=== PATIENT | male | born 1945 | race Caucasian/White ===

== ENCOUNTER 2025-02-09 06:50 | Emergency (ER) | payer MEDICARE, OTHER, SELFPAY ==
[2025-02-09 06:51] VITALS: BP 158/79; PULSE 69; RESP 25; TEMP 36.9; O2SAT 100; BMI 32.3
--- NOTE | 2025-02-09 07:06 | ED.VIS.CHEST ---
HPI History of Present Illness Chief Complaint: Chest Pain Informant: patient Onset/Context/Timing Onset: Today Activity at onset: sudden and sleep Timing: Continuous Quality: Positive for Sharp Location: Left Chest Worsened By: Nothing Relieved By: Nothing Associated Symptoms: Negative for Nausea, Vomiting, Diaphoresis, Dyspnea, Cough, Fever, Lightheadedness, Acid Reflux or Palpitations Narrative Narrative: Patient presents with chest pain that began this morning. Patient states he woke up and noticed pain in the left side of his chest. Patient describes it as sharp. Patient states it is constant. Patient states nothing makes it better and nothing makes it worse. Patient denies any radiation of the pain. Patient states he took an antiacid which did not help. Patient denies any nausea or vomiting. Patient denies any shortness of breath or cough. Patient denies any palpitations. CVD Risk Factors: Negative for Hypertension, Diabetes, Hypercholesterolemia, Family History 1' </=55 or Smoking PE Risk Factors: Positive for Prior DVT or PE; Negative for Recent Travel/Surgery, Recent Immobilization or Cancer PFSH PFS Home Medications ?Medication ?Instructions ?Recorded ?Last Taken ?Type calcium carbonate (Antacid Ultra 800 mg PO Q4H PRN dyspepsia 02/09/25 02/09/25 History Strength) fluticasone propionate 50 1 spray intranasal DAILY 02/09/25 02/08/25 History mcg/actuation nasal spray,suspension losartan 25 mg tablet 25 mg PO DAILY 02/09/25 02/08/25 History simvastatin 20 mg tablet 20 mg PO QHS 02/09/25 02/08/25 History warfarin 5 mg tablet 5 mg PO DAILY 02/09/25 02/08/25 History Allergy/AdvReac Type Severity Reaction Status Date / Time Sulfa (Sulfonamide Allergy Severe Anaphylaxis Verified 02/09/25 06:51 Antibiotics) Family History no significant family his Surgical History (Updated 02/09/25 @ 07:[address] Patricio Gutierrez DO) History of facial surgery Social History Smoking Status: Never smoker ROS ROS ED Constitutional Constitutional ED: Denies chills or fever(s) Eyes Eyes: Denies blurry vision or change in vision ENT ENT ED: Denies rhinorrhea or sore throat Cardiovascular Cardiovascular: Reports as per HPI and chest pain; Denies palpitations Respiratory/Chest Respiratory/Chest: Denies cough or dyspnea Gastrointestinal Gastrointestinal: Denies nausea or vomiting Genitourinary Genitourinary ED: Denies dysuria or hematuria Musculoskeletal Musculoskeletal: Denies back pain or neck pain Integumentary Denies abscess or rash Neurologic Neurologic: Denies headache(s) or weakness Allergic/Immunologic Allergic/Immunologic ED: Denies mouth swelling or urticaria EXAM Physical Exam Const Vital Signs: 02/09/25 06:51 02/09/25 06:51 02/09/25 07:19 Temperature 98.5 F Temperature Source Oral Pulse Rate 69 Respiratory Rate 25 H Respiratory Effort Normal Non-Labored Blood Pressure 158/79 H Blood Pressure Mean 105 Pulse Ox 100 Oxygen Delivery Method Room Air Room Air 02/09/25 07:44 02/09/25 07:51 02/09/25 09:00 Temperature Temperature Source Pulse Rate 68 58 L 61 Respiratory Rate 21 H 17 Respiratory Effort Blood Pressure 152/82 H 129/75 H 128/70 H Blood Pressure Mean 93 89 Pulse Ox 98 98 Oxygen Delivery Method Room Air Positive well nourished and well developed General Appearance ED: well developed and NAD HEENT Reports moist mucous membranes Neck supple and no JVD Chest Wall palpation of chest normal Resp normal respiratory effort and clear to auscultation bilaterally Cardio regular rate and regular rhythm GI soft to palpation, non-tender and non-distended Extremity normal to inspection General Extremety ED: Negative for edema or tenderness General Extremity: Negative for edema Neuro oriented x3, CN's II-XII intact bilaterally and no sensory deficits noted Sensorium / Orientation: awake and alert Motor Exam: strength 5/5 throughout Psych mental status grossly normal Heart Score History: Slightly/Non-Suspicious ECG: Normal Age: >/= 65 years Risk Factors: 1 or 2 Risk Factors Troponin: </= Normal Limit Score: 3 MDM MDM MDM Narrative Medical decision making narrative: Differential diagnosis includes cardiac dysrhythmia, cardiac ischemia, pneumonia, bronchitis, gastroesophageal reflux disease, pulmonary embolism, coagulopathy, and anxiety. EKG will be obtained to assess for cardiac dysrhythmia and cardiac ischemia. Chest x-ray will be obtained to assess for pneumonia or bronchitis. CBC will be obtained to assess for leukocytosis and anemia. Basic metabolic profile will be obtained to assess for electrolyte abnormality and renal function. High-sensitivity troponin will be obtained to assess for cardiac ischemia. 2-hour repeat high-sensitivity troponin will be obtained to assess for ongoing cardiac ischemia. D-dimer will be obtained to assess for pulmonary embolism. PT with INR and PTT will be obtained to assess for coagulopathy. History & Record Review Additional record(s) reviewed:: No prior records Lab Data Attestation: I reviewed the patient's lab results. Lab results narrative: CBC was reviewed and was within normal limits. Basic metabolic profile was reviewed and was within normal limits. Initial high-sensitivity troponin was reviewed and was normal at 10. D-dimer was reviewed and was normal at 0.27. 2-hour repeat high-sensitivity troponin was reviewed and was normal at 9. Labs: Laboratory Results - last 24 hr 02/09/25 02/09/25 07:06 09:19 WBC 6.7 RBC 4.49 L Hgb 14.3 Hct 43.5 MCV 96.9 H MCH 31.8 MCHC 32.9 RDW Std Deviation 47.2 H RDW Coeff of Srinivas 13.2 Plt Count 168 MPV 9.5 Immature Gran % (Auto) 0.300 Neut % (Auto) 68.1 Lymph % (Auto) 19.9 [place] % (Auto) 8.4 Eos % (Auto) 2.7 Baso % (Auto) 0.6 Absolute Neuts (auto) 4.6 Absolute Lymphs (auto) 1.33 Nucleated RBC % 0 D-Dimer Quant (PE/DVT) 0.27 Sodium 142 Potassium 4.7 Chloride 109 H Carbon Dioxide 24.2 Anion Gap 9 BUN 18 Creatinine 0.98 Estim Creat Clear Calc 73.38 Est GFR (MDRD) Non-Af 80 BUN/Creatinine Ratio 18.7 Glucose 98 Calcium 8.7 Troponin T High Sens 10 Troponin T Hi Sens 2 Hr 9 Radiography Chest X-Ray - ED: 1 View, Read by ED Physician, Read by Radiologist and No Acute Disease Diagnostic Testing: Clinical Impression(s) from Imaging Studies Chest X-Ray 02/09/25 07:25 IMPRESSION: Mild bilateral basilar atelectatic pulmonary changes. Reading Location: [place] [id number] Portable 1 view chest x-ray was obtained. On my independent interpretation, lung pizano showed mild bibasilar atelectasis. There is cardiomegaly. Bony thorax is normal. There is no acute process noted. Radiologist also interpreted the x-ray and agrees. EKG Initial EKG: Attestation: I personally reviewed and interpreted this EKG as follows: Interpretation: Sinus Rhythm (64) and No Acute Injury Pattern Comments: EKG was obtained. On my independent interpretation, it showed a normal sinus rhythm with occasional PACs and fusion beats with a rate of 64. [place] interval, QRS interval, and QTc intervals were all normal. [place] was normal. There are no acute ST or T wave changes. Prior EKG tracings: not available for review Prior: No Prior Treatment and Re-Evaluation :: Patient was given aspirin and sublingual nitroglycerin. Patient was feeling better on reevaluation. Patient was advised of this findings. Patient has a HEART score of 3. Patient was advised that this is low risk for acute cardiac event. Patient was instructed to follow-up with his primary care physician in 5 to 7 days. Patient was advised he may need outpatient stress testing if there are any further concerns. Patient and spouse understood and were agreeable with this plan. All questions were answered. Discharge Plan Triage Chief Complaint: Chest Pain ED Provider: Patricio Gutierrez Dx/Rx/DC Orders Clinical Impression: Chest pain, Elevated blood pressure reading Instructions: ED Chest Pain, Uncertain Cause Prescriptions: No Action simvastatin 20 mg tablet 20 mg PO QHS warfarin 5 mg tablet 5 mg PO DAILY losartan 25 mg tablet 25 mg PO DAILY fluticasone propionate 50 mcg/actuation spray,suspension 1 spray INTRANASAL DAILY calcium carbonate [Antacid Ultra Strength] 400 mg calcium (1,000 mg) tablet,chewable 800 mg PO Q4H PRN (Reason: dyspepsia) Primary Care Provider: Benny Gregory MD Referrals: Benny Gregory MD [Other] - 5-7 Days Print Language: Maltese Disposition Disposition: Home, Self Care
--- NOTE | 2025-02-09 07:19 | EKG12_ITS ---
Test Reason : Blood Pressure : */* mmHG Vent. Rate : 64 BPM Atrial Rate : 64 BPM P-R Int : 196 ms QRS Dur : 72 ms QT Int : 378 ms P-R-T Axes : 35 23 52 degrees QTcB Int : 389 ms Sinus rhythm with sinus arrhythmia with Fusion complexes Otherwise normal ECG Confirmed by Benny Wallace ([id number]), subeditor NANCY CHENG ([id number]) on 02/14/2025 11:30:35 AM Referred By: SHERRILL Confirmed By: Benny Wallace
--- NOTE | 2025-02-09 07:25 | RAD_ITS ---
PROCEDURE: CHEST 1 VIEW (PORTABLE) 02/09/2025 REASON FOR EXAM: CHEST PAIN TECHNIQUE: Frontal view of the chest. COMPARISON: None. FINDINGS: Mild bilateral basilar atelectatic pulmonary changes. There is no demonstrated pleural abnormality. Enlarged cardiac silhouette. Normal mediastinum and jaime. Normal visualized pulmonary arteries. Atheromatous plaques of the visualized aortic arch and descending thoracic aorta. Diffuse spondylosis of the visualized thoracic spine. Normal visualized ribs, clavicles. Degenerative joint disease. There is no demonstrated abnormality of the visualized soft tissue structures of the upper abdomen. RAD/Chest 1 View (Portable) IMPRESSION: Mild bilateral basilar atelectatic pulmonary changes. [facility]
[2025-02-09 07:30] LABS: Absolute Lymphocyte Count 1.33 X10^3/uL (0.83-4.51); Absolute Neutrophil Count 4.6 X10^3/uL (2.0-7.7); Basophil# 0.04 X10^3/uL; Basophil% 0.6 % (0-1); Eosinophil# 0.18 X10^3/uL; Eosinophils% 2.7 % (0-5); Hematocrit 43.5 % (40-54); Hemoglobin 14.3 g/dL (13.0-16.5); Lymphocyte # 1.33 X10^3/ul (0.83-4.51); Lymphocyte % 19.9 % (19-41); Mean Corp Hgb Conc 32.9 g/dL (32-36); Mean Corpuscular Hgb 31.8 pg (27.0-32.0); Mean Corpuscular Volume 96.9 fL (80-94); Mean Platelet Vol. 9.5 fl (6.2-12.0); Monocyte# 0.56 X10^3/uL; Monocyte% 8.4 % (0-10); NRBC Flagged by Analyzer 0 % (0-5); Neutrophil # 4.56 X10^3/uL (2.7-7.7); Neutrophil % 68.1 % (47-70); Platelet Count 168 K/mm3 (150-450); RBC Distribution Width CV 13.2 % (11.6-14.6); RBC Distribution Width SD 47.2 fl (35.1-43.9); Red Blood Count 4.49 M/mm3 (4.6-6.2); White Blood Count 6.7 K/mm3 (4.4-11.0)
[2025-02-09] MEDS: Aspirin 81 MG TAB.CHEW 324 MG PO (07:42)
[2025-02-09 07:44] VITALS: BP 152/82; PULSE 68
[2025-02-09] MEDS: Nitroglycerin SL (ED/IMG/CATH) 0.4 MG TABLET SL (07:44)
[2025-02-09 07:51] VITALS: BP 129/75; PULSE 58; RESP 21; O2SAT 98
[2025-02-09 07:55] LABS: Troponin T High Sensitivity 10 ng/L (<=22)
[2025-02-09 07:58] LABS: Anion Gap 9 (5-15); BUN 18 mg/dL (4-19); BUN/Creat Ratio 18.7 RATIO (10-20); Calcium,Total 8.7 mg/dL (7.6-11.0); Carbon Dioxide 24.2 mmol/L (21.0-32.0); Chloride 109 mmol/L (98-108); Creatinine, Serum 0.98 mg/dL (0.70-1.20); EST Glomerular Filtration Rate 80 (>60); Estimated Creatinine Clearance 73.38 ml/min (50-250); Glucose 98 mg/dL (70-99); Potassium 4.7 mmol/L (3.3-5.1); Sodium Level 142 mmol/L (133-145)
[2025-02-09 08:19] LABS: D-Dimer Quantitative (DVT/PE) 0.27 FEU/ug/m (0.27-0.49)
[2025-02-09 09:00] VITALS: BP 128/70; PULSE 61; RESP 17; O2SAT 98
[2025-02-09 09:51] LABS: Troponin T High Sens 2 HR 9 ng/L (<=22)
[2025-02-09 10:00] VITALS: BP 131/70; PULSE 67; RESP 19; O2SAT 99
[2025-02-09 10:13] VITALS: BP 131/70; PULSE 67; RESP 19; TEMP 36.6; O2SAT 99
== END 2025-02-09 10:16 | disposition home or self-care (01) ==
PROVIDERS: Emergency Provider Emergency Medicine; Visit Provider Emergency Medicine
DX: R07.9 Chest pain, unspecified (principal); R03.0 Elevated blood-pressure reading, without diagnosis of hypertension; Z79.899 Other long term (current) drug therapy; Z79.01 Long term (current) use of anticoagulants
CPT/HCPCS: 71045; 80048; 84484; 85025; 85379; 93005; 99283; A4216

== ENCOUNTER 2025-08-05 10:27 | Emergency (ER) | payer MEDICARE, OTHER, SELFPAY ==
[2025-08-05 10:28] VITALS: BP 151/81; PULSE 72; RESP 16; TEMP 36.2; O2SAT 100; BMI 30.7
--- NOTE | 2025-08-05 11:07 | CT_ITS ---
PROCEDURE: BRAIN/HEAD WITHOUT CONTRAST 08/05/2025 REASON FOR EXAM: FALL, HIT HEAD ON WARFARIN TECHNIQUE: Procedure Code: CTBR Modality: CT Procedure: BRAIN/HEAD WITHOUT CONTRAST Coronal and Sagittal reconstruction series were provided. One or more dose reduction techniques were used (e.g., Automated exposure control, adjustment of the mA and/or kV according to patient size, use of iterative reconstruction technique. RADIATION DOSE SUMMARY: CTDlvol: 22.24 mGy DLP: 1365.2 mGycm COMPARISON: None. FINDINGS: Brain: No acute territorial infarction. No acute intracranial hemorrhage. No mass-effect or midline shift. Diffuse white matter hypodensities which are nonspecific but likely due to chronic small-vessel ischemia. Parenchymal volume loss consistent with brain atrophy. No ventriculomegaly. The orbits are unremarkable. The craniocervical junction is unremarkable. CSF Spaces: Advanced generalized cerebral atrophy Sinuses/Mastoids: Clear Bones: No acute bony abnormalities. CT/Brain/Head without Contrast IMPRESSION: No acute intracranial abnormalities. Reading Location: [facility]
--- NOTE | 2025-08-05 11:07 | CT_ITS ---
PROCEDURE: SPINE CERVICAL WITHOUT CONTRAS 08/05/2025 REASON FOR EXAM: FALL, HIT HEAD TECHNIQUE: Procedure Code: CTS Modality: CT Procedure: SPINE CERVICAL WITHOUT CONTRAS Coronal and Sagittal reconstruction series were provided. One or more dose reduction techniques were used (e.g., Automated exposure control, adjustment of the mA and/or kV according to patient size, use of iterative reconstruction technique. RADIATION DOSE SUMMARY: CTDlvol: 22.24 mGy DLP: 1365. mGycm COMPARISON: None. FINDINGS: Alignment: Normal alignment. Vertebrae: No acute bony abnormalities. Soft Tissues: No soft tissue abnormalities. Disc levels: Multilevel degenerate changes predominantly at C2-C3 where there is facet joint arthropathy with severe bilateral foramina stenosis. No canal stenosis. CT/Spine Cervical without Contras IMPRESSION: No acute injury to the cervical spine. Reading Location: [facility]
--- NOTE | 2025-08-05 11:09 | ED.VIS.FALL ---
HPI HPI - Fall History of Present Illness Chief Complaint: Fall Narrative Narrative: Patient is a 80-year-old male presenting to the emergency room after a fall at home. Patient has a past medical history of hypertension, hyperlipidemia and DVT. Patient is on warfarin. He states he was walking on the treadmill when it sped up he was not able to keep up causing him to fall forward hitting his face, left knee and bilateral hands. He denies any loss of consciousness. States afterwards when he was trying to get his cuts cleaned up he developed some lightheadedness but has no lightheadedness or dizziness now. He states he is ambulated afterwards. Last tetanus vaccine was within the past 5 years he states. He denies any chest pain, shortness of breath or abdominal pain. [facility] Medical History Hyperlipemia HTN (hypertension) Abdominal hematoma H/O deep venous thrombosis Home Medications ?Medication ?Instructions ?Recorded ?Last Taken ?Type calcium carbonate (Antacid Ultra 800 mg PO Q4H PRN dyspepsia 02/09/25 02/09/25 History Strength) fluticasone propionate 50 1 spray intranasal DAILY 02/09/25 02/08/25 History mcg/actuation nasal spray,suspension losartan 25 mg tablet 25 mg PO DAILY 02/09/25 02/08/25 History simvastatin 20 mg tablet 20 mg PO QHS 02/09/25 02/08/25 History warfarin 5 mg tablet 5 mg PO DAILY 02/09/25 02/08/25 History Allergy/AdvReac Type Severity Reaction Status Date / Time Sulfa (Sulfonamide Allergy Severe Anaphylaxis Verified 08/05/25 10:30 Antibiotics) Surgical History History of facial surgery Social History housing: house Smoking Status: Never smoker ROS ROS ED ROS Narrative see HPI EXAM Physical Exam Narrative Exam Narrative: Vital signs: Reviewed General: Alert and orientedx3. No acute distress. Well appearing, nontoxic. HEENT: Scalp is normocephalic and atraumatic. No cephalhematoma, lacerations or abrasions to the scalp. There is a small superficial abrasion to the right sided bridge of the nose with no active bleeding. No tenderness to palpation of the nasal bridge or midface. Sinuses nontender, pupils equal round and reactive. 2 mm. Extraocular movements intact. Nares are patent. No septal hematoma. Oropharynx and throat exams normal. No oropharyngeal trauma. Neck: Supple without lymphadenopathy nontender. No midline cervical spinal tenderness to palpation. No step-offs or deformities. Cardiovascular: Regular rate and rhythm, no murmurs. No rubs or gallops. Normal S1 and S2 Respiratory: Clear to auscultation bilaterally. No wheezes, rales, rhonchi Chest: Chest wall is atraumatic and nontender to palpation. There is no crepitus, erythema or ecchymosis. Abdominal: Soft and nontender. Normal bowel sounds. No guarding or rebound. Nonsurgical abdomen Back: No midline thoracic or lumbar spinal tenderness to palpation. No step-offs or deformities. Extremities: There are 2 superficial abrasions to the left anterior knee. There is no tenderness to palpation of the knee outside of the abrasions. Hips are stable and nontender to palpation. Otherwise bilateral lower extremities are atraumatic and nontender to palpation with normal active range of motion. There is a large superficial abrasion to the ulnar portion of the volar left palm. There is also a superficial avulsion injury to the ulnar portion of the distal fifth left finger. There is some mild swelling and point tenderness to the right 5th metacarpal. Otherwise bilateral upper extremities are atraumatic and nontender to palpation with normal active range of motion normal ROM. Normal sensation. Radial pulses intact bilaterally. Skin: No rash or redness. Neurological: Cranial nerves II through XII are grossly intact. Normal strength and sensation. Normal cerebellar function The rest of the physical exam is unremarkable Const Vital Signs: 08/05/25 10:28 08/05/25 10:39 08/05/25 12:27 Temperature 97.2 F L 98 F Temperature Source Oral Pulse Rate 72 63 Respiratory Rate 16 18 Respiratory Effort Normal Non-Labored Respiratory Depth Normal Respiratory Pattern Normal Blood Pressure 151/81 H 143/74 H Blood Pressure Mean 104 97 Pulse Ox 100 97 Oxygen Delivery Method Room Air Room Air MDM MDM MDM Narrative Medical decision making narrative: Patient is a 80-year-old male presenting to the emergency department after a fall. Patient was seen and examined. Vitals are stable. Patient resting in bed comfortably no acute distress. Patient had a mechanical fall and given his age and the fact that he is on warfarin will obtain CT the brain and cervical spine. There is small abrasion to the nasal bridge but no tenderness I do not think he has a nasal fracture and I explained that does not gear changer if he does and patient and significant other are agreeable with the plan. X-rays of bilateral hands and left knee will be obtained. Wounds will be copiously irrigated and dressed appropriately. The skin avulsion on the left pinky finger was dermabonded given continued active oozing. There is no lacerations that require suture repair. Patient had no chest wall pain or hip pain and I do not think he needs x-ray imaging of the either. He was able to ambulate into the ED without difficulty, making hip fractures less likely. Xrays reviewed by myself and show no evidence of fracture or dislocation. CT brain reviewed by myself, no acute intracranial abnormality noted. Radiology read with negative CT brain and cervical spine. Radiology read with x-rays being negative. Patient was updated on the negative imaging. Educated on wound care for home. Recommended repeat xrays in 1 week with PCP if continued pain. Patient discharged from the Emergency Department. I do not feel that the patient's evaluation reveals any acute reason for admission at this time. I instructed them to either follow-up with their primary care physician or promptly return to the Emergency Department for reevaluation should symptoms worsen or new symptoms develop. I explained what symptoms would indicate the need to return to the emergency department. Shared decision making was used. The patient voiced understanding of the treatment plan and is agreeable with it. Clinical impression Mechanical fall Abrasion of skin Left knee contusion Bilateral hand contusions History & Record Review Discussion w/independent historian: Patient and Significant other Radiography X-Ray: Read by ED Physician and No Fracture Diagnostic Testing: Clinical Impression(s) from Imaging Studies Brain CT 08/05/25 11:07 IMPRESSION: No acute intracranial abnormalities. Reading Location: [facility] Cervical Spine CT 08/05/25 11:07 IMPRESSION: No acute injury to the cervical spine. Reading Location: [facility] Hand X-Ray 08/05/25 11:25 IMPRESSION: Degenerative changes of bilateral hands and wrists without acute fracture or subluxation. Reading Location: [id number] Hand X-Ray 08/05/25 11:25 IMPRESSION: Degenerative changes of bilateral hands and wrists without acute fracture or subluxation. 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 Small left knee effusion. Reading Location: [id number] Discharge Plan Triage Chief Complaint: Fall ED Provider: Caroline Mcdermott Dx/Rx/DC Orders Clinical Impression: Fall, Abrasion of skin, Contusion of knee, Contusion of hand Instructions: ED Abrasion, ED Hand Contusion, ED Fall Prevention, ED RICE Prescriptions: No Action simvastatin 20 mg tablet 20 mg PO QHS warfarin 5 mg tablet 5 mg PO DAILY losartan 25 mg tablet 25 mg PO DAILY fluticasone propionate 50 mcg/actuation spray,suspension 1 spray INTRANASAL DAILY calcium carbonate [Antacid Ultra Strength] 400 mg calcium (1,000 mg) tablet,chewable 800 mg PO Q4H PRN (Reason: dyspepsia) Primary Care Provider: Benny Gregory MD Referrals: Benny Gregory MD [Other] - As soon as possible Activity Restrictions/Additional Instructions: Your evaluation in the Emergency Department did not reveal any acute reason for admission. However, I want to emphasize that you may be early in the course of a disease process or illness even if it is not present. For this reason you should follow-up within 24 hours for reevaluation with either your primary care physician or if necessary back here in the Emergency Department. You should return to the Emergency Department immediately if your symptoms worsen or new symptoms develop. Print Language: Belizean Disposition Disposition: Home, Self Care Discharge Date/Time: 08/05/25 12:34
--- NOTE | 2025-08-05 11:25 | RAD_ITS ---
PROCEDURE: HAND MIN 3 VIEWS 08/05/2025 REASON FOR EXAM: PAIN, FALL; FALL, PAIN TECHNIQUE: Procedure Code: [facility] Modality: DX Procedure: HAND MIN 3 VIEWS Laterality: Bilateral COMPARISON: None. FINDINGS: Radiographs of bilateral hands acquired a separate examination submitted for concurrent review demonstrate bilateral triscaphe degenerative changes without acute fracture or subluxation. Degenerative changes of the distal 2nd through 5th interphalangeal joints with areas of subchondral cysts and marginal osteophytes. Joint spaces are otherwise preserved. The soft tissues are unremarkable. RAD/Hand Min 3 Views IMPRESSION: Degenerative changes of bilateral hands and wrists without acute fracture or bernstein bluxation. Reading Location: [facility]
--- NOTE | 2025-08-05 11:25 | RAD_ITS ---
PROCEDURE: HAND MIN 3 VIEWS 08/05/2025 REASON FOR EXAM: PAIN, FALL; FALL, PAIN TECHNIQUE: Procedure Code: [facility] Modality: DX Procedure: HAND MIN 3 VIEWS Laterality: Bilateral COMPARISON: None. FINDINGS: Radiographs of bilateral hands acquired a separate examination submitted for concurrent review demonstrate bilateral triscaphe degenerative changes without acute fracture or subluxation. Degenerative changes of the distal 2nd through 5th interphalangeal joints with areas of subchondral cysts and marginal osteophytes. Joint spaces are otherwise preserved. The soft tissues are unremarkable. RAD/Hand Min 3 Views IMPRESSION: Degenerative changes of bilateral hands and wrists without acute fracture or bernstein bluxation. Reading Location: [facility]
--- NOTE | 2025-08-05 11:25 | RAD_ITS ---
PROCEDURE: KNEE 1 OR 2 VIEWS 08/05/2025 REASON FOR EXAM: PAIN, FALL TECHNIQUE: Procedure Code: RADK Modality: DX Procedure: KNEE 1 OR 2 VIEWS Laterality: Left COMPARISON: None. FINDINGS: None weightbearing radiographs of the left knee demonstrate marginal patellar, femoral, and tibial osteophytes without acute fracture or subluxation. Large superior patellar enthesophyte. Small knee effusion. The soft tissues otherwise unremarkable. 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 Small left knee effusion. Reading Location: [id number]
--- NOTE | 2025-08-05 11:45 | CM.ED ---
Social Work Date of referral: 08/05/25 Reason for referral: No Advanced Care Directives (ACD's) on file. Referred by: Social Work Identification Patient provided consent to social work visit. Patient's also in the room. Overhead Cleaner requested a copy of ACD's which patient stated he would bring in. Patient stated he and his just moved from [place] and will have to look for the folder. Overhead Cleaner educated patient that if he's not able to locate them that he can call and make an appointment with [facility] which patient verbalized he understood and denied any other questions/concerns. Alina Herr, OPTICAL INSTRUMENTS SUPERVISOR, CLINICAL SUPPORT TECH
--- OUTSIDE RECORDS SUMMARY | 2025-08-05 11:45 | XMS RPT_ITS | CCD ---
Author Organization [facility] Care Team Providers Care Associate Director Of Sales Name Role Phone Russ Rosen Unavailable Unavailable Rish, Nacho Unavailable Unavailable Rish, Nacho Unavailable Unavailable Rish, Nacho Unavailable Unavailable Rish, Nacho Unavailable Unavailable Rish, Nacho Unavailable Unavailable [facility] Unavailab le Unavailable Rish, Russ Mike Unavailable Unavailable [facility] [place] [facility] Unavailab le Unavailable Rish, Russ Unavailable Unavailable Rish, Russ Kenney Unavailable Unavailable Rish, Russ Mike Unavailable Unavailable [facility], [place] [facility] Unavailab le Unavailable Rish Russ THORNTON Unavailable Unavailable Rish, Russ Mike Unavailable Unavailable Rish, Nacho Unavailable Unavailable Unavailable Rissixto, Russ Unavailable Dontae Benitez Unavailable Zi Winston Unavailable Bri, Dr. Russ Kenney Primary Care Unavail sonido Winston, Dr. Zi Kelsey Attending Unavailnina Winston, Dr. Zi Kelsey Referring Unavailabl e Bri, Dr. Russ Kenney Primary Care Unavail able Victoria, Dr. Zi Kelsey Attending Unavailnina Winston, Dr. Zi Kelsey Referring Unavailabl e Bri, Dr. Russ Kenney Primary Care Unavail able Victoria, Dr. Zi Kelsey Referring Unavailnina Winston, Dr. Zi Kelsey Attending Unavailnina Winston, Dr. Zi Kelsey Attending Unavailabl e Bri, Dr. Russ Kenney Primary Care Unavail able Victoria, Dr. Zi Kelsey Referring Unavailnina Winston, Dr. Zi Kelsey Attending Unavailnina Rosen, Dr. Russ Kenney Primary Care Unavail able Victoria, Dr. Zi Kelsey Referring Unavailnina Winston, Dr. Zi Kelsey Attending Unavailabl e Bri, Dr. Russ Kenney Primary Care Unavail able Victoria, Dr. Zi Kelsey Referring Unavailabl e Winston, Dr. Zi Kelsey Attending Unavailabl e Rish, Dr. Russ Kenney [facility] Unavail able Victoria, Dr. Zi Kelsey Referring Unavailabl e Rish, Dr. Russ Kenney [facility] Unavail able Victoria, Dr. Zi Kelsey Attending Unavailabl e Winston, Dr. Zi Kelsey Referring Unavailabl e Rish, Dr. Russ Kenney [facility] Unavail able Victoria, Dr. Zi Kelsey Attending Unavailabl e [place], Dr. Zi Kelsey Referring Unavailabl e Winston, Dr. Zi Kelsey Referring Unavailabl e Rish, Dr. uRss Kenney [facility] Unavail able Victoria, Dr. Zi Kelsey Attending Unavailabl e Rish, Dr. Russ Kenney [facility] Unavail able Victoria, Dr. Zi Kelsey Attending Unavailabl e Winston, Dr. Zi Kelsey Referring Unavailabl e Aleja, Dr. Madeline Zhu Attending Unavailable Rish, Dr. Russ Kenney [facility] Unavail able Winston, Dr. Zi Kelsey Attending Unavailabl e Rish, Dr. Russ Kenney [facility] Unavail able Victoria, Dr. Zi Kelsey Referring Unavailabl e Winston, Dr. Zi Kelsey Attending Unavailabl e Rish, Dr. Russ Kenney [facility] Unavail able Victoria, Dr. Zi Kelsey Referring Unavailabl e Winston, Dr. Zi Kelsey Attending Unavailabl e Rish, Dr. Russ Kenney [facility] Unavail able Victoria, Dr. Zi Kelsey Referring Unavailabl e Rish, Dr. Russ Kenney [facility] Unavail able Victoria, Dr. Zi Kelsey Attending Unavailabl e Winston, Dr. Zi Kelsey Referring Unavailabl e Rish, Dr. Russ Kenney [facility] Unavail able Victoria, Dr. Zi Kelsey Attending Unavailabl e Winston, Dr. Zi Kelsey Referring Unavailabl e Rish, Dr. Russ Kenney [facility] Unavail able Victoria, Dr. Zi Kelsey Attending Unavailabl e Winston, Dr. Zi Kelsey Referring Unavailabl e Rish, Dr. Russ Kenney [facility] Unavail able Victoria, Dr. Zi Kelsey Attending Unavailabl e Winston, Dr. Zi Kelsey Referring Unavailabl e KingLashawn Admitting Unavailable KingLashawn Attending Unavailable Rish, Dr. Russ Kenney [facility] Unavail able Rish, Dr. Russ Kenney Attending Unavail able Rish, Dr. Russ Kenney Referring Unavail able Rish, Dr. Russ Kenney [facility] Unavail able Rish, Dr. Russ Kenney Primary Care Unavail able Victoria, Dr. Zi Kelsey Referring Unavailabl e Winston, Dr. Zi Kelsey Attending Unavailabl e Winston, Dr. Zi Kelsey Attending Unavailabl e Rish, Dr. Russ Kenney Primary Care Unavail able Victoria, Dr. Zi Kelsey Referring Unavailabl e Rish, Dr. Russ Kenney [facility] Unavail able Victoria, Dr. Zi Kelsey Attending Unavailabl e Winston, Dr. Zi Kelsey Referring Unavailabl e Rish, Dr. Russ Kenney Primary Care Unavail able Victoria, Dr. Zi Kelsey Attending Unavailabl e Winston, Dr. Zi Kelsey Referring Unavailabl e Winston, Dr. Zi Kelsey Attending Unavailabl e Rish, Dr. Russ Kenney [facility] Unavail able Victoria, Dr. Zi Kelsey Referring Unavailabl e Rish, Dr. Russ Kenney [facility] Unavail able Victoria, Dr. Zi Kelsey Attending Unavailabl e Winston, Dr. Zi Kelsey Referring Unavailabl e Rish, Dr. Russ Kenney [facility] Unavail able Victoria, Dr. Zi Kelsey Attending Unavailabl e Winston, Dr. Zi Kelsey Referring Unavailabl e Rish, Dr. Russ Kenney [facility] Unavail able Victoria, Dr. Zi Kelsey Attending Unavailabl e Winston, Dr. Zi Kelsey Referring Unavailabl e Rish Russ THORNTON Primary Care Provider Russ Rosen MD Unavailable CASEY SHAH Attending Unavailable NUPUR COLLIER Referring Unavailable RUSS ROSEN Primary Care Unavailable RUSS ROSEN Primary Care Unavailable Russ Rosen MD Primary Care Provider [phone] Russ Rosen MD Unavailable GIANNA MCDOWELL Attending Unavailable Dr. Patricio Gutierrez DO Emergency Provider [phone] Russ Rosen MD Primary Care Provider [phone] MEGHAN BROWN Primary Care Unavailable Patricio Gutierrez Attending Unavailable RUSS ROSEN Attending Unavailable RUSS ROSEN Primary Care Unavailable EDDY QUINTANILLA Attending RUSS Gr Referring Unavailable RUSS ROSEN Primary Care Unavailable RUSS ROSEN Attending Unavailable RSUS ROSEN Primary Care Unavailable RUSS ROSEN Referring Unavailable RUSS ROSEN Attending Unavailable RUSS ROSEN Primary Care Unavailable KING, LASHAWN M Referring Unavailable RISH, NACHO Primary Care Unavailable RISH, NACHO Primary Care Unavailable KING, LASHAWN M Referring Unavailable RISH, NACHO Primary Care Unavailable KING, LASHAWN M Referring Unavailable RISH, NACHO Primary Care Unavailable KING, LASHAWN M Referring Unavailable RISH, NACHO Primary Care Unavailable KING, LASHAWN M Referring Unavailable RISH, NACHO Primary Care Unavailable KING, LASHAWN M Referring Unavailable RISH, NACHO Primary Care Unavailable KING, LASHAWN M Referring Unavailable RISH, NACHO Primary Care Unavailable KING, LASHAWN M Referring Unavailable RISH, NACHO Primary Care Unavailable KING, LASHAWN M Referring Unavailable RISH, NACHO Primary Care Unavailable RISH, NACHO Primary Care Unavailable RISH, NACHO Primary Care Unavailable KING, LASHAWN M Attending Unavailable KING, LASHAWN M Referring Unavailable RISH, NACHO Primary Care Unavailable KING, LASHAWN M Referring Unavailable RISH, NACHO Primary Care Unavailable KING, LASHAWN M Referring Unavailable RISH, NACHO Primary Care Unavailable KING, LASHAWN M Referring Unavailable RISH, NACHO Primary Care Unavailable KING, LASHAWN M Referring Unavailable RISH, NACHO Primary Care Unavailable KING, LASHAWN M Referring Unavailable RISH, NACHO Primary Care Unavailable RISH, NACHO Referring Unavailable RISH, NACHO Primary Care Unavailable KING, LASHAWN M Referring Unavailable RISH, NACHO Primary Care Unavailable KING, LASHAWN M Referring Unavailable RISH, NACHO Primary Care Unavailable KING, LASHAWN M Referring Unavailable RISH, NACHO Primary Care Unavailable RISH, NACHO Referring Unavailable RISH, NACHO Primary Care Unavailable KING, LASHAWN M Referring Unavailable RISH, NACHO Primary Care Unavailable KING, LASHAWN M Referring Unavailable RISH, NACHO Primary Care Unavailable MARK LUGO Referring Unavailable RISH, NACHO Primary Care Unavailable Allergies Allergy Classification Reported Allergen(s) Allergy Type Date of Onset Reaction(s) Facility Sulfonamides (antibiotic) (14 sources) Sulfonamides (Antibiotic); Translations: [sulfa] Drug Allergy Anaphylaxis [facility] Agu[facility] Work Phone: (20 sources) Sulfonamides (Antibiotic); Translations: [sulfa] Allergy to drug (finding) Anticoagulation Monitoring Service[facility] Jeff Work Phone: (15 sources) Sulfamethoxazol e; Translations: [SULFAMETHOXAZO LE] Drug Allergy 09-29-19 23 Unknown, Anaphylaxis [facility] Work Phone: (15 sources) Sulfonamides (Antibiotic); Translations: [SULFA (SULFONAMIDE ANTIBIOTICS)] Drug Allergy 12-11-19 Anaphylaxis [facility] (1 source) Sulfonamides (Antibiotic) Allergy to substance 02-10-20 Anaphylaxis [facility] (1 source) Sulfonamides (Antibiotic) Drug allergy (disorder) 02-10-20 [facility] Repository Medications Current Medications Medication Drug Class(es) Dates Sig (Normalized) Sig (Original) aspirin 81 mg oral tablet (1 source) Platelet Aggregation Inhibitor, Nonsteroidal Anti-inflammatory Drug take 1 tablet by mouth once daily aspirin 81 mg oral tablet ; 1 tab(s) orally once a day Quantity: 0 Refills: 0 Ordered: 22-Sep-2018 Minnie Holly Status: Discontinued Generic Substitution Allowed calcium carbonate 1000 mg chewable tablet (1 source) Start: 02-09-2025 take 1 tablet by mouth every four hours as needed Calcium Carbonate (Antacid Ultra Strength) 400 mg calcium (1,000 mg) tablet,chewable Active 800 mg PO Q4H as needed for dyspepsia February 09, 2025 12:00am calcium chloride 0.0014 meq/ml / potassium chloride 0.004 meq/ml / sodium chloride 0.103 meq/ml / sodium lactate 0.028 meq/ml injectable solution (2 sources) Start: 04-13-2024 take 20 mL intravenously every hour 20 mL/hr, intravenous, Continuous, Starting on Thu04/13/24 at 0830, Preprocedure CBC x1 (1 source) Start: 10-02-2018 CBC x1 ; please direct results to Dr. Rosen Quantity: 1 Refills: 0 Ordered: 02-Oct-2018 Fritz Valdez Start: 02-Oct-2018 Status: Discontinued Generic Substitution Allowed diphenhydrAMINE hydrochloride 50 mg oral capsule (1 source) Histamine-1 Receptor Antagonist Start: 04-08-2016 take 1 capsule by mouth three times daily Benadryl 50 mg oral capsule ; 1 cap(s) orally 3 times a day Quantity: 9 Refills: 0 Ordered: 08-Apr-2016 Vito Robles Start: 08-Apr-2016 Status: Other Generic Substitution Allowed Comments: May cause drowsiness. Alcohol may intensify this effect. Use care when operating dangerous machinery.Obtain medical advice before taking any non-prescription drugs as some may affect the action of this medication. Comment on above: May cause drowsiness . Alcohol may intensify this effect. Use care when operating dangerous machinery.Obtain medical advice before taking any non-prescription drugs as some may affect the action of this medication. 1 ml enoxaparin sodium 100 mg/ml prefilled syringe (5 sources) Low Molecular Weight Heparin Start: 04-01-2024 End: 05-06-2024 inject 1 mL by subcutaneous injection once daily enoxaparin (Lovenox) 100 mg/mL syringe Indications: Venous thrombosis Inject 1 mL (100 mg) under the skin once daily. For bridging warfarin prior to colonoscopy. 10 each 04/01/2024 05/06/2024 Discontinued (Therapy completed) Start: 10-21-2023 End: 11-05-2023 inject 1 mL by subcutaneous injection once daily enoxaparin (Lovenox) 100 mg/mL syringe Indications: Anticoagulant long-term use Inject 1 mL (100 mg) under the skin once daily. 10 each 1 10/21/2023 11/05/2023 Discontinued (Therapy completed) Start: 10-19-2018 End: 12-17-2018 Lovenox 100 mg/mL injectable solution ; 90 milligram(s) injectable every 12 hours Quantity: 60 Refills: 1 Ordered: 19-Oct-2018 Zi Winston Start: 19-Oct-2018 End: 17-Dec-2018 Status: Other Generic Substitution Allowed fluticasone propionate 0.05 mg/actuat metered dose nasal spray (6 sources) Corticosteroid Start: 04-27-2025 take 2 spray(s) nasal route once daily fluticasone (Flonase) 50 mcg/actuation nasal spray Indications: Chronic nasal congestion Administer 2 sprays into each nostril once daily. Shake gently. Before first use, prime pump. After use, clean tip and replace cap. 48 g 04/27/2025 Active Start: 11-08-2024 Fluticasone Pr opionate 50 mcg/actuation spray,suspension Active 1 NMA INTRANASAL DAILY February 09, 2025 12:00am folic acid 1 mg oral tablet (1 source) Start: 11-17-2024 End: 01-16-2025 take 1 tablet by mouth once daily folic acid (Folvite) 1 mg tablet Indications: Anticoagulant long-term use , History of recurrent deep vein thrombosis (DVT) Take 1 tablet (1 mg) by mouth once daily. 30 tablet 1 11/17/2024 01/16/2025 Active losartan potassium 25 mg oral tablet (8 sources) Angiotensin 2 Receptor Cece Start: 05-06-2024 End: 11-08-2024 take 1 tablet by mouth once daily losartan (Cozaar) 25 mg tablet Indications: Primary hypertension Take 1 tablet (25 mg) by mouth once daily. 90 tablet 1 11/08/2024 Active Multivitamin preparation (1 source) take 1 capsule by mouth once daily Multiple Vitamins oral capsule ; 1 cap(s) orally once a day Quantity: 0 Refills: 0 Ordered: 22-Sep-2018 Minnie Holly Status: Other Generic Substitution Allowed nitroglycerin 0.4 mg sublingual tablet (20 sources) Nitrate Vasodilator Start: 04-07-2022 nitroglycerin (Nitrostat) 0.[address] under the tongue. 0 04/07/2022 Active polyethylene glycol 3350 04941 mg powder for oral solution (2 sources) Osmotic Laxative Start: 10-07-2018 polyethylene glycol 3350 oral powder for reconstitution ; 17 gram(s) orally once a day, As needed, Constipation Quantity: 170 Refills: 0 Ordered: 07-Oct-2018 Nupur Barber Start: 07-Oct-2018 Status: Other Generic Substitution Allowed rivaroxaban 20 mg oral tablet (1 source) Factor Xa Inhibitor take 1 tablet by mouth once daily in the evening Xarelto 20 mg oral tablet ; 1 tab(s) orally once a day (in the evening) Quantity: 0 Refills: 0 Ordered: 22-Sep-2018 Minnie Holly Status: Discontinued Generic Substitution Allowed sildenafil 100 mg oral tablet (20 sources) Phosphodiesterase 5 Inhibitor End: 11-08-2024 sildenafil (Viagra) 100 mg tablet Take by mouth if needed. 11/08/2024 Discontinued (Therapy completed) Viagra 100 MG Or al Tablet Quantity: 0 Refills: 0 Ordered: 15-Feb-2021 DO Active Viagra 100 MG Or al Tablet Quantity: 0 Refills: 0 Ordered: 23-Jun-2019 DO Active simvastatin 20 mg oral tablet (20 sources) HMG-CoA Reductase Inhibitor Start: 04-07-2025 simvastatin (Zocor) 20 mg tablet Indications: Hyperlipidemia, unspecified hyperlipidemia type TAKE 1 TABLET DAILY 90 tablet 1 04/07/2025 Active Start: 10-10-2024 take 1 tablet by ivan th at bedtime Simvastatin 20 mg tablet Active 20 mg PO AT BEDTIME February 09, 2025 12:00am Start: 10-15-2023 simvastatin (Z ocor) 20 mg tablet Indications: Hyperlipidemia, unspecified hyperlipidemia type TAKE 1 TABLET DAILY 90 tablet 3 10/15/2023 Active Start: 12-09-2018 take 1 tablet by ivan th once daily simvastatin (Zocor) 20 mg tablet Indications: Hyperlipidemia, unspecified hyperlipidemia type Take 1 tablet (20 mg) by mouth once daily. 90 tablet 1 12/10/2022 Active traMADol hydrochloride 50 mg oral tablet (2 sources) Opioid Agonist Start: 10-07-2018 take 1 tablet by mouth every six hours as needed traMADol 50 mg oral tablet ; 1 tab(s) orally every 6 hours, As needed, Pain - Mod (4-6) Quantity: 30 Refills: 0 Ordered: 07-Oct-2018 Nupur Barber Start: 07-Oct-2018 Status: Other Generic Substitution Allowed Start: 10-02-2018 End: 10-04-2018 take 1 tablet by mouth every six hours traMADol 50 mg oral tablet ; 1 tab(s) orally every 6 hours x 3 days Quantity: 9 Refills: 0 Ordered: 02-Oct-2018 Fritz Valdez Start: 02-Oct-2018 End: 04-Oct-2018 Status: Discontinued Generic Substitution Allowed Comments: Caution federal law prohibits the transfer of this drug to any person other than the person for whom it was prescribed.May cause drowsiness. Alcohol may intensify this effect. Use care when operating dangerous machinery.Obtain medical advice before taking any non-prescription drugs as some may affect the action of this medication. Comment on above: Caution federal law prohibits the transfer of this drug to any person other than the person for whom it was prescribed.May cause drowsiness. Alcohol may intensify this effect. Use care when operating dangerous machinery.Obtain medical advice before taking any non-prescription drugs as some may affect the action of this medication. warfarin sodium 5 mg oral tablet (20 sources) Vitamin K Antagonist Start: 4 End: 6 take 1 tablet by mouth once daily in the evening warfarin (Coumadin) 5 mg tablet Indications: History of recurrent deep vein thrombosis (DVT) Take 1 tablet (5 mg) by mouth once daily in the evening. 90 tablet 3 11/17/2024 11/12/2025 Active Start: 12-09-2018 Warfarin Sodiu m 5 MG Oral Tablet TAKE DIRECTED. Quantity: 30 Refills: 0 Ordered: 26-Feb-2022 Russ Rosen MD Start : 09-Dec-2018 Active Start: 12-09-2018 Warfarin Sodiu m 5 MG Oral Tablet Quantity: 0 Refills: 0 Ordered: 09-Dec-2018 DO Start : 09-Dec-2018 Active Start: 11-23-2018 End: 12-22-2018 take 1 tablet by mouth once daily Coumadin 7.5 mg oral tablet ; 1 tab(s) orally once a day Quantity: 30 Refills: 0 Ordered: 23-Nov-2018 Zi Winston Start: 23-Nov-2018 End: 22-Dec-2018 Status: Completed Generic Substitution Allowed Start: 09-23-2018 take 1 tablet by ivan th once daily warfarin (Coumadin) 5 mg tablet Take 1 tablet (5 mg) by mouth once daily. 0 12/09/2018 Active Comment on above: Do not take this huma g if you are .It is very important that you take or use this exactly as directed. Do not skip doses or discontinue unless directed by your doctor.Obtain medical advice before taking any non-prescription drugs as some may affect the action of this medication. Completed/Discontinued Medications Medication Drug Class(es) Dates Sig (Normalized) Sig (Original) docusate sodium 100 mg oral capsule (1 source) Start: 10-07-2018 End: 11-05-2018 take 1 capsule by mouth twice daily docusate sodium 100 mg oral capsule ; 1 cap(s) orally 2 times a day Quantity: 60 Refills: 0 Ordered: 07-Oct-2018 Nupur Barber Start: 07-Oct-2018 End: 05-Nov-2018 Status: Other Generic Substitution Allowed doxycycline monohydrate 100 mg oral tablet (1 source) Tetracycline-class Drug Start: 04-08-2016 End: 04-15-2016 take 1 tablet by mouth twice daily doxycycline monohydrate 100 mg oral tablet ; 1 tab(s) orally 2 times a day Quantity: 14 Refills: 0 Ordered: 08-Apr-2016 TravisDomingoVito Start: 08-Apr-2016 End: 15-Apr-2016 Status: Other Generic Substitution Allowed Comments: Avoid prolonged or excessive exposure to direct and/or artificial sunlight while taking this medication.Do not take this drug if you are .Finish all this medication unless otherwise directed by prescriber.Medicati on should be taken with plenty of water. Comment on above: Avoid prolonged or e xcessive exposure to direct and/or artificial sunlight while taking this medication.Do not take this drug if you are .Finish all this medication unless otherwise directed by prescriber.Medication should be taken with plenty of water. hydrocortisone 25 mg/ml topical cream (1 source) Corticosteroid Start: 02-15-2020 Hydrocortisone 2.5 % External Cream APPLY SPARINGLY TO AFFECTED AREA(S) TWICE DAILY Quantity: 1 Refills: 0 Russ Rosen MD Start : 15-Feb-2020 Active 30 GM Tube loratadine 10 mg oral capsule (1 source) Start: 05-08-2017 End: 05-16-2017 take 1 capsule by mouth once daily loratadine 10 mg oral capsule ; 1 orally once a day Quantity: 8 Refills: 0 Ordered: 08-May-2017 Luther Walker Start: 08-May-2017 End: 16-May-2017 Status: Other Generic Substitution Allowed Comments: Obtain medical advice before taking any non-prescription drugs as some may affect the action of this medication. Comment on above: Obtain medical advic e before taking any non-prescription drugs as some may affect the action of this medication. Meperidine (2 sources) Opioid Agonist Start: 04-13-2024 End: 04-13-2024 intravenous, As needed, Starting on Thu04/13/24 at 0838, Intraprocedure 5 ml midazolam 1 mg/ml injection (2 sources) Benzodiazepine Start: 04-13-2024 End: 04-13-2024 intravenous, As needed, Starting on Thu04/13/24 at 0838, Intraprocedure abuse-deterrent 12 hr oxyCODONE hydrochloride 10 mg extended release oral tablet (1 source) Opioid Agonist Start: 10-07-2018 End: 10-09-2018 take 1 tablet by mouth every twelve hours oxyCODONE 10 mg oral tablet, extended release ; 1 tab(s) orally every 12 hours Quantity: 6 Refills: 0 Ordered: 07-Oct-2018 Nupur Barber Start: 07-Oct-2018 End: 09-Oct-2018 Status: Other Generic Substitution Allowed pantoprazole 20 mg delayed release oral tablet (12 sources) Proton Pump Inhibitor Start: 04-07-2022 take 1 tablet by mouth once daily Protonix 20 MG Oral Tablet Delayed Release TAKE 1 TABLET DAILY. Quantity: 0 Refills: 0 Ordered: 07-Apr-2022 DO Start : 07-Apr-2022 Active predniSONE 20 mg oral tablet (1 source) Start: 04-08-2016 End: 04-11-2016 take 1 tablet by mouth twice daily at mealtime predniSONE 20 mg oral tablet ; 1 tab(s) orally 2 times a day Quantity: 6 Refills: 0 Ordered: 08-Apr-2016 Vito Robles Start: 08-Apr-2016 End: 11-Apr-2016 Status: Other Generic Substitution Allowed Comments: It is very important that you take or use this exactly as directed. Do not skip doses or discontinue unless directed by your doctor.Obtain medical advice before taking any non-prescription drugs as some may affect the action of this medication.Take with food or milk. Comment on above: It is very important that you take or use this exactly as directed. Do not skip doses or discontinue unless directed by your doctor.Obtain medical advice before taking any non-prescription drugs as some may affect the action of this medication.Take with food or milk. Problems Active Problems Problem Classification Problem Date Documented Da te Episodic/Chronic Cataract (11 sources) Senile cataract; Translations: [Unspecified age-related cataract] Onset: 04-30-2023 11-05-2023 Chronic Disorders of lipid metabolism (20 sources) Hyperlipidemia; Translations: [Other and unspecified hyperlipidemia] Onset: 10-06-2022 10-06-2022 Chronic Diverticulosis and diverticulitis (20 sources) Diverticulitis; Translations: [Diverticulitis of colon (without mention of hemorrhage)] Onset: 10-06-2022 10-06-2022 Chronic Essential hypertension (12 sources) Essential hypertension; Translations: [Essential (primary) hypertension] Onset: 05-06-2024 05-06-2024 Chronic Immunizations and screening for infectious disease (20 sources) Patient encounter status; Translations: [Other specified vaccination] Onset: 05-16-2025 02-22-2024 Episodic Open wounds of head; neck; and trunk (20 sources) Laceration of skin; Translations: [Open wound(s) (multiple) of unspecified site(s), without mention of complication] Episodic Other and unspecified benign neoplasm (2 sources) Benign neoplasm of colon, unspecified; Translations: [Benign neoplasm of colon, unspecified] Onset: 04-13-2024 Episodic Other circulatory disease (1 source) Elevated blood pressure; Translations: [Elevated blood-pressure reading, without diagnosis of hypertension] 02-09-2025 Episodic Other ear and sense organ disorders (2 sources) Bilateral hearing loss; Translations: [Unspecified hearing loss, bilateral] 05-25-2025 Chronic Other ear and sense organ disorders (2 sources) Unspecified hearing loss, bilateral; Translations: [Unspecified hearing loss, bilateral] Onset: 05-25-2025 Chronic Other eye disorders (11 sources) Posterior vitreous detachment of left eye; Translations: [Vitreous degeneration, left eye] Onset: 04-30-2023 11-05-2023 Chronic Other hematologic conditions (1 source) 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; Translations: [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] Onset: 10-16-2022 Chronic Other male genital disorders (20 sources) Male erectile dysfunction, unspecified; Translations: [Erectile dysfunction] Onset: 10-06-2022 10-06-2022 Chronic Other nutritional; endocrine; and metabolic disorders (20 sources) Hypocalcemia; Translations: [Hypocalcemia] Onset: 10-06-2022 10-06-2022 Chronic Other upper respiratory disease (4 sources) Deviated nasal septum; Translations: [Deviated nasal septum] Onset: 05-16-2025 05-16-2025 Episodic Other upper respiratory disease (2 sources) Nasal congestion; Translations: [Nasal congestion] Onset: 11-08-2024 Episodic Other upper respiratory disease (2 sources) Deviated nasal septum; Translations: [Deviated nasal septum] Onset: 05-16-2025 Episodic Unclassified (1 source) Unknown / UNK(Unknown) Onset: 12-30-2017 Unclassified (11 sources) Patient encounter status; Translations: [Encounter for immunization] 02-22-2025 Unclassified (2 sources) FALL - RT ARM/HAND/KNEE AND HEAD INJURY 02-06-2021 Comment on above: FALL - RT ARM/HAND/K NEE AND HEAD INJURY Unclassified (1 source) OFFICE VISIT 06-15-2020 Comment on above: OFFICE VISIT Unclassified (1 source) CC [employer] 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 02-05-2021 Comment on above: CC [employer] TEAM MEMBER Unclassified (1 source) MEDICARE WELLNESS PX 08-07-2020 Comment on above: MEDICARE WELLNESS PX Past or Other Problems Problem Classification Problem Date Documented Da te Episodic/Chronic Blindness and vision defects (11 sources) Hypermetropia; 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, unspecified eye] Onset: 04-30-2023 11-05-2023 Episodic Fracture of upper limb (20 sources) Fracture of phalanx of finger; Translations: [Closed fracture of phalanx or phalanges of hand, unspecified] Onset: 10-06-2022 Resolved: 12-10-2022 12-10-2022 Episodic Hemorrhoids (20 sources) Anal skin tag; Translations: [Residual hemorrhoidal skin tags] Onset: 10-06-2022 Resolved: 12-10-2022 12-10-2022 Episodic Nonspecific chest pain (20 sources) Chest pain at rest; Translations: [Chest pain, unspecified] Onset: 10-06-2022 Resolved: 12-10-2022 12-10-2022 Episodic Other aftercare (3 sources) half sole fitter (current) use of anticoagulants; Translations: [half sole fitter (current) use of anticoagulants] Onset: 10-16-2022 Episodic Other aftercare (15 sources) Long-term current use of anticoagulant; Translations: [Long-term (current) use of anticoagulants] Onset: 12-10-2022 12-10-2022 Episodic Other and unspecified benign neoplasm (20 sources) Dermatofibroma; Translations: [Benign neoplasm of skin, site unspecified] Onset: 10-06-2022 10-06-2022 Episodic Other and unspecified benign neoplasm (2 sources) Tubular adenoma of colon; Translations: [Benign neoplasm of colon, unspecified] 04-13-2024 Episodic Other connective tissue disease (20 sources) Muscle weakness; Translations: [Muscle weakness (generalized)] Onset: 10-06-2022 Resolved: 12-10-2022 12-10-2022 Episodic Other connective tissue disease (20 sources) Pain in finger; Translations: [Pain in limb] Onset: 10-06-2022 Resolved: 12-10-2022 12-10-2022 Episodic Other connective tissue disease (1 source) Nontraumatic hematoma of soft tissue; Translations: [Nontraumatic hematoma of soft tissue] Onset: 10-16-2022 Episodic Other connective tissue disease (12 sources) Pain in left lower limb; Translations: [Pain in left leg] Onset: 11-05-2023 Resolved: 11-05-2023 07-02-2023 Episodic Other connective tissue disease (2 sources) Pain in left leg; Translations: [Pain in left leg] Onset: 07-02-2023 Episodic Other ear and sense organ disorders (20 sources) Impacted cerumen; Translations: [Impacted cerumen] Onset: 11-05-2023 Resolved: 11-05-2023 11-05-2023 Episodic Other ear and sense organ disorders (12 sources) Impacted cerumen of bilateral ears; Translations: [Impacted cerumen, bilateral] Onset: 10-06-2022 Resolved: 11-05-2023 10-06-2022 Episodic Other eye disorders (11 sources) Meibomian gland dysfunction of bilateral eyes; Translations: [Meibomian gland dysfunction of right eye, unspecified eyelid] Onset: 04-30-2023 11-05-2023 Episodic Other injuries and conditions due to external causes (20 sources) Injury of nose; Translations: [Injury of face and neck] Onset: 10-06-2022 Resolved: 12-10-2022 12-10-2022 Episodic Other screening for suspected conditions (not mental disorders or infectious disease) (4 sources) Encounter for screening for malignant neoplasm of prostate; Translations: [Encounter for screening for malignant neoplasm of prostate] Onset: 08-02-2024 Episodic Other skin disorders (20 sources) Senile lentigo; Translations: [Other dyschromia] Onset: 10-06-2022 10-06-2022 Episodic Other skin disorders (20 sources) Actinic keratosis; Translations: [Actinic keratosis] Onset: 10-06-2022 10-06-2022 Episodic Other skin disorders (20 sources) Milia; Translations: [Sebaceous cyst] Onset: 10-06-2022 10-06-2022 Episodic Other upper respiratory disease (8 sources) Nasal congestion; Translations: [Nasal congestion] Onset: 11-08-2024 11-08-2024 Episodic Phlebitis; thrombophlebitis and thromboembolism (20 sources) Deep venous thrombosis; Translations: [Personal history of other venous thrombosis and embolism] Onset: 10-06-2022 12-10-2022 Episodic Comment on above: Patient on lifelong Coumadin for recurrent DVT. 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 Winston.; Skull and face fractures (20 sources) Fractured nasal bones; Translations: [Closed fracture of nasal bones] Onset: 10-06-2022 Resolved: 12-10-2022 12-10-2022 Episodic Sprains and strains (20 sources) Strain of muscle and/or tendon of thigh; Translations: [Low back strain] Onset: 10-06-2022 Resolved: 12-10-2022 12-10-2022 Episodic Superficial injury; contusion (20 sources) Contusion of abdominal wall, initial encounter; Translations: [Hematoma of rectus sheath] Onset: 10-06-2022 Resolved: 12-10-2022 12-10-2022 Episodic Unclassified (1 source) E78.5 N52.9 I82.409 Z13.9 Z00.00 Onset: 12-30-2017 Unclassified (12 sources) Onset: 02-19-2023 Resolved: 05-16-2025 02-19-2023 NEGATED: Highlighted row has not occurred!Residual codes; unclassified (20 sources) Disease Episodic Results Test Name Value Interpretation Reference Range Facility 12 Lead EKGon 02-09-2025 12 Lead EKG [facility] Cardiovascular Services [address] [place] [address] 12 Lead EKG 02/09/25 0711 MR#: [id number] Acct: [id number] Name: JENNIFER JAMES Rep #: [id number] : 1945 79 From: Russ Wallace MD Attending Dr: Status: DEP ER Ordering Dr: Patricio Gutierrez DO Date: 02/09/25 Location: ED Sex: M C Admitted: Test Reason : Blood Pressure : */* mmHG Vent. Rate : 64 BPM Atrial Rate : 64 BPM P-R Int : 196 ms QRS Dur : 72 ms QT Int : 378 ms P-R-T Axes : 35 23 52 degrees QTcB Int : 389 ms Sinus rhythm with sinus arrhythmia with Fusion complexes Otherwise normal ECG Confirmed by Russ Wallace ([id number]), copy editor NANCY CHENG ([id number]) on 02/14/2025 11:30:35 AM Referred By: SHERRILL Confirmed By: Russ Wallace 02/14/25 1130 Date Russ Wallace MD CC: Dr. Patricio Gutierrez DO; Russ Rosen MD Signed Normal [facility] Absolute lymphocyte countOrd ered By: Patricio Gutierrez on 02-09-2025 Lymphocytes Auto (Unsp spec) [#/Vol] 1.33 10*3/uL 0.83-4.51 [facility] Absolute neutrophil countOrd ered By: Patricio Gutierrez on 02-09-2025 Neutrophils (Bld) [#/Vol] 4.6 10*3/uL 2.0-7.7 [facility] Anion gap in Serum or Plasma Ordered By: Patricio Gutierrez on 02-09-2025 Anion gap [Moles/Vol] 9 mmol/L 5-15 [facility] Automated lymphocyte count a s percentage of total leukocytesOrdered By: Patricio Gutierrez on 02-09-2025 Lymphocytes/100 WBC Auto (Unsp spec) 19.9 % [facility] BUN/creatinine ratioOrdered By: Patricio Gutierrez on 02-09-2025 Urea nitrogen/Creatinine [Mass ratio] 18.7 mg/mg 06-12 [facility] Basic Metabolic Profile (BMP )on 02-09-2025 BUN/CRE 18.7 RATIO Normal 06-12 [facility] Comment on above: Performed By: #### L 500.2500, L501.4021, L100.0100 #### [facility] Laboratory [address] [place], [address] Calcium [Mass/Vol] 8.7 mg/dL Normal 7.6-11.0 [facility] Comment on above: Performed By: #### L 500.2500, L501.4021, L100.0100 #### [facility] [address] [place], [address] Chloride [Moles/Vol] 109 mmol/L High 98-108 [facility] Comment on above: Performed By: #### L 500.2500, L501.4021, L100.0100 #### [facility] [address] [place], [address] CO2 [Moles/Vol] 24.2 mmol/L Normal 21.0-32.0 [facility] Comment on above: Performed By: #### L 500.2500, L501.4021, L100.0100 #### [facility] [address] [place], [address] Creatinine [Mass/Vol] 0.98 mg/dL Normal 0.70-1.20 [facility] Comment on above: Performed By: #### L 500.2500, L501.4021, L100.0100 #### [facility] [address] [place], [address] ECRCL 73.38 ml/min Normal 50-250 [facility] Comment on above: Performed By: #### L 500.2500, L501.4021, L100.0100 #### [facility] [address] [place], [address] GAP 9 Normal 5-15 [facility] Comment on above: Performed By: #### L 500.2500, L501.4021, L100.0100 #### [facility] [address] [place], [address] GFR/1.73 sq M.predicted among non-blacks MDRD (S/P/Bld) [Vol rate/Area] 80 mL/min/{1.73_m2} Normal >60 [facility] Comment on above: Result Comment: mL/m in/1.73m2 CKD-EPI Creatinine Equation (2020) Performed By: #### L 500.2500, L501.4021, L100.0100 #### [facility] [address] [place], [address] Glucose [Mass/Vol] 98 mg/dL Normal 70-99 [facility] Comment on above: Performed By: #### L 500.2500, L501.4021, L100.0100 #### [facility] [address] [place], [address] Potassium [Moles/Vol] 4.7 mmol/L Normal 3.3-5.1 [facility] Comment on above: Result Comment: Hemo lysis present, Results??could be affected. ?? Performed By: #### L 500.2500, L501.4021, L100.0100 #### [facility] [address] [place], [address] Sodium [Moles/Vol] 142 mmol/L Normal 133-145 [facility] Comment on above: Performed By: #### L 500.2500, L501.4021, L100.0100 #### [facility] [address] [place], [address] Urea nitrogen [Mass/Vol] 18 mg/dL Normal 4-19 [facility] Comment on above: Performed By: #### L 500.2500, L501.4021, L100.0100 #### [facility] [address] [place], [address] Basophil percentageOrdered B y: Patricio Gutierrez on 02-09-2025 Basophils/100 WBC (Bld) 0.6 % 0-1 [facility] CBC W/Diff, Automatedon 01-22 Absolute Lymph 1.33 X10 3/uL Normal 0.83-4.51 [facility] Comment on above: Performed By: #### L 500.2500, L501.4021, L100.0100 #### [facility] [address] [place], [address] Absolute Neut 4.6 X10 3/uL Normal 2.0-7.7 [facility] Comment on above: Performed By: #### L 500.2500, L501.4021, L100.0100 #### [facility] [address] [place], [address] Basophils/100 WBC (Bld) 0.6 % Normal 0-1 [facility] Comment on above: Performed By: #### L 500.2500, L501.4021, L100.0100 #### [facility] [address] [place], [address] Eosinophils/100 WBC (Bld) 2.7 % Normal 0-5 [facility] Comment on above: Performed By: #### L 500.2500, L501.4021, L100.0100 #### [facility] [address] [place], [address] Erythrocyte distribution width (RBC) [Ratio] 13.2 % Normal 11.6-14.6 [facility] Comment on above: Performed By: #### L 500.2500, L501.4021, L100.0100 #### [facility] [address] [place], [address] Hematocrit (Bld) [Volume fraction] 43.5 % Normal 40-54 [facility] Comment on above: Performed By: #### L 500.2500, L501.4021, L100.0100 #### [facility] [address] [place], [address] Hemoglobin (Bld) [Mass/Vol] 14.3 g/dL Normal 13.0-16.5 [facility] Comment on above: Performed By: #### L 500.2500, L501.4021, L100.0100 #### [facility] [address] [place], [address] IG% 0.300 Normal 0.0-0.9 [facility] Comment on above: Result Comment: IG% - Immature Granulocytes (promyelocytes, myelocytes and metamyelocytes) > 1% indicates that a LEFT SHIFT is Present. Performed By: #### L 500.2500, L501.4021, L100.0100 #### [facility] [address] [place], [address] Lymphocytes/100 WBC (Bld) 19.9 % Normal 19-41 [facility] Comment on above: Performed By: #### L 500.2500, L501.4021, L100.0100 #### [facility] [address] [place], [address] MCH (RBC) [Entitic mass] 31.8 pg Normal 27.0-32.0 [facility] Comment on above: Performed By: #### L 500.2500, L501.4021, L100.0100 #### [facility] [address] [place], [address] MCHC (RBC) [Mass/Vol] 32.9 g/dL Normal 32-36 [facility] Comment on above: Performed By: #### L 500.2500, L501.4021, L100.0100 #### [facility] [address] [place], [address] MCV (RBC) [Entitic vol] 96.9 fL High 80-94 [facility] Comment on above: Performed By: #### L 500.2500, L501.4021, L100.0100 #### [facility] [address] [place], [address] Monocytes/100 WBC (Bld) 8.4 % Normal 0-10 [facility] Comment on above: Performed By: #### L 500.2500, L501.4021, L100.0100 #### [facility] [address] [place], [address] Neutrophils/100 WBC (Bld) 68.1 % Normal 47-70 [facility] Comment on above: Performed By: #### L 500.2500, L501.4021, L100.0100 #### [facility] [address] [place], [address] Nucleated RBC (Bld) [#/Vol] 0 10*3/uL Normal 0-5 [facility] Comment on above: Performed By: #### L 500.2500, L501.4021, L100.0100 #### [facility] [address] [place], [address] Platelet mean volume (Bld) [Entitic vol] 9.5 fL Normal 6.2-12.0 [facility] Comment on above: Performed By: #### L 500.2500, L501.4021, L100.0100 #### [facility] [address] [place], [address] Platelets (Bld) [#/Vol] 168 10*3/uL Normal 150-450 [facility] Comment on above: Performed By: #### L 500.2500, L501.4021, L100.0100 #### [facility] [address] [place], [address] RBC (Bld) [#/Vol] 4.49 10*6/uL Low 4.6-6.[address] [facility] Comment on above: Performed By: #### L 500.2500, L501.4021, L100.0100 #### [facility] [address] [place], [address] RDW SD 47.2 fl High 35.1-43.9 [facility] Comment on above: Performed By: #### L 500.2500, L501.4021, L100.0100 #### [facility] [address] [place], [address] WBC (Bld) [#/Vol] 6.7 10*3/uL Normal 4.4-11.0 [facility] Comment on above: Performed By: #### L 500.2500, L501.4021, L100.0100 #### [facility] [address] [place], [address] Carbon dioxide, total [Moles /volume] in Central venous bloodOrdered By: Patricio Gutierrez on 02-09-2025 CO2 [Moles/Vol] 24.2 mmol/L 21.0-32.0 [facility] Chest 1 View (Portable)on Chest 1 View (Portable) [facility] Imaging Services [address] [place] [address] Chest 1 View (Portable) MR#: [id number] Acct: [id number] Name: JENNIFER JAMES Rep #: [id number] : 1945 79 From: Ruthie covarrubias MD PCP: Status: REG ER Study: Chest 1 View (Portable) Date of Exam: 02/09/25 Exam# [id number] Ordering Dr: Patricio Gutierrez DO PROCEDURE: CHEST 1 VIEW (PORTABLE) 02/09/2025 REASON FOR EXAM: CHEST PAIN TECHNIQUE: Frontal view of the chest. COMPARISON: None. FINDINGS: Mild bilateral basilar atelectatic pulmonary changes. There is no demonstrated pleural abnormality. Enlarged cardiac silhouette. Normal mediastinum and jaime. Normal visualized pulmonary arteries. Atheromatous plaques of the visualized aortic arch and descending thoracic aorta. Diffuse spondylosis of the visualized thoracic spine. Normal visualized ribs, clavicles. Degenerative joint disease. There is no demonstrated abnormality of the visualized soft tissue structures of the upper abdomen. RAD/Chest 1 View (Portable) IMPRESSION: Mild bilateral basilar atelectatic pulmonary changes. Reading Location: [place] [address] CC: Dr. Patricio Gutierrez DO Leaf Binner: Signed Normal [facility] Chloride assayOrdered By: Dudley Gutierrez on 02-09-2025 Chloride [Moles/Vol] 109 mmol/L High 98-108 [facility] D-Dimer Quantitative (DVT/PE )on 02-09-2025 D-DIMER QUANT 0.27 FEU/ug/m Normal 0.27-0.49 [facility] Comment on above: Result Comment: NORM AL D-Dimer level (<0.50) indicates no DVT or PE. Performed By: #### L 300.8000 #### [facility] Laboratory [address] [facility], [address] Emergency Department Summary on 02-09-2025 Emergency Department Summary [facility] Medical Records Department [address] [place] [address] Emergency Department Summary 02/09/25 MR#: [id number] Acct: [id number] Name: JENNIFER JAMES Rep #: [id number] : 1945 79 From: Patricio Gutierrez DO PCP: Russ Rosen MD Status:DEP ER Location: ED HPI History of Present Illness Chief Complaint: Chest Pain Informant: patient Onset/Context/Timing Onset: Today Activity at onset: sudden and sleep Timing: Continuous Quality: Positive for Sharp Location: Left Chest Worsened By: Nothing Relieved By: Nothing Associated Symptoms: Negative for Nausea, Vomiting, Diaphoresis, Dyspnea, Cough, Fever, Lightheadedness, Acid Reflux or Palpitations Narrative Narrative: Patient presents with chest pain that began this morning. Patient states he woke up and noticed pain in the left side of his chest. Patient describes it as sharp. Patient states it is constant. Patient states nothing makes it better and nothing makes it worse. Patient denies any radiation of the pain. Patient states he took an antiacid which did not help. Patient denies any nausea or vomiting. Patient denies any shortness of breath or cough. Patient denies any palpitations. CVD Risk Factors: Negative for Hypertension, Diabetes, Hypercholesterolemia, Family History 1' or Smoking PE Risk Factors: Positive for Prior DVT or PE; Negative for Recent Travel/Surgery, Recent Immobilization or Cancer PFSH PFS Home Medications ???Medication ???Instructions ???Recorded ???Last Taken ???Type calcium carbonate (Antacid Ultra 800 mg PO Q4H PRN dyspepsia 02/09/25 History Strength) fluticasone propionate 50 1 spray intranasal DAILY 02/09/25 02/08/25 History mcg/actuation nasal spray,suspension losartan 25 mg tablet 25 mg PO DAILY 02/09/25 02/08/25 H istory simvastatin 20 mg tablet 20 mg PO QHS 02/09/25 02/08/25 His tory warfarin 5 mg tablet 5 mg PO DAILY 02/09/25 02/08/25 Hi story Allergy/AdvReac Type Severity Reaction Status Date / Time Sulfa (Sulfonamide Allergy Severe Anaphylaxis Verified 02/09/25 06:51 Antibiotics) Family History no significant family his Surgical History (Updated 02/09/25 @ 07:[address] Patricio Gutierrez DO) History of facial surgery Social History Smoking Status: Never smoker ROS ROS ED Constitutional Constitutional ED: Denies chills or fever(s) Eyes Eyes: Denies blurry vision or change in vision ENT ENT ED: Denies rhinorrhea or sore throat Cardiovascular Cardiovascular: Reports as per HPI and chest pain; Denies palpitations Respiratory/Chest Respiratory/Chest: Denies cough or dyspnea Gastrointestinal Gastrointestinal: Denies nausea or vomiting Genitourinary Genitourinary ED: Denies dysuria or hematuria Musculoskeletal Musculoskeletal: Denies back pain or neck pain Integumentary Denies abscess or rash Neurologic Neurologic: Denies headache(s) or weakness Allergic/Immunologic Allergic/Immunologic ED: Denies mouth swelling or urticaria EXAM Physical Exam Const Vital Signs: 02/09/25 06:51 02/09/25 06:51 02/09/25 07:19 Temperature 98.5 F Temperature Source Oral Pulse Rate 69 Respiratory Rate 25 H Respiratory Effort Normal Non-Labored Blood Pressure 158/79 H Blood Pressure Mean 105 Pulse Ox 100 Oxygen Delivery Method Room Air Room Air 02/09/25 07:44 02/09/25 07:51 02/09/25 09:00 Temperature Temperature Source Pulse Rate 68 58 L 61 Respiratory Rate 21 H 17 Respiratory Effort Blood Pressure 152/82 H 129/75 H 128/70 H Blood Pressure Mean 93 89 Pulse Ox 98 98 Oxygen Delivery Method Room Air Positive well nourished and well developed General Appearance ED: well developed and NAD HEENT Reports moist mucous membranes Neck supple and no JVD Chest Wall palpation of chest normal Resp normal respiratory effort and clear to auscultation bilaterally Cardio regular rate and regular rhythm GI soft to palpation, non-tender and non-distended Extremity normal to inspection General Extremety ED: Negative for edema or tenderness General Extremity: Negative for edema Neuro oriented x3, CN's II-XII intact bilaterally and no sensory deficits noted Sensorium / Orientation: awake and alert Motor Exam: strength 5/5 throughout Psych mental status grossly normal Heart Score History: Slightly/Non-Suspicious ECG: Normal Age: >/= 65 years Risk Factors: 1 or 2 Risk Factors Troponin: Score: 3 MDM MDM MDM Narrative Medical decision making narrative: Differential diagnosis includes cardiac dysrhythmia, cardiac ischemia, pneumonia, bronchitis, gastroesophageal reflux disease, pulmonary embolism, coagulopathy, and anxiety. EKG will be (more content not included)... Normal [facility] Eosinophil percentageOrdered By: Patricio Gutierrez on 02-09-2025 Eosinophils/100 WBC (Bld) 2.7 % 0-5 [facility] Erythrocyte distribution wid th ratioOrdered By: Patricio Gutierrez on 02-09-2025 Erythrocyte distribution width (RBC) [Ratio] 13.2 % 11.6-14.6 [facility] Erythrocyte distribution wid th standard deviationOrdered By: Patricio Gutierrez on 02-09-2025 Erythrocyte distribution width (RBC) [Ratio] 47.2 fl High 35.1-43.9 [facility] Glomerular filtration rate ( GFR) estimation/1.73 sq m using serum, plasma, or whole bOrdered By: Patricio Gutierrez on 02-09-2025 GFR/1.73 sq M.predicted among non-blacks MDRD (S/P/Bld) [Vol rate/Area] 80 mL/min/{1.73_m2} >60 [facility] Comment on above: mL/min/1.73m2 CKD-EP I Creatinine Equation (2020) Hematocrit Auto (Bld) [Volum e fraction]Ordered By: Patricio Gutierrez on 02-09-2025 Hematocrit (Bld) [Volume fraction] 43.5 % 40-54 [facility] Hemoglobin measurementOrdere d By: Patricio Gutierrez on 02-09-2025 Hemoglobin (Bld) [Mass/Vol] 14.3 g/dL 13.0-16.5 [facility] Immature granulocytes/100 WB C Auto (Bld)Ordered By: Patricio Gutierrez on 02-09-2025 Immature granulocytes/100 WBC (Bld) 0.300 % 0.0-0.9 [facility] Comment on above: IG% - Immature Granu locytes (promyelocytes, myelocytes and metamyelocytes) > 1% indicates that a LEFT SHIFT is Present. L499.0042on 02-09-2025 Trop T High Sen 9 ng/L Normal <=22 [facility] Comment on above: Performed By: #### L 499.0042 #### [facility] Laboratory [address] [place], [address] L499.0043on 02-09-2025 Trop T High Sen Normal <=22 [facility] Comment on above: Result Comment: Canc elled via OM: Order cancelled - Patient discharged Performed By: #### L 499.0043 #### [facility] [address] [place], [address] L501.4021on 02-09-2025 Trop T High Sen 10 ng/L Normal <=22 [facility] Comment on above: Performed By: #### L 500.2500, L501.4021, L100.0100 #### [facility] [address] [place], [address] MCV (mean corpuscular volume ) determinationOrdered By: Patricio Gutierrez on 02-09-2025 MCV (RBC) [Entitic vol] 96.9 fL High 80-94 [facility] Mean corpuscular hemoglobin (MCH) determinationOrdered By: Patricio Gutierrez on 02-09-2025 MCH (RBC) [Entitic mass] 31.8 pg 27.0-32.0 [facility] Mean corpuscular hemoglobin concentration (MCHC) determinationOrdered By: Patricio Gutierrez on 02-09-2025 MCHC (RBC) [Mass/Vol] 32.9 g/dL 32-36 [facility] Mean platelet volume determi nationOrdered By: Patricio Gutierrez on 02-09-2025 Platelet mean volume (Bld) [Entitic vol] 9.5 fL 6.2-12.0 [facility] Monocyte percentageOrdered B y: Patricio Gutierrez on 02-09-2025 Monocytes/100 WBC (Bld) 8.4 % 0-10 [facility] Neutrophil percentageOrdered By: Patricio Gutierrez on 02-09-2025 Neutrophils/100 WBC (Bld) 68.1 % 47-70 [facility] Nucleated red blood cell per centageOrdered By: Patricio Gutierrez on 02-09-2025 Nucleated RBC/100 WBC (Bld) [Ratio] 0 % 0-5 [facility] Platelet countOrdered By: Dudley Gutierrez on 02-09-2025 Platelets (Bld) [#/Vol] 168 10*3/uL 150-450 [facility] Potassium measurement (mass/ volume)Ordered By: Patricio Gutierrez on 02-09-2025 Potassium (Unsp spec) [Mass/Vol] 4.7 mmol/L 3.3-5.1 [facility] Comment on above: Hemolysis present, R esults could be affected. RBC Auto (Bld) [#/Vol]Ordere d By: Patricio Gutierrez on 02-09-2025 RBC (Bld) [#/Vol] 4.49 10*6/uL Low 4.6-6.[address] [facility] Serum creatinine measurement (mass/volume)Ordered By: Patricio Gutierrez on 02-09-2025 Creatinine [Mass/Vol] 0.98 mg/dL 0.70-1.20 [facility] Serum glucose measurement (m ass/volume)Ordered By: Patricio Gutierrez on 02-09-2025 Glucose [Mass/Vol] 98 mg/dL 70-99 [facility] Serum or plasma calcium joão urement (mass/volume)Ordered By: Patricio Gutierrez on 02-09-2025 Calcium [Mass/Vol] 8.7 mg/dL 7.6-11.0 [facility] Serum or plasma urea nitroge n measurement (mass/volume)Ordered By: Patricio Gutierrez on 02-09-2025 Urea nitrogen [Mass/Vol] 18 mg/dL 4-19 [facility] Sodium levelOrdered By: Patricio Gutierrez on 02-09-2025 Sodium [Moles/Vol] 142 mmol/L 133-145 [facility] Troponin T.cardiac [Mass/vol ume] in Serum or Plasma by High sensitivity methodOrdered By: Patricio Gutierrez on 02-09-2025 Troponin T.cardiac High sensitivity method [Mass/Vol] 9 ng/L <22 [facility] Troponin T.cardiac High sensitivity method [Mass/Vol] 10 ng/L <22 [facility] White blood cell (WBC) count Ordered By: Patricio Gutierrez on 02-09-2025 WBC (Bld) [#/Vol] 6.7 10*3/uL 4.4-11.0 [facility] CBC W Auto Differential pane l (Bld)on 11-16-2024 Basophils (Bld) [#/Vol] 0.05 x10*3/uL Normal 0.00-0.10 [facility] Comment on above: Performed By: #### 5 7021-8 #### RUBEN Wilkerson ([id number]) [facility] ([facility]) [id number] [place] [address] 05050 Basophils/100 WBC (Bld) 0.8 % Normal 0.0-2.0 [facility] Comment on above: Performed By: #### 5 7021-8 #### RUBEN Wilkerson ([id number]) [facility] ([facility]) [address] [place] [address] 42181 Eosinophils (Bld) [#/Vol] 0.15 x10*3/uL Normal 0.00-0.40 [facility] Comment on above: Performed By: #### 5 7021-8 #### RUBEN Wilkerson ([id number]) [facility] ([facility]) [address] [place] [address] 96219 Eosinophils/100 WBC (Bld) 2.3 % Normal 0.0-6.0 [facility] Comment on above: Performed By: #### 5 7021-8 #### RUBEN Wilkerson ([id number]) [facility] ([facility]) [address] [place] [address] 92763 Erythrocyte distribution width (RBC) [Ratio] 13.2 % Normal 11.5-14.5 [facility] Comment on above: Performed By: #### 5 7021-8 #### RUBEN Wilkerson ([id number]) [facility] ([facility]) [address] [place] [address] 34290 Hematocrit (Bld) [Volume fraction] 47.1 % Normal 41.0-52.0 [facility] Comment on above: Performed By: #### 5 7021-8 #### RUBEN Wilkerson ([id number]) [facility] ([facility]) [address] [place] [address] 33240 Hemoglobin (Bld) [Mass/Vol] 14.8 g/dL Normal 13.5-17.5 [facility] Comment on above: Performed By: #### 5 7021-8 #### RUBEN Wilkerson ([id number]) [facility] ([facility]) [address] [place] [address] 97488 Immature granulocytes (Bld) [#/Vol] 0.03 x10*3/uL Normal 0.00-0.50 [facility] Comment on above: Performed By: #### 5 7021-8 #### RUBEN Wilkerson ([id number]) [facility] ([facility]) [address] [place] [address] 99081 Immature granulocytes/100 WBC (Bld) 0.5 % Normal 0.0-0.9 [facility] Comment on above: Result Comment: Ayesha ture Granulocyte Count (IG) includes promyelocytes, myelocytes and metamyelocytes but does not include bands. Percent differential counts (%) should be interpreted in the context of the absolute cell counts (cells/UL). Performed By: #### 5 7021-8 #### RUBEN Wilkerson ([id number]) [facility] ([facility]) [address] [place] [address] Lymphocytes (Bld) [#/Vol] 1.67 x10*3/uL Normal 0.80-3.00 [facility] Comment on above: Performed By: #### 5 7021-8 #### RUBEN Wilkerson ([id number]) [facility] ([facility]) [address] [place] [address] 12754 Lymphocytes/100 WBC (Bld) 25.3 % Normal 13.0-44.0 [facility] Comment on above: Performed By: #### 5 7021-8 #### RUBEN Wilkerson ([id number]) [facility] ([facility]) [address] [place] [address] 81056 MCH (RBC) [Entitic mass] 31.6 pg Normal 26.0-34.0 [facility] Comment on above: Performed By: #### 5 7021-8 #### RUBEN Wilkerson ([id number]) [facility] ([facility]) [address] [place] [address] 23007 MCHC (RBC) [Mass/Vol] 31.4 g/dL Low 32.0-36.0 [facility] Comment on above: Performed By: #### 5 7021-8 #### RUBEN Wilkerson ([id number]) [facility] ([facility]) [address] [place] [address] 65471 MCV (RBC) [Entitic vol] 100 fL Normal 80-100 [facility] Comment on above: Performed By: #### 5 7021-8 #### RUBEN Wilkerson ([id number]) [facility] ([facility]) [address] [place] [address] 87565 Monocytes (Bld) [#/Vol] 0.61 x10*3/uL Normal 0.05-0.80 [facility] Comment on above: Performed By: #### 5 7021-8 #### RUBEN Wilkerson ([id number]) [facility] ([facility]) [address] [place] [address] 23475 Monocytes/100 WBC (Bld) 9.2 % Normal 2.0-10.0 [facility] Comment on above: Performed By: #### 5 7021-8 #### RUBEN Wilkerson ([id number]) [facility] ([facility]) [address] [place] [address] 44116 Neutrophils (Bld) [#/Vol] 4.09 x10*3/uL Normal 1.60-5.50 [facility] Comment on above: Result Comment: Perc ent differential counts (%) should be interpreted in the context of the absolute cell counts (cells/uL). Performed By: #### 5 7021-8 #### RUBEN Wilkerson ([id number]) [facility] ([facility]) [address] [place] [address] 57326 Neutrophils/100 WBC (Bld) 61.9 % Normal 40.0-80.0 [facility] Comment on above: Performed By: #### 5 7021-8 #### RUBEN Wilkerson ([id number]) [facility] ([facility]) [address] [place] [address] 30203 Nucleated RBC/100 WBC (Bld) [Ratio] 0.0 /100 WBCs Normal 0.0-0.0 [facility] Comment on above: Performed By: #### 5 7021-8 #### RUBEN Wilkerson ([id number]) [facility] ([facility]) [address] [place] [address] 31964 Platelets (Bld) [#/Vol] 281 x10*3/uL Normal 150-450 [facility] Comment on above: Performed By: #### 5 7021-8 #### RUBEN Wilkerson ([id number]) [facility] ([facility]) [address] [place] [address] 56376 RBC (Bld) [#/Vol] 4.69 x10*6/uL Normal 4.50-5.90 [facility] Comment on above: Performed By: #### 5 7021-8 #### RUBEN Wilkerson ([id number]) [facility] ([facility]) [address] [place] [address] 69602 WBC (Bld) [#/Vol] 6.6 x10*3/uL Normal 4.4-11.3 [facility] Comment on above: Performed By: #### 5 7021-8 #### RUBEN Wilkerson ([id number]) [facility] ([facility]) [address] [place], [place] [phone] Coagulation tissue factor in ducedon 11-16-2024 PT Coag (PPP) [Time] 35.2 s High 9.8-12.4 [facility] Comment on above: Performed By: #### 5 902-2 #### RUBEN Wilkerson ([id number]) [facility] ([facility]) [address] [place], [place] [id number] Cobalaminson 11-16-2024 Cobalamin (Vitamin B12) [Mass/Vol] 222 pg/mL Normal 211-911 [facility] Comment on above: Performed By: #### 2 132-9 #### RUBEN Wilkerson ([id number]) [facility] ([facility]) [address] [place] [address] 03729 Comprehensive metabolic 2000 panelon 11-16-2024 Albumin BCP dye [Mass/Vol] 3.9 g/dL Normal 3.4-5.0 [facility] Comment on above: Performed By: #### 2 4323-8 #### RUBEN Wilkerson ([id number]) [facility] ([facility]) [address] [place] [address] 74252 ALP [Catalytic activity/Vol] 61 U/L Normal 33-136 [facility] Comment on above: Performed By: #### 2 4323-8 #### RUBEN Wilkerson ([id number]) [facility] ([facility]) [address] [place] [address] 36934 ALT With P-5'-P [Catalytic activity/Vol] 17 U/L Normal 10-52 [facility] Comment on above: Result Comment: Maria Luisa ents treated with Sulfasalazine may generate falsely decreased results for ALT. Performed By: #### 2 4323-8 #### RUBEN Wilkerson ([id number]) [facility] ([facility]) [address] [place] [address] Anion gap [Moles/Vol] 12 mmol/L Normal 10-20 [facility] Comment on above: Performed By: #### 2 4323-8 #### RUBEN Wilkersno ([id number]) [facility] ([facility]) [address] [place] [address] AST With P-5'-P [Catalytic activity/Vol] 14 U/L Normal 9-39 [facility] Comment on above: Performed By: #### 2 4323-8 #### RUBEN Wilkerson ([id number]) [facility] ([facility]) [address] [place] [address] 91436 Bilirubin [Mass/Vol] 0.5 mg/dL Normal 0.0-1.2 [facility] Comment on above: Performed By: #### 2 4323-8 #### RUBEN Wilkerson ([id number]) [facility] ([facility]) [address] [place] [address] 28101 Calcium [Mass/Vol] 9.1 mg/dL Normal 8.6-10.6 [facility] Comment on above: Performed By: #### 2 4323-8 #### RUBEN Wilkerson ([id number]) [facility] ([facility]) [address] [place] [address] 69972 Chloride [Moles/Vol] 106 mmol/L Normal 98-107 [facility] Comment on above: Performed By: #### 2 4323-8 #### RUBEN Wilkerson ([id number]) [facility] ([facility]) [address] [place] [address] 17355 CO2 [Moles/Vol] 28 mmol/L Normal 21-32 [facility] Comment on above: Performed By: #### 2 4323-8 #### RUBEN Wilkerson ([id number]) [facility] ([facility]) [address] [place] [address] 36815 Creatinine [Mass/Vol] 1.02 mg/dL Normal 0.50-1.30 [facility] Comment on above: Performed By: #### 2 4323-8 #### RUBEN Wilkerson ([id number]) [facility] ([facility]) [address] [place] [address] 15093 Glomerular filtration rate/1.73 sq M.predicted 76 mL/min/1.73m*2 Normal >60 [facility] Comment on above: Result Comment: Calc ulations of estimated GFR are performed using the 2020 CKD-EPI Study Refit equation without the race variable for the IDMS-Traceable creatinine methods. https://jasn.asnjournals.org/content//ASN.705338 1693 Performed By: #### 2 4323-8 #### RUBEN Wilkerson ([id number]) [facility] ([facility]) [address] [place] [address] 55490 Glucose [Mass/Vol] 85 mg/dL Normal 74-99 [facility] Comment on above: Performed By: #### 2 4323-8 #### RUBEN Wilkerson ([id number]) [facility] ([facility]) [address] [place] [address] 43042 Potassium [Moles/Vol] 5.0 mmol/L Normal 3.5-5.3 [facility] Comment on above: Performed By: #### 2 4323-8 #### RUBEN Wilkerson ([id number]) [facility] ([facility]) [address] [place] [address] 62190 Protein [Mass/Vol] 6.7 g/dL Normal 6.4-8.2 [facility] Comment on above: Performed By: #### 2 4323-8 #### RUBEN CRAWLEY L ([id number]) [facility] ([facility]) [address] [place] [address] 20210 Sodium [Moles/Vol] 141 mmol/L Normal 136-145 [facility] Comment on above: Performed By: #### 2 4323-8 #### RUBEN Wilkerson ([id number]) [facility] ([facility]) [address] [place] [address] Urea nitrogen [Mass/Vol] 18 mg/dL Normal 6-23 [facility] Comment on above: Performed By: #### 2 4323-8 #### RUBEN Wilkerson ([id number]) [facility] ([facility]) [address] [place] [address] 85543 Ferritinon 11-16-2024 Ferritin [Mass/Vol] 322 ng/mL High 20-300 [facility] Comment on above: Performed By: #### 2 276-4 #### RUBEN Wilkerson ([id number]) [facility] ([facility]) [address] [place] [address] 75707 Folateon 11-16-2024 Folate [Mass/Vol] 7.9 ng/mL Normal >5.[address] [facility] Comment on above: Order Comment: Low < 3.4 Borderline 3.4-5.0 Normal >5.0 Patients receiving more than 5 mg/day of biotin may have interference in test results. A sample should be taken no sooner than eight hours after previous dose. Contact the testing laboratory for additional information. Performed By: #### 2 284-8 #### RUBEN Wilkerson ([id number]) [facility] ([facility]) [address] [place] [address] 59990 PT Coag (PPP) [Time]on 11-16 INR Coag (PPP) [Relative time] 3.2 High 0.9-1.1 [facility] Comment on above: Performed By: #### 5 902-2 #### RUBEN Wilkerson ([id number]) [facility] ([facility]) [address] [place] [address] 33348 CBC panel Auto (Bld)on 08-02 Erythrocyte distribution width (RBC) [Ratio] 13.1 % Normal 11.5-14.5 [facility] Comment on above: Performed By: #### 5 8410-2 #### RUBEN Wilkerson ([id number]) [facility] ([facility]) [address] [place] [address] Hematocrit (Bld) [Volume fraction] 48.7 % Normal 41.0-52.0 [facility] Comment on above: Performed By: #### 5 8410-2 #### RUBEN Wilkerson ([id number]) [facility] ([facility]) [address] [place] [address] 10688 Hemoglobin (Bld) [Mass/Vol] 16.0 g/dL Normal 13.5-17.5 [facility] Comment on above: Performed By: #### 5 8410-2 #### RUBEN Wilkerson ([id number]) [facility] ([facility]) [address] [place] [address] 72832 MCH (RBC) [Entitic mass] 31.7 pg Normal 26.0-34.0 [facility] Comment on above: Performed By: #### 5 8410-2 #### RUBEN Wilkerson ([id number]) [facility] ([facility]) [address] [place] [address] 09368 MCHC (RBC) [Mass/Vol] 32.9 g/dL Normal 32.0-36.0 [facility] Comment on above: Performed By: #### 5 8410-2 #### RUBEN Wilkerson ([id number]) [facility] ([facility]) [address] [place] [address] 36415 MCV (RBC) [Entitic vol] 97 fL Normal 80-100 [facility] Comment on above: Performed By: #### 5 8410-2 #### RUBEN Wilkerson ([id number]) [facility] ([facility]) [address] [place] [address] 75485 Nucleated RBC/100 WBC (Bld) [Ratio] 0.0 /100 WBCs Normal 0.0-0.0 [facility] Comment on above: Performed By: #### 5 8410-2 #### RUBEN Wilkerson ([id number]) [facility] ([facility]) [address] [place] [address] 79992 Platelets (Bld) [#/Vol] 201 x10*3/uL Normal 150-450 [facility] Comment on above: Performed By: #### 5 8410-2 #### RUBEN Wilkerson ([id number]) [facility] ([facility]) [address] [place] [address] 88477 RBC (Bld) [#/Vol] 5.04 x10*6/uL Normal 4.50-5.90 [facility] Comment on above: Performed By: #### 5 8410-2 #### RUBEN Wilkerson ([id number]) [facility] ([facility]) [address] [place] [address] 07212 WBC (Bld) [#/Vol] 6.4 x10*3/uL Normal 4.4-11.3 [facility] Comment on above: Performed By: #### 5 8410-2 #### RUBEN Wilkerson ([id number]) [facility] ([facility]) [address] [place] [address] 43566 Comprehensive metabolic 2000 panelon 08-02-2024 Albumin BCP dye [Mass/Vol] 4.1 g/dL Normal 3.4-5.0 [facility] Comment on above: Performed By: #### 2 4323-8 #### RUBEN Wilkerson ([id number]) [facility] ([facility]) [address] [place] [address] 49099 ALP [Catalytic activity/Vol] 57 U/L Normal 33-136 [facility] Comment on above: Performed By: #### 2 4323-8 #### RUBEN Wilkerson ([id number]) [facility] ([facility]) [address] [place] [address] ALT With P-5'-P [Catalytic activity/Vol] 20 U/L Normal 10-52 [facility] Comment on above: Result Comment: Maria Luisa ents treated with Sulfasalazine may generate falsely decreased results for ALT. Performed By: #### 2 4323-8 #### RUBEN Wilkerson ([id number]) [facility] ([facility]) [address] [place] [address] Anion gap [Moles/Vol] 12 mmol/L Normal 10-20 [facility] Comment on above: Performed By: #### 2 4323-8 #### RUBEN Wilkerson ([id number]) [facility] ([facility]) [address] [place] [address] 28701 AST With P-5'-P [Catalytic activity/Vol] 17 U/L Normal 9-39 [facility] Comment on above: Performed By: #### 2 4323-8 #### RUBEN Wilkerson ([id number]) [facility] ([facility]) [address] [place] [address] 20468 Bilirubin [Mass/Vol] 0.7 mg/dL Normal 0.0-1.2 [facility] Comment on above: Performed By: #### 2 4323-8 #### RUBEN Wilkerson ([id number]) [facility] ([facility]) [address] [place] [address] 75756 Calcium [Mass/Vol] 9.0 mg/dL Normal 8.6-10.6 [facility] Comment on above: Performed By: #### 2 4323-8 #### RUBEN Wilkerson ([id number]) [facility] ([facility]) [address] [place] [address] 49817 Chloride [Moles/Vol] 107 mmol/L Normal 98-107 [facility] Comment on above: Performed By: #### 2 4323-8 #### RUBEN Wilkerson ([id number]) [facility] ([facility]) [address] [place] [address] 78348 CO2 [Moles/Vol] 28 mmol/L Normal 21-32 [facility] Comment on above: Performed By: #### 2 4323-8 #### RUBEN Wilkerson ([id number]) [facility] ([facility]) [address] [place] [address] 71934 Creatinine [Mass/Vol] 1.15 mg/dL Normal 0.50-1.30 [facility] Comment on above: Performed By: #### 2 4323-8 #### RUBEN Wilkerson ([id number]) [facility] ([facility]) [address] [place] [address] 74574 Glomerular filtration rate/1.73 sq M.predicted 66 mL/min/1.73m*2 Normal >60 [facility] Comment on above: Result Comment: Calc ulations of estimated GFR are performed using the 2020 CKD-EPI Study Refit equation without the race variable for the IDMS-Traceable creatinine methods. https://jasn.asnjournals.org/content/early//ASN.886341 9936 Performed By: #### 2 4323-8 #### RUBEN Wilkerson ([id number]) [facility] ([facility]) [address] [place] [address] 57114 Glucose [Mass/Vol] 99 mg/dL Normal 74-99 [facility] Comment on above: Performed By: #### 2 4323-8 #### RUBEN CRAWLEY L ([id number]) [facility] ([facility]) [address] [place] [address]36 Potassium [Moles/Vol] 4.5 mmol/L Normal 3.5-5.3 [facility] Comment on above: Performed By: #### 2 4323-8 #### RUBEN CRAWLEY L ([id number]) [facility] ([facility]) [address] [place] [address] 29588 Protein [Mass/Vol] 6.7 g/dL Normal 6.4-8.2 [facility] Comment on above: Performed By: #### 2 4323-8 #### RUBEN CRAWLEY L ([id number]) [facility] ([facility]) [address] [place] [address] 78900 Sodium [Moles/Vol] 142 mmol/L Normal 136-145 [facility] Comment on above: Performed By: #### 2 4323-8 #### RUBEN CRAWLEY L ([id number]) [facility] ([facility]) [address] [place] [address] 01624 Urea nitrogen [Mass/Vol] 13 mg/dL Normal 6-23 [facility] Comment on above: Performed By: #### 2 4323-8 #### RUBEN Wilkerson ([id number]) [facility] ([facility]) [address] [place] [address] 71291 Lipid 1996 panelon 4 Cholesterol [Mass/Vol] 163 mg/dL Normal 0-199 [facility] Comment on above: Result Comment: Age Desirable Borderline High High 0-19 Y 0 - 169 170 - 199 >/= 200 20-24 Y 0 - 189 190 - 224 >/= 225 >24 Y 0 - 199 200 - 239 >/= 240 All ranges are based on fasting samples. Specific therapeutic targets will vary based on patient-specific cardiac risk. Pediatric guidelines reference:Pediatrics 2011, 128(S5).Adult guidelines reference: NCEP ATPIII Guidelines,SUSANA 2001, 258:2486-97 Venipuncture immediately after or during the administration of Metamizole may lead to falsely low results. Testing should be performed immediately prior to Metamizole dosing. Performed By: #### 2 4331-1 #### RUBEN Wilkerson ([id number]) [facility] ([facility]) [address] [place] [address] Cholesterol in HDL [Mass/Vol] 44.6 mg/dL Normal [facility] Comment on above: Result Comment: Age Very Low Low Normal High 0-19 Y < 35 < 40 40-45 ---- 20-24 Y ---- < 40 >45 ---- >24 Y ---- < 40 40-60 >60 Performed By: #### 2 4331-1 #### RUBEN Wilkerson ([id number]) [facility] ([facility]) [address] [place] [address] Cholesterol in LDL [Mass/Vol] 102 mg/dL High <=99 [facility] Comment on above: Result Comment: Near Borderline AGE Desirable Optimal High High Very High 0-19 Y 0 - 109 --- 110-129 >/= 130 ---- 20-24 Y 0 - 119 --- 120-159 >/= 160 ---- >24 Y 0 - 99 100-129 130-159 160-189 >/=190 Performed By: #### 2 4331-1 #### RUBEN Wilkerson ([id number]) [facility] ([facility]) [address] [place] [address] Cholesterol in VLDL [Mass/Vol] 17 mg/dL Normal 0-40 [facility] Comment on above: Performed By: #### 2 4331-1 #### RUBEN Wilkerson ([id number]) [facility] ([facility]) [address] [place] [address] CHOLESTEROL/HDL RATIO 3.7 Normal [facility] Comment on above: Result Comment: Ref Values Desirable < 3.4 High Risk > 5.0 Performed By: #### 2 4331-1 #### RUBEN Wilkerson ([id number]) [facility] ([facility]) [address] [place] [address] NON HDL CHOLESTEROL 118 mg/dL Normal 0-149 [facility] Comment on above: Result Comment: Age Desirable Borderline High High Very High 0-19 Y 0 - 119 120 - 144 >/= 145 >/= 160 20-24 Y 0 - 149 150 - 189 >/= 190 ---- >24 Y 30 mg/dL above LDL Cholesterol goal Performed By: #### 2 4331-1 #### RUBEN Wilkerson ([id number]) [facility] ([facility]) [address] [place] [address] Triglyceride [Mass/Vol] 83 mg/dL Normal 0-149 [facility] Comment on above: Result Comment: Age Desirable Borderline High Very High SEX:B mg/dL mg/dL mg/dL mg/dL <=14D 86-277 ---- ---- ---- 15D-365D 55-277 ---- ---- ---- 1Y-9Y 0-74 75-99 >=100 ---- 10Y-19Y 0-89 90-129 >=130 ---- 20Y-24Y 0-114 115-149 >=150 ---- >= 25Y 0-149 150-199 200-499 >=500 Venipuncture immediately after or during the administration of Metamizole may lead to falsely low results. Testing should be performed immediately prior to Metamizole dosing. Performed By: #### 2 4331-1 #### RUBEN Wilkerson ([id number]) [facility] ([facility]) [address] [place], [place] [id number] Prostate specific Agon 08-02 Prostate specific Ag [Mass/Vol] 0.59 ng/mL Normal <=4.00 [facility] Comment on above: Order Comment: The F DA requires that the method used for PSA assay be reported to the physician. Values obtained with different assay methods must not be used interchangeably. This test was performed at [facility] using Siemens Kuldat PSA method, which is a sandwich immunoassay using chemiluminescence for quantitation. The assay is approved for measurement of prostate-specific antigen (PSA) in serum and may be used in conjunction with a digital rectal examination in men 50 years and older as an aid in the detection of prostate cancer. 5 Alpha-reductase inhibitors (e.g., Proscar, Finasteride, Avodart, Dutasteride, and Cordelia) for the treatment of BPH have been shown to lower PSA levels by an average of 50% after 6 months of treatment. Performed By: #### 2 857-1 #### RUBEN Wilkerson ([id number]) [facility] ([facility]) [address] [place], [place] [id number] COLONOSCOPYon 04-13-2024 Colonoscopy Table formatting fro m the original result was not included. Impression Two polyps measuring from 3 mm up to 10 mm in the cecum and ascending colon; performed cold snare removal Diverticulosis in the sigmoid colon Hemorrhoids Normal. Findings Two sessile polyps measuring from 3 mm up to 10 mm in the cecum and ascending colon; performed cold snare with complete removal and retrieved specimen Multiple medium and large diverticula in the sigmoid colon Internal hemorrhoids observed during retroflexion The examination was otherwise normal Recommendation Follow up with PCP Repeat colonoscopy in 3 years, due: 04/13/2027 Personal history of colon polyps Resume Coumadin tonight and bridge with Lovenox until therapeutic Use two day prep for next procedure Indication Tubular adenoma of colon Staff Staff Role Casey Shah MD Proceduralist Medications lactated Ringer's infusion Not documented* *Total volume has not been documented. View each administration to see the amount administered. meperidine PF (Demerol) injection 50 mg midazolam (Versed) injection 2 mg (Totals for administrations occurring from 08 to 0904 on 04/13/24) Preprocedure A history and physical has been performed, and patient medication allergies have been reviewed. The patient's tolerance of previous anesthesia has been reviewed. The risks and benefits of the procedure and the sedation options and risks were discussed with the patient. All questions were answered and informed consent obtained. Details of the Procedure The patient underwent moderate sedation, which was administered by the procedural nurse. The patient's blood pressure, ECG, ETCO2, heart rate, level of consciousness, oxygen and respirations were monitored throughout the procedure. A digital rectal exam was performed. The scope was introduced through the anus and advanced to the terminal ileum. The quality of bowel preparation was evaluated using the [place] Bowel Preparation Scale with scores of: right colon = 3, transverse colon = 3, left colon = 2. The total BBPS score was 8. Bowel prep was adequate. The patient experienced no blood loss. The procedure was not difficult. The patient tolerated the procedure well. There were no apparent adverse events. Events Procedure Events Event Event Time ENDO SCOPE IN TIME 04/13/2024 8:42 AM ENDO CECUM REACHED 04/13/2024 8:50 AM ENDO SCOPE OUT TIME 04/13/2024 9:03 AM Specimens ID Type Source Tests Collected by Time 1 : Cold Snare x2 Tissue COLON -CECUM POLYP SURGICAL PATHOLOGY EXAM Bandar Moscoso RN 04/13/2024 0852 Procedure Location [address] [id number] Referring Provider Nupur Collier, SPORTS COMMENTATOR-SENIOR CHEMICAL ENGINEER Procedure Provider Casey Shah MD [facility] Colonoscopy studyon 04-13-20 24 Table formatting fro m the original result was not included. Impression Two polyps measuring from 3 mm up to 10 mm in the cecum and ascending colon; performed cold snare removal Diverticulosis in the sigmoid colon Hemorrhoids Normal. Findings Two sessile polyps measuring from 3 mm up to 10 mm in the cecum and ascending colon; performed cold snare with complete removal and retrieved specimen Multiple medium and large diverticula in the sigmoid colon Internal hemorrhoids observed during retroflexion The examination was otherwise normal Recommendation Follow up with PCP Repeat colonoscopy in 3 years, due: 04/13/2027 Personal history of colon polyps Resume Coumadin tonight and bridge with Lovenox until therapeutic Use two day prep for next procedure Indication Tubular adenoma of colon Staff Staff Role Casey Shah MD Proceduralist Medications lactated Ringer's infusion Not documented* *Total volume has not been documented. View each administration to see the amount administered. meperidine PF (Demerol) injection 50 mg midazolam (Versed) injection 2 mg (Totals for administrations occurring from 0826 to 0904 on 04/13/24) Preprocedure A history and physical has been performed, and patient medication allergies have been reviewed. The patient's tolerance of previous anesthesia has been reviewed. The risks and benefits of the procedure and the sedation options and risks were discussed with the patient. All questions were answered and informed consent obtained. Details of the Procedure The patient underwent moderate sedation, which was administered by the procedural nurse. The patient's blood pressure, ECG, ETCO2, heart rate, level of consciousness, oxygen and respirations were monitored throughout the procedure. A digital rectal exam was performed. The scope was introduced through the anus and advanced to the terminal ileum. The quality of bowel preparation was evaluated using the [place] Bowel Preparation Scale with scores of: right colon = 3, transverse colon = 3, left colon = 2. The total BBPS score was 8. Bowel prep was adequate. The patient experienced no blood loss. The procedure was not difficult. The patient tolerated the procedure well. There were no apparent adverse events. Events Procedure Events Event Event Time ENDO SCOPE IN TIME 04/13/2024 8:42 AM ENDO CECUM REACHED 04/13/2024 8:50 AM ENDO SCOPE OUT TIME 04/13/2024 9:03 AM Specimens ID Type Source Tests Collected by Time 1 : Cold Snare x2 Tissue COLON -CECUM POLYP SURGICAL PATHOLOGY EXAM Bandar Moscoso RN 04/13/2024 0852 Procedure Location [address] [id number] Referring Provider Nupur Collier, SPORTS COMMENTATOR-SENIOR CHEMICAL ENGINEER Procedure Provider Casey Shah MD [facility] Work Phone: [facility] Work Phone: Radiology Study observation (narrative) [facility] Work Phone: Lower extremity venous duple x lefton 07-02-2023 1. Minimal chronic thrombus within the mid femoral and popliteal veins. Signed by: Bandar Rogers 07/02/2023 10:25 AM Dictation workstation: [id number] MMODAL Interpreted By: Bandar Rogers, STUDY: [facility] US LOWER EXTREMITY VENOUS DUPLEX LEFT; 07/02/2023 9:56 am ACCESSION NUMBER(S): [id number] ORDERING CLINICIAN: BHUMIKA ORO TECHNIQUE: Static grayscale, color Doppler, and spectral Doppler sonographic images of the bilateral lower extremities were obtained for duplex evaluation. FINDINGS: LEFT LOWER EXTREMITY: Nonocclusive chronic appearing thrombus seen within the mid femoral vein and popliteal vein. All other vessels patent. MMODAL Bandar Rogers MD - 07/02/2023 Interpreted By: Bandar Rogers, STUDY: [facility] US LOWER EXTREMITY VENOUS DUPLEX LEFT; 07/02/2023 9:56 am ACCESSION NUMBER(S): [id number] ORDERING CLINICIAN: BHUMIKA ORO TECHNIQUE: Static grayscale, color Doppler, and spectral Doppler sonographic images of the bilateral lower extremities were obtained for duplex evaluation. FINDINGS: LEFT LOWER EXTREMITY: Nonocclusive chronic appearing thrombus seen within the mid femoral vein and popliteal vein. All other vessels patent. IMPRESSION: 1. Minimal chronic thrombus within the mid femoral and popliteal veins. Signed by: Bandar Rogers 07/02/2023 10:25 AM Dictation workstation: [id number] [facility] Work Phone: Radiology Study observation (narrative) [facility] Work Phone: Lower extremity venous duple x leftOrdered By: Bandar Rogers on 07-02-2023 [facility] Work Phone: PT and aPTT panel Coag (PPP) on 07-02-2023 aPTT Coag (PPP) [Time] 39 s High [facility] INR Coag (PPP) [Relative time] 2.6 {INR} High 0.9 - 1.1 [facility] Interpretation and review of laboratory results Abnormal [facility] PT Coag (PPP) [Time] 29.8 s High [facility] The APTT is no longe r used for monitoring Unfractionated Heparin Therapy. For monitoring Heparin Therapy, use the Heparin Assay. [facility] aPTT Coag (PPP) [Time] 39 s High 27-38 [facility] Comment on above: Order Comment: The A PTT is no longer used for monitoring Unfractionated Heparin Therapy. For monitoring Heparin Therapy, use the Heparin Assay. Performed By: #### 3 4529-8 #### OSMANY FOWLER ([id number]) [facility] ([facility]) [address] [place] [address] INR Coag (PPP) [Relative time] 2.6 High 0.9-1.1 [facility] Comment on above: Order Comment: The A PTT is no longer used for monitoring Unfractionated Heparin Therapy. For monitoring Heparin Therapy, use the Heparin Assay. Performed By: #### 3 4529-8 #### OSMANY FOWLER ([id number]) [facility] ([facility]) [address] [place] [address] PT Coag (PPP) [Time] 29.8 s High 9.8-12.8 [facility] Comment on above: Order Comment: The A PTT is no longer used for monitoring Unfractionated Heparin Therapy. For monitoring Heparin Therapy, use the Heparin Assay. Performed By: #### 3 4529-8 #### OSMANY FOWLER ([id number]) [facility] ([facility]) [address] [place] [address] [facility] US LOWER EXTREMITY VENO US DUPLEX LEFTon 07-02-2023 [facility] US LOWER EXTREMITY VENOUS DUPLEX LEFT Interpreted By: Bandar Rogers, STUDY: [facility] US LOWER EXTREMITY VENOUS DUPLEX LEFT; 07/02/2023 9:56 am ACCESSION NUMBER(S): [id number] ORDERING CLINICIAN: BHUMIKA ORO TECHNIQUE: Static grayscale, color Doppler, and spectral Doppler sonographic images of the bilateral lower extremities were obtained for duplex evaluation. FINDINGS: LEFT LOWER EXTREMITY: Nonocclusive chronic appearing thrombus seen within the mid femoral vein and popliteal vein. All other vessels patent. IMPRESSION: 1. Minimal chronic thrombus within the mid femoral and popliteal veins. Signed by: Bandar Rogers 07/02/2023 10:25 AM Dictation workstation: [id number] [facility] Today's INRon 05-19-2023 Today's INR 2-3 Anticoagulati on [facility] Work Phone: Today's INR [facility] Anticoagulati on [facility] Work Phone: Anticoagulation Monitoring S erviceon 05-05-2023 Anticoagulation Monitoring Service Today's INR [id number] IO INR2.9 Target INR range2-3 SourceAMS History of Present Illness Patient identification verified with 2 patient identifiers. Anticoagulation Monitoring Service: [facility]. Enrollment/Re-enrollmen t date: April 21, 2024. The patient is being seen as a follow-up for anticoagulation monitoring. Target INR 2-3. Monitoring practitioner PAT MALIK CNP. INR monitoring is per [facility] protocol. LASHAWN MALIK CNP FAX NUMBER IS [phone]. The patient is on anticoagulation due to deep vein thrombosis. The patient is currently taking warfarin Tablet strength and color: 5 mg([place]) Interval History: Patient was last seen: April 28, 2023. Previous INR was 2.2. dose maintained. Incoming total weekly dose 35 mg. Today[facility] Clinic INR: [facility] INR 2.9. Since last visit, the patient reports no bleeding. The patient did not experience clinically relevant bleeding. The patient did not experience other minor bleeding. Since last visit, the patient has not experienced a thrombotic event. The patient reports no change in medication. He reports no change in alcohol consumption. He reports no change in Vitamin K consumption. The patient has taken Warfarin as directed. Management: The patient's INR is within target range. Will maintain dose. Next follow up appointment in 2 week(s). Outgoing total weekly dose 35 mg. Patient instructed to call in interim with questions, concerns and changes. Patient educated on dietary consistency in vitamin k consumption. Discussion/Summary You are currently taking Warfarin. Your tablet strength and color: 5 mg([place]) Next Appointment: May 19, 2023. Time: 7: 15 am. Location: [facility], , option 1. Your INR today is within range . You will continue to take your dose as instructed above. Visit information Please call in interim with questions, concerns and changes. Do tell your provider when you get sick, hurt, or get a cut that will not stop bleeding. If you have any bleeding, trauma, falls and/or other medical concerns, call your doctor or seek medical attention right away. Results/Data Coumadin Printed in Appendix #1 below. *Diagnosis/Problems 1. 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) Signatures Electronically signed by : Fara Ramey R.N.; May 05 2023 7:13AM EST (Author) Appendix #1 Coumadin Patient: JENNIFER JAMES; : 1945; [id number] 07:[id number] 08:[id number] 07:[id number] 07:[id number] 07:00AM IO PT/INR PT + INR, Plasma PT/INR (POC) Recorded INR Coagulation Screen Current Dose New Dose Recheck in Patient Notified Comments IO [id number] PT, INR Target INR [id number] Normal [employer] Today's INRon 05-05-2023 Today's INR 2-3 Anticoagulati on [facility] Work Phone: Today's INR AMS Anticoagulati on [facility] Work Phone: Anticoagulation Monitoring S erviceon 04-28-2023 Anticoagulation Monitoring Service Today's INR [id number] IO INR2.2 Target INR range2-3 SourceAMS History of Present Illness Patient identification verified with 2 patient identifiers. Anticoagulation Monitoring Service: [facility]. Enrollment/Re-enrollmen t date: April 21, 2024. The patient is being seen as a follow-up for anticoagulation monitoring. Target INR 2-3. Monitoring practitioner PAT MALIK CNP. INR monitoring is per [facility] protocol. LASHAWN MALIK CNP FAX NUMBER IS [phone]. The patient is on anticoagulation due to deep vein thrombosis. The patient is currently taking warfarin Tablet strength and color: 5 mg([place]) Interval History: Patient was last seen: April 21, 2023. Previous INR was 3.7. Incoming total weekly dose 35 mg. Today's Clinic INR: [facility] INR 2.2. Since last visit, the patient reports no bleeding. The patient did not experience clinically relevant bleeding. The patient did not experience other minor bleeding. Since last visit, the patient has not experienced a thrombotic event. The patient reports no change in medication. He reports no change in alcohol consumption. He reports no change in Vitamin K consumption. The patient has taken Warfarin as directed. Management: The patient's INR is within target range. Will maintain dose. Next follow up appointment in 1 week(s). Outgoing total weekly dose 35 mg. Patient instructed to call in interim with questions, concerns and changes. Patient educated on dietary consistency in vitamin k consumption. Discussion/Summary You are currently taking Warfarin. Your tablet strength and color: 5 mg([place]) Next Appointment: May 05, 2023. Time: 7: 00 am. Location: [facility], , option 1. Your INR today is within range . You will continue to take your dose as instructed above. Visit information Please call in interim with questions, concerns and changes. Do tell your provider when you get sick, hurt, or get a cut that will not stop bleeding. If you have any bleeding, trauma, falls and/or other medical concerns, call your doctor or seek medical attention right away. Results/Data Coumadin Printed in Appendix #1 below. *Diagnosis/Problems 1. 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) Signatures Electronically signed by : Toshia Ordoñez R.N.; Apr 28 2023 8:02AM EST (Author) Appendix #1 Coumadin Patient: JENNIFER JAMES; : 1945; [id number] [id number] 07:[id number] 07:[id number] 07:[id number] 07:15AM IO PT/INR PT + INR, Plasma PT/INR (POC) Recorded INR Coagulation Screen Current Dose New Dose Recheck in Patient Notified Comments IO INR2.23.73.42.81.7 PT, INR Target INR [id number] Normal [employer] Today's INRon 04-28-2023 Today's INR 2-3 Anticoagulati on [facility] Work Phone: Today's INR AMS Anticoagulati on [facility] Work Phone: Anticoagulation Monitoring S erviceon 04-21-2023 Anticoagulation Monitoring Service Today's INR [id number] IO INR3.7 Target INR range2-3 Source[facility] History of Present Illness Patient identification verified with 2 patient identifiers. Anticoagulation Monitoring Service: [facility]. Enrollment/Re-enrollmen t date: February 25, 2023. Re-enrollment fax was sent to PAT MALIK CNP at FAX NUMBER [phone] ON 04/21. The patient is being seen as a follow-up for anticoagulation monitoring. Target INR 2-3. Monitoring practitioner PAT MALIK CNP. INR monitoring is per [facility] protocol. LSAHAWN MALIK CNP FAX NUMBER IS [phone]. The patient is on anticoagulation due to deep vein thrombosis. The patient is currently taking warfarin Tablet strength and color: 5 mg([place]) Interval History: Patient was last seen: April 14, 2023. Previous INR was 3.4. Incoming total weekly dose 37.5 mg. Today's Clinic INR: [facility] INR 3.7. Since last visit, the patient reports no bleeding. The patient did not experience clinically relevant bleeding. The patient did not experience other minor bleeding. Since last visit, the patient has not experienced a thrombotic event. The patient reports no change in medication. He reports no change in alcohol consumption. He reports no change in Vitamin K consumption. The patient has taken Warfarin as directed. There is no identifiable cause for out of range INR. Management: The patient's INR is supratherapeutic. Hold 1 dose. 04/21. Will decrease dose per protocol by approximately 10%. Next follow up appointment in 1 week(s). Outgoing total weekly dose 35 mg. Patient instructed to call in interim with questions, concerns and changes. Patient educated on dietary consistency in vitamin k consumption. Discussion/Summary You are currently taking Warfarin. Your tablet strength and color: 5 mg([place]) Next Appointment: Friday, April 28, 2023. Time: 7: 45 am. Location: [facility], , option 1. Your INR today is higher than your target range, you may be at risk for bleeding. Please hold Coumadin/Warfarin dose(s) for 1 day(s). Change your dosing as instructed above. Visit information Please call in interim with questions, concerns and changes. Do tell your provider when you get sick, hurt, or get a cut that will not stop bleeding. If you have any bleeding, trauma, falls and/or other medical concerns, call your doctor or seek medical attention right away. Results/Data Coumadin Printed in Appendix #1 below. Signatures Electronically signed by : Nicole Guerrero R.N.; Apr 21 2023 9:42AM EST (Author) Appendix #1 Coumadin Patient: JENNIFER JAMES; : 1945; [id number] 07:[id number] 07:[id number] 07:[id number] 07:[id number] 07:01AM IO PT/INR PT + INR, Plasma PT/INR (POC) Recorded INR Coagulation Screen Current Dose New Dose Recheck in Patient Notified Comments IO INR3.73.42.81.71.6 PT, INR Target INR -62-99-32-32-3 Normal Touchworks Today's INRon 04-21-2023 Today's INR 2-3 Anticoagulati on Monitoring [facility] Work Phone: Today's INR AMS Anticoagulati on Monitoring [facility] Work Phone: Anticoagulation Monitoring S erviceon 04-14-2023 Anticoagulation Monitoring Service Today's INR [id number] IO INR3.4 Target INR range2-3 SourceAMS History of Present Illness Patient identification verified with 2 patient identifiers. Anticoagulation Monitoring Service: [facility]. Enrollment/Re-enrollmen t date: February 25, 2023. Re-enrollment fax was sent to PAT MALIK CNP 02/17/23, 03/24/23,04/14/23 The patient is being seen as a follow-up for anticoagulation monitoring. Target INR 2-3. Monitoring practitioner PAT MALIK CNP. INR monitoring is per [facility] protocol. The patient is on anticoagulation due to deep vein thrombosis. The patient is currently taking warfarin Tablet strength and color: 5 mg([place]) Interval History: Patient was last seen: April 07, 2023. Previous INR was 2.8. Incoming total weekly dose 40 mg. Today's Clinic INR: AMS INR 3.4. Since last visit, the patient reports no bleeding. The patient did not experience clinically relevant bleeding. The patient did not experience other minor bleeding. Since last visit, the patient has not experienced a thrombotic event. The patient reports no change in medication. He reports no change in alcohol consumption. He reports no change in Vitamin K consumption. The patient has taken Warfarin as directed. Management: The patient's INR is within target range. Will decrease dose per protocol by approximately Next follow up appointment in 1 week(s). Outgoing total weekly dose 37.5 mg. Patient instructed to call in interim with questions, concerns and changes. Patient educated on dietary consistency in vitamin k consumption. Discussion/Summary You are currently taking Warfarin. Your tablet strength and color: 5 mg([place]) Next Appointment: Friday, April 21, 2023. Time: 7: 30 am. Location: [facility], , option 1. Your INR today is higher than your target range, you may be at risk for bleeding. Change your dosing as instructed above. Visit information Please call in interim with questions, concerns and changes. Do tell your provider when you get sick, hurt, or get a cut that will not stop bleeding. If you have any bleeding, trauma, falls and/or other medical concerns, call your doctor or seek medical attention right away. Results/Data Coumadin Printed in Appendix #1 below. *Diagnosis/Problems 1. 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) Signatures Electronically signed by : Cindy Martin R.N.; Apr 14 2023 7:20AM EST (Author) Appendix #1 Coumadin Patient: JENNIFER JAMES; : 1945; [id number] 07:[id number] 07:[id number] 07:[id number] 07:[id number] 07:04AM IO PT/INR PT + INR, Plasma PT/INR (POC) Recorded INR Coagulation Screen Current Dose New Dose Recheck in Patient Notified Comments IO INR3.42.81.71.62.2 PT, INR Target INR [id number] Normal Touchworks Today's INRon 04-14-2023 Today's INR 2-3 Anticoagulati on Monitoring [facility] Work Phone: Today's INR AMS Anticoagulati on Monitoring [facility] Work Phone: Anticoagulation Monitoring S erviceon 04-07-2023 Anticoagulation Monitoring Service Today's INR [id number] IO INR2.8 Target INR range2-3 SourceAMS History of Present Illness Patient identification verified with 2 patient identifiers. Anticoagulation Monitoring Service: [facility]. Enrollment/Re-enrollmen t date: February 25, 2023. Re-enrollment fax was sent to PAT MALIK CNP 02/17/23, 03/24/23 The patient is being seen as a follow-up for anticoagulation monitoring. Target INR 2-3. Monitoring practitioner PAT MALIK CNP. INR monitoring is per [facility] protocol. The patient is on anticoagulation due to deep vein thrombosis. The patient is currently taking warfarin Tablet strength and color: 5 mg([place]) Interval History: Patient was last seen: March 24, 2023. Previous INR was 1.7. Incoming total weekly dose 40 mg. Today's Clinic INR: A[facility] INR 2.8. Since last visit, the patient reports no bleeding. The patient did not experience clinically relevant bleeding. The patient did not experience other minor bleeding. Since last visit, the patient has not experienced a thrombotic event. The patient reports no change in medication. He reports no change in alcohol consumption. He reports no change in Vitamin K consumption. The patient has taken Warfarin as directed. Management: The patient's INR is within target range. Will maintain dose. Next follow up appointment in 1 week(s). Outgoing total weekly dose 40 mg. Patient instructed to call in interim with questions, concerns and changes. Patient educated on dietary consistency in vitamin k consumption. Discussion/Summary You are currently taking Warfarin. Your tablet strength and color: 5 mg([place]) Next Appointment: April 14, 2023. Time: 7: 15 am. Location: [facility], , option 1. Your INR today is within range . You will continue to take your dose as instructed above. Visit information Please call in interim with questions, concerns and changes. Do tell your provider when you get sick, hurt, or get a cut that will not stop bleeding. If you have any bleeding, trauma, falls and/or other medical concerns, call your doctor or seek medical attention right away. Results/Data Coumadin Printed in Appendix #1 below. *Diagnosis/Problems 1. 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) Signatures Electronically signed by : Toshia Ordoñez R.N.; Apr 07 2023 7:03AM EST (Author) Appendix #1 Coumadin Patient: JENNIFER JAMES; : 1945; [id number] 07:[id number] 07:[id number] 07:[id number] 07:[id number] 07:02AM IO PT/INR PT + INR, Plasma PT/INR (POC) Recorded INR Coagulation Screen Current Dose New Dose Recheck in Patient Notified Comments IO INR2.81.71.62.22.2 PT, INR Target INR [id number] Normal Touchworks Today's INRon 04-07-2023 Today's INR 2-3 Anticoagulati on Monitoring [facility] Work Phone: Today's INR AMS Anticoagulati on Monitoring [facility] Work Phone: Anticoagulation Monitoring S erviceon 03-24-2023 Anticoagulation Monitoring Service Today's INR [id number] IO INR1.7 Target INR range2-3 SourceAMS History of Present Illness Patient identification verified with 2 patient identifiers. Anticoagulation Monitoring Service: [facility]. Enrollment/Re-enrollmen t date: February 25, 2023. Re-enrollment fax was sent to PAT MALIK CNP 02/17/23, 03/24/23 The patient is being seen as a follow-up for anticoagulation monitoring. Target INR 2-3. Monitoring practitioner PAT MALIK CNP. INR monitoring is per [facility] protocol. The patient is on anticoagulation due to deep vein thrombosis. The patient is currently taking warfarin Tablet strength and color: 5 mg([place]) Interval History: Patient was last seen: March 17, 2023. Previous INR was 1.6. DOSE INCREASED. Incoming total weekly dose 37.5 mg. Today's Clinic INR: [facility] INR 1.7. Since last visit, the patient reports no bleeding. The patient did not experience clinically relevant bleeding. The patient did not experience other minor bleeding. Since last visit, the patient has not experienced a thrombotic event. The patient reports no change in medication. He reports no change in alcohol consumption. He reports no change in Vitamin K consumption. The patient has taken Warfarin as directed. There is no identifiable cause for out of range INR. Management: The patient's INR is subtherapeutic. Will increase dose per protocol by approximately The patient is not currently being bridged. Next follow up appointment in 2 week(s). PT WILL BE OUT OF TOWN ON VACATION NEXT WEEK. Outgoing total weekly dose 40 mg. Patient instructed to call in interim with questions, concerns and changes. Patient educated on dietary consistency in vitamin k consumption. Discussion/Summary You are currently taking Warfarin. Your tablet strength and color: 5 mg([place]) Next Appointment: April 07, 2023. Time: 7: 00 am. Location: [facility], , option 1. Your INR today is lower than your target range, you may be at risk for forming blood clots. Change your dosing as instructed above. Visit information Please call in interim with questions, concerns and changes. Do tell your provider when you get sick, hurt, or get a cut that will not stop bleeding. If you have any bleeding, trauma, falls and/or other medical concerns, call your doctor or seek medical attention right away. Results/Data Coumadin Printed in Appendix #1 below. *Diagnosis/Problems 1. 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) Signatures Electronically signed by : Alisha Friend R.N.; Mar 24 2023 7:20AM EST (Author) Appendix #1 Coumadin Patient: JENNIFER JAMES; : 1945; [id number] [id number] 07:[id number] 07:[id number] 07:[id number] 07:[id number] 12:22PM IO PT/INR PT + INR, Plasma PT/INR (POC) Recorded INR Coagulation Screen Current Dose New Dose Recheck in Patient Notified Comments IO INR1.71.62.22.22.7 PT, INR1.8 Target INR [id number] Normal Touchworks Today's INRon 03-24-2023 Today's INR 2-3 Anticoagulati on Monitoring [facility] Work Phone: Today's INR AMS Anticoagulati on Monitoring [facility] Work Phone: Anticoagulation Monitoring S erviceon 03-17-2023 Anticoagulation Monitoring Service Today's INR [id number] IO INR1.6 Target INR range2-3 SourceAMS History of Present Illness Patient identification verified with 2 patient identifiers. Anticoagulation Monitoring Service: [facility]. Enrollment/Re-enrollmen t date: February 25, 2023. Re-enrollment fax was sent to 02/17/23 to Pat Malik The patient is being seen as a follow-up for anticoagulation monitoring. Target INR 2-3. Monitoring practitioner PAT MALIK CNP. INR monitoring is per [facility] protocol. The patient is on anticoagulation due to deep vein thrombosis. The patient is currently taking warfarin Tablet strength and color: 5 mg([place]) Interval History: Patient was last seen: February 17, 2023. Previous INR was 2.2. Incoming total weekly dose 35 mg. Today's Clinic INR: AMS INR 1.6. Since last visit, the patient reports no bleeding. The patient did not experience clinically relevant bleeding. The patient did not experience other minor bleeding. Since last visit, the patient has not experienced a thrombotic event. The patient reports no change in medication. DENIES. He reports no change in alcohol consumption. He reports no change in Vitamin K consumption. The patient did not take Warfarin as directed. PT MISSED HIS DOSE 4 DAYS AGO, BUT TOOK IT THE FOLLOWING MORNING ALONG WITH THE REGULAR SCHEDULED DOSE THAT EVENING. Management: The patient's INR is subtherapeutic. Will increase dose per protocol by approximately Next follow up appointment in 1 week(s). Outgoing total weekly dose 37.5 mg. Patient instructed to call in interim with questions, concerns and changes. Patient educated on interactions between medications and warfarin. Patient educated on dietary consistency in vitamin k consumption. Patient educated on affects of alcohol consumption while taking warfarin. Patient educated on signs of bleeding/clotting. Patient educated on compliance with dosing, follow up appointments, and prescribed plan of care. Discussion/Summary You are currently taking Warfarin. Your tablet strength and color: 5 mg([place]) Next Appointment: March 24, 2023. Time: 7: 15 am. Location: [facility], , option 1. Your INR today is lower than your target range, you may be at risk for forming blood clots. Change your dosing as instructed above. Visit information Please call in interim with questions, concerns and changes. Do tell your provider when you get sick, hurt, or get a cut that will not stop bleeding. Taking a new medication may change your INR. Please inform your provider of any medication changes. Your INR may change because of how much Vitamin K you eat. Your INR may change because of how much alcohol you drink. It is important to check your INR on a regular basis and keep your appointments. Knowing your INR number is the only way of knowing if you're taking the amount of warfarin that is correct for you. If you have any bleeding, trauma, falls and/or other medical concerns, call your doctor or seek medical attention right away. Results/Data Coumadin Printed in Appendix #1 below. *Diagnosis/Problems 1. 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) Signatures Electronically signed by : Toshia Ordoñez R.N.; Mar 17 2023 7:05AM EST (Author) Appendix #1 Coumadin Patient: JENNIFER JAMES; : 1945; [id number] 07:[id number] 07:[id number] 07:[id number] 07:[id number] 07:[id number] 12:22PM IO PT/INR PT + INR, Plasma PT/INR (POC) Recorded INR Coagulation Screen Current Dose New Dose Recheck in Patient Notified Comments IO INR1.62.22.22.72.3 PT, INR1.8 Target INR [id number] Normal Touchworks Today's INRon 03-17-2023 Today's INR 2-3 Anticoagulati on Monitoring [facility] Work Phone: Today's INR AMS Anticoagulati on Monitoring [facility] Work Phone: Anticoagulation Monitoring S erviceon 02-17-2023 Anticoagulation Monitoring Service Today's INR [id number] IO INR2.2 Target INR range2-3 SourceAMS History of Present Illness Patient identification verified with 2 patient identifiers. Anticoagulation Monitoring Service: [facility]. Enrollment/Re-enrollmen t date: February 25, 2023. Re-enrollment fax was sent to 02/17/23 to Pat Malik The patient is being seen as a follow-up for anticoagulation monitoring. Target INR 2-3. Monitoring practitioner PAT MALIK CNP. INR monitoring is per [facility] protocol. The patient is on anticoagulation due to deep vein thrombosis. The patient is currently taking warfarin Tablet strength and color: 5 mg([place]) Interval History: Patient was last seen: January 21, 2024. Previous INR was 2.2. Incoming total weekly dose 35 mg. Today's Clinic INR: AMS INR 2.2. Since last visit, the patient reports no bleeding. The patient did not experience clinically relevant bleeding. The patient did not experience other minor bleeding. Since last visit, the patient has not experienced a thrombotic event. The patient reports no change in medication. He reports no change in alcohol consumption. He reports no change in Vitamin K consumption. The patient has taken Warfarin as directed. Management: The patient's INR is within target range. Will maintain dose. Next follow up appointment in 4 week(s). Outgoing total weekly dose 35 mg. Patient instructed to call in interim with questions, concerns and changes. Patient educated on interactions between medications and warfarin. Patient educated on dietary consistency in vitamin k consumption. Patient educated on affects of alcohol consumption while taking warfarin. Patient educated on signs of bleeding/clotting. Patient educated on compliance with dosing, follow up appointments, and prescribed plan of care. Discussion/Summary You are currently taking Warfarin. Your tablet strength and color: 5 mg([place]) Next Appointment: Friday, March 17, 2023. Time: 7: 00 am. Location: [facility], , option 1. Your INR today is within range . You will continue to take your dose as instructed above. Visit information Please call in interim with questions, concerns and changes. Do tell your provider when you get sick, hurt, or get a cut that will not stop bleeding. Taking a new medication may change your INR. Please inform your provider of any medication changes. Your INR may change because of how much Vitamin K you eat. Your INR may change because of how much alcohol you drink. It is important to check your INR on a regular basis and keep your appointments. Knowing your INR number is the only way of knowing if you're taking the amount of warfarin that is correct for you. If you have any bleeding, trauma, falls and/or other medical concerns, call your doctor or seek medical attention right away. Results/Data Coumadin Printed in Appendix #1 below. *Diagnosis/Problems 1. 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) Signatures Electronically signed by : Stevan Roldan R.N.; Feb 17 2023 7:11AM EST (Author) Appendix #1 Coumadin Patient: JENNIFER JAMES; : 1945; [id number] [id number] 07:[id number] 07:[id number] 07:[id number] 07:02AM IO PT/INR PT + INR, Plasma PT/INR (POC) Recorded INR Coagulation Screen Current Dose New Dose Recheck in Patient Notified Comments IO INR2.22.22.72.32.4 PT, INR Target INR -61-94-32-32-3 Normal Touchworks Today's INRon 02-17-2023 Today's INR 2-3 Anticoagulati on Monitoring Service[facility] Work Phone: Today's INR AMS Anticoagulati on Monitoring [facility] Work Phone: Anticoagulation Monitoring S eron 01-20-2023 Anticoagulation Monitoring Service Today's INR [id number] IO INR2.2 Target INR range2-3 SourceAMS History of Present Illness Patient identification verified with 2 patient identifiers. Anticoagulation Monitoring Service: [facility]. Enrollment/Re-enrollmen t date: February 25, 2023. The patient is being seen as a follow-up for anticoagulation monitoring. Target INR 2-3. Monitoring practitioner PAT MALIK CNP. INR monitoring is per [facility] protocol. The patient is on anticoagulation due to deep vein thrombosis. The patient is currently taking warfarin Tablet strength and color: 5 mg([place]) Interval History: Patient was last seen: December 16, 2022. Previous INR was 2.7. Incoming total weekly dose 35 mg. Today's Clinic INR: AMS INR 2.2. Since last visit, the patient reports no bleeding. The patient did not experience clinically relevant bleeding. The patient did not experience other minor bleeding. Since last visit, the patient has not experienced a thrombotic event. The patient reports no change in medication. He reports no change in alcohol consumption. He reports no change in Vitamin K consumption. The patient has taken Warfarin as directed. Management: The patient's INR is within target range. Will maintain dose. Next follow up appointment in 4 week(s). PT WILL BE RVING TO [place] AND CANNOT RTC UNTIL END OF DECEMBER. Outgoing total weekly dose 35 mg. Patient instructed to call in interim with questions, concerns and changes. Patient educated on dietary consistency in vitamin k consumption. Patient educated on compliance with dosing, follow up appointments, and prescribed plan of care. Discussion/Summary You are currently taking Warfarin. Your tablet strength and color: 5 mg([place]) Next Appointment: Friday, February 17, 2023. Time: 7: 00 am. Location: [facility], , option 1. Your INR today is within range . You will continue to take your dose as instructed above. Visit information Please call in interim with questions, concerns and changes. Do tell your provider when you get sick, hurt, or get a cut that will not stop bleeding. If you have any bleeding, trauma, falls and/or other medical concerns, call your doctor or seek medical attention right away. Results/Data Coumadin Printed in Appendix #1 below. *Diagnosis/Problems 1. 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) Signatures Electronically signed by : Nicole Gonzalez R.N.; Jan 20 2023 7:04AM EST (Author) Appendix #1 Coumadin Patient: JENNIFER JAMES; : 1945; [id number] 07:[id number] 07:[id number] 07:[id number] 07:[id number] 12:22PM IO PT/INR PT + INR, Plasma PT/INR (POC) Recorded INR Coagulation Screen Current Dose New Dose Recheck in Patient Notified Comments IO INR2.22.72.32.4 PT, INR1.8 Target INR -68-55-32-3 Normal [facility] Today's INRon 01-20-2023 Today's INR 2-3 Anticoagulati on Monitoring [facility] Work Phone: Today's INR AMS Anticoagulati on Monitoring [facility] Work Phone: Anticoagulation Monitoring S erviceon 12-16-2022 Anticoagulation Monitoring Service Today's INR [id number] IO INR2.7 Target INR range2-3 SourceAMS History of Present Illness Patient identification verified with 2 patient identifiers. Anticoagulation Monitoring Service: [facility]. Enrollment/Re-enrollmen t date: February 25, 2023. The patient is being seen as a follow-up for anticoagulation monitoring. Target INR 2-3. Monitoring practitioner PAT MALIK CNP. INR monitoring is per [facility] protocol. The patient is on anticoagulation due to deep vein thrombosis. The patient is currently taking warfarin Tablet strength and color: 5 mg([place]) Interval History: Patient was last seen: November 18, 2022. Previous INR was 2.3. Incoming total weekly dose 35 mg. Today's Clinic INR: AMS INR 2.7. Since last visit, the patient reports no bleeding. The patient did not experience clinically relevant bleeding. The patient did not experience other minor bleeding. Since last visit, the patient has not experienced a thrombotic event. The patient reports no change in medication. He reports no change in alcohol consumption. He reports no change in Vitamin K consumption. The patient has taken Warfarin as directed. Management: The patient's INR is within target range. Will maintain dose. Next follow up appointment in 4 week(s). PT WILL BE RVING TO [place] AND CANNOT RTC UNTIL END OF DECEMBER. Outgoing total weekly dose 35 mg. Patient instructed to call in interim with questions, concerns and changes. Patient educated on dietary consistency in vitamin k consumption. Patient educated on compliance with dosing, follow up appointments, and prescribed plan of care. Discussion/Summary You are currently taking Warfarin. Your tablet strength and color: 5 mg([place]) Next Appointment: January 20, 2023. Time: 7: 00 am. Location: [facility], , option 1. Your INR today is within range . You will continue to take your dose as instructed above. Visit information Please call in interim with questions, concerns and changes. Do tell your provider when you get sick, hurt, or get a cut that will not stop bleeding. If you have any bleeding, trauma, falls and/or other medical concerns, call your doctor or seek medical attention right away. Results/Data Coumadin Printed in Appendix #1 below. *Diagnosis/Problems 1. 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) Signatures Electronically signed by : Toshia Ordoñez R.N.; Dec 16 2022 7:06AM EST (Author) Appendix #1 Coumadin Patient: JENNIFER JAMES; : 1945; [id number] 07:[id number] 07:[id number] 07:[id number] 12:[id number] 07:05AM IO PT/INR PT + INR, Plasma PT/INR (POC) Recorded INR Coagulation Screen Current Dose New Dose Recheck in Patient Notified Comments IO INR2.72.32.42.1 PT, INR1.8 Target INR fuple8-20-40-32-3 Normal Touchworks Today's INRon 12-16-2022 Today's INR 2-3 Anticoagulati on Monitoring Service[facility] Minoff Work Phone: Today's INR AMS Anticoagulati on Monitoring [facility] Minoff Work Phone: [facility] Surgical Pathology Depar tmenton 12-12-2022 [facility] Surgical Pathology Department Name JENNIFER JAMES Pathologist: TRAE ASTUDILLO DMD. Date of Procedure: 12/12/2022 Date Received: 12/12/2022 Date Reported 12/19/2022 Submitting Physician: MADELINE MERCHANT DDS Location: [facility] Other External # FINAL DIAGNOSIS LOOSE UNATTACHED MUCOSA, BUCCAL TO #28, EXCISIONAL BIOPSY: -- SALIVARY DUCT CYST WITH NECROINFLAMMATORY DEBRIS. at Electronically Signed Out By TRAE ASTUDILLO DMD./AMT By the signature on this report, the individual or group listed as making the Final Interpretation/Diagnosi s certifies that they have reviewed this case. Diagnostic interpretation performed at [address] [place] [address] Clinical History: Excision buccal to #28 in loose unattached mucosa. Clinical/Radiographic findings and history: Mobile, yellowish-hue, hard nodule that can be seen through loose tissue unattached mucosa. Clinical diagnosis/impression: lympho-epithelial cyst, minor salivary stone Specimens Submitted As: A: BUCCAL TO #28 IN LOOSE UNATTACHED MUCOSA Gross Description: Received in formalin, labeled with the patient's name and hospital number, is a portion of mucosal covered soft tissue measuring 0.6 x 0.4 x 0.3 cm. The resection margin is inked. The specimen is bisected and entirely submitted in one cassette. RCC rcc/12/15/2022 [facility] Department of Pathology [address] [place] [address] Normal [facility] Comment on above: Performed By: #### U HCS #### [facility] Surgical Pathology Department [address] [place] [address] Anticoagulation Monitoring S erviceon 11-18-2022 Anticoagulation Monitoring Service Today's INR 18Nov2022 IO INR2.3 Target INR range2-3 SourceAMS History of Present Illness Patient identification verified with 2 patient identifiers. Anticoagulation Monitoring Service: [facility]. Enrollment/Re-enrollmen t date: February 25, 2023. The patient is being seen as a follow-up for anticoagulation monitoring. Target INR 2-3. Monitoring practitioner PAT MALIK CNP. INR monitoring is per [facility]MS protocol. The patient is on anticoagulation due to deep vein thrombosis. The patient is currently taking warfarin Tablet strength and color: 5 mg([place]) Interval History: Patient was last seen: October 21, 2022. Previous INR was 2.4. Incoming total weekly dose 35 mg. Today's Clinic INR: [facility] INR 2.3. Since last visit, the patient reports no bleeding. The patient did not experience clinically relevant bleeding. The patient did not experience other minor bleeding. Since last visit, the patient has not experienced a thrombotic event. The patient reports no change in medication. He reports no change in alcohol consumption. He reports no change in Vitamin K consumption. The patient has taken Warfarin as directed. Management: The patient's INR is within target range. Will maintain dose. The patient is not currently being bridged. Next follow up appointment in 4 week(s). Outgoing total weekly dose 35 mg. Patient instructed to call in interim with questions, concerns and changes. Patient educated on dietary consistency in vitamin k consumption. Patient educated on compliance with dosing, follow up appointments, and prescribed plan of care. Discussion/Summary You are currently taking Warfarin. Your tablet strength and color: 5 mg([place]) Next Appointment: December 16, 2022. Time: 7: 00 am. Location: [facility], , option 1. Your INR today is within range . You will continue to take your dose as instructed above. Visit information Please call in interim with questions, concerns and changes. Do tell your provider when you get sick, hurt, or get a cut that will not stop bleeding. If you have any bleeding, trauma, falls and/or other medical concerns, call your doctor or seek medical attention right away. Results/Data Coumadin Printed in Appendix #1 below. *Diagnosis/Problems 1. 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) Signatures Electronically signed by : Rut Garner R.N.; Nov 18 2022 7:04AM EST (Author) Appendix #1 Coumadin Patient: JENNIFER JAMES; : 1945; [id number] 07:[id number] 07:[id number] 12:[id number] 07:[id number] 07:25AM IO PT/INR PT + INR, Plasma PT/INR (POC) Recorded INR Coagulation Screen Current Dose New Dose Recheck in Patient Notified Comments IO INR2.32.42.12 PT, INR1.8 Target INR -57-96-32-3 Normal Touchworks Today's INRon 11-18-2022 Today's INR 2-3 [facility] Work Phone: Today's INR AMS [facility] Work Phone: Anticoagulation Monitoring S erviceon 10-21-2022 Anticoagulation Monitoring Service Today's INR [id number] IO INR2.4 Target INR range2-3 SourceAMS History of Present Illness Patient identification verified with 2 patient identifiers. Anticoagulation Monitoring Service: [facility]. Enrollment/Re-enrollmen t date: February 25, 2023. The patient is being seen as a follow-up for anticoagulation monitoring. Target INR 2-3. Monitoring practitioner PAT MALIK CNP. INR monitoring is per [facility] protocol. The patient is on anticoagulation due to deep vein thrombosis. The patient is currently taking warfarin Tablet strength and color: 5 mg([place]) Interval History: Patient was last seen: September 23, 2022. Previous INR was 2.1. Incoming total weekly dose 35 mg. Today's Clinic INR: [facility] INR 2.4. Since last visit, the patient reports no bleeding. The patient did not experience clinically relevant bleeding. The patient did not experience other minor bleeding. Since last visit, the patient has not experienced a thrombotic event. The patient reports no change in medication. He reports no change in alcohol consumption. He reports no change in Vitamin K consumption. The patient has taken Warfarin as directed. Management: The patient's INR is within target range. Will maintain dose. Next follow up appointment in 4 week(s). Outgoing total weekly dose 35 mg. Patient instructed to call in interim with questions, concerns and changes. Patient educated on dietary consistency in vitamin k consumption. Patient educated on compliance with dosing, follow up appointments, and prescribed plan of care. Discussion/Summary You are currently taking Warfarin. Your tablet strength and color: 5 mg([place]) Next Appointment: Friday, November 18, 2022. Time: 7: 00 am. Location: [facility], , option 1. Your INR today is within range . You will continue to take your dose as instructed above. Visit information Please call in interim with questions, concerns and changes. Do tell your provider when you get sick, hurt, or get a cut that will not stop bleeding. If you have any bleeding, trauma, falls and/or other medical concerns, call your doctor or seek medical attention right away. Results/Data Coumadin Printed in Appendix #1 below. *Diagnosis/Problems 1. 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) Signatures Electronically signed by : Nicole Gonzalez R.N.; Oct 21 2022 7:07AM EST (Author) Appendix #1 Coumadin Patient: JENNIFER JAMES; : 1945; [id number] [id number] 12:[id number] 07:[id number] 07:[id number] 07:06AM IO PT/INR PT + INR, Plasma PT/INR (POC) Recorded INR Coagulation Screen Current Dose New Dose Recheck in Patient Notified Comments IO INR2.42.123.3 PT, INR1.8 Target INR mpgeg8-06-22-32-3 Normal Touchworks Today's INRon 10-21-2022 Today's INR 2-3 Anticoagulati on [facility] Work Phone: Today's INR AMS Anticoagulati on [facility] Minoff Work Phone: COMPREHENSIVE PANELon 2022 Albumin [Mass/Vol] 4.3 g/dL Normal 3.4 - 5.0 [facility] Comment on above: Performed By: #### C MP #### [facility] [address] [place] [address] ALP [Catalytic activity/Vol] 48 U/L Normal 33 - 136 [facility] Comment on above: Performed By: #### C MP #### [facility] [address] [place] [address] ALT [Catalytic activity/Vol] 16 U/L Normal 10 - 52 [facility] Comment on above: Result Comment: Maria Luisa ents treated with Sulfasalazine may generate falsely decreased results for ALT. Performed By: #### C MP #### [facility] [address] [place] [address] Anion gap [Moles/Vol] 12 mmol/L Normal 10 - 20 [facility] Comment on above: Performed By: #### C MP #### [facility] [address] [place] [address] AST [Catalytic activity/Vol] 17 U/L Normal 9 - 39 [facility] Comment on above: Performed By: #### C MP #### [facility] [address] [place] [address] Bilirubin [Mass/Vol] 0.5 mg/dL Normal 0.0 - 1.2 [facility] Comment on above: Performed By: #### C MP #### [facility] [address] [place] [address] Calcium [Mass/Vol] 9.6 mg/dL Normal 8.6 - 10.6 [facility] Comment on above: Performed By: #### C MP #### [facility] [address] [place] [address] Chloride [Moles/Vol] 107 mmol/L Normal 98 - 107 [facility] Comment on above: Performed By: #### C MP #### [facility] [address] [place] [address] Creatinine [Mass/Vol] 1.01 mg/dL Normal 0.50 - 1.30 [facility] Comment on above: Performed By: #### C MP #### [facility] [address] [place] [address] GFR/1.73 sq M.predicted among non-blacks MDRD (S/P/Bld) [Vol rate/Area] 77 mL/min/{1.73_m2} Normal >90 [facility] Comment on above: Result Comment: CALC ULATIONS OF ESTIMATED GFR ARE PERFORMED USING THE 2020 CKD-EPI STUDY REFIT EQUATION WITHOUT THE RACE VARIABLE FOR THE IDMS-TRACEABLE CREATININE METHODS. https://jasn.asnjournals.org/content/early//ASN.456343 9666 Performed By: #### C MP #### [facility] [address] [place] [address] Glucose [Mass/Vol] 88 mg/dL Normal 74 - 99 [facility] Comment on above: Performed By: #### C MP #### [facility] [address] [place] [address] HCO3 (Bld) [Moles/Vol] 28 mmol/L Normal 21 - 32 [facility] Comment on above: Performed By: #### C MP #### [facility] [address] [place] [address] Potassium [Moles/Vol] 5.0 mmol/L Normal 3.5 - 5.3 [facility] Comment on above: Performed By: #### C MP #### [place] [address] [place] [address] Protein [Mass/Vol] 7.0 g/dL Normal 6.4 - 8.2 [facility] Comment on above: Performed By: #### C MP #### [facility] [address] [place] [address] Sodium [Moles/Vol] 142 mmol/L Normal 136 - 145 [facility] Comment on above: Performed By: #### C MP #### [facility] [address] [place] [address] Urea nitrogen [Mass/Vol] 18 mg/dL Normal 6 - 23 [facility] Comment on above: Performed By: #### C MP #### [facility] [address] [place] [address] CBC AND DIFFERENTIALon 10-16 % AUTOMATED IMMATURE GRAN 0.2 % Normal 0.0 - 0.9 [facility] Comment on above: Result Comment: Ayesha ture Granulocyte Count (IG) includes promyelocytes, myelocytes and metamyelocytes but does not include bands. Percent differential counts (%) should be interpreted in the context of the absolute cell counts (cells/L). Performed By: #### C BCDF #### [facility] [address] [address] Basophils (Bld) [#/Vol] 0.03 10*3/uL Normal 0.00 - 0.10 [facility] Comment on above: Performed By: #### C BCDF #### [facility] [address] [address] Basophils/100 WBC (Bld) 0.6 % Normal 0.0 - 2.0 [facility] Comment on above: Performed By: #### C BCDF #### [facility] [address] [address] Eosinophils (Bld) [#/Vol] 0.18 10*3/uL Normal 0.00 - 0.40 [facility] Comment on above: Performed By: #### C BCDF #### [place] [address] [address] Eosinophils/100 WBC (Bld) 3.4 % Normal 0.0 - 6.0 [facility] Comment on above: Performed By: #### C BCDF #### [facility] [address] [address] Erythrocyte distribution width (RBC) [Ratio] 12.6 % Normal 11.5 - 14.5 [facility] Comment on above: Performed By: #### C BCDF #### [facility] [address] [address] Hematocrit (Bld) [Volume fraction] 49.8 % Normal 41.0 - 52.0 [facility] Comment on above: Performed By: #### C BCDF #### [facility] [address] [address] Hemoglobin (Bld) [Mass/Vol] 16.2 g/dL Normal 13.5 - 17.5 [facility] Comment on above: Performed By: #### C BCDF #### [facility] [address] [address] Lymphocytes (Bld) [#/Vol] 1.48 10*3/uL Normal 0.80 - 3.00 [facility] Comment on above: Performed By: #### C BCDF #### [place] [address] [address] Lymphocytes/100 WBC (Bld) 27.8 % Normal 13.0 - 44.0 [facility] Comment on above: Performed By: #### C BCDF #### [place] [address] [address] MCHC (RBC) [Mass/Vol] 32.5 g/dL Normal 32.0 - 36.0 [facility] Comment on above: Performed By: #### C BCDF #### [place] [address] [address] MCV (RBC) [Entitic vol] 98 fL Normal 80 - 100 [facility] Comment on above: Performed By: #### C BCDF #### [place] [address] [address] Monocytes (Bld) [#/Vol] 0.51 10*3/uL Normal 0.05 - 0.80 [facility] Comment on above: Performed By: #### C BCDF #### [place] [address] [address] Monocytes/100 WBC (Bld) 9.6 % Normal 2.0 - 10.0 [facility] Comment on above: Performed By: #### C BCDF #### [place] [address] [address] Neutrophils (Bld) [#/Vol] 3.12 10*3/uL Normal 1.60 - 5.50 [facility] Comment on above: Result Comment: Perc ent differential counts (%) should be interpreted in the context of the absolute cell counts (cells/L). Performed By: #### C BCDF #### [place] [place] [address] [address] Neutrophils/100 WBC (Bld) 58.4 % Normal 40.0 - 80.0 [facility] Comment on above: Performed By: #### C BCDF #### [facility] [place] [address] [facility] [address] [place] [address] Platelets (Bld) [#/Vol] 162 10*3/uL Normal 150 - 450 [facility] Comment on above: Performed By: #### C BCDF #### [place] [address] [address] RBC 5.06 x10E12/L Normal 4.50 - 5.90 [facility] Comment on above: Performed By: #### C BCDF #### [place] [place] [address] [address] WBC (Bld) [#/Vol] 5.3 10*3/uL Normal 4.4 - 11.3 [facility] Comment on above: Performed By: #### C BCDF #### [place] [place] [address] [address] Clinic Note - Heme Onc-Benig n Heme Follow-upon 10-16-2022 Clinic Note - Heme Onc-Benign Heme Follow-up Patient Visit Information: Visit Type: Benign Heme Follow-up History of Present Illness: ID Statement: JENNIFER JAMES is a 77 year old Male Chief Complaint: I feel fine Interval History: Yearly Follow up visit for patient on lifelong anticoagulation. Patient previously seen by Zi Winston DO Patient seen 09/23/18 for history of unprovoked, proximal LLE DVT 12/2008 with negative hypercoag. panel, 01/2012 off Coumadin clotted again in 2019 while on Xarelto with 100% compliance per patient. Lovenox was initiated along with Coumadin load. Patient readmitted for atraumatic right rectus sheath hematoma with significant pain. 10/06/18- IVC filter placed and anticoagulation was held. Pain improved and hemorrhage resolve. Patient is doing well back on Coumadin with no bleeding or bruising. He is managed by the coumadin clinic and is compliant with his dosing. PMHx and PSHx unchanged. IVC filter was removed and patient doing well. No new medications or issues since his last visit with Dr Winston 1 year ago. Review of Systems: System ReviewAll Systems: Negative Allergies and Intolerances: Allergies: sulfa drugs: Drug Category, Anaphylaxis, Active Outpatient Medication Profile: * Patient Currently Takes Medications as of 16-Oct-2022 12:30 documented in Structured Notes warfarin 5 mg oral tablet: Last Dose Taken: , 1 tab(s) orally once a day , Start Date: 08-Jul-2022 pantoprazole 20 mg oral delayed release tablet: Last Dose Taken: , 1 tab(s) orally once a day , Start Date: 05-Apr-2022 nitroglycerin 0.4 mg sublingual tablet: Last Dose Taken: , 1 tab(s) sublingual every 5 minutes, As needed, Angina, Start Date: 05-Apr-2022 simvastatin 20 mg oral tablet: Last Dose Taken: , 1 tab(s) orally once a day (at bedtime) Medical History: Hematoma of rectus sheath: ICD-10: S30.1XXA, Status: Active Nontraumatic hematoma: ICD-10: M79.81, Status: Active Nontraumatic hematoma: ICD-10: M79.81, Status: Active Hyperlipidemia: ICD-10: E78.5, Status: Active DVT (deep venous thrombosis): ICD-10: I82.409, Status: Active Family History: No Family History items are recorded in the problem list. Social History: Social Substance History: Smoking Statusnever smoker Vitals and Measurements: Vitals: Temp: 35.8 HR: 57 RR: 18 BP: 140/76 SPO2%: 100 Measurements: HT(cm): 177.8 WT(kg): 93.6 BSA: 2.15 BMI: 29.6 Physical Exam: Constitutional: Well developed, awake/alert/oriented x3, no distress, alert and cooperative Eyes: PERRL, EOMI, clear sclera ENMT: mucous membranes moist, no apparent injury, no lesions seen Head/Neck: Neck supple, no apparent injury, thyroid without mass or tenderness, No JVD, trachea midline, no bruits Respiratory/Thorax: Patent airways, CTAB, normal breath sounds with good chest expansion, thorax symmetric Cardiovascular: Regular, rate and rhythm, no murmurs, 2+ equal pulses of the extremities, normal S 1and S 2 Gastrointestinal: Nondistended, soft, non-tender, no rebound tenderness or guarding, no masses palpable, no organomegaly, +BS, no bruits Musculoskeletal: ROM intact, no joint swelling, normal strength Extremities: normal extremities, no cyanosis edema, contusions or wounds, no clubbing Neurological: alert and oriented x3, intact senses, motor, response and reflexes, normal strength Psychological: Appropriate mood and behavior Skin: Warm and dry, no lesions, no rashes Lab Results: Results CBC date/time WBC HGB HCT PLT Neut 16-Oct-2022 12:22 5.3 16.2 49.8 162 3.12 13-May-2022 10:20 4.7 14.9 47.7 173 N/A 05-Apr-2022 08:54 7.2 14.7 44.2 175 N/A BMP date/time NA K CL CO2 BUN CREAT 13-May-2022 10:20 142 5.2 107 N/A 16 0.98 22-Apr-2022 07:17 143 4.3 109(H) N/A 19 1.02 05-Apr-2022 08:54 140 4.6 109(H) N/A 15 0.85 I have reviewed these laboratory results: Complete Blood Count + Differential 16-Oct-2022 12:22:00 ResultValue White Blood Cell Count 5.3 Red Blood Cell Count 5.06 HGB 16.2 HCT 49.8 MCV 98 MCHC 32.5 PLT 162 RDW-CV 12.6 Neutrophil % 58.4 Immature Granulocytes % 0.2 Lymphocyte % 27.8 Monocyte % 9.6 Eosinophil % 3.4 Basophil % 0.6 Neutrophil Count 3.12 Lymphocyte Count 1.48 Monocyte Count 0.51 Eosinophil Count 0.18 Basophil Count 0.03 PT + INR, Plasma 16-Oct-2022 12:22:00 ResultValue Prothrombin Time, Plasma 20.5 H International Normalized Ratio, Plasma 1.8 H Assessment and Plan: Assessment and Plan: Assessment: Recurrent, unprovoked, proximal DVT's LLE with negative hypercoag. panel placed on Lovenox while loading Coumadin. Readmit for atraumatic right rectus sheath hematoma s/p IVC filter placement and anticoagulation held. Patient improved and Lovenox resumed without gross hemorrhage appreciated. 06/15/2020- patient asymptomatic on Coumadin. No new issues. Since he clotted on Xarelto, we recommend lifelong anticoagulation with coumadi (more content not included)... Normal [facility] Clinic Note - Intakeon 10-16 Clinic Note - Intake Patient Visit Information: Visit TypeFollow Up Visit Patient StatesPt here for Follow-up visit Source of Informationpatient Admission Information: Admission Since Last VisitNo Vital Signs: Temp (degrees C)35.8 degrees C Temperatureskin Heart Rate (beats/min)57 beats per minute Respiration (breaths/min)18 breath per minute BP Systolic (mm Hg)140 mmHg BP Diastolic (mm Hg)76 mmHg BP Mean (mm Hg)97 mmHg Height in cm177.8 centimeter(s) Height Methodstated Heightstanding Weight in kg93.6 kilogram(s) Weightstanding BMI (kg/m2)29.6 kg/M2 BSA (m2)2.15 M2 SpO2 (%)100 % SpO2 Patient Onroom air Pain Screening: Patient States Painno (0) Pain Scale UsedNumeric (0-10) Allergies: sulfa drugs: Drug Category, Anaphylaxis, Active Outpatient Medication Profile: * Patient Currently Takes Medications as of 16-Oct-2022 12:30 documented in Structured Notes warfarin 5 mg oral tablet: Last Dose Taken: , 1 tab(s) orally once a day , Start Date: 08-Jul-2022 pantoprazole 20 mg oral delayed release tablet: Last Dose Taken: , 1 tab(s) orally once a day , Start Date: 05-Apr-2022 nitroglycerin 0.4 mg sublingual tablet: Last Dose Taken: , 1 tab(s) sublingual every 5 minutes, As needed, Angina, Start Date: 05-Apr-2022 simvastatin 20 mg oral tablet: Last Dose Taken: , 1 tab(s) orally once a day (at bedtime) Notification: NotificationsAll annual screens currently due. Travel History: COVID-19 Screening Completedno exposure or symptoms Travel or ExposureNO travel to International locations in the past 30 days Falls: Have you fallen in the last 6 monthsno Do you have a fear of fallingno Do you feel you need assistanceno Is the patient using an assistive deviceno Not a falls riskimplement environmental risk factors interventions Electronic Signatures: Moira Bui (PCNA) (Signed 16-Oct-2022 12:33) Authored: Patient Visit Information, Vital Signs, Allergies, Outpatient Medication Profile, Notification, Travel History, Falls Last Updated: 16-Oct-2022 12:33 by Moira Bui (PCNA) Normal [facility] Complete Blood Count + Diffe roshni 10-16-2022 Basophils/100 WBC (Bld) 0.6 % 0.0 - 2.0 Anticoagulation Monitoring [facility] Work Phone: Erythrocyte distribution width (RBC) [Ratio] 12.6 % See Below Anticoagulation [facility] Work Phone: Comment on above: Reference Range: 11. 5 - 14.5 Hematocrit (Bld) [Volume fraction] 49.8 % See Below Anticoagulatio n Monitoring [facility] Work Phone: Comment on above: Reference Range: 41. 0 - 52.0 Hemoglobin (Bld) [Mass/Vol] 16.2 g/dL See Below Anticoagulation Monitoring [facility] Work Phone: Comment on above: Reference Range: 13. 5 - 17.5 Lymphocytes/100 WBC (Bld) 27.8 % See Below Anticoagulation [facility] Work Phone: Comment on above: Reference Range: 13. 0 - 44.0 MCHC (RBC) [Mass/Vol] 32.5 g/dL See Below Ant icoagulation Monitoring [facility] Work Phone: Comment on above: Reference Range: 32. 0 - 36.0 MCV (RBC) [Entitic vol] 98 fL 80 - 100 Antico[facility] Work Phone: Monocytes/100 WBC (Bld) 9.6 % 2.0 - 10.0 Anticoagulation [facility] Work Phone: Neutrophils/100 WBC (Bld) 58.4 % See Below Anticoagulation [facility] Work Phone: Comment on above: Reference Range: 40. 0 - 80.0 Platelets (Bld) [#/Vol] 162 10*3/uL 150 - 450 Anticoagulation [facility] Work Phone: RBC (Bld) [#/Vol] 5.06 {x10E12/L} See Below An ticoagulation Monitoring Service-[facility] Work Phone: Comment on above: Reference Range: 4.5 0 - 5.90 WBC (Bld) [#/Vol] 5.3 10*3/uL 4.4 - 11.3 Antico agulation Monitoring [facility] Work Phone: Complete Blood Count + Differential 0.03 {x10E9/L} See Below Anticoagulation Monitoring [facility] [employer] Work Phone: Comment on above: Reference Range: 0.0 0 - 0.10 Complete Blood Count + Differential 0.18 {x10E9/L} See Below Anticoagulation Monitoring Service[facility] Work Phone: Comment on above: Reference Range: 0.0 0 - 0.40 Complete Blood Count + Differential 0.51 {x10E9/L} See Below Anticoagulation Monitoring [facility] Work Phone: Comment on above: Reference Range: 0.0 5 - 0.80 Complete Blood Count + Differential 1.48 {x10E9/L} See Below Anticoagulation Monitoring [facility] Work Phone: Comment on above: Reference Range: 0.8 0 - 3.00 Complete Blood Count + Differential 3.12 {x10E9/L} See Below Anticoagulation Monitoring [facility] Work Phone: Comment on above: Reference Range: 1.6 0 - 5.50 Percent differential counts (%) should be interpreted in the context of the absolute cell counts (cells/L). Complete Blood Count + Differential 3.4 % 0.0 - 6.0 Anticoagulation Monitoring [facility] Work Phone: Complete Blood Count + Differential 0.2 % 0.0 - 0.9 Anticoagulation Monitoring [facility] Work Phone: Comment on above: Immature Granulocyte Count (IG) includes promyelocytes, myelocytes and metamyelocytes but does not include bands. Percent differential counts (%) should be interpreted in the context of the absolute cell counts (cells/L). Laboratory - Chemistry and C hemistry - challengeon 10-16-2022 Albumin BCP dye [Mass/Vol] 4.3 g/dL 3.4 - 5.0 Anticoagulation Monitoring [facility] Work Phone: ALP [Catalytic activity/Vol] 48 U/L 33 - 136 Antico[facility] Monitoring [facility] Work Phone: ALT With P-5'-P [Catalytic activity/Vol] 16 U/L 10 - 52 Anticoagulation Monitoring [facility] Work Phone: Comment on above: Patients treated wit h Sulfasalazine may generate falsely decreased results for ALT. Anion gap [Moles/Vol] 12 mmol/L 10 - 20 Ant icoagulation Monitoring Service-[facility] Work Phone: AST With P-5'-P [Catalytic activity/Vol] 17 U/L 9 - 39 Anticoagulation Monitoring [facility] Work Phone: Bilirubin [Mass/Vol] 0.5 mg/dL 0.0 - 1.2 Anti coagulation Monitoring Service[facility] Work Phone: Calcium [Mass/Vol] 9.6 mg/dL 8.6 - 10.6 Antico agulation Monitoring Service[facility] Work Phone: Chloride [Moles/Vol] 107 mmol/L 98 - 107 Anti coagulation Monitoring Service[facility] Work Phone: CO2 [Moles/Vol] 28 mmol/L 21 - 32 Anticoagu lation Monitoring Service[facility] Work Phone: Creatinine [Mass/Vol] 1.01 mg/dL See Below Ant icoagulation Monitoring Service-[facility] Work Phone: Comment on above: Reference Range: 0.5 0 - 1.30 Glucose [Mass/Vol] 88 mg/dL 74 - 99 Antico agulation Monitoring Service[facility] Work Phone: Potassium [Moles/Vol] 5.0 mmol/L 3.5 - 5.3 Ant icoagulation Monitoring Service-[facility] Work Phone: Protein [Mass/Vol] 7.0 g/dL 6.4 - 8.2 Antico agulation Monitoring Service[facility] Work Phone: Sodium [Moles/Vol] 142 mmol/L 136 - 145 Antico agulation Monitoring Service[facility] Work Phone: Urea nitrogen [Mass/Vol] 18 mg/dL 6 - 23 Anticoagulation Monitoring [facility] Work Phone: Laboratory - Coagulationon 0 10-16-2022 INR Coag (PPP) [Relative time] 1.8 {INR} above high threshold 0.9 - 1.1 Anticoagulation Monitoring [facility] Work Phone: PT Coag (PPP) [Time] 20.5 s above high threshold 9.8 - 13.4 Anticoagulation Monitoring [facility] Work Phone: No Panel Informationon 10-16 77 {mL/min/1.73m2} >90 Antico agulation Monitoring Service[facility] Work Phone: Comment on above: CALCULATIONS OF ASHER MATED GFR ARE PERFORMED USING THE 2020 CKD-EPI STUDY REFIT EQUATION WITHOUT THE RACE VARIABLE FOR THE IDMS-TRACEABLE CREATININE METHODS.https://jasn.asnjournals.org/content/early// N.5988179654 PT/INRon 10-16-2022 PT Coag (PPP) [Time] 20.5 s High 9.8 - 13.4 [facility] Comment on above: Performed By: #### P TINR #### [facility] [address] [place] [address] PT, INR 1.8 High 0.9 - 1.1 [facility] Comment on above: Performed By: #### P TINR #### [facility] [address] [place] [address] Phone Note - Heme Onc-order entryon 10-15-2022 Phone Note - Heme Onc-circuit recorder Phone Call Information: Patient Demographics: Name: JENNIFER JAMES Date: 1945 Address: [address] [place] [address] Primary Phone Number: [phone] Reason for Call: Reason for Callorder entry Outpatient Medication Profile: * Patient Currently Takes Medications as of 06-Oct-2022 12:43 documented in Structured Notes warfarin 5 mg oral tablet: 1 tab(s) orally once a day , Start Date: 08-Jul-2022 pantoprazole 20 mg oral delayed release tablet: 1 tab(s) orally once a day , Start Date: 05-Apr-2022 nitroglycerin 0.4 mg sublingual tablet: 1 tab(s) sublingual every 5 minutes, As needed, Angina, Start Date: 05-Apr-2022 warfarin 5 mg oral tablet: 1 tab(s) orally 4 times a week , Start Date: 21-Feb-2022 simvastatin 20 mg oral tablet: 1 tab(s) orally once a day (at bedtime) Allergies: sulfa drugs: Anaphylaxis Lab Results: Results CBC date/time WBC HGB HCT PLT Neut 13-May-2022 10:20 4.7 14.9 47.7 173 N/A BMP date/time NA K CL CO2 BUN CREAT 13-May-2022 10:20 142 5.2 107 N/A 16 0.98 Electronic Signatures: Fara Soriano (MONICA) (Signed 15-Oct-2022 15:43) Authored: Phone Call Information, Outpatient Medication Profile, Allergies, Results Last Updated: 15-Oct-2022 15:43 by Fara Soriano (MONICA) Normal [facility] Anticoagulation Monitoring S erviceon 09-23-2022 Anticoagulation Monitoring Service Today's INR 23Sep2022 IO INR2.1 Target INR range2-3 SourceAMS History of Present Illness Patient identification verified with 2 patient identifiers. Anticoagulation Monitoring Service: [facility]. Enrollment/Re-enrollmen t date: February 25, 2023. The patient is being seen as a follow-up for anticoagulation monitoring. Target INR 2-3. Monitoring practitioner PAT MALIK CNP. INR monitoring is per [facility] protocol. The patient is on anticoagulation due to deep vein thrombosis. The patient is currently taking warfarin Tablet strength and color: 5 mg([place]) 7.5 mg (Yellow). Interval History: Patient was last seen: August 26, 2022. Previous INR was 2.0. Incoming total weekly dose 35 mg. Today's Clinic INR: [facility] INR 2.1. Since last visit, the patient reports no bleeding. The patient did not experience clinically relevant bleeding. The patient did not experience other minor bleeding. Since last visit, the patient has not experienced a thrombotic event. The patient reports no change in medication. He reports no change in alcohol consumption. He reports no change in Vitamin K consumption. The patient has taken Warfarin as directed. Management: The patient's INR is within target range. Will maintain dose. Next follow up appointment in 4 week(s). Outgoing total weekly dose 35 mg. Patient instructed to call in interim with questions, concerns and changes. Discussion/Summary You are currently taking Warfarin. Your tablet strength and color: 5 mg([place]) and 7.5 mg (Yellow). Next Appointment: October 21, 2022. Time: 7: 00 am. Location: [facility], , option 1. Your INR today is within range . You will continue to take your dose as instructed above. Visit information Please call in interim with questions, concerns and changes. Do tell your provider when you get sick, hurt, or get a cut that will not stop bleeding. If you have any bleeding, trauma, falls and/or other medical concerns, call your doctor or seek medical attention right away. Results/Data Coumadin Printed in Appendix #1 below. *Diagnosis/Problems 1. 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) Signatures Electronically signed by : Toshia Ordoñez R.N.; Sep 23 2022 7:07AM EST (Author) Appendix #1 Coumadin Patient: JENNIFER JAMES; : 1945; [id number] 07:[id number] 07:[id number] 07:[id number] 07:[id number] 08:14AM IO PT/INR PT + INR, Plasma PT/INR (POC) Recorded INR Coagulation Screen Current Dose New Dose Recheck in Patient Notified Comments IO [id number] PT, INR Target INR [id number] Normal [employer] Today's INRon 09-23-2022 Today's INR 2-3 Anticoagulati on Monitoring Service[facility] Work Phone: Today's INR AMS Anticoagulati on Monitoring [facility] [employer] Work Phone: Anticoagulation Monitoring S erviceon 08-26-2022 Anticoagulation Monitoring Service Today's INR [id number] IO INR2 Target INR range2-3 SourceAMS History of Present Illness Patient identification verified with 2 patient identifiers. Anticoagulation Monitoring Service: [facility]. Enrollment/Re-enrollmen t date: February 25, 2023. The patient is being seen as a follow-up for anticoagulation monitoring. Target INR 2-3. Monitoring practitioner PAT MALIK CNP. INR monitoring is per [facility] protocol. The patient is on anticoagulation due to deep vein thrombosis. The patient is currently taking warfarin Tablet strength and color: 5 mg([place]) 7.5 mg (Yellow). Interval History: Patient was last seen: August 19, 2022. Previous INR was 3.3. DOSE HELD X 1 THEN MAINTAINED. PT HAD BEEN THERAPEUTIC ON THIS DOSE. Incoming total weekly dose 35 mg. Today's Clinic INR: [facility] INR 2.0. Since last visit, the patient reports no bleeding. The patient did not experience clinically relevant bleeding. The patient did not experience other minor bleeding. Since last visit, the patient has not experienced a thrombotic event. The patient reports no change in medication. He reports no change in alcohol consumption. He reports no change in Vitamin K consumption. The patient did not take Warfarin as directed. Management: The patient's INR is within target range. Will maintain dose. The patient is not currently being bridged. Next follow up appointment in 4 week(s). Outgoing total weekly dose 35 mg. Patient instructed to call in interim with questions, concerns and changes. Discussion/Summary You are currently taking Warfarin. Your tablet strength and color: 5 mg([place]) and 7.5 mg (Yellow). Next Appointment: September 23, 2022. Time: 7: 00 am. Location: [facility], , option 1. Your INR today is within range . You will continue to take your dose as instructed above. Visit information Please call in interim with questions, concerns and changes. Do tell your provider when you get sick, hurt, or get a cut that will not stop bleeding. If you have any bleeding, trauma, falls and/or other medical concerns, call your doctor or seek medical attention right away. Results/Data Coumadin Printed in Appendix #1 below. *Diagnosis/Problems 1. 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) Signatures Electronically signed by : Alisha Friend R.N.; Aug 26 2022 7:27AM EST (Author) Appendix #1 Coumadin Patient: JENNIFER JAMES; : 1945; [id number] 07:[id number] 07:[id number] 07:[id number] 08:[id number] 07:11AM IO PT/INR PT + INR, Plasma PT/INR (POC) Recorded INR Coagulation Screen Current Dose New Dose Recheck in Patient Notified Comments IO [id number] PT, INR Target INR -33-53-32-32-3 Normal [employer] Today's INRon 08-26-2022 Today's INR 2-3 Anticoagulati on Monitoring [facility] Work Phone: Today's INR AMS Anticoagulati on Monitoring [facility] Work Phone: Anticoagulation Monitoring S erviceon 08-19-2022 Anticoagulation Monitoring Service Today's INR [id number] IO INR3.3 Target INR range2-3 SourceAMS History of Present Illness Patient identification verified with 2 patient identifiers. Anticoagulation Monitoring Service: [facility]. Enrollment/Re-enrollmen t date: February 25, 2023. The patient is being seen as a follow-up for anticoagulation monitoring. Target INR 2-3. Monitoring practitioner PAT MALIK CNP. INR monitoring is per [facility] protocol. The patient is on anticoagulation due to deep vein thrombosis. The patient is currently taking warfarin Tablet strength and color: 5 mg([place]) 7.5 mg (Yellow). Interval History: Patient was last seen: August 05, 2022. Previous INR was 2.3. Incoming total weekly dose 35 mg. Today's Clinic INR: [facility] INR 3.3. Since last visit, the patient reports no bleeding. The patient did not experience clinically relevant bleeding. The patient did not experience other minor bleeding. Since last visit, the patient has not experienced a thrombotic event. The patient reports no change in medication. He reports a change in alcohol consumption. PT HAD INCREASED ALCOHOL INTAKE THIS PAST WEEKEND. He reports no change in Vitamin K consumption. The patient has taken Warfarin as directed. Management: The patient's INR is supratherapeutic. Hold 1 dose. 08/19. Will maintain current dose. WILL MAINTAIN DOSE PT HAS BEEN THERAPEUTIC ON THIS DOSING The patient is not currently being bridged. Next follow up appointment in 1 week(s). PT WOULD HAVE GONE 4 WEEKS IF THERAPEUTIC. Outgoing total weekly dose 35 mg. Patient instructed to call in interim with questions, concerns and changes. Patient educated on interactions between medications and warfarin. Patient educated on dietary consistency in vitamin k consumption. Patient educated on affects of alcohol consumption while taking warfarin. Patient educated on signs of bleeding/clotting. Patient educated on compliance with dosing, follow up appointments, and prescribed plan of care. Discussion/Summary You are currently taking Warfarin. Your tablet strength and color: 5 mg([place]) and 7.5 mg (Yellow). Next Appointment: August 26, 2022. Time: 7: 15 am. Location: [facility], , option 1. Your INR today is higher than your target range, you may be at risk for bleeding. Please hold Coumadin/Warfarin dose(s) for 1 day(s). Maintain your dose as you were taking it. Visit information Please call in interim with questions, concerns and changes. Do tell your provider when you get sick, hurt, or get a cut that will not stop bleeding. Taking a new medication may change your INR. Please inform your provider of any medication changes. Your INR may change because of how much Vitamin K you eat. Your INR may change because of how much alcohol you drink. It is important to check your INR on a regular basis and keep your appointments. Knowing your INR number is the only way of knowing if you're taking the amount of warfarin that is correct for you. If you have any bleeding, trauma, falls and/or other medical concerns, call your doctor or seek medical attention right away. Results/Data Coumadin Printed in Appendix #1 below. *Diagnosis/Problems 1. History of recurrent deep vein thrombosis (DVT) (V151) (Z00.403) Signatures Electronically signed by : Rut Garner R.N.; Aug 19 2022 7:11AM EST (Author) Appendix #1 Coumadin Patient: JENNIFER JAMES; : 1945; [id number] 07:[id number] 07:[id number] 08:[id number] 07:[id number] 07:14AM IO PT/INR PT + INR, Plasma PT/INR (POC) Recorded INR Coagulation Screen Current Dose New Dose Recheck in Patient Notified Comments IO INR3.32.32.42.93.4 PT, INR Target INR -96-40-32-32-3 Normal [facility] Today's INRon 08-19-2022 Today's INR 2-3 [facility] Work Phone: Today's INR AMS [facility] Work Phone: Office Visit (Primary Care T xt/Forms)on 08-13-2022 Follow-up visit Diagnoses/Problems Assessed HLD (hyperlipidemia) (272.4) (E78.5) Condition well controlled. No change in current treatment regimen. Refill given of current medication. Appropriate labs ordered or reviewed. Make a follow up appointment with me for recheck in 6 months. 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) (Z46.365) Patient on lifelong Coumadin for recurrent DVT. 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 Winston. Coumadin is monitored by Coumadin clinic. Orders HLD (hyperlipidemia) Renew: Simvastatin 20 MG Oral Tablet; TAKE 1 TABLET DAILY Chief Complaint Chief Complaints Visit For: Other F/U 6 months for HLD. HLD recheck -- Patient taking medications correctly. No SE's of muscle pain or joint pain. No CP, edema, myalgias. Gets INR every month in coumadin clinic and they adjust dose. Has been stable. History of Present Illness The patient states his hyperlipidemia has been under good control since the last visit. He has no comorbid illnesses. 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) HLD (hyperlipidemia) (272.4) (E78.5) Low calcium levels (275.41) (E83.51) Lumbar strain (847.2) (S39.012A) Milia (706.2) (L72.0) Nasal fracture (802.0) (S02.2XXA) Nasal injury, initial encounter (959.09) (S09.92XA) Prostate cancer screening (V76.44) (Z12.5) Quadriceps strain (843.8) (S76.119A) Rectus sheath hematoma (922.2) (S30.1XXA) Skin laceration (879.8) Skin tag of anus (455.9) (K64.4) Solar lentigo (709.09) (L81.4) Surgical History Problems History of Facial surgery History of Varicose vein ligation Family History Mother Family history of Family history of congestive heart failure (V17.49) (Z82.49) Family history of hypertension (V17.49) (Z82.49) Father Family history of Family history of hypertension (V17.49) (Z82.49) Family history of kidney disease (V18.69) (Z84.1) Family history of malignant neoplasm of prostate (V16.42) (Z80.42) Social History Problems Consumes alcohol occasionally (V49.89) (Z78.9) Lives with family Non-smoker (V49.89) (Z78.9) Occasional alcohol use Remarried Two children (V61.07) (Z63.4) Current Meds Medication NameInstruction Nitroglycerin 0.4 [address] Tablet Subling[address] 1 TABLET UNDER THE TONGUE EVERY 5 MINUTES FOR UP TO 3 DOSES NEEDED FOR CHEST PAIN.CALL 911 IF PAIN PERSISTS. Simvastatin 20 MG Oral TabletTAKE 1 TABLET DAILY. Viagra 100 MG Oral Tablet Warfarin Sodium 5 MG Oral TabletTake 1 tablet daily Allergies Medication sulfa Vitals Vital Signs Recorded: [id number] 01:23PM Temperature: 97.8 F Heart Rate: 62 Respiration: 18 Systolic: 128 Diastolic: 84 Height: 5 ft 9 in Weight: 212 lb BMI Calculated: 31.31 kg/m2 BSA Calculated: 2.12 Physical Exam General - Not in acute distress and cooperative. Build AND Nutrition - Well developed Posture - Normal Gait - Normal Mental Status - alert and oriented x 3 Head - Normocephalic Neck - Thyroid normal size Eyes - Bilateral - Sclera clear and lids pink without edema or mass. Skin - Warm and dry with no rashes on visible skin Lungs - Clear to auscultation and normal breathing effort Cardiovascular - RRR and no murmurs, rubs or thrill. Peripheral Vascular - Bilateral - no edema present Neuropsychiatric - normal mood and affect Signatures Electronically signed by : Russ Rosen MD; Aug 13 2022 5:14PM EST (Author) Normal [employer] Anticoagulation Monitoring S carmenon 08-05-2022 Anticoagulation Monitoring Service Today's INR [id number] IO INR2.3 Target INR range2-3 SourceAMS History of Present Illness Patient identification verified with 2 patient identifiers. Anticoagulation Monitoring Service: [facility]. Enrollment/Re-enrollmen t date: February 25, 2023. The patient is being seen as a follow-up for anticoagulation monitoring. Target INR 2-3. Monitoring practitioner PAT MALIK CNP. INR monitoring is per [facility] protocol. The patient is on anticoagulation due to deep vein thrombosis. The patient is currently taking warfarin Tablet strength and color: 5 mg([place]) 7.5 mg (Yellow). Interval History: Patient was last seen: July 22, 2022. Previous INR was 2.4. Incoming total weekly dose 35 mg. Today's Clinic INR: [facility] INR 2.3. Since last visit, the patient reports no bleeding. The patient did not experience clinically relevant bleeding. The patient did not experience other minor bleeding. Since last visit, the patient has not experienced a thrombotic event. The patient reports no change in medication. He reports no change in alcohol consumption. He reports no change in Vitamin K consumption. The patient has taken Warfarin as directed. Management: The patient's INR is within target range. Will maintain dose. Next follow up appointment in 2 week(s). Outgoing total weekly dose 35 mg. Patient instructed to call in interim with questions, concerns and changes. Patient educated on interactions between medications and warfarin. Patient educated on dietary consistency in vitamin k consumption. Patient educated on affects of alcohol consumption while taking warfarin. Patient educated on signs of bleeding/clotting. Patient educated on compliance with dosing, follow up appointments, and prescribed plan of care. Discussion/Summary You are currently taking Warfarin. Your tablet strength and color: 5 mg([place]) and 7.5 mg (Yellow). Next Appointment: August 19, 2022. Time: 7: 00 am. Location: [facility], , option 1. Your INR today is within range . You will continue to take your dose as instructed above. Visit information Please call in interim with questions, concerns and changes. Do tell your provider when you get sick, hurt, or get a cut that will not stop bleeding. Taking a new medication may change your INR. Please inform your provider of any medication changes. Your INR may change because of how much Vitamin K you eat. Your INR may change because of how much alcohol you drink. It is important to check your INR on a regular basis and keep your appointments. Knowing your INR number is the only way of knowing if you're taking the amount of warfarin that is correct for you. If you have any bleeding, trauma, falls and/or other medical concerns, call your doctor or seek medical attention right away. Results/Data Coumadin Printed in Appendix #1 below. *Diagnosis/Problems 1. 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) Signatures Electronically signed by : Toshia Ordoñez R.N.; Aug 05 2022 7:02AM EST (Author) Appendix #1 Coumadin Patient: JENNIFER JAMES; : 1945; [id number] [id number] 08:[id number] 07:[id number] [id number] 07:03AM IO PT/INR PT + INR, Plasma PT/INR (POC) Recorded INR Coagulation Screen Current Dose New Dose Recheck in Patient Notified Comments IO INR2.32.42.93.43 PT, INR Target INR [id number] Normal [employer] Today's INRon 08-05-2022 Today's INR 2-3 Anticoagulati on Monitoring [facility] Work Phone: Today's INR AMS Anticoagulati on Monitoring [facility] Work Phone: Anticoagulation Monitoring S erviceon 07-22-2022 Anticoagulation Monitoring Service Today's INR [id number] IO INR2.4 Target INR range2-3 Source[facility] History of Present Illness Patient identification verified with 2 patient identifiers. Anticoagulation Monitoring Service: [facility]. Enrollment/Re-enrollmen t date: February 25, 2023. The patient is being seen as a follow-up for anticoagulation monitoring. Target INR 2-3. Monitoring practitioner PAT MALIK CNP. INR monitoring is per [facility] protocol. The patient is on anticoagulation due to deep vein thrombosis. The patient is currently taking warfarin Tablet strength and color: 5 mg([place]) 7.5 mg (Yellow). Interval History: Patient was last seen: July 15, 2022. Previous INR was 2.9. Dose maintained. Incoming total weekly dose 35 mg. Today's Clinic INR: [facility] INR 2.4. Since last visit, the patient reports no bleeding. The patient did not experience clinically relevant bleeding. The patient did not experience other minor bleeding. Since last visit, the patient has not experienced a thrombotic event. The patient reports no change in medication. He reports no change in alcohol consumption. He reports no change in Vitamin K consumption. The patient has taken Warfarin as directed. Management: The patient's INR is within target range. Will maintain dose. Next follow up appointment in 2 week(s). Outgoing total weekly dose 35 mg. Patient instructed to call in interim with questions, concerns and changes. Patient educated on interactions between medications and warfarin. Patient educated on dietary consistency in vitamin k consumption. Patient educated on affects of alcohol consumption while taking warfarin. Patient educated on signs of bleeding/clotting. Patient educated on compliance with dosing, follow up appointments, and prescribed plan of care. Discussion/Summary You are currently taking Warfarin. Your tablet strength and color: 5 mg([place]) and 7.5 mg (Yellow). Next Appointment: August 05, 2022. Time: 7: 00 am. Location: [facility], , option 1. Your INR today is within range . You will continue to take your dose as instructed above. Visit information Please call in interim with questions, concerns and changes. Do tell your provider when you get sick, hurt, or get a cut that will not stop bleeding. Taking a new medication may change your INR. Please inform your provider of any medication changes. Your INR may change because of how much Vitamin K you eat. Your INR may change because of how much alcohol you drink. It is important to check your INR on a regular basis and keep your appointments. Knowing your INR number is the only way of knowing if you're taking the amount of warfarin that is correct for you. If you have any bleeding, trauma, falls and/or other medical concerns, call your doctor or seek medical attention right away. Results/Data Coumadin Printed in Appendix #1 below. *Diagnosis/Problems 1. 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) Signatures Electronically signed by : Fara Ramey R.N.; Jul 22 2022 8:17AM EST (Author) Appendix #1 Coumadin Patient: JENNIFER JAMES; : 1945; [id number] 08:[id number] 07:[id number] 07:[id number] 07:[id number] 07:02AM IO PT/INR PT + INR, Plasma PT/INR (POC) Recorded INR Coagulation Screen Current Dose New Dose Recheck in Patient Notified Comments IO INR2.42.93.432.3 PT, INR Target INR [id number] Normal Touchworks Today's INRon 07-22-2022 Today's INR 2-3 Anticoagulati on Monitoring Service[facility] Work Phone: Today's INR AMS Anticoagulati on Monitoring [facility] Work Phone: Anticoagulation Monitoring S erviceon 07-15-2022 Anticoagulation Monitoring Service Today's INR [id number] IO INR2.9 Target INR range2-3 SourceAMS History of Present Illness Patient identification verified with 2 patient identifiers. Anticoagulation Monitoring Service: [facility]. Enrollment/Re-enrollmen t date: February 25, 2023. The patient is being seen as a follow-up for anticoagulation monitoring. Target INR 2-3. Monitoring practitioner PAT MALIK CNP. INR monitoring is per [facility] protocol. The patient is on anticoagulation due to deep vein thrombosis. The patient is currently taking warfarin Tablet strength and color: 5 mg([place]) 7.5 mg (Yellow). Interval History: Patient was last seen: July 08, 2022. Previous INR was 3.4. Incoming total weekly dose 35 mg. Today's Clinic INR: [facility] INR 2.9. Since last visit, the patient reports no bleeding. The patient did not experience clinically relevant bleeding. The patient did not experience other minor bleeding. Since last visit, the patient has not experienced a thrombotic event. The patient reports no change in medication. He reports no change in alcohol consumption. He reports no change in Vitamin K consumption. The patient has taken Warfarin as directed. Management: The patient's INR is within target range. Will maintain dose. Next follow up appointment in 1 week(s). Outgoing total weekly dose 35 mg. Patient instructed to call in interim with questions, concerns and changes. Patient educated on interactions between medications and warfarin. Patient educated on dietary consistency in vitamin k consumption. Patient educated on affects of alcohol consumption while taking warfarin. Patient educated on signs of bleeding/clotting. Patient educated on compliance with dosing, follow up appointments, and prescribed plan of care. Discussion/Summary You are currently taking Warfarin. Your tablet strength and color: 5 mg([place]) and 7.5 mg (Yellow). Next Appointment: July 22, 2022. Time: 8: 00 am. Location: [facility], , option 1. Your INR today is within range . You will continue to take your dose as instructed above. Visit information Please call in interim with questions, concerns and changes. Do tell your provider when you get sick, hurt, or get a cut that will not stop bleeding. Taking a new medication may change your INR. Please inform your provider of any medication changes. Your INR may change because of how much Vitamin K you eat. Your INR may change because of how much alcohol you drink. It is important to check your INR on a regular basis and keep your appointments. Knowing your INR number is the only way of knowing if you're taking the amount of warfarin that is correct for you. If you have any bleeding, trauma, falls and/or other medical concerns, call your doctor or seek medical attention right away. Results/Data Coumadin Printed in Appendix #1 below. *Diagnosis/Problems 1. 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) Signatures Electronically signed by : Toshia Ordoñez R.N.; Jul 15 2022 7:13AM EST (Author) Appendix #1 Coumadin Patient: JENNIFER JAMES; : 1945; [id number] 07:[id number] 07:[id number] 07:[id number] 07:[id number] 07:03AM IO PT/INR PT + INR, Plasma PT/INR (POC) Recorded INR Coagulation Screen Current Dose New Dose Recheck in Patient Notified Comments IO [id number] PT, INR Target INR -63-16-32-32-3 Normal [facility] Touchworks Today's INRon 07-15-2022 Today's INR 2-3 Anticoagulati on Monitoring [facility] Work Phone: Today's INR AMS Anticoagulati on Monitoring Service[facility] Work Phone: Anticoagulation Monitoring S nihkil 07-08-2022 Anticoagulation Monitoring Service Today's INR [id number] IO INR3.4 Target INR range2-3 SourceAMS History of Present Illness Patient identification verified with 2 patient identifiers. Anticoagulation Monitoring Service: [facility]. Enrollment/Re-enrollmen t date: February 25, 2023. The patient is being seen as a follow-up for anticoagulation monitoring. Target INR 2-3. Monitoring practitioner PAT MALIK CNP. INR monitoring is per [facility] protocol. The patient is on anticoagulation due to deep vein thrombosis. The patient is currently taking warfarin Tablet strength and color: 5 mg([place]) 7.5 mg (Yellow). Interval History: Patient was last seen: July 01, 2022. Previous INR was 3.0. DOSE MAINTAINED. Incoming total weekly dose 37.5 mg. Today's Clinic INR: [facility] INR 3.4. Since last visit, the patient reports no bleeding. The patient did not experience clinically relevant bleeding. The patient did not experience other minor bleeding. Since last visit, the patient has not experienced a thrombotic event. The patient reports no change in medication. He reports no change in alcohol consumption. He reports no change in Vitamin K consumption. The patient has taken Warfarin as directed. There is no identifiable cause for out of range INR. Management: The patient's INR is supratherapeutic. Will decrease dose per protocol by approximately 5%. The patient is not currently being bridged. Next follow up appointment in 1 week(s). Outgoing total weekly dose 35 mg. Patient instructed to call in interim with questions, concerns and changes. Patient educated on interactions between medications and warfarin. Patient educated on dietary consistency in vitamin k consumption. Patient educated on affects of alcohol consumption while taking warfarin. Patient educated on signs of bleeding/clotting. Patient educated on compliance with dosing, follow up appointments, and prescribed plan of care. Discussion/Summary You are currently taking Warfarin. Your tablet strength and color: 5 mg([place]) and 7.5 mg (Yellow). Next Appointment: July 15, 2022. Time: 7: 15 am. Location: [facility], , option 1. Your INR today is higher than your target range, you may be at risk for bleeding. Change your dosing as instructed above. Visit information Please call in interim with questions, concerns and changes. Do tell your provider when you get sick, hurt, or get a cut that will not stop bleeding. Taking a new medication may change your INR. Please inform your provider of any medication changes. Your INR may change because of how much Vitamin K you eat. Your INR may change because of how much alcohol you drink. It is important to check your INR on a regular basis and keep your appointments. Knowing your INR number is the only way of knowing if you're taking the amount of warfarin that is correct for you. If you have any bleeding, trauma, falls and/or other medical concerns, call your doctor or seek medical attention right away. Results/Data Coumadin Printed in Appendix #1 below. *Diagnosis/Problems 1. 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) Signatures Electronically signed by : Rut Garner R.N.; Jul 08 2022 7:17AM EST (Author) Electronically signed by : Rut Garner R.N.; Jul 08 2022 7:23AM EST (Author) Appendix #1 Coumadin Patient: JENNIFER JAMES; : 1945; [id number] 07:[id number] 07:[id number] 07:[id number] 07:[id number] 07:04AM IO PT/INR PT + INR, Plasma PT/INR (POC) Recorded INR Coagulation Screen Current Dose New Dose Recheck in Patient Notified Comments IO INR3.432.32.31.9 PT, INR Target INR lmelh2-59-67-32-32-3 Normal [facility] Touchworks Today's INRon 07-08-2022 Today's INR 2-3 Anticoagulati on Monitoring Service[facility] Work Phone: Today's INR AMS Anticoagulati on Monitoring [facility] Work Phone: Anticoagulation Monitoring S erviceon 07-01-2022 Anticoagulation Monitoring Service Today's INR [id number] IO INR3 Target INR range2-3 SourceAMS History of Present Illness Patient identification verified with 2 patient identifiers. Anticoagulation Monitoring Service: [facility]. Enrollment/Re-enrollmen t date: February 25, 2023. The patient is being seen as a follow-up for anticoagulation monitoring. Target INR 2-3. Monitoring practitioner PAT MALIK CNP. INR monitoring is per [facility] protocol. The patient is on anticoagulation due to deep vein thrombosis. The patient is currently taking warfarin Tablet strength and color: 5 mg([place]) 7.5 mg (Yellow). Interval History: Patient was last seen: June 17, 2022. Previous INR was 2.3. DOSE MAINTAINED. Incoming total weekly dose 37.5 mg. Today's Clinic INR: AMS INR 3.0. Since last visit, the patient reports no bleeding. The patient did not experience clinically relevant bleeding. The patient did not experience other minor bleeding. Since last visit, the patient has not experienced a thrombotic event. The patient reports no change in medication. He reports no change in alcohol consumption. He reports no change in Vitamin K consumption. The patient has taken Warfarin as directed. Management: The patient's INR is within target range. Will maintain dose. The patient is not currently being bridged. Next follow up appointment in 1 week(s). DUE FOR 2 WEEKS BUT WILL RTC IN 1 WEEK DUE TO INR TRENDING UPWARDS AFTER 2 PREVIOUS DOSE INCREASES 05/27 AND 06/03. Outgoing total weekly dose 37.5 mg. Patient instructed to call in interim with questions, concerns and changes. Discussion/Summary You are currently taking Warfarin. Your tablet strength and color: 5 mg([place]) and 7.5 mg (Yellow). Next Appointment: July 08, 2022. Time: 7: 15 am. Location: [facility], , option 1. Your INR today is within range . You will continue to take your dose as instructed above. Visit information Please call in interim with questions, concerns and changes. Do tell your provider when you get sick, hurt, or get a cut that will not stop bleeding. If you have any bleeding, trauma, falls and/or other medical concerns, call your doctor or seek medical attention right away. Results/Data Coumadin Printed in Appendix #1 below. *Diagnosis/Problems 1. 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) Signatures Electronically signed by : Alisha Friend R.N.; Jul 01 2022 7:10AM EST (Author) Appendix #1 Coumadin Patient: JENNIFER JAMES; : 1945; [id number] 07:[id number] 07:[id number] 07:[id number] 07:[id number] 07:[id number] 05:08PM IO PT/INR PT + INR, Plasma PT/INR (POC) Recorded INR Coagulation Screen Current Dose New Dose Recheck in Patient Notified Comments IO INR32.32.31.91.5 PT, INR3.5 Target INR peild9-96-81-32-32-3 Normal Touchworks Today's INRon 07-01-2022 Today's INR 2-3 Anticoagulati on Monitoring [facility] Work Phone: Today's INR AMS Anticoagulati on Monitoring [facility] Work Phone: Anticoagulation Monitoring S erviceon 06-17-2022 Anticoagulation Monitoring Service Today's INR [id number] IO INR2.3 Target INR range2-3 SourceAMS History of Present Illness Patient identification verified with 2 patient identifiers. Anticoagulation Monitoring Service: [facility]. Enrollment/Re-enrollmen t date: February 25, 2023. The patient is being seen as a follow-up for anticoagulation monitoring. Target INR 2-3. Monitoring practitioner PAT MALIK CNP. INR monitoring is per [facility] protocol. The patient is on anticoagulation due to deep vein thrombosis. The patient is currently taking warfarin Tablet strength and color: 5 mg([place]) 7.5 mg (Yellow). Interval History: Patient was last seen: June 10, 2022. Previous INR was 2.3. Incoming total weekly dose 37.5 mg. Today's Clinic INR: AMS INR 2.3. Since last visit, the patient reports no bleeding. The patient did not experience clinically relevant bleeding. The patient did not experience other minor bleeding. Since last visit, the patient has not experienced a thrombotic event. The patient reports no change in medication. He reports no change in alcohol consumption. He reports no change in Vitamin K consumption. The patient has taken Warfarin as directed. Management: The patient's INR is within target range. Will maintain dose. Next follow up appointment in 2 week(s). Outgoing total weekly dose 37.5 mg. Patient instructed to call in interim with questions, concerns and changes. Discussion/Summary You are currently taking Warfarin. Your tablet strength and color: 5 mg([place]) and 7.5 mg (Yellow). Next Appointment: July 01, 2022. Time: 7: 00 am. Location: [facility], , option 1. Your INR today is within range . You will continue to take your dose as instructed above. Visit information Please call in interim with questions, concerns and changes. Do tell your provider when you get sick, hurt, or get a cut that will not stop bleeding. If you have any bleeding, trauma, falls and/or other medical concerns, call your doctor or seek medical attention right away. Results/Data Coumadin Printed in Appendix #1 below. *Diagnosis/Problems 1. 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) Signatures Electronically signed by : Toshia Ordoñez R.N.; Jun 17 2022 7:04AM EST (Author) Appendix #1 Coumadin Patient: JENNIFER JAMES; : 1945; [id number] 07:[id number] 07:[id number] 07:[id number] 07:[id number] 07:[id number] 05:08PM IO PT/INR PT + INR, Plasma PT/INR (POC) Recorded INR Coagulation Screen Current Dose New Dose Recheck in Patient Notified Comments IO INR2.32.31.91.53.6 PT, INR3.5 Target INR -03-10-32-32-3 Normal Touchworks Today's INRon 06-17-2022 Today's INR 2-3 Anticoagulati on Monitoring [facility] Work Phone: Today's INR AMS Anticoagulati on Monitoring [facility] Work Phone: Anticoagulation Monitoring S erviceon 06-10-2022 Anticoagulation Monitoring Service Today's INR [id number] IO INR2.3 Target INR range2-3 SourceAMS History of Present Illness Patient identification verified with 2 patient identifiers. Anticoagulation Monitoring Service: [facility]. Enrollment/Re-enrollmen t date: February 25, 2023. The patient is being seen as a follow-up for anticoagulation monitoring. Target INR 2-3. Monitoring practitioner PAT MALIK CNP. INR monitoring is per [facility] protocol. The patient is on anticoagulation due to deep vein thrombosis. The patient is currently taking warfarin Tablet strength and color: 5 mg([place]) 7.5 mg (Yellow). Interval History: Patient was last seen: June 03, 2022. Previous INR was 1.9. DOSE INCREASED. Incoming total weekly dose 37.5 mg. Today's Clinic INR: [facility] INR 2.3. Since last visit, the patient reports no bleeding. The patient did not experience clinically relevant bleeding. The patient did not experience other minor bleeding. Since last visit, the patient has not experienced a thrombotic event. The patient reports no change in medication. He reports no change in alcohol consumption. He reports no change in Vitamin K consumption. The patient has taken Warfarin as directed. Management: The patient's INR is within target range. Will maintain dose. The patient is not currently being bridged. Next follow up appointment in 1 week(s). Outgoing total weekly dose 37.5 mg. Patient instructed to call in interim with questions, concerns and changes. Discussion/Summary You are currently taking Warfarin. Your tablet strength and color: 5 mg([place]) and 7.5 mg (Yellow). Next Appointment: June 17, 2022. Time: 7: 00 am. Location: [facility], , option 1. Your INR today is within range . You will continue to take your dose as instructed above. Visit information Please call in interim with questions, concerns and changes. Do tell your provider when you get sick, hurt, or get a cut that will not stop bleeding. If you have any bleeding, trauma, falls and/or other medical concerns, call your doctor or seek medical attention right away. Results/Data Coumadin Printed in Appendix #1 below. *Diagnosis/Problems 1. 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) Signatures Electronically signed by : Alisha Friend R.N.; Jun 10 2022 7:04AM EST (Author) Appendix #1 Coumadin Patient: JENNIFER JAMES; : 1945; [id number] 07:[id number] 07:[id number] 07:[id number] 07:[id number] 07:02AM IO PT/INR PT + INR, Plasma PT/INR (POC) Recorded INR Coagulation Screen Current Dose New Dose Recheck in Patient Notified Comments IO INR2.31.91.53.63.4 PT, INR Target INR xygxt2-98-01-32-32-3 Normal Touchworks Today's INRon 06-10-2022 Today's INR AMS Anticoagulati on Monitoring [facility] Work Phone: Today's INR 2-3 Anticoagulati on Monitoring [facility] Work Phone: Anticoagulation Monitoring S erviceon 06-03-2022 Anticoagulation Monitoring Service Today's INR [id number] IO INR1.9 Target INR range2-3 SourceAMS History of Present Illness Patient identification verified with 2 patient identifiers. Anticoagulation Monitoring Service: [facility]. Enrollment/Re-enrollmen t date: February 25, 2023. The patient is being seen as a follow-up for anticoagulation monitoring. Target INR 2-3. Monitoring practitioner PAT MALIK CNP. INR monitoring is per [facility] protocol. The patient is on anticoagulation due to deep vein thrombosis. The patient is currently taking warfarin Tablet strength and color: 5 mg([place]) 7.5 mg (Yellow). Interval History: Patient was last seen: May 27, 2022. Previous INR was 1.5. Incoming total weekly dose 35 mg. Today's Clinic INR: [facility] INR 1.9. Since last visit, the patient reports no bleeding. The patient did not experience clinically relevant bleeding. The patient did not experience other minor bleeding. Since last visit, the patient has not experienced a thrombotic event. The patient reports no change in medication. He reports no change in alcohol consumption. He reports no change in Vitamin K consumption. The patient has taken Warfarin as directed. Management: The patient's INR is subtherapeutic. Will increase dose per protocol by approximately Next follow up appointment in 1 week(s). Outgoing total weekly dose 37.5 mg. Patient instructed to call in interim with questions, concerns and changes. Patient educated on dietary consistency in vitamin k consumption. Discussion/Summary You are currently taking Warfarin. Your tablet strength and color: 5 mg([place]) and 7.5 mg (Yellow). Next Appointment: June 10, 2022. Time: 7: 15 am. Location: [facility], , option 1. Your INR today is lower than your target range, you may be at risk for forming blood clots. Change your dosing as instructed above. Visit information Please call in interim with questions, concerns and changes. Do tell your provider when you get sick, hurt, or get a cut that will not stop bleeding. If you have any bleeding, trauma, falls and/or other medical concerns, call your doctor or seek medical attention right away. Results/Data Coumadin Printed in Appendix #1 below. *Diagnosis/Problems 1. 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) Signatures Electronically signed by : Toshia Ordoñez R.N.; Jun 03 2022 7:07AM LUIS MANUEL (Author) Appendix #1 Coumadin Patient: JENNIFER JAMES; : 1945; [id number] 07:[id number] 07:[id number] 07:[id number] 07:[id number] 07:03AM IO PT/INR PT + INR, Plasma PT/INR (POC) Recorded INR Coagulation Screen Current Dose New Dose Recheck in Patient Notified Comments IO INR1.91.53.63.43.4 PT, INR Target INR alsrh2-89-61-32-32-3 Normal Touchworks Today's INRon 06-03-2022 Today's INR 2-3 Anticoagulati on Monitoring [facility] Work Phone: Today's INR AMS Anticoagulati on Monitoring [facility] Work Phone: Anticoagulation Monitoring S nikhil 05-27-2022 Anticoagulation Monitoring Service Today's INR [id number] IO INR1.5 Target INR range2-3 SourceAMS History of Present Illness Patient identification verified with 2 patient identifiers. Anticoagulation Monitoring Service: [facility]. Enrollment/Re-enrollmen t date: February 25, 2023. The patient is being seen as a follow-up for anticoagulation monitoring. Target INR 2-3. Monitoring practitioner PAT MALIK CNP. INR monitoring is per [facility] protocol. The patient is on anticoagulation due to deep vein thrombosis. The patient is currently taking warfarin Tablet strength and color: 5 mg([place]) 7.5 mg (Yellow). Interval History: Patient was last seen: May 20, 2022. PT'S 5MG TABLETS HAVE BEEN REFILLED. Incoming total weekly dose 33.75 mg. Today's Clinic INR: [facility] INR 1.5. Since last visit, the patient reports no bleeding. The patient did not experience clinically relevant bleeding. The patient did not experience other minor bleeding. Since last visit, the patient has not experienced a thrombotic event. The patient reports no change in medication. He reports no change in alcohol consumption. He reports no change in Vitamin K consumption. The patient has taken Warfarin as directed. Management: The patient's INR is subtherapeutic. Will increase dose per protocol by approximately Next follow up appointment in 1 week(s). Outgoing total weekly dose 35 mg. Patient instructed to call in interim with questions, concerns and changes. Patient educated on dietary consistency in vitamin k consumption. Discussion/Summary You are currently taking Warfarin. Your tablet strength and color: 5 mg([place]) and 7.5 mg (Yellow). Next Appointment: June 03, 2022. Time: 7: 00 am. [facility] [facility] [facility], , option 1. Your INR today is lower than your target range, you may be at risk for forming blood clots. Change your dosing as instructed above. Visit information Please call in interim with questions, concerns and changes. Do tell your provider when you get sick, hurt, or get a cut that will not stop bleeding. If you have any bleeding, trauma, falls and/or other medical concerns, call your doctor or seek medical attention right away. Results/Data Coumadin Printed in Appendix #1 below. *Diagnosis/Problems 1. 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) Signatures Electronically signed by : Toshia Ordoñez R.N.; May 27 2022 7:05AM EST (Author) Appendix #1 Coumadin Patient: JENNIFER JAMES; : 1945; [id number] 07:[id number] 07:[id number] 07:[id number] 07:[id number] 06:59AM IO PT/INR PT + INR, Plasma PT/INR (POC) Recorded INR Coagulation Screen Current Dose New Dose Recheck in Patient Notified Comments IO INR1.53.63.43.43 PT, INR Target INR [id number] Normal Touchworks Today's INRon 05-27-2022 Today's INR 2-3 Anticoagulati on Monitoring [facility] Work Phone: Today's INR AMS Anticoagulati on [facility] M[facility] Work Phone: Anticoagulation Monitoring S erviceon 05-20-2022 Anticoagulation Monitoring Service Today's INR [id number] IO INR3.6 Target INR range2-3 SourceAMS History of Present Illness Patient identification verified with 2 patient identifiers. Anticoagulation Monitoring Service: [facility]. Enrollment/Re-enrollmen t date: February 25, 2023. The patient is being seen as a follow-up for anticoagulation monitoring. Target INR 2-3. Monitoring practitioner PAT MALIK CNP. INR monitoring is per [facility] protocol. The patient is on anticoagulation due to deep vein thrombosis. The patient is currently taking warfarin Tablet strength and color: 5 mg([place]ara) 7.5 mg (Yellow). Interval History: Patient was last seen: May 13, 2022. PT IS RUNNING OUT OF 5MG TABLETS AND HAS ANOTHER PRESCRIPTION FOR 7.5 MG TABLETS THAT HE WILL START USING. HE WILL CONTACT MD TO GET SCRIPT FOR 5MG SENT THROUGH [facility]. Incoming total weekly dose 37.5 mg. Today's Clinic INR: AMS INR 3.6. Since last visit, the patient reports no bleeding. The patient did not experience clinically relevant bleeding. The patient did not experience other minor bleeding. Since last visit, the patient has not experienced a thrombotic event. The patient reports no change in medication. He reports no change in alcohol consumption. He reports no change in Vitamin K consumption. The patient has taken Warfarin as directed. There is no identifiable cause for out of range INR. Management: The patient's INR is supratherapeutic. Hold 1 dose. Will decrease dose per protocol by approximately Next follow up appointment in 1 week(s). Outgoing total weekly dose 33.75 mg. Patient instructed to call in interim with questions, concerns and changes. Patient educated on dietary consistency in vitamin k consumption. Discussion/Summary You are currently taking Warfarin. Your tablet strength and color: 5 mg([place]aushara) and 7.5 mg (Yellow). Next Appointment: May 27, 2020. Time: 7: 00 am. Location: [facility], , option 1. Your INR today is higher than your target range, you may be at risk for bleeding. Please hold Coumadin/Warfarin dose(s) for 1 day(s). Change your dosing as instructed above. Visit information Please call in interim with questions, concerns and changes. Do tell your provider when you get sick, hurt, or get a cut that will not stop bleeding. If you have any bleeding, trauma, falls and/or other medical concerns, call your doctor or seek medical attention right away. Results/Data Coumadin Printed in Appendix #1 below. *Diagnosis/Problems 1. 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) Signatures Electronically signed by : Toshia Ordoñez R.N.; May 20 2022 7:11AM EST (Author) Appendix #1 Coumadin Patient: JENNIFER JAMES; : 1945; [id number] 07:[id number] 07:[id number] 07:[id number] 06:[id number] 07:11AM IO PT/INR PT + INR, Plasma PT/INR (POC) Recorded INR Coagulation Screen Current Dose New Dose Recheck in Patient Notified Comments IO INR3.63.43.433.4 PT, INR Target INR [id number] Normal Touchworks Today's INRon 05-20-2022 Today's INR 2-3 Anticoagulati on [facility] Work Phone: Today's INR AMS Anticoagulati on [facility] Work Phone: Anticoagulation Monitoring S erviceon 05-13-2022 Anticoagulation Monitoring Service Today's INR [id number] IO INR3.4 Target INR range2-3 SourceAMS History of Present Illness Patient identification verified with 2 patient identifiers. Anticoagulation Monitoring Service: [facility]. Enrollment/Re-enrollmen t date: February 25, 2023. The patient is being seen as a follow-up for anticoagulation monitoring. Target INR 2-3. Monitoring practitioner PAT MALIK CNP. INR monitoring is per AMS protocol. The patient is on anticoagulation due to deep vein thrombosis. The patient is currently taking warfarin Tablet strength and color: 5 mg([place]aushara) Interval History: Patient was last seen: May 06, 2022. Previous INR was 3.4. Incoming total weekly dose 40 mg. Today's Clinic INR: AMS INR 3.4. Since last visit, the patient reports no bleeding. The patient did not experience clinically relevant bleeding. The patient did not experience other minor bleeding. Since last visit, the patient has not experienced a thrombotic event. The patient reports no change in medication. He reports no change in alcohol consumption. He reports no change in Vitamin K consumption. PT ATE SAMMARINESE FOOD ON THURSDAY AND IS NOT SURE WHAT IT CONTAINED. The patient has taken Warfarin as directed. Management: The patient's INR is supratherapeutic. Will decrease dose per protocol by approximately Next follow up appointment in 1 week(s). Outgoing total weekly dose 37.5 mg. Patient instructed to call in interim with questions, concerns and changes. Patient educated on dietary consistency in vitamin k consumption. Discussion/Summary You are currently taking Warfarin. Your tablet strength and color: 5 mg([place]aushara) Next Appointment: May 20, 2020. Time: 7: 00 am. Location: [facility], , option 1. Your INR today is higher than your target range, you may be at risk for bleeding. Change your dosing as instructed above. Visit information Please call in interim with questions, concerns and changes. Do tell your provider when you get sick, hurt, or get a cut that will not stop bleeding. If you have any bleeding, trauma, falls and/or other medical concerns, call your doctor or seek medical attention right away. Results/Data Coumadin Printed in Appendix #1 below. *Diagnosis/Problems 1. 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) Signatures Electronically signed by : Toshia Ordoñez R.N.; May 13 2022 7:07AM EST (Author) Appendix #1 Coumadin Patient: JENNIFER JAMES; : 1945; [id number] 07:[id number] 07:[id number] 06:[id number] 07:[id number] 05:08PM IO PT/INR PT + INR, Plasma PT/INR (POC) Recorded INR Coagulation Screen Current Dose New Dose Recheck in Patient Notified Comments IO INR3.43.433.4 PT, INR3.5 Target INR [id number] Normal Touchworks CBCon 05-13-2022 Erythrocyte distribution width (RBC) [Ratio] 13.1 % Normal 11.5 - 14.5 [facility] Comment on above: Order Comment: FASTI NG Performed By: #### C BC #### [facility] [address] [place] [address] Hematocrit (Bld) [Volume fraction] 47.7 % Normal 41.0 - 52.0 [facility] Comment on above: Order Comment: FASTI NG Performed By: #### C BC #### [facility] [address] [place] [address] Hemoglobin (Bld) [Mass/Vol] 14.9 g/dL Normal 13.5 - 17.5 [facility] Comment on above: Order Comment: FASTI NG Performed By: #### C BC #### [facility] [address] [place] [address] MCHC (RBC) [Mass/Vol] 31.2 g/dL Low 32.0 - 36.0 [facility] Comment on above: Order Comment: FASTI NG Performed By: #### C BC #### [facility] [address] [place] [address] MCV (RBC) [Entitic vol] 103 fL High 80 - 100 [facility] Comment on above: Order Comment: FASTI NG Performed By: #### C BC #### [facility] [address] [place] [address] NUCLEATED RBC 0.0 /100 WBC Normal 0.0-0.0 [facility] Comment on above: Order Comment: FASTI NG Performed By: #### C BC #### [facility] [address] [place] [address] Platelets (Bld) [#/Vol] 173 10*3/uL Normal 150 - 450 [facility] Comment on above: Order Comment: FASTI NG Performed By: #### C BC #### [facility] [address] [place] [address] RBC 4.61 x10E12/L Normal 4.50 - 5.90 [facility] Comment on above: Order Comment: FASTI NG Performed By: #### C BC #### [facility] [address] [place] [address] WBC (Bld) [#/Vol] 4.7 10*3/uL Normal 4.4 - 11.3 [facility] Comment on above: Order Comment: FASTI NG Performed By: #### C BC #### [facility] [address] [place] [address] COMPREHENSIVE PANELon 2021 Albumin [Mass/Vol] 4.2 g/dL Normal 3.4 - 5.0 [facility] Comment on above: Order Comment: FASTI NG Performed By: #### C MP #### [facility] [address] [place] [address] ALP [Catalytic activity/Vol] 52 U/L Normal 33 - 136 [facility] Comment on above: Order Comment: FASTI NG Performed By: #### C MP #### [facility] [address] [place] [address] ALT [Catalytic activity/Vol] 14 U/L Normal 10 - 52 [facility] Comment on above: Order Comment: FASTI NG Result Comment: Maria Luisa ents treated with Sulfasalazine may generate falsely decreased results for ALT. Performed By: #### C MP #### [facility] [address] [place] [address] Anion gap [Moles/Vol] 12 mmol/L Normal 10 - 20 [facility] Comment on above: Order Comment: FASTI NG Performed By: #### C MP #### [facility] [address] [place] [address] AST [Catalytic activity/Vol] 14 U/L Normal 9 - 39 [facility] Comment on above: Order Comment: FASTI NG Performed By: #### C MP #### [facility] [address] [place] [address] Bilirubin [Mass/Vol] 0.5 mg/dL Normal 0.0 - 1.2 [facility] Comment on above: Order Comment: FASTI NG Performed By: #### C MP #### [facility] [address] [place] [address] Calcium [Mass/Vol] 9.4 mg/dL Normal 8.6 - 10.6 [facility] Comment on above: Order Comment: FASTI NG Performed By: #### C MP #### [facility] [address] [place] [address] Chloride [Moles/Vol] 107 mmol/L Normal 98 - 107 [facility] Comment on above: Order Comment: FASTI NG Performed By: #### C MP #### [facility] [address] [place] [address] Creatinine [Mass/Vol] 0.98 mg/dL Normal 0.50 - 1.30 [facility] Comment on above: Order Comment: FASTI NG Performed By: #### C MP #### [facility] [address] [place] [address] GFR/1.73 sq M.predicted among non-blacks MDRD (S/P/Bld) [Vol rate/Area] 80 mL/min/{1.73_m2} Normal >90 [facility] Comment on above: Order Comment: FASTI NG Result Comment: CALC ULATIONS OF ESTIMATED GFR ARE PERFORMED USING THE 2020 CKD-EPI STUDY REFIT EQUATION WITHOUT THE RACE VARIABLE FOR THE IDMS-TRACEABLE CREATININE METHODS. https://jasn.asnjournals.org/content/early/ASN.547151 6428 Performed By: #### C MP #### [facility] [address] [place] [address] Glucose [Mass/Vol] 89 mg/dL Normal 74 - 99 [facility] Comment on above: Order Comment: FASTI NG Performed By: #### C MP #### [facility] [address] [place] [address] HCO3 (Bld) [Moles/Vol] 28 mmol/L Normal 21 - 32 [facility] Comment on above: Order Comment: FASTI NG Performed By: #### C MP #### [facility] [address] [place] [address] Potassium [Moles/Vol] 5.2 mmol/L Normal 3.5 - 5.3 [facility] Comment on above: Order Comment: FASTI NG Performed By: #### C MP #### [facility] [address] [place] [address] Protein [Mass/Vol] 6.6 g/dL Normal 6.4 - 8.2 [facility] Comment on above: Order Comment: FASTI NG Performed By: #### C MP #### [facility] [address] [place] [address] Sodium [Moles/Vol] 142 mmol/L Normal 136 - 145 [facility] Comment on above: Order Comment: FASTI NG Performed By: #### C MP #### [facility] [address] [place] [address] Urea nitrogen [Mass/Vol] 16 mg/dL Normal 6 - 23 [facility] Comment on above: Order Comment: FASTI NG Performed By: #### C MP #### [facility] [address] [place] [address] LIPID PANEL (CORONARY RISK 2 )on 05-13-2022 Cholesterol [Mass/Vol] 139 mg/dL Normal 0 - 199 [facility] Comment on above: Order Comment: FASTI NG Result Comment: . AGE DESIRABLE BORDERLINE HIGH HIGH 0-19 Y 0 - 169 170 - 199 >/= 200 20-24 Y 0 - 189 190 - 224 >/= 225 >24 Y 0 - 199 200 - 239 >/= 240 All ranges are based on fasting samples. Specific therapeutic targets will vary based on patient-specific cardiac risk. . Pediatric guidelines reference:Pediatrics 2011, 128(S5). Adult guidelines reference: NCEP ATPIII Guidelines, SUSANA 2001, 258:2486-97 . Venipuncture immediately after or during the administration of Metamizole may lead to falsely low results. Testing should be performed immediately prior to Metamizole dosing. Performed By: #### L IPID #### [facility] [address] [place] [address] Cholesterol in HDL [Mass/Vol] 39.3 mg/dL Abnormal [facility] Comment on above: Order Comment: FASTI NG Result Comment: . AGE VERY LOW LOW NORMAL HIGH 0-19 Y < 35 < 40 40-45 ---- 20-24 Y ---- < 40 >45 ---- >24 Y ---- < 40 40-60 >60 . Performed By: #### L IPID #### [facility] [address] [place] [address] Cholesterol in LDL [Mass/Vol] 79 mg/dL Normal 0 - 99 [facility] Comment on above: Order Comment: FASTI NG Result Comment: . NEAR BORD AGE DESIRABLE OPTIMAL HIGH HIGH VERY HIGH 0-19 Y 0 - 109 --- 110-129 >/= 130 ---- 20-24 Y 0 - 119 --- 120-159 >/= 160 ---- >24 Y 0 - 99 100-129 130-159 160-189 >/=190 . Performed By: #### L IPID #### [facility] [address] [place] [address] Cholesterol in VLDL [Mass/Vol] 21 mg/dL Normal 0 - 40 [facility] Comment on above: Order Comment: FASTI NG Performed By: #### L IPID #### [facility] [address] [place] [address] Cholesterol.total/Cho lesterol in HDL [Mass ratio] 3.5 {ratio} Normal [facility] Comment on above: Order Comment: FASTI NG Result Comment: REF VALUES DESIRABLE < 3.4 HIGH RISK > 5.0 Performed By: #### L IPID #### [facility] [address] [place] [address] Triglyceride [Mass/Vol] 106 mg/dL Normal 0 - 149 [facility] Comment on above: Order Comment: FASTI NG Result Comment: . AGE DESIRABLE BORDERLINE HIGH HIGH VERY HIGH 0 D-90 D 19 - 174 ---- ---- ---- 91 D- 9 Y 0 - 74 75 - 99 >/= 100 ---- 10-19 Y 0 - 89 90 - 129 >/= 130 ---- 20-24 Y 0 - 114 115 - 149 >/= 150 ---- >24 Y 0 - 149 150 - 199 200- 499 >/= 500 . Venipuncture immediately after or during the administration of Metamizole may lead to falsely low results. Testing should be performed immediately prior to Metamizole dosing. Performed By: #### L IPID #### [facility] [address] [address] Laboratory - Chemistry and C hemistry - challengeon 05-13-2022 Albumin BCP dye [Mass/Vol] 4.2 g/dL 3.4 - 5.0 WM-WSTC-[place] Work Phone: ALP [Catalytic activity/Vol] 52 U/L 33 - 136 YO-ROTI-[place] Work Phone: ALT With P-5'-P [Catalytic activity/Vol] 14 U/L 10 - 52 MP-PVDQ-[employer] Work Phone: Comment on above: Patients treated wit h Sulfasalazine may generate falsely decreased results for ALT. Anion gap [Moles/Vol] 12 mmol/L 10 - 20 MP- SYLLETA-[facility] Work Phone: AST With P-5'-P [Catalytic activity/Vol] 14 U/L 9 - 39 CN-FVKJ-Smpn [place] Work Phone: Bilirubin [Mass/Vol] 0.5 mg/dL 0.0 - 1.2 -W [facility] Work Phone: Calcium [Mass/Vol] 9.4 mg/dL 8.6 - 10.6 [facility] Work Phone: Chloride [Moles/Vol] 107 mmol/L 98 - 107 [facility] Work Phone: CO2 [Moles/Vol] 28 mmol/L 21 - 32 [facility] jacobs Saeed Work Phone: Creatinine [Mass/Vol] 0.98 mg/dL See Below [facility] Work Phone: Comment on above: Reference Range: 0.5 0 - 1.30 Glucose [Mass/Vol] 89 mg/dL 74 - 99 [facility] Work Phone: Potassium [Moles/Vol] 5.2 mmol/L 3.5 - 5.3 [facility] Work Phone: Protein [Mass/Vol] 6.6 g/dL 6.4 - 8.2 [facility] Work Phone: Sodium [Moles/Vol] 142 mmol/L 136 - 145 [facility] Work Phone: Urea nitrogen [Mass/Vol] 16 mg/dL 6 - 23 LY-AKZV-Bxqz [place] Work Phone: Laboratory - Hematology and Cell countson 05-13-2022 Erythrocyte distribution width (RBC) [Ratio] 13.1 % See Below KJ-VAOP-Zjnr [place] Work Phone: Comment on above: Reference Range: 11. 5 - 14.5 Hematocrit (Bld) [Volume fraction] 47.7 % See Below ZW-KVOC-[place] Work Phone: Comment on above: Reference Range: 41. 0 - 52.0 Hemoglobin (Bld) [Mass/Vol] 14.9 g/dL See Below DA-EPYU-Xtff [place] Work Phone: Comment on above: Reference Range: 13. 5 - 17.5 MCHC (RBC) [Mass/Vol] 31.2 g/dL below low threshold See Below RE-WKUJ-[place]wx [place] Work Phone: Comment on above: Reference Range: 32. 0 - 36.0 MCV (RBC) [Entitic vol] 103 fL above high threshold 80 - 100 [facility] Work Phone: Platelets (Bld) [#/Vol] 173 10*3/uL 150 - 450 [facility] Work Phone: RBC (Bld) [#/Vol] 4.61 {x10E12/L} See Below [facility] Work Phone: Comment on above: Reference Range: 4.5 0 - 5.90 WBC (Bld) [#/Vol] 4.7 10*3/uL 4.4 - 11.3 [facility] Work Phone: Lipid Panelon 05-13-2022 Cholesterol [Mass/Vol] 139 mg/dL 0 - 199 [facility] Work Phone: Comment on above: . AGE DESIRABLE BORD SHELTON HIGH HIGH 0-19 Y 0 - 169 170 - 199 >/= 200 20-24 Y 0 - 189 190 - 224 >/= 225 >24 Y 0 - 199 200 - 239 >/= 240 All ranges are based on fasting samples. Specific therapeutic targets will vary based on patient-specific cardiac risk.. Pediatric guidelines reference:Pediatrics 2011, 128(S5). Adult guidelines reference: NCEP ATPIII Guidelines, SUSANA 2001, 258:2486-97. Venipuncture immediately after or during the administration of Metamizole may lead to falsely low results. Testing should be performed immediately prior to Metamizole dosing. Cholesterol in HDL [Mass/Vol] 39.3 mg/dL Abnormal [facility] Work Phone: Comment on above: . AGE VERY LOW LOW N ORMAL HIGH 0-19 Y < 35 < 40 40-45 ---- 20- 24 Y ---- < 40 >45 ---- >24 Y ---- < 40 40-60 >60. Cholesterol in LDL [Mass/Vol] 79 mg/dL 0 - 99 [facility] Work Phone: Comment on above: . NEAR BORD AGE JACIEL RABLE OPTIMAL HIGH HIGH VERY HIGH 0-19 Y 0 - 109 --- 110-129 >/= 130 ---- 20-24 Y 0 - 119 --- 120-159 >/= 160 ---- >24 Y 0 - 99 100-129 130-159 160-189 >/=190. Cholesterol.total/Cho lesterol in HDL [Mass ratio] 3.5 {ratio} [facility] Work Phone: Comment on above: REF VALUESDESIRABLE < 3.4HIGH RISK > 5.0 Triglyceride [Mass/Vol] 106 mg/dL 0 - 149 [facility] Work Phone: Comment on above: . AGE DESIRABLE BORD SHELTON HIGH HIGH VERY HIGH 0 D-90 D 19 - 174 ---- ---- ----91 D- 9 Y 0 - 74 75 - 99 >/= 100 ---- 10-19 Y 0 - 89 90 - 129 >/= 130 ---- 20-24 Y 0 - 114 115 - 149 >/= 150 ---- >24 Y 0 - 149 150 - 199 200- 499 >/= 500. Venipuncture immediately after or during the administration of Metamizole may lead to falsely low results. Testing should be performed immediately prior to Metamizole dosing. Lipid Panel 21 mg/dL 0 - 40 [facility] Work Phone: No Panel Informationon 05-13 0.0 {/100_WBC} 0.0-0.0 MP-WSPC-Av on Saeed Work Phone: 80 {mL/min/1.73m2} >90 MP-WSP C-Pearl Work Phone: Comment on above: CALCULATIONS OF ASHER MATED GFR ARE PERFORMED USING THE 2020 CKD-EPI STUDY REFIT EQUATION WITHOUT THE RACE VARIABLE FOR THE IDMS-TRACEABLE CREATININE METHODS.https://jasn.asnjournals.org/content// N.2057467115 Today's INRon 05-13-2022 Today's INR 2-3 Anticoagulati on Monitoring Service-[facility] Work Phone: Today's INR AMS Anticoagulati on Monitoring Service-[facility] Work Phone: Today's INRon 05-06-2022 Today's INR 2-3 Anticoagulati on Monitoring Service-[facility] Work Phone: Today's INR AMS Anticoagulati on Monitoring Service-[facility]agrin Minoff Work Phone: Tobacco Screening.on 022 Adult depression screening assessment No MP-Otolaryn golog y-[place] 214 DO Work Phone: Fall risk assessment a) No falls within the last year MP-Otolaryngolog y-[place] 214 DO Work Phone: Tobacco use status CP b) No MP-Otolaryngolog y-[place] 214 DO Work Phone: Laboratory - Chemistry and C hemistry - challengeon 04-22-2022 Albumin BCP dye [Mass/Vol] 4.1 g/dL 3.4 - 5.0 SI-YESD-Ytkk [place] Work Phone: ALP [Catalytic activity/Vol] 51 U/L 33 - 136 IQ-TZYU-[place] Work Phone: ALT With P-5'-P [Catalytic activity/Vol] 14 U/L 10 - 52 JZ-TUFQ-Uqtq [place] Work Phone: Comment on above: Patients treated wit h Sulfasalazine may generate falsely decreased results for ALT. Anion gap [Moles/Vol] 13 mmol/L 10 - 20 [facility] [place] Work Phone: AST With P-5'-P [Catalytic activity/Vol] 13 U/L 9 - 39 [facility] Work Phone: Bilirubin [Mass/Vol] 0.6 mg/dL 0.0 - 1.2 [facility] [place] Work Phone: Calcium [Mass/Vol] 8.5 mg/dL below low threshold 8.6 - 10.6 ER-FORC-Esbq [place] Work Phone: Chloride [Moles/Vol] 109 mmol/L above high threshold 98 - 107 HS[facility] Work Phone: CO2 [Moles/Vol] 25 mmol/L 21 - 32 [place] [facility]ITAL[facility] [employer] Work Phone: Creatinine [Mass/Vol] 1.02 mg/dL See Below [employer] [facility] [place] Work Phone: Comment on above: Reference Range: 0.5 0 - 1.30 Glucose [Mass/Vol] 88 mg/dL 74 - 99 [facility] [place] Work Phone: Potassium [Moles/Vol] 4.3 mmol/L 3.5 - 5.3 [facility] [place] Work Phone: Protein [Mass/Vol] 6.3 g/dL below low threshold 6.4 - 8.2 [facility] [place] Work Phone: Sodium [Moles/Vol] 143 mmol/L 136 - 145 [facility] [place] Work Phone: Urea nitrogen [Mass/Vol] 19 mg/dL 6 - 23 HW-EVGP-Wgtn [place] Work Phone: No Panel Informationon 04-22 77 {mL/min/1.73m2} >90 [facility] [place] Work Phone: Comment on above: CALCULATIONS OF ASHER MATED GFR ARE PERFORMED USING THE 2020 CKD-EPI STUDY REFIT EQUATION WITHOUT THE RACE VARIABLE FOR THE IDMS-TRACEABLE CREATININE METHODS.https://jasn.asnjournals.org/content/early/ N.3314706144 Today's INRon 04-22-2022 Today's INR 2-3 Anticoagulati on Monitoring Service-Chagrin Minoff Work Phone: Today's INR AMS Anticoagulati on Monitoring Service-Chagrin Minoff Work Phone: Today's INRon 04-08-2022 Today's INR 2-3 Anticoagulati on Monitoring Service-Chagrin Mino[place] Work Phone: Today's INR AMS Anticoagulati on Monitoring Service-Chagrin Minoff Work Phone: PT/INRon 04-06-2022 PROTHROMBIN TIME Canceled Normal [facility] Comment on above: Order Comment: TEST PT/INR WAS CANCELLED, 04/06/2022 08:57 Performed By: #### P TINR ####[facility] [id number] [place] [id number] PT, INR Canceled Normal [facility] Comment on above: Order Comment: TEST PT/INR WAS CANCELLED, 04/06/2022 08:57 Performed By: #### P TINR ####[facility] [id number] [place] [id number] Admission Risk Screen - Adul ton 04-05-2022 Admission Risk Screen - Adult Allergies: Allergies: sulfa drugs: Anaphylaxis Patient Verification: New W ID Band Applied in my Departmentyes Patient Identity Verified Bypatient ID Band FULL Name, include Middle, spelling matches patient's ID used for verificationyes ID Band Matches Patient ID used for Verficationyes ID Band MRN Matches EMR MRNyes Visitor Restriction: Coronavirus Visitor Restriction: Reasonable restrictions to in-person visitors will be observed due to current coronavirus pandemic. Travel History: COVID-19 Screening Completedno exposure or symptoms(1) Travel or Exposure Past 30 DaysNO travel to International locations in the past 30 days Ebola AlertFor Ebola-like Symptoms: Isolate Patient and Notify Provider/It Application Support Analyst For Contact: Notify Provider/It Application Support Analyst Advance Directive: Advance Directive/DNRyes Advance Directive typeLiving Will, Durable Power of Academic Coordinator for Healthcare Living Will AvailabilityLiving Will not available now Living Will [id number] Durable Power of Academic Coordinator AvailabilityDPOA not available now Durable Power of Academic Coordinator [id number] Durable Power of Academic Coordinator contact (name and number)Natalie Parisi Jefferson Fall Screen: History of falling (immediate or previous)no (0) Secondary Diagnosisno (0) Intravenous Therapy/ Heparin/Saline Lockyes (20) Gait/Transferringnormal /bedrest/wheelchair (0) Ambulatory Aidsnone/bedrest/nurse assist (0) Mental Statusoriented to own ability (0) Score: Low risk (<25). Moderate risk (25-44). High risk (>44).20 Jefferson Fall Scale Scoring Reference [email or web address] ate Attachments/MFS Scoring Process.pdf Jefferson InterventionsLOW INTERVENTIONS: *patient oriented to surroundings and call system, * patient/family falls education completed and documented, *patients fall status communicated during bedside handoff, *whiteboard updated, *mode of toileting discussed with patient, *bed in low position with brakes locked, *call light in reach, * non-skid footwear Family Violence Screen: Are you or have you been threatened or abused physically, emotionally, or sexually by anyoneno Has anyone ever threatened to hurt your family or your petsno Does anyone try to keep you from having/contacting other friends or doing things outside your homeno Do you feel UNSAFE going back to the place where you are livingno Do you feel anyone has exploited or taken advantage of you financially or of your personal propertyno Clinical assessment: Are there any apparent signs of injuries/behaviors that could be related to abuse/neglectno Social Service Consult for abuse/neglect needed this visitno Functional Screen: Functional Screen: In the recent/past 2-4 weeks, patient or family have noticedno issues that require a speech/language consult at this time AM-PAC- Basic Mobility/Daily Activity: Patient baseline bedboundno Turning from your back to your side while in a flat bed without using bedrailsnone Moving from lying on your back to sitting on the side of a flat bed without using bedrailsnone Moving to and from bed to chair (including a wheelchair)none Standing up from a chair using your arms (e.g. wheelchair or bedside chair) none To walk in hospital roomnone Climbing 3-5 steps with railingnone Basic Mobility - Total Score24 Putting on and taking off regular lower body clothingnone Bathing (including washing, rinsing, drying)none Putting on and taking off regular upper body clothingnone Toileting, which includes using toilet, bedpan or urinalnone Taking care of personal grooming such as brushing teethnone Eating Mealsnone Daily Activity - Total Score24 Learning Assessment (Patient): Patient is Able to be Assessed for Learningyes Factors Influencing Readiness to Learnacuteness of illness Factors that Impact Ability to Learnnone Devices/Methods Used to Communicateglasses Learning Preferencesverbal instruction; written material Cultural Considerationsnone Developmental Considerationsnone Islam Considerationsnone Learning Assessment (Other Learner): Other learner availableno Depression Screen: During the past month, have you often been bothered by feeling down, depressed or hopelessno During the past month, have you often had little interest or pleasure in doing thingsno Have you had any thoughts of harming anyone elseno (1) [place] Suicide: Risk Screen Not Applicable/Able to Answerable to be screened In the Past Month: Have you wished you were or could go to sleep and not wake upno(1) In the Past Month: Have you had any actual thoughts of killing yourself no(1) Lifetime: Have you ever done, started to do, or prepared to do anything to end your lifeno [place] Suicide Risknegative Adult Nutrition Screen: Have you recently lost weight without tryingno Have you been eating poorly because (more content not included)... Normal [facility] BASIC METABOLIC PANELon 03-24 Anion gap [Moles/Vol] 14 mmol/L Normal 10 - [address] [facility] Comment on above: Performed By: #### B ####[facility] [id number] [place] [address] Calcium [Mass/Vol] 7.7 mg/dL Low 8.6 - 10.3 [facility] Comment on above: Performed By: #### B MP ####[facility] [id number] [place] [address] Chloride [Moles/Vol] 109 mmol/L High 98 - 107 [facility] Comment on above: Performed By: #### B MP ####[facility] [id number] [place] [address] Creatinine [Mass/Vol] 0.85 mg/dL Normal 0.50 - 1.[address] [facility] Comment on above: Performed By: #### B MP ####[facility] [id number] [place] [address] eGFR MALE >90 Normal >90 [facility] Comment on above: Result Comment: CALC ULATIONS OF ESTIMATED GFR ARE PERFORMED USING THE 2020 CKD-EPI STUDY REFIT EQUATION WITHOUT THE RACE VARIABLE FOR THE IDMS-TRACEABLE CREATININE METHODS. https://jasn.asnjournals.org/content/early//ASN.495488 7694 Performed By: #### B MP ####[facility] [id number] [place] [address] Glucose [Mass/Vol] 92 mg/dL Normal 74 - 99 [facility] Comment on above: Performed By: #### B MP ####[facility] [id number] [place] [address] HCO3 (Bld) [Moles/Vol] 22 mmol/L Normal 21 - [address] [facility] Comment on above: Performed By: #### B MP ####[facility] [id number] [place] [address] Potassium [Moles/Vol] 4.6 mmol/L Normal 3.5 - 5.[address] [facility] Comment on above: Result Comment: MILD HEMOLYSIS DETECTED. The result may be falsely elevated due to hemolysis or other interferents. Clinical correlation is recommended. Repeat testing may be considered. Performed By: #### B MP ####[facility] [id number] [place] [id number] Sodium [Moles/Vol] 140 mmol/L Normal 136 - 145 [facility] Comment on above: Performed By: #### B MP ####[facility] R[address] [id number] [place] [id number] Urea nitrogen [Mass/Vol] 15 mg/dL Normal 6 - [address] [facility] Comment on above: Performed By: #### B MP ####[place] [id number] [place] [id number] CBCon 04-05-2022 Erythrocyte distribution width (RBC) [Ratio] 13.1 % Normal 11.5 - 14.[address] [facility] Comment on above: Performed By: #### C BC ####[place] [id number] [place] [id number] Hematocrit (Bld) [Volume fraction] 44.2 % Normal 41.0 - 52.[address] [facility] Comment on above: Performed By: #### C BC ####[place] [id number] [place] [id number] Hemoglobin (Bld) [Mass/Vol] 14.7 g/dL Normal 13.5 - 17.[address] [facility] Comment on above: Performed By: #### C BC ####[facility] [id number] [place] [id number] MCHC (RBC) [Mass/Vol] 33.3 g/dL Normal 32.0 - 36.[address] [facility] Comment on above: Performed By: #### C BC ####[place] [id number] [place] [id number] MCV (RBC) [Entitic vol] 99 fL Normal 80 - [address] [facility] Comment on above: Performed By: #### C BC ####[facility] [id number] [place] [id number] Platelets (Bld) [#/Vol] 175 10*3/uL Normal 150 - [address] [facility] Comment on above: Performed By: #### C BC ####[facility] [id number] [place] [id number] RBC 4.46 x10E12/L Low 4.50 - 5.[address] [facility] Comment on above: Performed By: #### C BC ####[facility] [id number] [place] [id number] WBC (Bld) [#/Vol] 7.2 10*3/uL Normal 4.4 - 11.3 [facility] Comment on above: Performed By: #### C BC ####[facility] [id number] [place] [id number] CBC AND DIFFERENTIALon 04-05 % AUTOMATED IMMATURE GRAN 0.2 % Normal 0.0 - 0.[address] [facility] Comment on above: Result Comment: Ayesha ture Granulocyte Count (IG) includes promyelocytes, myelocytes and metamyelocytes but does not include bands. Percent differential counts (%) should be interpreted in the context of the absolute cell counts (cells/L). Performed By: #### C BCDF ####[facility] [id number] [place] [id number] Basophils (Bld) [#/Vol] 0.05 10*3/uL Normal 0.00 - 0.[address] [facility] Comment on above: Performed By: #### C BCDF ####[facility] [id number] [place] [id number] Basophils/100 WBC (Bld) 0.6 % Normal 0.0 - 2.[address] [facility] Comment on above: Performed By: #### C BCDF ####[facility] [id number] [place] [id number] Eosinophils (Bld) [#/Vol] 0.23 10*3/uL Normal 0.00 - 0.[address] [facility] Comment on above: Performed By: #### C BCDF ####[facility] [id number] [place] [id number] Eosinophils/100 WBC (Bld) 2.6 % Normal 0.0 - 6.[address] [facility] Comment on above: Performed By: #### C BCDF ####[facility] [id number] [place] [address] Erythrocyte distribution width (RBC) [Ratio] 13.2 % Normal 11.5 - 14.[address] [facility] Comment on above: Performed By: #### C BCDF ####[facility] [id number] [place] [address] Hematocrit (Bld) [Volume fraction] 47.0 % Normal 41.0 - 52.[address] [facility] Comment on above: Performed By: #### C BCDF ####[facility] [id number] [place] [address] Hemoglobin (Bld) [Mass/Vol] 15.5 g/dL Normal 13.5 - 17.[address] [facility] Comment on above: Performed By: #### C BCDF ####[facility] [id number] [place] [address] Lymphocytes (Bld) [#/Vol] 1.76 10*3/uL Normal 0.80 - 3.[address] [facility] Comment on above: Performed By: #### C BCDF ####[facility] [id number] [place] [address] Lymphocytes/100 WBC (Bld) 19.7 % Normal 13.0 - 44.[address] [facility] Comment on above: Performed By: #### C BCDF ####[facility] [id number] [place] [address] MCHC (RBC) [Mass/Vol] 33.0 g/dL Normal 32.0 - 36.[address] [facility] Comment on above: Performed By: #### C BCDF ####[facility] [id number] [place] [address] MCV (RBC) [Entitic vol] 98 fL Normal 80 - [address] [facility] Comment on above: Performed By: #### C BCDF ####[facility] [id number] [place] [address] Monocytes (Bld) [#/Vol] 0.62 10*3/uL Normal 0.05 - 0.[address] [facility] Comment on above: Performed By: #### C BCDF ####[facility] [id number] [place] [address] Monocytes/100 WBC (Bld) 7.0 % Normal 2.0 - 10.[address] [facility] Comment on above: Performed By: #### C BCDF ####[facility] [id number] [place] [address] Neutrophils (Bld) [#/Vol] 6.24 10*3/uL High 1.60 - 5.[address] [facility] Comment on above: Performed By: #### C BCDF ####[facility] [id number] [place] [address] Neutrophils/100 WBC (Bld) 69.9 % Normal 40.0 - 80.[address] [facility] Comment on above: Performed By: #### C BCDF ####[facility] [id number] [place] [address] Platelets (Bld) [#/Vol] 172 10*3/uL Normal 150 - [address] [facility] Comment on above: Performed By: #### C BCDF ####[facility] [id number] [place] [address] RBC 4.80 x10E12/L Normal 4.50 - 5.[address] [facility] Comment on above: Performed By: #### C BCDF ####[facility] [id number] [place] [address] WBC (Bld) [#/Vol] 8.9 10*3/uL Normal 4.4 - 11.3 [facility] Comment on above: Performed By: #### C BCDF ####[facility] [id number] [place] [address] COAGULATION SCREENon 022 aPTT Coag (Bld) [Time] 40 s High 26 - [address] [facility] Comment on above: Result Comment: THE APTT IS NO LONGER USED FOR MONITORING UNFRACTIONATED HEPARIN THERAPY. FOR MONITORING HEPARIN THERAPY, USE THE HEPARIN ASSAY. Performed By: #### C OAGS ####[facility] [id number] [place] [address] PT Coag (PPP) [Time] 30.0 s High 9.8 - 13.4 [facility] Comment on above: Performed By: #### C OAGS ####[facility] [id number] [place] [address] PT, INR 2.6 High 0.9 - 1.1 [facility] Comment on above: Performed By: #### C OAGS ####[facility] [id number] [place] [address] COMPREHENSIVE PANELon 2021 Albumin [Mass/Vol] 4.0 g/dL Normal 3.4 - 5.0 [facility] Comment on above: Performed By: #### C MP ####[facility] [id number] [place] [address] ALP [Catalytic activity/Vol] 50 U/L Normal 33 - [address] [facility] Comment on above: Performed By: #### C MP ####[facility] [id number] [place] [id number] ALT [Catalytic activity/Vol] 13 U/L Normal 10 - [address] [facility] Comment on above: Result Comment: Maria Luisa ents treated with Sulfasalazine may generate falsely decreased results for ALT. Performed By: #### C MP ####[facility] [id number] [place] [address] Anion gap [Moles/Vol] 12 mmol/L Normal 10 - [address] [facility] Comment on above: Performed By: #### C MP ####[facility] [id number] [place] [id number] AST [Catalytic activity/Vol] 16 U/L Normal 9 - [address] [facility] Comment on above: Result Comment: MILD HEMOLYSIS DETECTED. The result may be falsely elevated due to hemolysis or other interferents. Clinical correlation is recommended. Repeat testing may be considered. Performed By: #### C MP ####[facility] [id number] [place] [id number] Bilirubin [Mass/Vol] 0.4 mg/dL Normal 0.0 - 1.2 [facility] Comment on above: Performed By: #### C MP ####[facility] [id number] [place] [address] Calcium [Mass/Vol] 8.4 mg/dL Low 8.6 - 10.3 [facility] Comment on above: Performed By: #### C MP ####[facility] [id number] [place] [address] Chloride [Moles/Vol] 107 mmol/L Normal 98 - 107 [facility] Comment on above: Performed By: #### C MP ####[facility] R[id number] [place] [address] Creatinine [Mass/Vol] 0.98 mg/dL Normal 0.50 - 1.[address] [facility] Comment on above: Performed By: #### C MP ####[facility] R[address] [id number] [place] [address] GFR/1.73 sq M.predicted among non-blacks MDRD (S/P/Bld) [Vol rate/Area] 80 mL/min/{1.73_m2} Normal >90 [facility] Comment on above: Result Comment: CALC ULATIONS OF ESTIMATED GFR ARE PERFORMED USING THE 2020 CKD-EPI STUDY REFIT EQUATION WITHOUT THE RACE VARIABLE FOR THE IDMS-TRACEABLE CREATININE METHODS. https://jasn.asnjournals.org/content//ASN.239584 0285 Performed By: #### C MP ####[facility] [id number] [place] [address] Glucose [Mass/Vol] 98 mg/dL Normal 74 - 99 [facility] Comment on above: Performed By: #### C MP ####[facility] [id number] [place] [address] HCO3 (Bld) [Moles/Vol] 27 mmol/L Normal 21 - [address] [facility] Comment on above: Performed By: #### C MP ####[facility] [id number] [place] [address] Potassium [Moles/Vol] 4.7 mmol/L Normal 3.5 - 5.[address] [facility] Comment on above: Result Comment: MILD HEMOLYSIS DETECTED. The result may be falsely elevated due to hemolysis or other interferents. Clinical correlation is recommended. Repeat testing may be considered. Performed By: #### C MP ####[facility] [id number] [place] [id number] Protein [Mass/Vol] 6.9 g/dL Normal 6.4 - 8.2 [facility] Comment on above: Performed By: #### C MP ####[facility] [id number] [place] [id number] Sodium [Moles/Vol] 141 mmol/L Normal 136 - 145 [facility] Comment on above: Performed By: #### C MP ####[facility] [id number] [place] [id number] Urea nitrogen [Mass/Vol] 15 mg/dL Normal 6 - [address] [facility] Comment on above: Performed By: #### C MP ####[facility] [id number] [place] [id number] CORONAVIRUS 2019, SCREEN ASY MPTOMATICon 04-05-2022 SARS-CoV-2 (COVID-19) RNA ROSCOE+probe Ql (Unsp spec) Not detected Normal Not Detected [facility] Comment on above: Result Comment: . This test has received FDA Emergency Use Authorization (EUA) and has been verified by [facility]. This test is only authorized for the duration of time that circumstances exist to justify the authorization of the emergency use of in vitro diagnostic tests for the detection of SARS-CoV-2 virus and/or diagnosis of COVID-19 infection under section 564(b)(1) of the Act, 21 U.S.C. 360bbb-3(b)(1), unless the authorization is terminated or revoked sooner. [facility] is certified under CLIA-88 as qualified to perform high complexity testing. Testing is performed in the [facility] laboratory located at [address] [place] [address]. SARS-CoV-2/Flu/RSV Multiplex Test: Fact sheet for providers: https://www.fda.gov/media/519171/download Fact sheet for patients: https://www.fda.gov/media/230406/download Performed By: #### C OVSC ####[facility] [id number] [place] [id number] Lab Specimen Source Nasal, Nasopharyngeal Normal [facility] Comment on above: Performed By: #### C OVSC ####[facility] [id number] [place] [id number] Coronavirus 2019 RNA by PCR, Screening Asymptomticon 04-05-2022 Coronavirus 2019 RNA by PCR, Screening Asymptomtic Not detected Normal See Below Anticoagulation Monitoring Service-Jose Aguilar Work Phone: Comment on above: SOURCE: Nasal, Nasop haryngealReference Range: Not Detected.This test has received [facility] Emergency Use Authorization (EUA) and has been verified by [facility]. This test is only authorized for the duration of time that circumstances exist to justify the authorization of the emergency use of in vitro diagnostic tests for the detection of SARS-CoV-2 virus and/or diagnosis of COVID-19 infection under section 564(b)(1) of the Act, 21 U.S.C. 360bbb-3(b)(1), unless the authorization is terminated or revoked sooner. [facility] is certified under CLIA-88 as qualified to perform high complexity testing. Testing is performed in the [facility] laboratory located at [address] [place] [address].SARS-CoV-2/Flu/RSV Multiplex Test: Fact sheet for providers: https://www.fda.gov/media/608727/downloadFact sheet for patients: https://www.fda.gov/media/274409/download Covid 19 Resultson 2 SARS-CoV-2 (COVID-19) RNA ROSCOE+probe Ql (Unsp spec) NEGATIVE COVID-19 Test Coronaviruses are common world-wide and are the cause of many common colds. SARS-COV2 is a new coronavirus that began circulating worldwide in 2019 so we are calling it COVID-19. It has been estimated that four out of five patients with COVID-19 will recover at home without the need for medical attention. Symptoms of COVID-19 may include cough, fever, shortness of breath, loss of taste or smell and other flu-like symptoms including chills, sore muscles, sore throat, and headache. Severe illness is more common in older people and people with other health problems such as high blood pressure, obesity, and immune system problems. If the test is positive, you have COVID-19. You will be contacted by the ordering physicians office and instructed to remain on home isolation, in accordance with CDC guidelines. You may also be contacted by the [facility] to see if any of your close contacts may have been exposed to the virus and need to quarantine. If the test is negative, you likely do not have COVID-19 at this time, but you still may have a different illness that can spread to other people (like Influenza, or the Flu) and could still be at risk for getting COVID-19. We recommend that you stay away from other people to limit the spread of illness until your symptoms are improving and you are fever-free for 24 hours without the use of fever lowering medications such as acetaminophen or ibuprofen. No test is 100% accurate so if you are still concerned you may have COVID-19, talk to your doctor about the need to continue to stay away from others. Medicines Unless your provider told you not to use the following: Acetaminophen (Tylenol and others) is generally safe. Anti-inflammatory medications, such as Ibuprofen (Advil or Motrin) or Naproxen (Aleve) can also be used. Fpqr-kmu-hipqmrf cough and cold medicines can be used according to the instructions on the package. Some ylcn-qld-zzheqrn medicines also contain acetaminophen. Make sure you are not taking more than your recommended dose. For those not hospitalized, there is no specific treatment available for this illness. Antibiotics do not treat Coronaviruses. Follow-Up Follow up with your doctor by scheduling a virtual visit or consider follow-up at one of our urgent care fever clinics. If you are having difficulty breathing, or are very weak and having difficulty standing, this is a medical emergency. Call 911 or have someone take you to the nearest emergency room immediately. If possible, wear a facemask. Additional guidance from the CDC for patients who tested POSITIVE for COVID-19 How to isolate: Isolate yourself in a specific room at home and limit your contact with others. Use a separate bathroom from other members of the household, when possible. Leave home only to get essential medical care. Do not go to work, school or public areas. Avoid using public transportation, ride-sharing, or taxis. Restrict contact with pets and other animals. If you must care for your pet or be around animals while you are sick, wash your hands before and after your interaction and wear a facemask. Make sure that shared spaces in the home have good airflow, such as by an air conditioner or an opened window, weather permitting. Personal Hygiene Procedures: Wear a face mask when in the same room as other people or pets. If a face mask interferes with your breathing, others should wear a mask when sharing space with you. Frequent hand-washing: wash your hands with soap and water for at least 20 seconds. If soap and water are not available, use alcohol-based hand service parts driver. Avoid touching your eyes, nose, and mouth with unwashed hands. Household Hygiene Procedures: Avoid sharing personal household items such as dishes, glassware, cups, eating utensils, towels or bedding with other people or pets in your home. After use, these items should be washed with soap and hot water. Disinfect all high-touch surfaces every day with antibacterial cleaning solutions such as Lysol wipes, bleach, cleansers, etc. High-touch surfaces include tabletops, doorknobs, bathroom fixtures, toilets, phones, keyboards, tablets and bedside tables. Immediately clean any surfaces that may have blood, poop or body fluids on them, using antibacterial cleaning solutions such as Lysol wipes, bleach, cleansers, etc. If clothing or bedding come into contact with blood, poop or body fluids, they should be washed immediately. Follow the directions on the laundry detergent and clothing labels but hot water is recommended when possible. Stopping home isolation precautions: If possible, consult your doctor before stopping home isolation precautions. According to the CDC, you can discontinue home isolation precautions when you have met both of these criteria: Your fever and respiratory symptoms have been gone for 24 yimi (more content not included)... Normal [facility] D-DIMER, VTE EXCLUSIONon D-DIMER, VTE EXCLUSION 245 ng/mL FEU Normal < or = [address] [facility] Comment on above: Result Comment: The VTE Exclusion D-Dimer assay is reported in ng/mL Fibrinogen Equivalent Units (FEU). Per manufacturers instructions for use, a value of less than 500 ng/mL (FEU) may help to exclude DVT or PE in outpatients when the assay is used with a clinical pretest probability assessment. ([facility] must utilize and document eCalc Wells Score Deep Vein Thrombosis Risk for DVT exclusion only; Emergency Department should utilize Guidelines for Emergency Department Use of the VTE Exclusion D-Dimer and Clinical Pretest probability assessment model for DVT or PE exclusion.) Performed By: #### D IMEX ####[facility] [id number] [place] [address] Discharge [id number] Discharge Profile2 Discharge Orders: Anticipated Discharge Date: Anticipated Discharge [id number] Anticipated Discharge Time19:58 Problem List: Medical History: Hematoma of rectus sheath: Catalog Name: Contusion of abdominal wall, initial encounter Nontraumatic hematoma: Catalog Name: Nontraumatic hematoma of soft tissue Hyperlipidemia: Catalog Name: Hyperlipidemia, unspecified DVT (deep venous thrombosis): Catalog Name: Acute embolism and thrombosis of unspecified deep veins of unspecified lower extremity Hospital Providers: Provider RoleProvider Name Steve Lobo DNAR: Code Status at Discharge: Full Code Activity: activity as tolerated. Diet: Dietlow cholesterol, low fat, low sodium Call Provider If (Homegoing Patients): Any new concerning symptoms. Hospital Course (Home Care/Gold Form): Hospital Course: Hospital Course: include significant abnormal lab values You were admitted with chest pain with unclear etiology, your cardiac work up was negative you remained pain free durinng hospitalization. You are cleared for discharge to follow up in 1 week with your PCP for further work up and outpatient testing. Provider FINAL REVIEW of Orders: Final Review: Final Review of Medication Reconciliation and Orders Completedby SPORTS COMMENTATOR Reviewing ProviderErin MARY Jose at 05-Apr-2022 20:02:26 Appointments: Coumadin (Warfarin) Follow-Up Monitoring: Follow-Up Monitoring Locations (Clinic)[facility], [address], [address] [facility], phone: [phone] #1 Electronic Signatures: Bhumika Jose (SPORTS COMMENTATOR-SENIOR CHEMICAL ENGINEER) (Signed 05-Apr-2022 20:04) Authored: Discharge Orders, Hospital Course (Home Care/Gold Form), Provider FINAL REVIEW of Orders, Appointments, Gold Form - F[employer]ot Heater Helper Summary Last Updated: 05-Apr-2022 20:04 by Bhumika Jose (SPORTS COMMENTATOR-SENIOR CHEMICAL ENGINEER) Normal [facility] EMR ADDONon 04-05-2022 ADDON CONFIRMATION REQUEST REC'D Normal [facility] Comment on above: Performed By: #### E MRAD ####[facility] [id number] [place] [address] Laboratory - Chemistry and C hemistry - challengeon 04-05-2022 Anion gap [Moles/Vol] 14 mmol/L 10 - 20 Ant icoagulation Monitoring Service-[facility] Work Phone: Calcium [Mass/Vol] 7.7 mg/dL below low threshold 8.6 - 10.3 Anticoagulation Monitoring Service[facility] Work Phone: Chloride [Moles/Vol] 109 mmol/L above high threshold 98 - 107 Anticoagulation Monitoring Service-[facility] Work Phone: CO2 [Moles/Vol] 22 mmol/L 21 - 32 Anticoagu lation Monitoring Service-[facility] Work Phone: Creatinine [Mass/Vol] 0.85 mg/dL See Below Ant icoagulation Monitoring Service-[facility] Work Phone: Comment on above: Reference Range: 0.5 0 - 1.30 Glucose [Mass/Vol] 92 mg/dL 74 - 99 Antico agulation Monitoring Service-[facility] Work Phone: Potassium [Moles/Vol] 4.6 mmol/L 3.5 - 5.3 Ant icoagulation Monitoring Service-[facility]ino[facility] Work Phone: Comment on above: MILD HEMOLYSIS DETEC EDIS. The result may be falsely elevated due tohemolysis or other interferents. Clinical correlation is recommended.Repeat testing may be considered. Sodium [Moles/Vol] 140 mmol/L 136 - 145 Antico agulation Monitoring Service-[facility] Work Phone: Urea nitrogen [Mass/Vol] 15 mg/dL 6 - 23 Anticoagulation Monitoring Service-[facility] Work Phone: Laboratory - Coagulationon 0 04-05-2022 INR Coag (PPP) [Relative time] 3.5 {INR} above high threshold 0.9 - 1.1 Anticoagulation Monitoring Service[facility] Work Phone: PT Coag (PPP) [Time] 41.4 s above high threshold 9.8 - 13.4 [facility] Work Phone: Laboratory - Hematology and Cell countson 04-05-2022 Erythrocyte distribution width (RBC) [Ratio] 13.1 % See Below [facility] Work Phone: Comment on above: Reference Range: 11. 5 - 14.5 Hematocrit (Bld) [Volume fraction] 44.2 % See Below [facility]agulatio n [facility] Work Phone: Comment on above: Reference Range: 41. 0 - 52.0 Hemoglobin (Bld) [Mass/Vol] 14.7 g/dL See Below Anticoagulation Monitoring Service-[facility] Minoff Work Phone: Comment on above: Reference Range: 13. 5 - 17.5 MCHC (RBC) [Mass/Vol] 33.3 g/dL See Below [facility] Work Phone: Comment on above: Reference Range: 32. 0 - 36.0 MCV (RBC) [Entitic vol] 99 fL 80 - 100 Anticoagulation Monitoring Service[facility] Work Phone: Platelets (Bld) [#/Vol] 175 10*3/uL 150 - 450 Anticoagulation Monitoring Service[facility] Work Phone: RBC (Bld) [#/Vol] 4.46 {x10E12/L} below low threshold See Below Anticoagulation Monitoring Service-[facility] Work Phone: Comment on above: Reference Range: 4.5 0 - 5.90 WBC (Bld) [#/Vol] 7.2 10*3/uL 4.4 - 11.3 Antico agulation Monitoring Service-[facility] Work Phone: No Panel Informationon 04-05 >90 >90 Anticoagulatio n Monitoring Service-[facility] Work Phone: Comment on above: CALCULATIONS OF ASHER MATED GFR ARE PERFORMED USING THE 2020 CKD-EPI STUDY REFIT EQUATION WITHOUT THE RACE VARIABLE FOR THE IDMS-TRACEABLE CREATININE METHODS.https://jasn.asnjournals.org/content// N.2658309866 Order Reconciliationon 04-05 Order Reconciliation Page 1 Discharge Reconciliation Document Reconciliation Type: Discharge requested on behalf of Bhumika Jose (Advanced Practice Nurse-Admit) done by Bhumika Jose (SPORTS COMMENTATOR-[facility]) Discharge - Reconciliation: 05-Apr-2022 19:57 by: Bhumika Jose (SPORTS COMMENTATOR-[facility]) Home Medications EnteredHOME MEDICATIONS AT DISCHARGE DateReconciliation Comment/ Additional Information simvastatin 20 mg oral tablet 1 tab(s) orally once a day (at bedtime) 22-Sep-2018 16:52 simvastatin 20 mg oral tablet 1 tab(s) orally once a day (at bedtime) 22-Sep-2018 16:52 simvastatin 20 mg oral tablet is continued as simvastatin 20 mg oral tablet warfarin 5 mg oral tablet 1 tab(s) orally 4 times a week 21-Feb-2022 10:06 warfarin 5 mg oral tablet 1 tab(s) orally 4 times a week 21-Feb-2022 10:06 warfarin 5 mg oral tablet is continued as warfarin 5 mg oral tablet warfarin 7.5 mg oral tablet 1 tab(s) orally 3 times a week 27-Feb-2022 09:05 warfarin 7.5 mg oral tablet 1 tab(s) orally 3 times a week 27-Feb-2022 09:05 warfarin 7.5 mg oral tablet is continued as warfarin 7.5 mg oral tablet Current OrdersDateHOME MEDICATIONS AT DISCHARGE DateReconciliation Comment/ Additional Information Nitroglycerin SubLingual Tablet (NITROSTAT)DOSE = 0.4 mg SubLingual Every 5 Minutes, PRN Angina 04-Apr-2022 21:53 nitroglycerin 0.4 mg sublingual tablet 1 tab(s) sublingual every 5 minutes, As needed, Angina 05-Apr-2022 19:56 Prescription is created for nitroglycerin 0.4 mg sublingual tablet Simvastatin TabletDOSE = 20 mg Oral Every Night 05-Apr-2022 15:05 Simvastatin is not required Warfarin Tablet (COUMADIN)DOSE = 6 mg Oral DailyClinician Notes: Re-evaluate and re-order based on lab resultsGive dose at 1800, unless otherwise specified by physician.Enteral feedings are held 1 hour pre and post doseNotes from Pharmacy: Repr 05-Apr-2022 15:05 Warfarin is not required Home Medications Added During Discharge Reconciliation pantoprazole 20 mg oral delayed release tablet 1 tab(s) orally once a day All Active Home Medications at time of Discharge Reconciliation: 05-Apr-2022 19:57 nitroglycerin 0.4 mg sublingual tablet 1 tab(s) sublingual every 5 minutes, As needed, Angina pantoprazole 20 mg oral delayed release tablet 1 tab(s) orally once a day simvastatin 20 mg oral tablet 1 tab(s) orally once a day (at bedtime) warfarin 5 mg oral tablet 1 tab(s) orally 4 times a week warfarin 7.5 mg oral tablet 1 tab(s) orally 3 times a week Normal [facility] Order Reconciliation Page 1 Admission Reconciliation Document Reconciliation Type: ED to Observation requested on behalf of Bhumika Jose (Advanced Practice Nurse-Admit) done by Bhumika Jose (SPORTS COMMENTATOR-[facility]) ED to Observation - Reconciliation: 05-Apr-2022 15:05 by: Bhumika Jose (SPORTS COMMENTATOR-[facility]) ED to Observation - AutoLinked: 05-Apr-2022 15:05 by: Bhumika Jose (SPORTS COMMENTATOR-[facility]) Home MedicationsEnteredLast Dose TakenReconciled with current Order Reconciliation Comment/ Additional Information simvastatin 20 mg oral tablet 1 tab(s) orally once a day (at bedtime) PM Simvastatin TabletDOSE = 20 mg Oral Every Night simvastatin 20 mg oral tablet continued as the inpatient order Simvastatin warfarin 5 mg oral tablet 1 tab(s) orally 4 times a week 05-Apr-2022 Blood in Urine, Monitor for Dailywarfarin 5 mg oral tablet continued as the inpatient order Blood in Urine, Monitor for; warfarin 5 mg oral tablet continued as the inpatient order Bleeding, Monitor for; warfarin 5 mg oral tablet continued as the inpatient order Nursing to ensure Your Guide to Taking Warfarin booklet provided to patient; warfarin 5 mg oral tablet continued as the inpatient order Communication Order; warfarin 5 mg oral tablet continued as the inpatient order PT + INR, Plasma; warfarin 5 mg oral tablet continued as the inpatient order PT + INR, Plasma warfarin 5 mg oral tablet 1 tab(s) orally 4 times a week 05-Apr-2022 Bleeding, Monitor for Call physician with observed or suspected bleedingwarfarin 5 mg oral tablet continued as the inpatient order Blood in Urine, Monitor for; warfarin 5 mg oral tablet continued as the inpatient order Bleeding, Monitor for; warfarin 5 mg oral tablet continued as the inpatient order Nursing to ensure Your Guide to Taking Warfarin booklet provided to patient; warfarin 5 mg oral tablet continued as the inpatient order Communication Order; warfarin 5 mg oral tablet continued as the inpatient order PT + INR, Plasma; warfarin 5 mg oral tablet continued as the inpatient order PT + INR, Plasma warfarin 5 mg oral tablet 1 tab(s) orally 4 times a week 05-Apr-2022 Nursing to ensure Your Guide to Taking Warfarin booklet provided to patient Once This booklet includes:Compliance issuesDietary adviceFollow-up monitoringPotential for adverse drug reactions and interactions warfarin 5 mg oral tablet continued as the inpatient order Blood in Urine, Monitor for; warfarin 5 mg oral tablet continued as the inpatient order Bleeding, Monitor for; warfarin 5 mg oral tablet continued as the inpatient order Nursing to ensure Your Guide to Taking Warfarin booklet provided to patient; warfarin 5 mg oral tablet continued as the inpatient order Communication Order; warfarin 5 mg oral tablet continued as the inpatient order PT + INR, Plasma; warfarin 5 mg oral tablet continued as the inpatient order PT + INR, Plasma warfarin 5 mg oral tablet 1 tab(s) orally 4 times a week 05-Apr-2022 Communication Order INR Goal 2 to 3warfarin 5 mg oral tablet continued as the inpatient order Blood in Urine, Monitor for; warfarin 5 mg oral tablet continued as the inpatient order Bleeding, Monitor for; warfarin 5 mg oral tablet continued as the inpatient order Nursing to ensure Your Guide to Taking Warfarin booklet provided to patient; warfarin 5 mg oral tablet continued as the inpatient order Communication Order; warfarin 5 mg oral tablet continued as the inpatient order PT + INR, Plasma; warfarin 5 mg oral tablet continued as the inpatient order PT + INR, Plasma warfarin 5 mg oral tablet 1 tab(s) orally 4 times a week 05-Apr-2022 PT + INR, Plasma Lab to Collect - Next DrawLight Blue Citrated-Tube must be full-Deliver to lab within 4 hours. Clinician Instructions: obtain baselinewarfarin 5 mg oral tablet continued as the inpatient order Blood in Urine, Monitor for; warfarin 5 mg oral tablet continued as the inpatient order Bleeding, Monitor for; warfarin 5 mg oral tablet continued as the inpatient order Nursing to ensure Your Guide to Taking Warfarin booklet provided to patient; warfarin 5 mg oral tablet continued as the inpatient order Communication Order; warfarin 5 mg oral tablet continued as the inpatient order PT + INR, Plasma; warfarin 5 mg oral tablet continued as the inpatient order PT + INR, Plasma warfarin 5 mg oral tablet 1 tab(s) orally 4 times a week 05-Apr-2022 PT + INR, Plasma Repeat From: 05-Apr-2022 15:05 To: 08-Apr-2022 05:00, Every 1 day(s)Light Blue Citrated-Tube must be full-Deliver to lab within 4 hours. Clinician Instructions: Click Repeat button in lower left corner and enter start daywarfarin 5 mg oral tablet continued as the inpatient order Blood in Urine, Monitor for; warfarin 5 mg oral tablet continued as the inpatient order Bleeding, Monitor for; warfarin 5 mg oral (more content not included)... Normal [facility] PT/INRon 04-05-2022 PT Coag (PPP) [Time] 41.4 s High 9.8 - 13.4 [facility] Comment on above: Performed By: #### P TINR ####[facility] [id number] [place] [address] PT, INR 3.5 High 0.9 - 1.1 [facility] Comment on above: Performed By: #### P TINR ####[facility] [id number] [place] [address] Patient Profile - Adult v2on 04-05-2022 Patient Profile - Adult v2 Profile: Initial Info: How to be Addressedkerry(1) Spoken Language PreferredEnglish (1) Source of Informationpatient Stated Reason for Admissionchest pressure Wants Family/Rep Notified of Admissionno Notify PCPnotify PCP Informed of Patient Visiting [place]yes [place] To in Past 90 Daysnone Patient Belongingsremains with patient Patient Belongings Remaining with Patientclothing; cell phone/electronics; purse/wallet Medications Brought to Hospitalyes General Health: Blood Avoidance/Restrictionsn one(1) Weight in kg89 kilogram(s) Weight in idp537.2 pound(s) Weight Methodactual (measured) Scale Typebed Height in cm175.2 centimeter(s) Height in feet5 feet Height in inches8.98 inch(es) Height Methodstated BMI (kg/m2)28.994 square meter RSP Based Care: How would you like to participate in your careBe informed What is the number one concern for you during this hospitalizationpain What is the most important thing we can do to support you during this hospitalizationkeep me informed Is there anything we need to know to best care for youno Substance: Smoking Statusnever smoker Alcohol Useoccasionally Drug Usedenies Drug 2 Usedenies Health Mgmt: Symptoms/Conditions Managed at Homeperipheral/neurovas cular Peripheral Neurovascular Symptoms/Conditionsveno thromboembolic disease Peripheral Neurovascular Management Strategiesmedication therapy Peripheral Neurovascular Managementmanaged Barriers to Managing Healthnone Relationship/Environ: Significant Exposurenone Resource/Environmental Concernsnone Primary Source of Support/Comfortspouse Lives Withspouse Living Arrangementshouse Services Anticipated at Transitionnone [place]ipated [place] Significant IndicatorsComplete Information Review: Allergies, Home Meds and Significant Events have been Reviewed and Verified with Patient/Familyyes ALLERGY, INTOLERANCE, ADVERSE EVENT: Allergies: sulfa drugs: Drug Category, Anaphylaxis, Active Electronic Signatures: Sandor Hayes) (Signed 05-Apr-2022 02:35) Authored: Initial Info, General Health, RSP Based Care, Substance, Health Mgmt, Relationship/Environ, Additional Information Last Updated: 05-Apr-2022 02:35 by Sandor Hayes ([place]) References: 1. Data Referenced From Patient Profile - Procedure-H and P 14-Oct-2021 09:[address] [facility] TROPONIN I, HIGH SENSITIVITY on 04-05-2022 TROPONIN I, HIGH SENSITIVITY 3 ng/L Normal 0 - [address] [facility] Comment on above: Result Comment: . Less than 99th percentile of normal range cutoff- Female and children under 18 years old <14 ng/L; Male <21 ng/L: Negative Repeat testing should be performed if clinically indicated. . Female and children under 18 years old 14-50 ng/L; Male 21-50 ng/L: Consistent with possible cardiac damage and possible increased clinical risk. Serial measurements may help to assess extent of myocardial damage. . >50 ng/L: Consistent with cardiac damage, increased clinical risk and myocardial infarction. Serial measurements may help assess extent of myocardial damage. . NOTE: Children less than 1 year old may have higher baseline troponin levels and results should be interpreted in conjunction with the overall clinical context. . NOTE: Troponin I testing is performed using a different testing methodology at [facility] than at other [facility]. Direct result comparisons should only be made within the same method. Performed By: #### [facility] ####[facility] [id number] [place] [address] Tropinin I.cardiac panel High sensitivity method 3 ng/L 0 - 20 Anticoagulati on Monitoring Service-[facility] Minoff Work Phone: Comment on above: .Less than 99th perc entile of normal range cutoff-Female and children under 18 years old <14 ng/L; Male <21 ng/L: NegativeRepeat testing should be performed if clinically indicated. .Female and children under 18 years old 14-50 ng/L; Male 21-50 ng/L:Consistent with possible cardiac damage and possible increased clinical risk. Serial measurements may help to assess extent of myocardial damage. .>50 ng/L: Consistent with cardiac damage, increased clinical risk andmyocardial infarction. Serial measurements may help assess extent of myocardial damage. . NOTE: Children less than 1 year old may have higher baseline troponin levels and results should be interpreted in conjunction with the overall clinical context. .NOTE: Troponin I testing is performed using a different testing methodology at [facility] than at other [facility]. Direct result comparisons should only be made within the same method. TROPONIN I, HIGH SENSITIVITY 4 ng/L Normal 0 - [address] [facility] Comment on above: Result Comment: . Less than 99th percentile of normal range cutoff- Female and children under 18 years old <14 ng/L; Male <21 ng/L: Negative Repeat testing should be performed if clinically indicated. . Female and children under 18 years old 14-50 ng/L; Male 21-50 ng/L: Consistent with possible cardiac damage and possible increased clinical risk. Serial measurements may help to assess extent of myocardial damage. . >50 ng/L: Consistent with cardiac damage, increased clinical risk and myocardial infarction. Serial measurements may help assess extent of myocardial damage. . NOTE: Children less than 1 year old may have higher baseline troponin levels and results should be interpreted in conjunction with the overall clinical context. . NOTE: Troponin I testing is performed using a different testing methodology at [facility] than at other [facility]. Direct result comparisons should only be made within the same method. Performed By: #### [facility] ####[facility] [id number] [place] [address] TROPONIN I, HIGH SENSITIVITY 3 ng/L Normal 0 - [address] [facility] Comment on above: Result Comment: . Less than 99th percentile of normal range cutoff- Female and children under 18 years old <14 ng/L; Male <21 ng/L: Negative Repeat testing should be performed if clinically indicated. . Female and children under 18 years old 14-50 ng/L; Male 21-50 ng/L: Consistent with possible cardiac damage and possible increased clinical risk. Serial measurements may help to assess extent of myocardial damage. . >50 ng/L: Consistent with cardiac damage, increased clinical risk and myocardial infarction. Serial measurements may help assess extent of myocardial damage. . NOTE: Children less than 1 year old may have higher baseline troponin levels and results should be interpreted in conjunction with the overall clinical context. . NOTE: Troponin I testing is performed using a different testing methodology at [facility] than at other [facility]. Direct result comparisons should only be made within the same method. Performed By: #### [facility] #### [facility] [address] [place] [address] TROPONIN I, HIGH SENSITIVITY 3 ng/L Normal 0 - [address] [facility] Comment on above: Result Comment: . Less than 99th percentile of normal range cutoff- Female and children under 18 years old <14 ng/L; Male <21 ng/L: Negative Repeat testing should be performed if clinically indicated. . Female and children under 18 years old 14-50 ng/L; Male 21-50 ng/L: Consistent with possible cardiac damage and possible increased clinical risk. Serial measurements may help to assess extent of myocardial damage. . >50 ng/L: Consistent with cardiac damage, increased clinical risk and myocardial infarction. Serial measurements may help assess extent of myocardial damage. . NOTE: Children less than 1 year old may have higher baseline troponin levels and results should be interpreted in conjunction with the overall clinical context. . NOTE: Troponin I testing is performed using a different testing methodology at [facility] than at other [facility]. Direct result comparisons should only be made within the same method. Performed By: #### [facility] ####[facility] [id number] [place] [address] Tropinin I.cardiac panel High sensitivity method 4 ng/L 0 - 20 Anticoagulati on Monitoring Service-[facility] Minoff Work Phone: Comment on above: .Less than 99th perc entile of normal range cutoff-Female and children under 18 years old <14 ng/L; Male <21 ng/L: NegativeRepeat testing should be performed if clinically indicated. .Female and children under 18 years old 14-50 ng/L; Male 21-50 ng/L:Consistent with possible cardiac damage and possible increased clinical risk. Serial measurements may help to assess extent of myocardial damage. .>50 ng/L: Consistent with cardiac damage, increased clinical risk andmyocardial infarction. Serial measurements may help assess extent of myocardial damage. . NOTE: Children less than 1 year old may have higher baseline troponin levels and results should be interpreted in conjunction with the overall clinical context. .NOTE: Troponin I testing is performed using a different testing methodology at [facility] than at other [facility]. Direct result comparisons should only be made within the same method. CHEST 1 VIEWon 04-04-2022 CHEST 1 VIEW Patient Name: TIMBO, JENNIFER STUDY: CHEST 1 VIEW; 04/04/2022 9:43 pm INDICATION: chest pain . COMPARISON: Chest x-ray 02/08/2021 ACCESSION NUMBER(S): [id number] ORDERING CLINICIAN: KORINA JOHNSON FINDINGS: Multiple overlying leads are present. CARDIOMEDIASTINAL SILHOUETTE: Cardiomediastinal silhouette is stable in size and configuration. LUNGS: No consolidation, pleural effusion or pneumothorax. ABDOMEN: No remarkable upper abdominal findings. BONES: Multilevel degenerative changes of the spine. IMPRESSION: No acute cardiopulmonary process. Electronically signed by: ANIKA VICTOR MD [facility] Complete Blood Count + Diffe rentialon 04-04-2022 Basophils/100 WBC (Bld) 0.6 % 0.0 - 2.0 Anticoagulation Monitoring [facility] Work Phone: Erythrocyte distribution width (RBC) [Ratio] 13.2 % See Below Anticoagulation [facility] Work Phone: Comment on above: Reference Range: 11. 5 - 14.5 Hematocrit (Bld) [Volume fraction] 47.0 % See Below Anticoagulatio n Monitoring [facility] Work Phone: Comment on above: Reference Range: 41. 0 - 52.0 Hemoglobin (Bld) [Mass/Vol] 15.5 g/dL See Below Anticoagulation [facility] Work Phone: Comment on above: Reference Range: 13. 5 - 17.5 Lymphocytes/100 WBC (Bld) 19.7 % See Below Anticoagulation [facility] Work Phone: Comment on above: Reference Range: 13. 0 - 44.0 MCHC (RBC) [Mass/Vol] 33.0 g/dL See Below Ant icoagulation Monitoring [facility] Work Phone: Comment on above: Reference Range: 32. 0 - 36.0 MCV (RBC) [Entitic vol] 98 fL 80 - 100 Anticoagulation [facility] Work Phone: Monocytes/100 WBC (Bld) 7.0 % 2.0 - 10.0 Anticoagulation [facility] Work Phone: Neutrophils/100 WBC (Bld) 69.9 % See Below Anticoagulation [facility] Work Phone: Comment on above: Reference Range: 40. 0 - 80.0 Platelets (Bld) [#/Vol] 172 10*3/uL 150 - 450 Anticoagulation [facility] Work Phone: RBC (Bld) [#/Vol] 4.80 {x10E12/L} See Below An ticoagulation Monitoring [facility] Work Phone: Comment on above: Reference Range: 4.5 0 - 5.90 WBC (Bld) [#/Vol] 8.9 10*3/uL 4.4 - 11.3 Antico agulation Monitoring [facility] Work Phone: Complete Blood Count + Differential 0.05 {x10E9/L} See Below Anticoagulation [facility] Work Phone: Comment on above: Reference Range: 0.0 0 - 0.10 Complete Blood Count + Differential 0.23 {x10E9/L} See Below Anticoagulation [facility] Work Phone: Comment on above: Reference Range: 0.0 0 - 0.40 Complete Blood Count + Differential 0.62 {x10E9/L} See Below Anticoagulation [facility] Work Phone: Comment on above: Reference Range: 0.0 5 - 0.80 Complete Blood Count + Differential 1.76 {x10E9/L} See Below Anticoagulation [facility] Work Phone: Comment on above: Reference Range: 0.8 0 - 3.00 Complete Blood Count + Differential 6.24 {x10E9/L} above high threshold See Below Anticoagulation [facility] Work Phone: Comment on above: Reference Range: 1.6 0 - 5.50 Complete Blood Count + Differential 2.6 % 0.0 - 6.0 [facility] Work Phone: Complete Blood Count + Differential 0.2 % 0.0 - 0.9 Anticoagulation [facility] Work Phone: Comment on above: Immature Granulocyte Count (IG) includes promyelocytes, myelocytes and metamyelocytes but does not include bands. Percent differential counts (%) should be interpreted in the context of the absolute cell counts (cells/L). Laboratory - Chemistry and C hemistry - challengeon 04-04-2022 Albumin BCP dye [Mass/Vol] 4.0 g/dL 3.4 - 5.0 Anticoagulation Monitoring [facility] Work Phone: ALP [Catalytic activity/Vol] 50 U/L 33 - 136 Anticoagulation Monitoring [facility] Work Phone: ALT With P-5'-P [Catalytic activity/Vol] 13 U/L 10 - 52 Anticoagulation Monitoring [facility] Work Phone: Comment on above: Patients treated wit h Sulfasalazine may generate falsely decreased results for ALT. Anion gap [Moles/Vol] 12 mmol/L 10 - 20 Ant icoagulation Monitoring [facility] Work Phone: AST With P-5'-P [Catalytic activity/Vol] 16 U/L 9 - 39 Anticoagulation Monitoring [facility] Work Phone: Comment on above: MILD HEMOLYSIS DETEC EDIS. The result may be falsely elevated due tohemolysis or other interferents. Clinical correlation is recommended.Repeat testing may be considered. Bilirubin [Mass/Vol] 0.4 mg/dL 0.0 - 1.2 Anti coagulation Monitoring [facility] Work Phone: Calcium [Mass/Vol] 8.4 mg/dL below low threshold 8.6 - 10.3 [facility] Work Phone: Chloride [Moles/Vol] 107 mmol/L 98 - 107 Anti coagulation Monitoring [facility] Work Phone: CO2 [Moles/Vol] 27 mmol/L 21 - 32 Anticoagu lation Monitoring [facility] Work Phone: Creatinine [Mass/Vol] 0.98 mg/dL See Below Ant icoagulation Monitoring [facility] Work Phone: Comment on above: Reference Range: 0.5 0 - 1.30 Glucose [Mass/Vol] 98 mg/dL 74 - 99 Antico agulation Monitoring [facility] Work Phone: Potassium [Moles/Vol] 4.7 mmol/L 3.5 - 5.3 Ant icoagulation Monitoring [facility] Work Phone: Comment on above: MILD HEMOLYSIS DETEC EDIS. The result may be falsely elevated due tohemolysis or other interferents. Clinical correlation is recommended.Repeat testing may be considered. Protein [Mass/Vol] 6.9 g/dL 6.4 - 8.2 Antico agulation Monitoring [facility] Work Phone: Sodium [Moles/Vol] 141 mmol/L 136 - 145 Antico agulation Monitoring [facility] Work Phone: Urea nitrogen [Mass/Vol] 15 mg/dL 6 - 23 Anticoagulation Monitoring [facility] Work Phone: Laboratory - Coagulationon 0 04-04-2022 aPTT Coag (PPP) [Time] 40 s above high threshold 26 - 39 Anticoagulation Monitoring [facility] Work Phone: Comment on above: THE APTT IS NO LONGE R USED FOR MONITORING UNFRACTIONATED HEPARIN THERAPY. FOR MONITORING HEPARIN THERAPY, USE THE HEPARIN ASSAY. INR Coag (PPP) [Relative time] 2.6 {INR} above high threshold 0.9 - 1.1 Anticoagulation Monitoring [facility] Work Phone: PT Coag (PPP) [Time] 30.0 s above high threshold 9.8 - 13.4 Anticoagulation Monitoring [facility] Work Phone: No Panel Informationon 08-12 -2022 245 {ng/mL_FEU} < or = 500 Anticoagu lation Monitoring [facility] Work Phone: Comment on above: The VTE Exclusion D- Dimer assay is reported in ng/mL Fibrinogen Equivalent Units (FEU). Per manufacturers instructions for use, a value of less than 500 ng/mL (FEU) may help to exclude DVT or PE in outpatients when the assay is used with a clinical pretest probability assessment. (AEMR must utilize and document eCalc Wells Score Deep Vein Thrombosis Risk for DVT exclusion only; Emergency Department should utilize Guidelines for Emergency Department Use of the VTE Exclusion D-Dimer and Clinical Pretest probability assessment model for DVT or PE exclusion.) 80 {mL/min/1.73m2} >90 Antico agulation Monitoring [facility] Work Phone: Comment on above: CALCULATIONS OF ASHER MATED GFR ARE PERFORMED USING THE 2020 CKD-EPI STUDY REFIT EQUATION WITHOUT THE RACE VARIABLE FOR THE IDMS-TRACEABLE CREATININE METHODS.https://jasn.asnjournals.org/content/early// [email or web address] Provider Note - ED v3on 03-24 Provider Note - ED v3 Provider Note: Chart Review: ED NOTES ED NOTES: HPI: 77-year-old male arrives complaining of cardiac type chest pain with pressure in the midsternal area. This started at 7:30 PM it tends to wax and wane but comes on fairly strong at times. Patient is on Coumadin for 3 DVTs he is watched therapeutically and his last INR was therapeutic at 2.7 today's is also therapeutic. He does describe some changes with inspiration but his D-dimer is normal. He received 4 baby aspirin and a nitroglycerin that nitroglycerin almost completely resolved his chest pain. His heart score is 5 even with a normal EKG he would benefit from observation serial enzymes and further cardiac evaluation on a monitor under observation status. PMHx: Multiple DVTs anticoagulated FHx: Positive CAD and DM Social Hx: Negative tobacco has a beer with dinner ROS: Gen.: No weight loss, fatigue, anorexia, insomnia, fever. Eyes: No vision loss, double vision, drainage, eye pain. ENT: No pharyngitis, dry mouth. Cardiac: Positive as above chest pain, negative palpitations, syncope, near syncope. Pulmonary: No shortness of breath, cough, hemoptysis. Heme/lymph: No swollen glands, fever, bleeding. GI: No abdominal pain, change in bowel habits, melena, hematemesis, hematochezia, nausea, vomiting, diarrhea. : No discharge, dysuria, frequency, urgency, hematuria. Musculoskeletal: No limb pain, joint pain, joint swelling. Skin: No rashes. Psych: No depression, anxiety, suicidality, homicidality. Review of systems is otherwise negative unless stated above or in history of present illness. Physical Exam: Appearance: Alert, oriented, cooperative, in acute distress. Well nourished well hydrated. Skin: Intact, no lesions, rash, petechiae or purpura. Eyes: PERRLA, EOMs intact, Eyelids without lesions. Conjunctiva pink with no redness or exudates. Cornea & anterior chamber are clear. No scleral icterus. ENT: Hearing grossly intact. External auditory canals patent, tympanic membranes intact with visible landmarks. Nares patent, no discharge, mucus membranes moist. Dentition without lesions. Pharynx clear, uvula midline. Neck: Supple, without meningismus. Thyroid not palpable. Trachea at midline. No lymphadenopathy. Pulmonary: Lungs clear to auscultation with good chest wall excursion. No rales, rhonchi or wheezing. No accessory muscle use or stridor, no conversational dyspnea. Cardiac: Regular rate and rhythm. Normal S1, S2 without murmur, rub, gallop. No JVD, Carotids without bruits. Abdomen: Soft, nontender, nondistended, normal bowel sounds. No palpable organomegaly, no obvious mass appreciated. No rebound. No Rigidity, No guarding. No CVA tenderness. No pulsatile mass Genitourinary: Exam deferred. Musculoskeletal: Full range of motion. no pain, edema, or deformity. Pulses full and equal. No cyanosis, clubbing, or edema. Neurological: Cranial nerves II through XII are grossly intact, finger-nose testing is normal, normal sensation, no focal weakness, no focal/lateralizing findings identified. Psychiatric: Appropriate mood and affect. Medical Decision Makin-year-old male arrives complaining of cardiac type chest pain with pressure in the midsternal area. This started at 7:30 PM it tends to wax and wane but comes on fairly strong at times. Patient is on Coumadin for 3 DVTs he is watched therapeutically and his last INR was therapeutic at 2.7 today's is also therapeutic. He does describe some changes with inspiration but his D-dimer is normal. He received 4 baby aspirin and a nitroglycerin that nitroglycerin almost completely resolved his chest pain. His heart score is 5 even with a normal EKG he would benefit from observation serial enzymes and further cardiac evaluation on a monitor under observation status. HISTORY OF PRESENTING ILLNESS JENNIFER is a 77 year old Male and was seen by me at 04-Apr-2022 21:43 for a chief complaint of chest pain . Other complaints include: about 1-1.5 hours ago, patient got up from couch and was walking around when chest pressure started. Pain feels like a heaviness in the center of his chest. 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 (1). Triage Information: Most recent Vital Sign Value Date Temp (F): 98.1 04-04-2022 20:43 Temp (C): 36.7 04-04-2022 20:43 Heart Rate (beats/min): 70 04-04-2022 20:43 Respirations (breaths/min): 16 04-04-2022 20:43 SpO2 (%): 99 04-04-2022 20:43 BP Systolic (mm Hg): 179 04-04-2022 20:43 BP Diastolic (mm Hg): 79 04-04-2022 20:43 PAST MEDICAL HISTORY ALLERGIES/INTOLERANCES: Allergy Allergen: sulfa drugs Type: Drug Category Reaction: Anaphylaxis HEALTH HISTORY: Medical History Name:DVT (deep venous thrombosis) Code:I82.409 Name:Hyperlipidemia Code:E78.5 Name:Nontraumatic hematoma Code:M79.81 Name:Nontraumatic hematoma Code:M79.81 Name:Hematoma (more content not included)... Normal [facility] Radiologyon 04-04-2022 XR Chest Single view Normal Anti coagulation Monitoring [facility] Work Phone: TROPONIN I, HIGH SENSITIVITY on 04-04-2022 Tropinin I.cardiac panel High sensitivity method 3 ng/L 0 - 20 Anticoagulati on Monitoring Service[facility] Work Phone: Comment on above: .Less than 99th perc entile of normal range cutoff-Female and children under 18 years old <14 ng/L; Male <21 ng/L: NegativeRepeat testing should be performed if clinically indicated. .Female and children under 18 years old 14-50 ng/L; Male 21-50 ng/L:Consistent with possible cardiac damage and possible increased clinical risk. Serial measurements may help to assess extent of myocardial damage. .>50 ng/L: Consistent with cardiac damage, increased clinical risk andmyocardial infarction. Serial measurements may help assess extent of myocardial damage. . NOTE: Children less than 1 year old may have higher baseline troponin levels and results should be interpreted in conjunction with the overall clinical context. .NOTE: Troponin I testing is performed using a different testing methodology at [facility] than at other [facility]. Direct result comparisons should only be made within the same method. Tropinin I.cardiac panel High sensitivity method 3 ng/L 0 - 20 Anticoagulati on Monitoring [facility] Work Phone: Comment on above: .Less than 99th perc entile of normal range cutoff-Female and children under 18 years old <14 ng/L; Male <21 ng/L: NegativeRepeat testing should be performed if clinically indicated. .Female and children under 18 years old 14-50 ng/L; Male 21-50 ng/L:Consistent with possible cardiac damage and possible increased clinical risk. Serial measurements may help to assess extent of myocardial damage. .>50 ng/L: Consistent with cardiac damage, increased clinical risk andmyocardial infarction. Serial measurements may help assess extent of myocardial damage. . NOTE: Children less than 1 year old may have higher baseline troponin levels and results should be interpreted in conjunction with the overall clinical context. .NOTE: Troponin I testing is performed using a different testing methodology at [facility] than at other [facility]. Direct result comparisons should only be made within the same method. Triage - EDon 04-04-2022 Triage - ED Chart Review: ARRIVAL INFORMATION Mode of Arrival: private vehicle CHIEF COMPLAINT JENNIFER JAMES is a Male patient with a chief complaint of chest pain. Other Complaints: about 1-1.5 hours ago, patient got up from couch and was walking around when chest pressure started. Pain feels like a heaviness in the center of his chest. 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 Triage Date/Time: 04-Apr-2022 20:44 MARLENE: 2 Vital Signs: Temperature: 98.1F ( 36.7C) taken temporal Blood Pressure: 179/79 Mean: Heart Rate: 70 Respiratory Rate: 16 Pulse Oximetry: 99% on room air, no respiratory support. Height: 5 feet 10.00 inches. 177.8 CM Weight: 192.9 pounds. Calculated 87.5 kg. (stated) Calculated BMI (kg/m2): 27.678 Calculated BSA (m2) 2.08 René Coma Scale: Best Eye Response: (E4) spontaneous Best Motor Response: (M6) obeys commands Best Verbal Response: (V5) oriented Epes Score: 15 Allergies: yes Patient has homicidal thoughts: no Risk Screens Suicide Risk Screen In the Past Month: Have you wished you were or wished you could go to sleep and not wake up no In the Past Month: Have you had any actual thoughts of killing yourself no In Your Lifetime: Have you ever done anything, started to do anything, or prepared to do anything to end your life no Jefferson Fall Scale Screening Has the patient fallen before (or is the patient in the ED as a result of a fall) has not had a fall Does the patient have an impaired gait does not have impaired gait Is the patient cognitively impaired not cognitively impaired Interventions: Jefferson Fall Interventions: LOW INTERVENTIONS: *patient oriented to surroundings and call system, * patient/family falls education completed and documented, *patients fall status communicated during bedside handoff, *whiteboard updated, *mode of toileting discussed with patient, *bed in low position with brakes locked, *call light in reach, * non-skid footwear TRAVEL HISTORY Travel History Coronavirus Screening: no exposure or symptoms Travel Exposure History: NO travel to International locations in the past 30 days PAIN Pain Scale Used: SHEA Past Medical History: Past Medical History Reviewedyes Electronic Signatures: Nusrat Hobson (MONICA) (Signed 04-Apr-2022 20:50) Authored: Quick Triage, Risk Screens, Pain, Travel History, Chart Review, Scores, Past Medical History Last Updated: 04-Apr-2022 20:50 by Nusrat HobsonRN) Normal [facility] Today's INRon 03-11-2022 Today's INR 2-3 Anticoagulati on Monitoring [facility] Work Phone: Today's INR AMS Anticoagulati on [facility] Work Phone: Today's INRon 02-25-2022 Today's INR 2-3 [facility] Work Phone: Today's INR AMS [facility] Work Phone: PHQ-2 VITALSon 02-17-2022 Adult depression screening assessment No [facility] Work Phone: Today's INRon 02-11-2022 Today's INR 2-3 Anticoagulati on Monitoring [facility] Work Phone: Today's INR AMS Anticoagulati on [facility] Work Phone: Today's INRon 01-28-2022 Today's INR 2-3 Anticoagulati on [facility] Work Phone: Today's INR AMS Anticoagulati on [facility] Work Phone: Today's INRon 01-21-2022 Today's INR 2-3 Anticoagulati on [facility] Work Phone: Today's INR AMS Anticoagulati on [facility] Work Phone: Today's INRon 01-14-2022 Today's INR 2-3 Anticoagulati on [facility] Work Phone: Today's INR AMS Anticoagulati on [facility] Work Phone: Today's INRon 12-31-2021 Today's INR 2-3 Anticoagulati on [facility] Work Phone: Today's INR AMS Anticoagulati on [facility] Work Phone: Today's INRon 12-20-2021 Today's INR 2-3 Anticoagulati on [facility] Work Phone: Today's INR AMS Anticoagulati on [facility] Work Phone: Today's INRon 12-13-2021 Today's INR 2-3 Anticoagulati on Monitoring [facility] Work Phone: Today's INR AMS Anticoagulati on Monitoring [facility] Work Phone: Today's INRon 12-06-2021 Today's INR 2-3 Anticoagulati on Monitoring [facility] Work Phone: Today's INR AMS Anticoagulati on Monitoring [facility] Work Phone: Today's INRon 11-29-2021 Today's INR 2-3 Anticoagulati on Monitoring [facility] Work Phone: Today's INR AMS Anticoagulati on Monitoring [facility] Work Phone: Today's INRon 11-22-2021 Today's INR 2-3 Anticoagulati on Monitoring [facility] Work Phone: Today's INR AMS Anticoagulati on Monitoring [facility] Work Phone: Today's INRon 11-15-2021 Today's INR 2-3 Anticoagulati on Monitoring [facility] Work Phone: Today's INR AMS Anticoagulati on Monitoring [facility] Work Phone: Today's INRon 11-08-2021 Today's INR 2-3 Anticoagulati on Monitoring [facility] Work Phone: Today's INR AMS Anticoagulati on Monitoring [facility] Work Phone: Today's INRon 11-01-2021 Today's INR 2-3 [facility] Work Phone: Today's INR AMS [facility] Work Phone: Today's INRon 10-25-2021 Today's INR 2-3 [facility] [address] [place] Work Phone: Today's INR AMS [facility] [address] [place] Work Phone: Today's INRon 10-24-2021 Today's INR AMS [facility] Work Phone: Today's INR 2-3 [facility] Work Phone: Today's INRon 10-22-2021 Today's INR 2-3 Anticoagulati on Monitoring [facility] Work Phone: Today's INR AMS Anticoagulati on [facility] Work Phone: Laboratory - Coagulationon 0 10-18-2021 INR Coag (PPP) [Relative time] 1.2 {INR} above high threshold 0.9 - 1.1 Anticoagulation [facility] Work Phone: PT Coag (PPP) [Time] 14.2 s above high threshold 9.8 - 13.4 Anticoagulation [facility] Work Phone: Comment on above: Note new reference r aleksandra as of 07/23/2021 at 10:00am. Laboratory - Coagulationon 0 10-15-2021 INR Coag (PPP) [Relative time] 1.2 {INR} above high threshold 0.9 - 1.1 Anticoagulation [facility] Work Phone: PT Coag (PPP) [Time] 14.4 s above high threshold 9.8 - 13.4 Anticoagulation Monitoring [facility] Work Phone: Comment on above: Note new reference r aleksandra as of 07/23/2021 at 10:00am. No Panel Informationon 10-14 [facility] [place] Work Phone: [email or web address] ?[email or web address]} [facility] Work Phone: Order Reconciliationon 10-14 Order Reconciliation Page 1 Discharge Reconciliation Document Reconciliation Type: Discharge requested on behalf of Zeynep Vargas (Physician) done by Zeynep Vargas) Discharge - Reconciliation: 14-Oct-2021 11:02 by: Zeynep Vargas) Home Medications EnteredHOME MEDICATIONS AT DISCHARGE DateReconciliation Comment/ Additional Information enoxaparin 100 mg/mL injectable solution 1 milliliter(s) subcutaneously once a day as directed to bridge warfarin in preparation for colonoscopy. 11-Oct-2021 12:41 enoxaparin 100 mg/mL injectable solution 1 milliliter(s) subcutaneously once a day as directed to bridge warfarin in preparation for colonoscopy. 11-Oct-2021 12:41 enoxaparin 100 mg/mL injectable solution is continued as enoxaparin 100 mg/mL injectable solution - restart evening dose 10/14 simvastatin 20 mg oral tablet 1 tab(s) orally once a day (at bedtime) 22-Sep-2018 16:52 simvastatin 20 mg oral tablet 1 tab(s) orally once a day (at bedtime) 22-Sep-2018 16:52 simvastatin 20 mg oral tablet is continued as simvastatin 20 mg oral tablet warfarin 5 mg oral tablet 1 tab(s) orally once a day 27-Feb-2021 10:26 warfarin 5 mg oral tablet 1 tab(s) orally once a day 27-Feb-2021 10:26 warfarin 5 mg oral tablet is continued as warfarin 5 mg oral tablet - restart 10/16 Home Medications Added During Discharge Reconciliation Discharge Discharge Diagnosis< Z98.890 Status post colonoscopy Discharge Provider, Zeynep Vargas Discharge Disposition : .Home Condition at Discharge: Satisfactory Discharge Communication Instructions for Nursing Only: Remove IV prior to discharge from hospital. Do not remove any midline, if present, without an order from the provider. Discharge Instructions - PHR After your discharge from the hospital, two Summary of Care Documents will be available online in your Personal Health Record (PHR). 1.Consolidated-Clinical Document Architecture (C-CDA) Patient Discharge Summary This document is a summary of your hospital stay to be kept for your reference.2.C-CDA Visit Summary This document is a summary of your hospital stay to be shared with your follow-up providers (doctor, recordings librarian, physical therapist, etc.). All Active Home Medications at time of Discharge Reconciliation: 14-Oct-2021 11:02 Discharge Discharge Diagnosis< Z98.890 Status post colonoscopy Discharge Provider, Zeynep Vargas Discharge Disposition : .Home Condition at Discharge: Satisfactory Discharge Communication Instructions for Nursing Only: Remove IV prior to discharge from hospital. Do not remove any midline, if present, without an order from the provider. Discharge Instructions - PHR After your discharge from the hospital, two Summary of Care Documents will be available online in your Personal Health Record (PHR). 1.Consolidated-Clinical Document Architecture (C-CDA) Patient Discharge Summary This document is a summary of your hospital stay to be kept for your reference.2.C-CDA Visit Summary This document is a summary of your hospital stay to be shared with your follow-up providers (doctor, recordings librarian, physical therapist, etc.). enoxaparin 100 mg/mL injectable solution 1 milliliter(s) subcutaneously once a day as directed to bridge warfarin in preparation for colonoscopy. simvastatin 20 mg oral tablet 1 tab(s) orally once a day (at bedtime) warfarin 5 mg oral tablet 1 tab(s) orally once a day Normal [facility] [place] Coronavirus 2019 RNA by PCR, Screening Asymptomticon 10-11-2021 Coronavirus 2019 RNA by PCR, Screening Asymptomtic Not detected Normal See Below -[facility] Work Phone: Comment on above: SOURCE: Nasal, Nasop haryngealReference Range: Not Detected.This assay is designed to detect the N, ORF1ab and/or S genes of SARS-CoV-2 via nucleic acid amplification. A Negative (NOT DETECTED) result does not preclude 2019-nCoV infection since the adequacy of sample collection and/or low viral burden may result in presence of viral nucleic acids below the clinical sensitivity of this test method. Negative (NOT DETECTED) result should not be used as the sole basis for treatment or other patient management decisions. Rather negative results should be combined with clinical observations, patient history, and epidemiological information to make patient management decisions.Fact sheet for providers: https://www.fda.gov/media/507629/downloadFact sheet for patients: https://www.fda.gov/media/539768/downloadThis test has received FDA Emergency Use Authorization (EUA) and has been verified by [facility] ([facility]). This test is only authorized for the duration of time that circumstances exist to justify the authorization of the emergency use of in vitro diagnostic tests for the detection of SARS-CoV-2 virus and/or diagnosis of COVID-19 infection under section 564(b)(1) of the Act, 21 U.S.C. 360bbb-3(b)(1), unless the authorization is terminated or revoked sooner. [facility] is certified under CLIA-88 as qualified to perform high complexity testing. Testing is performed in the [facility] laboratories located at [address] [place] [address]. Laboratory - Coagulationon 0 10-10-2021 INR Coag (PPP) [Relative time] 2.0 {INR} above high threshold 0.9 - 1.1 [facility] Work Phone: PT Coag (PPP) [Time] 23.6 s above high threshold 9.8 - 13.4 [facility] Work Phone: Comment on above: Note new reference [place] as of 07/23/2021 at 10:00am. Today's INRon 10-08-2021 Today's INR 2-3 Anticoagulati on [facility] Work Phone: Today's INR AMS Anticoagulati on [facility] Work Phone: Today's INRon 09-10-2021 Today's INR 2-3 Anticoagulati on [facility] Work Phone: Today's INR AMS Anticoagulati on [facility] Work Phone: Today's INRon 08-13-2021 Today's INR 2-3 Anticoagulati on [facility] Work Phone: Today's INR AMS Anticoagulati on [facility] Work Phone: Lipid Panelon 07-22-2021 Cholesterol [Mass/Vol] 143 mg/dL 0 - 199 [facility] Work Phone: Comment on above: . AGE DESIRABLE BORD SHELTON HIGH HIGH 0-19 Y 0 - 169 170 - 199 >/= 200 20-24 Y 0 - 189 190 - 224 >/= 225 >24 Y 0 - 199 200 - 239 >/= 240 All ranges are based on fasting samples. Specific therapeutic targets will vary based on patient-specific cardiac risk.. Pediatric guidelines reference:Pediatrics 2011, 128(S5). Adult guidelines reference: NCEP ATPIII Guidelines, SUSANA 2001, 258:7276-97. Venipuncture immediately after or during the administration of Metamizole may lead to falsely low results. Testing should be performed immediately prior to Metamizole dosing. Cholesterol in HDL [Mass/Vol] 45.7 mg/dL [facility] Work Phone: Comment on above: . AGE VERY LOW LOW N ORMAL HIGH 0-19 Y < 35 < 40 40-45 ---- 20- 24 Y ---- < 40 >45 ---- >24 Y ---- < 40 40-60 >60. Cholesterol in LDL [Mass/Vol] 80 mg/dL 0 - 99 [facility] Work Phone: Comment on above: . NEAR BORD AGE JACIEL RABLE OPTIMAL HIGH HIGH VERY HIGH 0-19 Y 0 - 109 --- 110-129 >/= 130 ---- 20-24 Y 0 - 119 --- 120-159 >/= 160 ---- >24 Y 0 - 99 100-129 130-159 160-189 >/=190. Cholesterol.total/Cho lesterol in HDL [Mass ratio] 3.1 {ratio} [facility] Work Phone: Comment on above: REF VALUESDESIRABLE < 3.4HIGH RISK > 5.0 Triglyceride [Mass/Vol] 86 mg/dL 0 - 149 [facility] Work Phone: Comment on above: . AGE DESIRABLE BORD SHELTON HIGH HIGH VERY HIGH 0 D-90 D 19 - 174 ---- ---- ----91 D- 9 Y 0 - 74 75 - 99 >/= 100 ---- 10-19 Y 0 - 89 90 - 129 >/= 130 ---- 20-24 Y 0 - 114 115 - 149 >/= 150 ---- >24 Y 0 - 149 150 - 199 200- 499 >/= 500. Venipuncture immediately after or during the administration of Metamizole may lead to falsely low results. Testing should be performed immediately prior to Metamizole dosing. Lipid Panel 17 mg/dL 0 - 40 [facility] Work Phone: Prostate Spec.Ag, Screenon 1 09-21-2020 Prostate specific Ag [Mass/Vol] 0.48 ng/mL See Below [facility] Work Phone: Comment on above: Reference Range: 0.0 0 - 4.00The FDA requires that the method used for PSA assay be reported to the physician. Values obtained with different assay methods must not be used interchangeably. This test was performed at [facility] using the BorderJump PSA method, which is a sandwich immunoassay using chemiluminescence for quantitation. The assay is approvedfor measurement of prostate-specific antigen (PSA) in serum and may be used in conjunction with a digital rectalexamination in men 50 years and older as an aid in detection of prostate cancer. 9-Tuawh-bhclqlskt inhibitors (e.g. Proscar, Finasteride, Avodart, Dutasteride and Cordelia) for the treatment of BPH have been shown to lower PSA levels by an average of 50% after 6 months of treatment. Today's INRon 07-16-2021 Today's INR 2-3 Anticoagulati on [facility] Work Phone: Today's INR AMS Anticoagulati on [facility] Work Phone: Today's INRon 06-18-2021 Today's INR 2-3 Anticoagulati on [facility] Work Phone: Today's INR AMS Anticoagulati on [facility] Work Phone: Today's INRon 05-21-2021 Today's INR 2-3 Anticoagulati on [facility] Work Phone: Today's INR AMS Anticoagulati on [facility] Work Phone: Today's INRon 04-23-2021 Today's INR 2-3 Anticoagulati on [facility] Work Phone: Today's INR AMS Anticoagulati on [facility] Work Phone: Today's INRon 03-19-2021 Today's INR 2-3 Anticoagulati on [facility] Work Phone: Today's INR AMS Anticoagulati on [facility] Work Phone: Radiologyon 03-12-2021 XR Finger 2 Views Please click on the link to view the study images Normal [facility] Work Phone: Tobacco Screening.on 021 Fall risk assessment b) One or more fall s in the last year [facility] Work Phone: Tobacco use status CPHS b) No [facility] Work Phone: Radiologyon 02-19-2021 XR Finger 2 Views Normal -[facility] Work Phone: XR Finger 2 Views Please click on the link to view the study images Normal [facility] Work Phone: Today's INRon 02-19-2021 Today's INR 2-3 [facility] Work Phone: Today's INR AMS [facility] Work Phone: CT Abdomen and Pelvis with I V Contraston 02-09-2021 CT Abdomen and Pelvis W contrast IV Normal [facility] Work Phone: TH CT Angio Chest For PEon 0 02-09-[address] Angio Chest For PE Normal [facility] Work Phone: Complete Blood Count + Diffe rentialon 02-08-2021 Basophils/100 WBC (Bld) 0.5 % 0.0 - 2.0 [facility] Work Phone: Erythrocyte distribution width (RBC) [Ratio] 12.5 % See Below [facility] Work Phone: Comment on above: Reference Range: 11. 5 - 14.5 Hematocrit (Bld) [Volume fraction] 43.4 % See Below [facility] Work Phone: Comment on above: Reference Range: 41. 0 - 52.0 Hemoglobin (Bld) [Mass/Vol] 14.2 g/dL See Below [facility] Work Phone: Comment on above: Reference Range: 13. 5 - 17.5 Lymphocytes/100 WBC (Bld) 20.0 % See Below [facility] Work Phone: Comment on above: Reference Range: 13. 0 - 44.0 MCHC (RBC) [Mass/Vol] 32.7 g/dL See Below [facility] Work Phone: Comment on above: Reference Range: 32. 0 - 36.0 MCV (RBC) [Entitic vol] 100 fL 80 - 100 [facility] Work Phone: Monocytes/100 WBC (Bld) 8.4 % 2.0 - 10.0 [facility] Work Phone: Neutrophils/100 WBC (Bld) 67.4 % See Below [facility] Work Phone: Comment on above: Reference Range: 40. 0 - 80.0 Platelets (Bld) [#/Vol] 171 10*3/uL 150 - 450 [facility] Work Phone: RBC (Bld) [#/Vol] 4.35 {x10E12/L} below low threshold See Below [facility] Work Phone: Comment on above: Reference Range: 4.5 0 - 5.90 WBC (Bld) [#/Vol] 6.0 10*3/uL 4.4 - 11.3 [facility] Work Phone: Complete Blood Count + Differential 0.03 {x10E9/L} See Below [facility] Work Phone: Comment on above: Reference Range: 0.0 0 - 0.10 Complete Blood Count + Differential 0.21 {x10E9/L} See Below [facility] Work Phone: Comment on above: Reference Range: 0.0 0 - 0.40 Complete Blood Count + Differential 0.50 {x10E9/L} See Below [facility] Work Phone: Comment on above: Reference Range: 0.0 5 - 0.80 Complete Blood Count + Differential 1.19 {x10E9/L} See Below [facility] Work Phone: Comment on above: Reference Range: 0.8 0 - 3.00 Complete Blood Count + Differential 4.02 {x10E9/L} See Below [facility] Work Phone: Comment on above: Reference Range: 1.6 0 - 5.50 Complete Blood Count + Differential 3.5 % 0.0 - 6.0 [facility] Work Phone: Complete Blood Count + Differential 0.2 % 0.0 - 0.9 [facility] Work Phone: Comment on above: Immature Granulocyte Count (IG) includes promyelocytes, myelocytes and metamyelocytes but does not include bands. Percent differential counts (%) should be interpreted in the context of the absolute cell counts (cells/L). Laboratory - Chemistry and C hemistry - challengeon 02-08-2021 Albumin BCP dye [Mass/Vol] 3.7 g/dL 3.4 - 5.0 -[facility] Work Phone: ALP [Catalytic activity/Vol] 66 U/L 33 - 136 -[facility] Work Phone: ALT With P-5'-P [Catalytic activity/Vol] 16 U/L 10 - 52 -[facility] Work Phone: Comment on above: Patients treated wit h Sulfasalazine may generate falsely decreased results for ALT. Anion gap [Moles/Vol] 12 mmol/L 10 - 20 - [facility] Work Phone: AST With P-5'-P [Catalytic activity/Vol] 16 U/L 9 - 39 -[facility] Work Phone: Bilirubin [Mass/Vol] 0.4 mg/dL 0.0 - 1.2 [facility] [facility] Work Phone: Calcium [Mass/Vol] 8.4 mg/dL below low threshold 8.6 - 10.3 [facility] [facility] Work Phone: Chloride [Moles/Vol] 109 mmol/L above high threshold 98 - 107 [facility] Work Phone: CO2 [Moles/Vol] 25 mmol/L 21 - 32 -[facility] Work Phone: Creatinine [Mass/Vol] 0.75 mg/dL See Below - [facility] Work Phone: Comment on above: Reference Range: 0.5 0 - 1.30 Glucose [Mass/Vol] 118 mg/dL above high threshold 74 - 99 [facility] Work Phone: Potassium [Moles/Vol] 3.9 mmol/L 3.5 - 5.3 [facility] Work Phone: Protein [Mass/Vol] 5.8 g/dL below low threshold 6.4 - 8.2 [facility] Work Phone: Sodium [Moles/Vol] 142 mmol/L 136 - 145 -[facility] Work Phone: Urea nitrogen [Mass/Vol] 19 mg/dL 6 - 23 [facility] Work Phone: Laboratory - Coagulationon 0 02-08-2021 INR Coag (PPP) [Relative time] 3.1 {INR} above high threshold 0.9 - 1.1 [facility] Work Phone: PT Coag (PPP) [Time] 36.2 s above high threshold See Below [facility] Work Phone: Comment on above: Reference Range: 10. 1 - 13.3 No Panel Informationon 02-08 >60 >60 [facility] Work Phone: Comment on above: CALCULATIONS OF ASHER MATED GFR ARE PERFORMED USING THE MDRD STUDY EQUATION FOR THE IDMS-TRACEABLE CREATININE METHODS. CLIN CHEM 2007;53:766-72 Radiologyon 02-08-2021 XR Chest Single view Normal [facility] Work Phone: Troponin I, Serumon 02-09-20 21 Troponin I.cardiac [Mass/Vol] ng/mL See Below [facility] Work Phone: Comment on above: Reference Range: 0.0 0 - 0.03LESS THAN 0.04 NG/ML: NEGATIVEREPEAT TESTING IN THREE TO SIX HOURSIF CLINICALLY INDICATED.0.04 - 0.5 NG/ML: CONSISTENT WITH POSSIBLECARDIAC DAMAGE AND POSSIBLE INCREASEDCLINICAL RISK.SERIAL MEASUREMENTS MAY HELP ASSESS EXTENT OFMYOCARDIAL DAMAGE.>0.5 NG/ML: CONSISTENT WITH CARDIAC DAMAGE,INCREASED CLINICAL RISK AND MYOCARDIALINFARCTION. SERIAL MEASUREMENTS MAY HELPASSESS EXTENT OF MYOCARDIAL DAMAGE..Note: Troponin I testing is performed using different testing methodology at [facility] than at other [facility]. Direct result comparisons should only be made within the same method. CT C Spine without Contrasto n 02-06-2021 CT Cervical spine WO contrast Normal -[facility] Work Phone: CT Chest without Contraston 02-06-2021 CT Chest WO contrast Normal [facility] Work Phone: CT Facial Boneson 02-06-2021 CT Facial bones Normal -[facility] Work Phone: CT Head without Contraston 0 02-06-2021 CT Head limited WO contrast Normal [facility] Work Phone: CT Image Reconstruction 3D V olume and MIPon 02-06-2021 CT Image Reconstruction 3D Volume and MIP Normal [facility] Work Phone: Complete Blood Count + Diffe rentialon 02-06-2021 Basophils/100 WBC (Bld) 0.8 % 0.0 - 2.0 [facility] Work Phone: Erythrocyte distribution width (RBC) [Ratio] 12.7 % See Below [facility] Work Phone: Comment on above: Reference Range: 11. 5 - 14.5 Hematocrit (Bld) [Volume fraction] 46.8 % See Below [facility] Work Phone: Comment on above: Reference Range: 41. 0 - 52.0 Hemoglobin (Bld) [Mass/Vol] 15.3 g/dL See Below [facility] Work Phone: Comment on above: Reference Range: 13. 5 - 17.5 Lymphocytes/100 WBC (Bld) 21.7 % See Below [facility] Work Phone: Comment on above: Reference Range: 13. 0 - 44.0 MCHC (RBC) [Mass/Vol] 32.7 g/dL See Below [facility] Work Phone: Comment on above: Reference Range: 32. 0 - 36.0 MCV (RBC) [Entitic vol] 101 fL above high threshold 80 - 100 [facility] Work Phone: Monocytes/100 WBC (Bld) 7.1 % 2.0 - 10.0 [facility] Work Phone: Neutrophils/100 WBC (Bld) 66.5 % See Below [facility] Work Phone: Comment on above: Reference Range: 40. 0 - 80.0 Platelets (Bld) [#/Vol] 179 10*3/uL 150 - 450 [facility] Work Phone: RBC (Bld) [#/Vol] 4.65 {x10E12/L} See Below [facility] Work Phone: Comment on above: Reference Range: 4.5 0 - 5.90 WBC (Bld) [#/Vol] 6.2 10*3/uL 4.4 - 11.3 [facility] Work Phone: Complete Blood Count + Differential 0.05 {x10E9/L} See Below [facility] Work Phone: Comment on above: Reference Range: 0.0 0 - 0.10 Complete Blood Count + Differential 0.22 {x10E9/L} See Below [facility] Work Phone: Comment on above: Reference Range: 0.0 0 - 0.40 Complete Blood Count + Differential 0.44 {x10E9/L} See Below [facility] Work Phone: Comment on above: Reference Range: 0.0 5 - 0.80 Complete Blood Count + Differential 1.34 {x10E9/L} See Below [facility] Work Phone: Comment on above: Reference Range: 0.8 0 - 3.00 Complete Blood Count + Differential 4.10 {x10E9/L} See Below [facility] Work Phone: Comment on above: Reference Range: 1.6 0 - 5.50 Complete Blood Count + Differential 3.6 % 0.0 - 6.0 [facility] Work Phone: Complete Blood Count + Differential 0.3 % 0.0 - 0.9 [facility] Work Phone: Comment on above: Immature Granulocyte Count (IG) includes promyelocytes, myelocytes and metamyelocytes but does not include bands. Percent differential counts (%) should be interpreted in the context of the absolute cell counts (cells/L). Laboratory - Chemistry and C hemistry - challengeon 02-06-2021 Albumin BCP dye [Mass/Vol] 4.1 g/dL 3.4 - 5.0 [facility] Work Phone: ALP [Catalytic activity/Vol] 56 U/L 33 - 136 [facility] Work Phone: ALT With P-5'-P [Catalytic activity/Vol] 26 U/L 10 - 52 [facility] Work Phone: Comment on above: Patients treated wit h Sulfasalazine may generate falsely decreased results for ALT. Anion gap [Moles/Vol] 13 mmol/L 10 - 20 [facility] Work Phone: AST With P-5'-P [Catalytic activity/Vol] 29 U/L 9 - 39 [facility] Work Phone: Bilirubin [Mass/Vol] 0.7 mg/dL 0.0 - 1.2 -[facility] Work Phone: Calcium [Mass/Vol] 8.5 mg/dL below low threshold 8.6 - 10.3 [facility] Work Phone: Chloride [Moles/Vol] 109 mmol/L above high threshold 98 - 107 [facility] Work Phone: CO2 [Moles/Vol] 23 mmol/L 21 - 32 [facility] Work Phone: Creatinine [Mass/Vol] 0.93 mg/dL See Below [facility] Work Phone: Comment on above: Reference Range: 0.5 0 - 1.30 Glucose [Mass/Vol] 98 mg/dL 74 - 99 [facility] Work Phone: Potassium [Moles/Vol] 4.7 mmol/L 3.5 - 5.3 [facility] Work Phone: Protein [Mass/Vol] 6.9 g/dL 6.4 - 8.2 [facility] Work Phone: Sodium [Moles/Vol] 140 mmol/L 136 - 145 [facility] Work Phone: Urea nitrogen [Mass/Vol] 22 mg/dL 6 - 23 [facility] Work Phone: Laboratory - Coagulationon 0 - aPTT Coag (PPP) [Time] 36 s above high threshold 25 - 35 [facility] Work Phone: Comment on above: THE APTT IS NO LONGE R USED FOR MONITORING UNFRACTIONATED HEPARIN THERAPY. FOR MONITORING HEPARIN THERAPY, USE THE HEPARIN ASSAY. INR Coag (PPP) [Relative time] 2.2 {INR} above high threshold 0.9 - 1.1 [facility] Work Phone: PT Coag (PPP) [Time] 25.9 s above high threshold See Below [facility] Work Phone: Comment on above: Reference Range: 10. 1 - 13.3 No Panel Informationon 02-06 >60 >60 [facility] Work Phone: Comment on above: CALCULATIONS OF ASHER MATED GFR ARE PERFORMED USING THE MDRD STUDY EQUATION FOR THE IDMS-TRACEABLE CREATININE METHODS. CLIN CHEM 2007;53:766-72 Radiologyon 02-06-2021 XR Chest Single view Normal [facility] Work Phone: XR Hand 3 Views Normal [facility] Work Phone: XR Knee 4 Views Normal [facility] Work Phone: XR Pelvis 1 or 2 Views Normal [facility] Work Phone: Today's INRon 02-05-2021 Today's INR 2-3 Anticoagulati on [facility] Work Phone: Today's INR AMS Anticoagulati on [facility] Work Phone: Today's INRon 01-22-2021 Today's INR 2-3 Anticoagulati on [facility] Work Phone: Today's INR AMS Anticoagulati on [facility] Work Phone: Today's INRon 01-15-2021 Today's INR 2-3 Anticoagulati on [facility] Work Phone: Today's INR AMS Anticoagulati on [facility] Work Phone: Today's INRon 01-08-2021 Today's INR 2-3 Anticoagulati on [facility] Work Phone: Today's INR AMS Anticoagulati on [facility] Work Phone: Today's INRon 01-01-2021 Today's INR 2-3 Anticoagulati on [facility] Work Phone: Today's INR AMS Anticoagulati on [facility] Work Phone: Lipid Panelon 09-13-2020 Cholesterol [Mass/Vol] 148 mg/dL 0 - 199 [facility] Work Phone: Comment on above: . AGE DESIRABLE BORD SHELTON HIGH HIGH 0-19 Y 0 - 169 170 - 199 >/= 200 20-24 Y 0 - 189 190 - 224 >/= 225 >24 Y 0 - 199 200 - 239 >/= 240 All ranges are based on fasting samples. Specific therapeutic targets will vary based on patient-specific cardiac risk.. Pediatric guidelines reference:Pediatrics 2011, 128(S5). Adult guidelines reference: NCEP ATPIII Guidelines, SUSANA 2001, 258:2486-97. Venipuncture immediately after or during the administration of Metamizole may lead to falsely low results. Testing should be performed immediately prior to Metamizole dosing. fasting Cholesterol in HDL [Mass/Vol] 54.7 mg/dL [facility] Work Phone: Comment on above: . AGE VERY LOW LOW N ORMAL HIGH 0-19 Y < 35 < 40 40-45 ---- 20- 24 Y ---- < 40 >45 ---- >24 Y ---- < 40 40-60 >60. fasting Cholesterol in LDL [Mass/Vol] 78 mg/dL 0 - 99 [facility] Work Phone: Comment on above: . NEAR BORD AGE JACIEL RABLE OPTIMAL HIGH HIGH VERY HIGH 0-19 Y 0 - 109 --- 110-129 >/= 130 ---- 20-24 Y 0 - 119 --- 120-159 >/= 160 ---- >24 Y 0 - 99 100-129 130-159 160-189 >/=190. fasting Cholesterol.total/Cho lesterol in HDL [Mass ratio] 2.7 {ratio} [facility] Work Phone: Comment on above: REF VALUESDESIRABLE < 3.4HIGH RISK > 5.0 fasting Triglyceride [Mass/Vol] 77 mg/dL 0 - 149 [facility] [place] Work Phone: Comment on above: . AGE DESIRABLE BORD SHELTON HIGH HIGH VERY HIGH 0 D-90 D 19 - 174 ---- ---- ----91 D- 9 Y 0 - 74 75 - 99 >/= 100 ---- 10-19 Y 0 - 89 90 - 129 >/= 130 ---- 20-24 Y 0 - 114 115 - 149 >/= 150 ---- >24 Y 0 - 149 150 - 199 200- 499 >/= 500. Venipuncture immediately after or during the administration of Metamizole may lead to falsely low results. Testing should be performed immediately prior to Metamizole dosing. fasting Lipid Panel 15 mg/dL 0 - 40 GR-GQOR-[place] Work Phone: Comment on above: fasting Metabolic Panelon 09-13-2020 ALP [Catalytic activity/Vol] 67 U/L 33 - 136 FG-LJIP-[facility]xt [place] Work Phone: Comment on above: fasting Anion gap [Moles/Vol] 14 mmol/L 10 - 20 [facility] [employer] Work Phone: Comment on above: fasting Bilirubin [Mass/Vol] 0.8 mg/dL 0.0 - 1.2 [facility] SemiconductorGRACE HOSPITALKloutPearl Work Phone: Comment on above: fasting Calcium [Mass/Vol] 9.4 mg/dL 8.6 - 10.6 [facility] SemiconductorJEFFERSON HOSPITALMama Work Phone: Comment on above: fasting Chloride [Moles/Vol] 106 mmol/L 98 - 107 [facility] SemiconductorGRACE HOSPITALArrib[facility] [employer] Work Phone: Comment on above: fasting CO2 [Moles/Vol] 28 mmol/L 21 - 32 [facility] SemiconductorTAUNTON STATE HOSPITALArrib[facility] CooltechMagdi jacobs [employer] Work Phone: Comment on above: fasting Creatinine [Mass/Vol] 0.90 mg/dL See Below [employer] Work Phone: Comment on above: Reference Range: 0.5 0 - 1.30 fasting Glucose [Mass/Vol] 84 mg/dL 74 - 99 [facility] Zibby Work Phone: Comment on above: fasting Potassium [Moles/Vol] 4.9 mmol/L 3.5 - 5.3 [facility] PokelaboMama Work Phone: Comment on above: fasting Protein [Mass/Vol] 6.8 g/dL 6.4 - 8.2 [facility]ED[facility] [employer] Work Phone: Comment on above: fasting Sodium [Moles/Vol] 143 mmol/L 136 - 145 [facility] CENTERPokelaboSuny [facility] CenterMama Work Phone: Comment on above: fasting Urea nitrogen [Mass/Vol] 23 mg/dL 6 - 23 CQ-JOHM-[place] [place] Work Phone: Comment on above: fasting Otheron 09-13-2020 Albumin BCP dye [Mass/Vol] 4.3 g/dL 3.4 - 5.0 [employer] Work Phone: Comment on above: fasting ALT With P-5'-P [Catalytic activity/Vol] 16 U/L 10 - 52 CX-SHBT-Kqdz [place] Work Phone: Comment on above: Patients treated wit h Sulfasalazine may generate falsely decreased results for ALT. fasting AST With P-5'-P [Catalytic activity/Vol] 20 U/L 9 - 39 IN-IUCT-[employer] Work Phone: Comment on above: fasting >60 >60 TU-TGLV-[place]px [place] Work Phone: Comment on above: fasting CALCULATIONS OF ASHER MATED GFR ARE PERFORMED USING THE MDRD STUDY EQUATION FOR THE IDMS-TRACEABLE CREATININE METHODS. CLIN CHEM 2007;53:766-72 Prostate Specific Antigenon 12-22-2018 Prostate specific Ag mass conc 0.69 ng/mL See Below Anticoagulation Monitoring [facility] Work Phone: Comment on above: Reference Range: 0.0 0 - 4.00The FDA requires that the method used for PSA assay be reported to the physician. Values obtained with different assay methods must not be used interchangeably. This test was performed at [facility] using the ADVI[employer]GR Bio[employer]iencesaur PSA method, which is a sandwich immunoassay using chemiluminescence for quantitation. The assay is approvedfor measurement of prostate-specific antigen (PSA) in serum and may be used in conjunction with a digital rectalexamination in men 50 years and older as an aid in detection of prostate cancer. 8-Cfrzp-akqjqigni inhibitors (e.g. Proscar, Finasteride, Avodart, Dutasteride and Cordelia) for the treatment of BPH have been shown to lower PSA levels by an average of 50% after 6 months of treatment. Hematologyon 12-09-2018 Hematocrit Volume Fraction (Bld) 49.7 % See Below Anticoagulation Monitoring [facility] Work Phone: Comment on above: Reference Range: 41. 0 - 52.0 Hemoglobin mass conc (Bld) 16.0 g/dL See Below Anticoagulation Monitoring [facility] Work Phone: Comment on above: Reference Range: 13. 5 - 17.5 MCV Entitic volume (RBC) 97 fL 80 - 100 Anticoagulation Monitoring [facility] Work Phone: Platelets #/vol (Bld) 210 {x10E9/L} 150 - 450 Anticoagulation Monitoring [facility] Work Phone: RBC #/vol (Bld) 5.11 {x10E12/L} See Below Anti coagulation Monitoring [facility] Work Phone: Comment on above: Reference Range: 4.5 0 - 5.90 WBC #/vol (Bld) 5.2 {x10E9/L} 4.4 - 11.3 Antico agulation Monitoring [facility] Work Phone: Otheron 12-09-2018 Erythrocyte distribution width Ratio (RBC) 13.4 % See Below Anticoagulation Monitoring [facility] Work Phone: Comment on above: Reference Range: 11. 5 - 14.5 MCHC mass conc (RBC) 32.2 g/dL See Below [facility] coagulation Monitoring [facility] Work Phone: Comment on above: Reference Range: 32. 0 - 36.0 [facility] 12-08-2018 INR Coag RelTime (PPP) 2.7 {INR} above high threshold 0.9 - 1.1 Anticoagulation Monitoring [facility] Work Phone: Prothrombin time (PT) Coag time (PPP) 30.8 {sec} above high threshold 9.7 - 12.7 Anticoagulation Monitoring [facility] Work Phone: [facility] 12-06-2018 INR Coag RelTime (PPP) 1.8 {INR} above high threshold 0.9 - 1.1 [facility] Work Phone: Prothrombin time (PT) Coag time (PPP) 20.6 {sec} above high threshold 9.7 - 12.7 [facility] Work Phone: [facility] 11-30-2018 Interpreted by: DAMIÁN DEAL11/30/18 11:55MRN: [id number] Name: JENNIFER JAMES STUDY:RETRIEVAL INTRAVASCULAR VENA CAVA FILTER,ALL INCLUSIVE,PLUS S;ULTRASOUND GUIDANCE FOR VASCULAR ACCESS;; 11/30/2018 9:50 am1. ULTRASOUND-GUIDED RIGHT INTERNAL JUGULAR VEIN ACCESS2. INFERIOR VENA CAVAGRAM3. FLUOROSCOPICALLY GUIDED INFERIOR VENA CAVA FILTER RETRIEVAL4. LIMITED POST IVC FILTER PLACEMENT INFERIOR VENA CAVAGRAM INDICATION:I82.409, Acute embolism and thrombosis of unspecified deep veins ofunspecified lower extremity. 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 Not tolerating anticoagulation well. COMPARISON:Angiography 10/06/2018, lower extremity duplex ultrasound 11/17/2018 [id number] ORDERING CLINICIAN:DAMIÁN DEAL TECHNIQUE: ATTENDING LOOP SEWER: Damián Deal M.D. TECHNICAL DESCRIPTION/FINDINGS: The procedure, including all risks,benefits and alternatives were explained to the patient in detail.All questions were answered and written informed consent was obtained. The patient was positioned supine on the angiography table. Atime-out was performed. The right neck was prepped and draped in usual sterile fashion.Focused ultrasound was performed of the right internal jugular veindemonstrating patency and compressibility. Ultrasound images weresaved. % lidocaine was administered subcutaneously for localanesthesia. Under real-time ultrasound guidance, the right internaljugular vein was accessed in antegrade direction using micropuncturetechnique. Ultrasound images were saved. Under fluoroscopic visualization, an 018 guidewire was advanced intothe right atrium and a micro puncture transitional introducer wasutilized for placement an 035 Amplatz wire into the IVC inferior tothe inferior vena cava filter. Over the wire, a 5 Malawian flushpigtail catheter was placed and an inferior vena cavagram wasperformed demonstrating brisk flow through the filter withoutsignificant clot burden within the filter. The decision was made toremove the filter. The pigtail catheter was removed over an Amplatz wire and the IVCfilter coaxial retrieval sheath was introduced into the inferior venacava superior to the filter apex. Utilizing a loop snare, the filterwas secured and retrieved into the inner component of the coaxialretrieval sheath and removed from the body. The filter was examinedon the back table and shown to be intact. Through the remaining outercomponent of the coaxial retrieval sheath, limited post IVC filterremoval inferior vena cavagram was performed demonstrating persistentbrisk antegrade flow through the cava without extravasation or cavalthrombus identified. There is a small right lateral caval wallintimal defect identified which is not consistent with thrombusproper or any clinically significant finding. The retrieval sheath was removed from the right internal jugularvein. Hemostasis was obtained with manual compression. A steriledressing was applied. SEDATION/MEDICATIONS: Continuous cardiopulmonary monitoring wasperformed by a radiology nurse for the duration of the procedure. 1mg Versed and 50 mcg Fentanyl were administered for moderateconscious sedation time of 30 minutes. 10 cc 1% Lidocaine wasadministered subcutaneously for local anesthesia.SPECIMENS: None.ESTIMATED BLOOD LOSS: 5 ccFLOUROSCOPY: 3.8 minutes; DAP 30882 mGy-cm*2; Air Kerma 366.82 mGyCONTRAST: 40 cc Optiray 350 FINDINGS: IMPRESSION:Fluoroscopic ally guided retrieval of inferior vena cava filter. PLAN:Resume/continue anticoagulation.Electro nically signed by: DAMIÁN DEAL 11/30/18 11:55 Normal Anticoagulation Monitoring Service-[employer] Phone: Comment on above: Ordering Provider: Juan Pablo DEAL [id number] COMP METABOLIC PANELon 12-30 Alanine aminotransferase (ALT) 21 U/L Normal 10-52 [facility] Comment on above: Order Comment: Is pa tient fasting? UNKNOWN Performed By: #### L CMP, LGFRP, LLIPID ####[facility] [id number] [place] [address] Albumin 4.0 g/dL Normal 3.4-5.0 [facility] Comment on above: Order Comment: Is pa tient fasting? UNKNOWN Performed By: #### L CMP, LGFRP, LLIPID ####[facility] [id number] [place] [address] ALK PHOS TOTAL 52 U/L Normal 45-117 [facility] Comment on above: Order Comment: Is pa tient fasting? UNKNOWN Performed By: #### L CMP, LGFRP, LLIPID ####[facility] [id number] [place] [address] Aspartate aminotransferase (AST) 20 U/L Normal 13-39 [facility] Comment on above: Order Comment: Is pa tient fasting? UNKNOWN Performed By: #### L CMP, LGFRP, LLIPID ####[facility] Xhahkwggba28529 [place] [address] BILI TOTAL 0.3 mg/dL Normal 0-1.2 [facility] Comment on above: Order Comment: Is pa tient fasting? UNKNOWN Performed By: #### L CMP, LGFRP, LLIPID ####[facility] [id number] [place] [address] Calcium 9.3 mg/dL Normal 8.6-10.3 [facility] Comment on above: Order Comment: Is pa tient fasting? UNKNOWN Performed By: #### L CMP, LGFRP, LLIPID ####[facility] Bkiercyxuz91701 [place] [address] Chloride 107 mmol/L Normal 98-107 [facility] Comment on above: Order Comment: Is pa tient fasting? UNKNOWN Performed By: #### L CMP, LGFRP, LLIPID ####[facility] Nfjpkfhjvj59561 [place] [address] CO2 25 mmol/L Normal 21-32 [facility] Comment on above: Order Comment: Is pa tient fasting? UNKNOWN Performed By: #### L CMP, LGFRP, LLIPID ####[facility] Qfvxlxrkuy38988 [place] [address] Creatinine 0.84 mg/dL Normal 0.5-1.3 [facility] Comment on above: Order Comment: Is pa tient fasting? UNKNOWN Performed By: #### L CMP, LGFRP, LLIPID ####[facility] Goqdmeqkew45527 [place] [address] Glucose mass conc 101 mg/dL High 74-99 [facility] Comment on above: Order Comment: Is pa tient fasting? UNKNOWN Performed By: #### L CMP, LGFRP, LLIPID ####[facility] Woqcimcmgh63699 [place] [address] Potassium molar conc 4.2 mmol/L Normal 3.5-5.3 [facility] Comment on above: Order Comment: Is pa tient fasting? UNKNOWN Performed By: #### L CMP, LGFRP, LLIPID ####[facility] [id number] [place] [address] Protein 6.6 g/dL Normal 6.4-8.2 [facility] Comment on above: Order Comment: Is pa tient fasting? UNKNOWN Performed By: #### L CMP, LGFRP, LLIPID ####[facility] [id number] [place] [address] Sodium 138 mmol/L Normal 136-145 [facility] Comment on above: Order Comment: Is pa tient fasting? UNKNOWN Performed By: #### L CMP, LGFRP, LLIPID ####[facility] Jmdxcvusnc04853 [place] [address] Urea nitrogen 18 mg/dL Normal 6-23 [facility] Comment on above: Order Comment: Is pa tient fasting? UNKNOWN Performed By: #### L CMP, LGFRP, LLIPID ####[facility] Znuqawglrs46626 [place] [address] GLOMERULAR FILTRATION RATE E STon 12-30-2017 eGFR (non-black) 89 mL/min/{1.73_m2} Normal > 60 [facility] Comment on above: Order Comment: Is pa tient fasting? UNKNOWN Performed By: #### L CMP, LGFRP, LLIPID ####[facility] Hathspoqyq07030 [place] [address] IF AMER > 90 Normal > 60 [facility] Comment on above: Order Comment: Is pa tient fasting? UNKNOWN Result Comment: Effe ctive 01/17/15:CKD-EPI equation / based on IDMS traceable creatinine.Continue to use the CREAT CLR-DOSE (Cockgroft-Gault)value for determining medication dose. Performed By: #### L CMP, LGFRP, LLIPID ####[facility] Chmoffyplu23864 [place] [address] LIPID PANELon 12-30-2017 Cholesterol 152 mg/dL Normal [facility] Comment on above: Order Comment: Is pa tient fasting? UNKNOWN Result Comment: Chol esterol Risk Stratification <200 mg/dL Nycxhrinn053-829 mg/dL Borderline >240 mg/dL High Risk Performed By: #### L CMP, LGFRP, LLIPID ####[facility] Bfjbjneehe06017 [place] [address] HDL Cholesterol 38.0 mg/dL Low >40 [facility] Comment on above: Order Comment: Is pa tient fasting? UNKNOWN Performed By: #### L CMP, LGFRP, LLIPID ####[facility] Pnvqurtipd85819 [place] [address] LDL Cholesterol 95 mg/dL Normal [facility] Comment on above: Order Comment: Is pa tient fasting? UNKNOWN Result Comment: LDL Risk Stratification: < 100 mg/dL - Optimal < 130 - Near - 159 - Borderline qsgl450 - 189 - High > 189 - Very high*National Cholesterol Education Program (NCEP) levels in terms of risk for coronary heart disease. Performed By: #### L CMP, LGFRP, LLIPID ####[facility] Txgkbgjujz89648 [place] [address] Triglyceride 119 mg/dL Normal [facility] Comment on above: Order Comment: Is pa tient fasting? UNKNOWN Result Comment: Trig lycerides Reference Range <150 mg/dL Ufwrmq794-774 mg/dL Borderline Sxde866-972 mg/dL High >/=500 mg/dL Very High Performed By: #### L CMP, LGFRP, LLIPID ####[facility] [id number] [place], [place] [id number] CBC AUTOon 06-19-2017 Erythrocyte distribution width Auto Ratio (RBC) 12.7 % Normal 11.5-14.5 [facility] Comment on above: Performed By: #### L CBC ####[facility] [address]zzcv[address] [place] [address] Erythrocytes (RBC) 5.28 10*6/uL Normal 4.0-6.0 [facility] Comment on above: Performed By: #### L CBC ####[facility] [address]hb[address] [place] [address] Hematocrit (HCT) 51.6 % Normal 39.0-55.0 [facility] Comment on above: Performed By: #### L CBC ####[facility] [address]yykhiaf[address] [place] [address] Hemoglobin mass conc (Bld) 17.1 g/dL High 14.0-16.5 [facility] Comment on above: Performed By: #### L CBC ####[facility] [id number] [place], [place] [id number] MCH 32.4 pg Normal 25.4-34.6 [facility] Comment on above: Performed By: #### L CBC ####[facility] [id number] [place], [place] [id number] MCHC mass conc (RBC) 33.1 g/dL Normal 30.0-36.0 [facility] Comment on above: Performed By: #### L CBC ####[facility] Ogjsykwzmq[address] [place], [place] [address] MCV 97.7 fL Normal 79.0-98.0 [facility] Comment on above: Performed By: #### L CBC ####[facility] [id number] [place], [place] [id number] Platelet mean volume (PMV) 10.9 fL Normal 8.4-11.9 [facility] Comment on above: Performed By: #### L CBC ####[facility] Smxfjmsjfl71242 [place] [address] Platelets 226 10*3/uL Normal 140-440 [facility] Comment on above: Performed By: #### L CBC ####[facility] Hunesgrvas05817 [place] [address] WBC (Leukocytes) 6.4 10*3/uL Normal 3.9-11.0 [facility] Comment on above: Performed By: #### L CBC ####[facility] Uidzdqowdb51959 [place] [address] COMP METABOLIC PANELon 06-19 Alanine aminotransferase (ALT) 27 U/L Normal 10-52 [facility] Comment on above: Order Comment: Is pa tient fasting? UNKNOWN Performed By: #### L CMP, LGFRP, LLIPID ####[facility] Lhdznglpjs57309 [place] [address] Albumin 4.4 g/dL Normal 3.4-5.0 [facility] Comment on above: Order Comment: Is pa tient fasting? UNKNOWN Performed By: #### L CMP, LGFRP, LLIPID ####[facility] Owuswxngbq68839 [place] [address] ALK PHOS TOTAL 62 U/L Normal 45-117 [facility] Comment on above: Order Comment: Is pa tient fasting? UNKNOWN Performed By: #### L CMP, LGFRP, LLIPID ####[facility] Jgjfoyyacq93088 [place] [address] Aspartate aminotransferase (AST) 26 U/L Normal 13-39 [facility] Comment on above: Order Comment: Is pa tient fasting? UNKNOWN Performed By: #### L CMP, LGFRP, LLIPID ####[facility] Cenuwynwra11802 [place] [address] BILI TOTAL 0.6 mg/dL Normal 0-1.2 [facility] Comment on above: Order Comment: Is pa tient fasting? UNKNOWN Performed By: #### L CMP, LGFRP, LLIPID ####[facility] Ihlhyuhwov56836 [place] [address] Calcium 10.2 mg/dL Normal 8.6-10.3 [facility] Comment on above: Order Comment: Is pa tient fasting? UNKNOWN Performed By: #### L CMP, LGFRP, LLIPID ####[facility] Bthkhdqouh56825 [place] [address] Chloride 106 mmol/L Normal 98-107 [facility] Comment on above: Order Comment: Is pa tient fasting? UNKNOWN Performed By: #### L CMP, LGFRP, LLIPID ####[facility] Bdiopdglbd05953 [place] [address] CO2 29 mmol/L Normal 21-32 [facility] Comment on above: Order Comment: Is pa tient fasting? UNKNOWN Performed By: #### L CMP, LGFRP, LLIPID ####[facility] Qfusliztoq21248 [place] [address] Creatinine 0.93 mg/dL Normal 0.5-1.3 [facility] Comment on above: Order Comment: Is pa tient fasting? UNKNOWN Performed By: #### L CMP, LGFRP, LLIPID ####[facility] Hzdiwfkkif45097 [place] [address] Glucose mass conc 86 mg/dL Normal 74-99 [facility] Comment on above: Order Comment: Is pa tient fasting? UNKNOWN Performed By: #### L CMP, LGFRP, LLIPID ####[facility] Qepgxuudwc22520 [place] [address] Potassium molar conc 4.7 mmol/L Normal 3.5-5.3 [facility] Comment on above: Order Comment: Is pa tient fasting? UNKNOWN Performed By: #### L CMP, LGFRP, LLIPID ####[facility] Bzmgyxhrcz41405 [place] [address] Protein 7.0 g/dL Normal 6.4-8.2 [facility] Comment on above: Order Comment: Is pa tient fasting? UNKNOWN Performed By: #### L CMP, LGFRP, LLIPID ####[facility] Pmpnelcuzb03451 [place] [address] Sodium 142 mmol/L Normal 136-145 [facility] Comment on above: Order Comment: Is pa tient fasting? UNKNOWN Performed By: #### L CMP, LGFRP, LLIPID ####[facility] Dcqqtcoowa35478 [place] [address] Urea nitrogen 16 mg/dL Normal 6-23 [facility] Comment on above: Order Comment: Is pa tient fasting? UNKNOWN Performed By: #### L CMP, LGFRP, LLIPID ####[facility] Owbafwjlwa63670 [place] [address] GLOMERULAR FILTRATION RATE E STon 06-19-2017 eGFR (non-black) 83 mL/min/{1.73_m2} Normal > 60 [facility] Comment on above: Order Comment: Is pa tient fasting? UNKNOWN Performed By: #### L CMP, LGFRP, LLIPID ####[facility] Wcdmtkoqcd97936 [place] [address] IF AMER > 90 Normal > 60 [facility] Comment on above: Order Comment: Is pa tient fasting? UNKNOWN Result Comment: Effe ctive 01/17/15:CKD-EPI equation / based on IDMS traceable creatinine.Continue to use the CREAT CLR-DOSE (Cockgroft-Gault)value for determining medication dose. Performed By: #### L CMP, LGFRP, LLIPID ####[facility] Nowwirmypl25416 [place] [address] LIPID PANELon 06-19-2017 Cholesterol 160 mg/dL Normal [facility] Comment on above: Order Comment: Is pa tient fasting? UNKNOWN Result Comment: Chol esterol Risk Stratification <200 mg/dL Bnkqmlqof376-644 mg/dL Borderline >240 mg/dL High Risk Performed By: #### L CMP, LGFRP, LLIPID ####[facility] Fvuvoaykmj23051 [place] [address] HDL Cholesterol 40.0 mg/dL Normal >40 [facility] Comment on above: Order Comment: Is pa tient fasting? UNKNOWN Performed By: #### L CMP, LGFRP, LLIPID ####[facility] Ajuhuvptye34121 [place] [address] LDL Cholesterol 103 mg/dL High [facility] Comment on above: Order Comment: Is pa tient fasting? UNKNOWN Result Comment: LDL Risk Stratification: < 100 mg/dL - Optimal < 130 - Near jvacmzv253 - 159 - Borderline juxw424 - 189 - High > 189 - Very high*National Cholesterol Education Program (NCEP) levels in terms of risk for coronary heart disease. Performed By: #### L CMP, LGFRP, LLIPID ####[facility] Ybmiixeqjp64908 [place] [address] Triglyceride 106 mg/dL Normal [facility] Comment on above: Order Comment: Is pa tient fasting? UNKNOWN Result Comment: Trig lycerides Reference Range <150 mg/dL Oneejj354-569 mg/dL Borderline Ivjt454-205 mg/dL High >/=500 mg/dL Very High Performed By: #### L CMP, LGFRP, LLIPID ####[facility] Vedghhwtdy21896 [place] [address] Vital Signs Date Time Vital Sign Value Performing Clinician Facility 05-25-2025 11:01-0400 Body height 177.8 cm Eddy Quintanilla MD Work Phone: [facility] 05-25-2025 11:01-0400 Body mass index (BMI) [Ratio] 29.77 kg/m2 Eddy Quintanilla MD Work Phone: [facility] 05-25-2025 11:01-0400 Body weight 94.12 kg Eddy Quintanilla MD Work Phone: [facility] 05-16-2025 10:30-0400 Body height 177.8 cm Russ Rosen MD Work Phone: [facility] 05-16-2025 10:30-0400 Body mass index (BMI) [Ratio] 29.27 kg/m2 Russ Rosen MD Work Phone: [facility] 05-16-2025 10:30-0400 Body temperature 97 [degF] Russ Rosen MD Work Phone: [facility] 05-16-2025 10:30-0400 Body weight 92.53 kg Russ Rosen MD Work Phone: [facility] 05-16-2025 10:30-0400 Diastolic blood pressure 78 mm[Hg] Russ Rosen MD Work Phone: [facility] 05-16-2025 10:30-0400 Heart rate 60 /min Russ Rosen MD Work Phone: [facility] 05-16-2025 10:30-0400 Respiratory rate 18 /min Russ Rosen MD Work Phone: [facility] 05-16-2025 10:30-0400 Systolic blood pressure 126 mm[Hg] Russ Rosen MD Work Phone: [facility] 02-22-2025 10:43-0400 Body height 177.8 cm Russ Rosen MD Work Phone: [facility] 02-22-2025 10:43-0400 Body mass index (BMI) [Ratio] 30.42 kg/m2 Russ Rosen MD Work Phone: [facility] 02-22-2025 10:43-0400 Body temperature 97 [degF] Russ Rosen MD Work Phone: [facility] 02-22-2025 10:43-0400 Body weight 96.16 kg Russ Rosen MD Work Phone: [facility] 02-22-2025 10:43-0400 Diastolic blood pressure 78 mm[Hg] Russ Rosen MD Work Phone: [facility] 02-22-2025 10:43-0400 Heart rate 84 /min Russ Rosen MD Work Phone: [facility] 02-22-2025 10:43-0400 Respiratory rate 18 /min Russ Rosen MD Work Phone: [facility] 02-22-2025 10:43-0400 Systolic blood pressure 124 mm[Hg] Russ Rosen MD Work Phone: [facility] 02-09-2025 10:13-0400 Body temperature 97.8 [degF] Dr. Patricio Gutierrez DO Work Phone: [facility] 02-09-2025 10:13-0400 Diastolic blood pressure 70 mm[Hg] Dr. Patricio Gutierrez DO Work Phone: 8(740)573-308477 [place] [address] 02-09-2025 10:13-0400 Heart rate 67 /min Dr. Patricio Gutierrez DO Work Phone: 3(616)794-010577 [place] [address] 02-09-2025 10:13-0400 Respiratory rate 19 /min Dr. Patricio Gutierrez DO Work Phone: 8(836)[phone] [place] [address] 02-09-2025 10:13-0400 SaO2% (BldA) [Mass fraction] 99 % Dr. Patricio Gutierrez DO Work Phone: 0(412)772-470877 [place] [address] 02-09-2025 10:13-0400 Systolic blood pressure 131 mm[Hg] Dr. Patricio Gutierrez DO Work Phone: 7(729)[phone] [place] [address] 02-09-2025 06:51-0400 Body height 175.[address] Patricio Gutierrez DO Work Phone: 5(802)770-375677 [place] [address] 02-09-2025 06:51-0400 Body mass index (BMI) [Ratio] 32.3 kg/m2 Dr. Patricio Gutierrez DO Work Phone: 2(612)303-041877 [place] [address] 02-09-2025 06:51-0400 Body weight 99.[address] Patricio Gutierrez DO Work Phone: [facility] 11-17-2024 10:02-0400 Body mass index (BMI) [Ratio] 29.99 kg/m2 Lashawn HERNANDEZ DNP Work Phone: [facility] 11-17-2024 10:02-0400 Body temperature 96.6 [degF] Lashawn HERNANDEZ DNP Work Phone: [facility] 11-17-2024 10:02-0400 Body weight 94.8 kg Lashawn HERNANDEZ DNP Work Phone: [facility] 11-17-2024 10:02-0400 Diastolic blood pressure 80 mm[Hg] Lashawn King SPORTS COMMENTATOR-SENIOR CHEMICAL ENGINEER, DNP Work Phone: [facility] 11-17-2024 10:02-0400 Heart rate 65 /min Lashawn King SPORTS COMMENTATOR-SENIOR CHEMICAL ENGINEER, DNP Work Phone: [facility] 11-17-2024 10:02-0400 Respiratory rate 18 /min Lashawn King SPORTS COMMENTATOR-SENIOR CHEMICAL ENGINEER, DNP Work Phone: [facility] 11-17-2024 10:02-0400 SaO2% (BldA) [Mass fraction] 90 % Lashawn King SPORTS COMMENTATOR-SENIOR CHEMICAL ENGINEER, DNP Work Phone: [facility] 11-17-2024 10:02-0400 Systolic blood pressure 145 mm[Hg] Lashawn King SPORTS COMMENTATOR-SENIOR CHEMICAL ENGINEER, DNP Work Phone: [facility] 11-08-2024 10:41-0400 Body height 177.8 cm Russ Rosen MD Work Phone: [facility] 11-08-2024 10:41-0400 Body mass index (BMI) [Ratio] 29.7 kg/m2 Russ Rosen MD Work Phone: [facility] 11-08-2024 10:41-0400 Body temperature 97 [degF] Russ Rosen MD Work Phone: [facility] 11-08-2024 10:41-0400 Body weight 93.89 kg Russ Rosen MD Work Phone: [facility] 11-08-2024 10:41-0400 Diastolic blood pressure 80 mm[Hg] Russ Rosen MD Work Phone: [facility] 11-08-2024 10:41-0400 Heart rate 65 /min Russ Rosen MD Work Phone: [facility] 11-08-2024 10:41-0400 Respiratory rate 16 /min Russ Rosen MD Work Phone: [facility] 11-08-2024 10:41-0400 Systolic blood pressure 134 mm[Hg] Russ Rosen MD Work Phone: [facility] 05-06-2024 10:41-0400 Body height 177.8 cm Russ Rosen MD Work Phone: [facility] 05-06-2024 10:41-0400 Body mass index (BMI) [Ratio] 29.13 kg/m2 Russ Rosen MD Work Phone: [facility] 05-06-2024 10:41-0400 Body temperature 98.01 [degF] Russ Rosen MD Work Phone: [facility] 05-06-2024 10:41-0400 Body weight 92.08 kg Russ Rosen MD Work Phone: [facility] 05-06-2024 10:41-0400 Diastolic blood pressure 86 mm[Hg] Russ Rosen MD Work Phone: [facility] 05-06-2024 10:41-0400 Heart rate 82 /min Russ Rosen MD Work Phone: [facility] 05-06-2024 10:41-0400 Respiratory rate 18 /min Russ Rosen MD Work Phone: [facility] 05-06-2024 10:41-0400 Systolic blood pressure 138 mm[Hg] Russ Rosen MD Work Phone: [facility] 04-13-2024 09:38-0400 Body temperature 97.2 [degF] Casey Shah MD Work Phone: [facility] 04-13-2024 09:38-0400 Diastolic blood pressure 66 mm[Hg] Casey Shah MD Work Phone: [facility] 04-13-2024 09:38-0400 Heart rate 62 /min Casey Shah MD Work Phone: [facility] 04-13-2024 09:38-0400 Respiratory rate 17 /min Casey Shah MD Work Phone: [facility] 04-13-2024 09:38-0400 SaO2% (BldA) [Mass fraction] 97 % Casey Shah MD Work Phone: [facility] 04-13-2024 09:38-0400 Systolic blood pressure 143 mm[Hg] Casey Shah MD Work Phone: [facility] 04-13-2024 08:25-0400 Body height 177.8 cm Casey Shah MD Work Phone: [facility] 04-13-2024 08:25-0400 Body mass index (BMI) [Ratio] 29.17 kg/m2 Casey Shah MD Work Phone: [facility] 04-13-2024 08:25-0400 Body weight 92.2 kg Casey Shah MD Work Phone: [facility] 02-22-2024 13:27-0400 Body height 177.8 cm Russ Rosen MD Work Phone: [facility] 02-22-2024 13:27-0400 Body mass index (BMI) [Ratio] 29.13 kg/m2 Russ Rosen MD Work Phone: [facility] 02-22-2024 13:27-0400 Body temperature 97 [degF] Russ Rosen MD Work Phone: [facility] 02-22-2024 13:27-0400 Body weight 92.08 kg Russ Rosen MD Work Phone: [facility] 02-22-2024 13:27-0400 Diastolic blood pressure 84 mm[Hg] Russ Rosen MD Work Phone: [facility] 02-22-2024 13:27-0400 Heart rate 72 /min Russ Rosen MD Work Phone: [facility] 02-22-2024 13:27-0400 Respiratory rate 16 /min Russ Rosen MD Work Phone: [facility] 02-22-2024 13:27-0400 Systolic blood pressure 140 mm[Hg] Russ Rosen MD Work Phone: [facility] 11-19-2023 11:12-0400 Body mass index (BMI) [Ratio] 29.26 kg/m2 Lashawn King SPORTS COMMENTATOR-SENIOR CHEMICAL ENGINEER, DNP Work Phone: [facility] 11-19-2023 11:12-0400 Body temperature 97.3 [degF] Lashawn King SPORTS COMMENTATOR-SENIOR CHEMICAL ENGINEER, DNP Work Phone: [facility] 11-19-2023 11:12-0400 Body weight 92.5 kg Lashawn King SPORTS COMMENTATOR-SENIOR CHEMICAL ENGINEER, DNP Work Phone: [facility] 11-19-2023 11:12-0400 Diastolic blood pressure 80 mm[Hg] Lashawn King SPORTS COMMENTATOR-SENIOR CHEMICAL ENGINEER, DNP Work Phone: [facility] 11-19-2023 11:12-0400 Heart rate 65 /min Lashawn King SPORTS COMMENTATOR-SENIOR CHEMICAL ENGINEER, DNP Work Phone: [facility] 11-19-2023 11:12-0400 Respiratory rate 18 /min Lashawn King SPORTS COMMENTATOR-SENIOR CHEMICAL ENGINEER, DNP Work Phone: [facility] 11-19-2023 11:12-0400 SaO2% (BldA) [Mass fraction] 96 % Lashawn King SPORTS COMMENTATOR-SENIOR CHEMICAL ENGINEER, DNP Work Phone: [facility] 11-19-2023 11:12-0400 Systolic blood pressure 150 mm[Hg] Lashawn King SPORTS COMMENTATOR-SENIOR CHEMICAL ENGINEER, DNP Work Phone: [facility] 11-05-2023 10:31-0400 Body height 177.8 cm Russ Rosen MD Work Phone: [facility] 11-05-2023 10:31-0400 Body mass index (BMI) [Ratio] 28.98 kg/m2 Russ Rosen MD Work Phone: [facility] 11-05-2023 10:31-0400 Body temperature 97.2 [degF] Russ Rosen MD Work Phone: [facility] 11-05-2023 10:31-0400 Body weight 91.63 kg Russ Rosen MD Work Phone: [facility] 11-05-2023 10:31-0400 Diastolic blood pressure 78 mm[Hg] Russ Rosen MD Work Phone: [facility] 11-05-2023 10:31-0400 Heart rate 70 /min Russ Rosen MD Work Phone: [facility] 11-05-2023 10:31-0400 Respiratory rate 16 /min Russ Rosen MD Work Phone: [facility] 11-05-2023 10:31-0400 Systolic blood pressure 120 mm[Hg] Russ Rosen MD Work Phone: [facility] 07-02-2023 13:57-0500 Diastolic blood pressure 66 mm[Hg] Russ Rosen MD Work Phone: [facility] 07-02-2023 13:57-0500 Heart rate 84 /min Russ Rosen MD Work Phone: [facility] 07-02-2023 13:57-0500 Respiratory rate 18 /min Russ Rosen MD Work Phone: [facility] 07-02-2023 13:57-0500 SaO2% (BldA) [Mass fraction] 100 % Russ Rosen MD Work Phone: [facility] 07-02-2023 13:57-0500 Systolic blood pressure 133 mm[Hg] Russ Rosen MD Work Phone: [facility] 07-02-2023 08:40-0500 Body height 177 cm Russ Rosen MD Work Phone: [facility] 07-02-2023 08:40-0500 Body mass index (BMI) [Ratio] 28.96 kg/m2 Russ Rosen MD Work Phone: [facility] 07-02-2023 08:40-0500 Body temperature 97.7 [degF] Russ Rosen MD Work Phone: [facility] 07-02-2023 08:40-0500 Body weight 90.72 kg Russ Rosen MD Work Phone: [facility] 05-19-2023 07:12-0400 3.3 1 Russ Rosen Work Phone: [facility] Work Phone: Comment on above: [email or web address] 05-05-2023 07:10-0400 2.9 1 Russ Rosen Work Phone: [facility] Work Phone: Comment on above: [email or web address] 04-28-2023 08:00-0400 2.2 1 Russ Rosen Work Phone: [facility] Work Phone: Comment on above: [email or web address] 04-21-2023 07:29-0400 3.7 1 Russ Rosen Work Phone: [facility] Work Phone: Comment on above: [email or web address] 04-14-2023 07:16-0400 3.4 1 Russ Rosen Work Phone: [facility] Work Phone: Comment on above: [email or web address] 04-07-2023 07:00-0400 2.8 1 Russ Rosen Work Phone: [facility] Work Phone: Comment on above: [email or web address] 03-24-2023 07:15-0400 1.7 1 Russ Rosen Work Phone: [facility] Work Phone: Comment on above: [email or web address] 03-17-2023 07:01-0400 1.6 1 Russ Vasquez Work Phone: [facility] Work Phone: Comment on above: [email or web address] 02-17-2023 07:04-0400 2.2 1 Russ Vasquez Work Phone: [facility] Work Phone: Comment on above: [email or web address] 01-20-2023 07:02-0400 2.2 1 Russ Vasquez Work Phone: [facility] Work Phone: Comment on above: [email or web address] 12-16-2022 07:04-0400 2.7 1 Russ Vasquez Work Phone: [facility] Work Phone: Comment on above: [email or web address] 11-18-2022 07:02-0400 2.3 1 Russ Vasquez Work Phone: TX-Yinehqmvml-Regp[facility] Work Phone: Comment on above: [email or web address] 10-21-2022 07:02-0500 2.4 1 Russ Vasquez Work Phone: [facility] Work Phone: Comment on above: [email or web address] 09-23-2022 07:05-0500 2.1 1 Russ Vasquez Work Phone: [facility] Work Phone: Comment on above: [email or web address] 08-26-2022 07:25-0500 2 1 Russ Vasquez Work Phone: [facility] Work Phone: Comment on above: [email or web address] 08-19-2022 07:06-0500 3.3 1 Russ Rosen Work Phone: TD-Dlvxkfyojj-Rphenfj Work Phone: Comment on above: [email or web address] 08-13-2022 13:23-0500 Body height 175.26 cm Russ Rosen Work Phone: DJ-GELT-[place] Work Phone: 08-13-2022 13:23-0500 Body mass index (BMI) [Ratio] 31.31 kg/m2 Russ Rosen Work Phone: UO-XZPJ-[place]oh [place] Work Phone: 08-13-2022 13:23-0500 Body surface area Derived from formula 2.12 m2 Russ Rosen Work Phone: DE-HIVM-Hmuu [place] Work Phone: 08-13-2022 13:23-0500 Body temperature 97.8 [degF] Russ Rosen Work Phone: NS-WKMS-[place] Work Phone: 08-13-2022 13:23-0500 Body weight 96.16 kg Russ Rosen Work Phone: LH-FCOF-[place]o [place] Work Phone: 08-13-2022 13:23-0500 Diastolic blood pressure 84 mm[Hg] Russ Rosen Work Phone: XR-PMMI-[place]ja [place] Work Phone: 08-13-2022 13:23-0500 Heart rate 62 /min Russ Rosen Work Phone: XQ-FGWS-Wzrx [place] Work Phone: 08-13-2022 13:23-0500 Respiratory rate 18 /min Russ Rosen Work Phone: VT-GNTH-Setf [place] Work Phone: 08-13-2022 13:23-0500 Systolic blood pressure 128 mm[Hg] Russ Rosen Work Phone: PV-IPBY-Ytjr [place] Work Phone: 08-05-2022 07:00-0500 2.3 1 Russ Rosen Work Phone: [facility] Work Phone: Comment on above: [email or web address] 07-22-2022 08:14-0500 2.4 1 Russ Rosen Work Phone: [facility] Work Phone: Comment on above: [email or web address] 07-15-2022 07:11-0500 2.9 1 Russ Rosen Work Phone: [facility] Work Phone: Comment on above: [email or web address] 07-08-2022 07:14-0500 3.4 1 Russ Rosen Work Phone: [facility] Work Phone: Comment on above: [email or web address] 07-01-2022 07:03-0500 3 1 Russ Rosen Work Phone: [facility] Work Phone: Comment on above: [email or web address] 06-17-2022 07:02-0400 2.3 1 Russ Rosen Work Phone: [facility] Work Phone: Comment on above: [email or web address] 06-10-2022 07:03-0400 2.3 1 Russ Rosen Work Phone: [facility] Work Phone: Comment on above: IOIN 06-03-2022 07:04-0400 1.9 1 Russ Rosen Work Phone: [facility] Work Phone: Comment on above: IOIN 05-27-2022 07:01-0400 1.5 1 Russ Rosen Work Phone: [facility] Work Phone: Comment on above: IOIN 05-20-2022 07:02-0400 3.6 1 Russ Rosen Work Phone: [facility] Work Phone: Comment on above: IOIN 05-13-2022 07:02-0400 3.4 1 Russ Rosen Work Phone: [facility] Work Phone: Comment on above: [place] 05-06-2022 07:03-0400 3.4 1 Russ Rosen Work Phone: [facility] Work Phone: Comment on above: IN 05-05-2022 11:06-0400 Body mass index (BMI) [Ratio] Patient Reason Not Done Russ Rosen Work Phone: TH-Ixqrxburwujeme-Fjv on [address] DO Work Phone: 04-22-2022 06:59-0400 3 1 Russ Rosen Work Phone: [facility] Work Phone: Comment on above: [place] 04-21-2022 14:21-0400 Body height 175.26 cm Russ Rosen Work Phone: IS-PCXM-Vxgf [place] Work Phone: 04-21-2022 14:21-0400 Body mass index (BMI) [Ratio] 29.39 kg/m2 Russ Rosen Work Phone: XL-UREE-[place]iih [place] Work Phone: 04-21-2022 14:21-0400 Body surface area Derived from formula 2.06 m2 Russ Rosen Work Phone: FP-YUEK-Lcaz [place] Work Phone: 04-21-2022 14:21-0400 Body temperature 97.4 [degF] Russ Rosen Work Phone: BR-SASH-Nzty [place] Work Phone: 04-21-2022 14:21-0400 Body weight 90.27 kg Russ Rosen Work Phone: LN-YYBO-Wvij [place] Work Phone: 04-21-2022 14:21-0400 Diastolic blood pressure 82 mm[Hg] Russ Rosen Work Phone: FW-ALAP-Hsto [place] Work Phone: 04-21-2022 14:21-0400 Heart rate 60 /min Russ Rosen Work Phone: PG-WUED-[place]luf [place] Work Phone: 04-21-2022 14:21-0400 Respiratory rate 16 /min Russ Rosen Work Phone: GS-DSCL-Sjlx [place] Work Phone: 04-21-2022 14:21-0400 Systolic blood pressure 126 mm[Hg] Russ Rosen Work Phone: DA-FDVB-Rhte [place] Work Phone: 04-08-2022 07:11-0400 3.4 1 Russ Vasquez Work Phone: [facility] Work Phone: Comment on above: [email or web address] 07-19-2022 07:01-0400 2.6 1 Russ Rosen Work Phone: [facility] Work Phone: Comment on above: [email or web address] 02-25-2022 07:08-0400 2 1 Russ Rosen Work Phone: QU-OQRA-[place]a [place] Work Phone: Comment on above: [email or web address] 02-17-2022 13:54-0400 Body height 175.26 cm Russ Rosen Work Phone: IS-XMJV-[place]s [place] Work Phone: 02-17-2022 13:54-0400 Body mass index (BMI) [Ratio] 29.39 kg/m2 Russ Rosen Work Phone: OB-YYEC-Gtlx [place] Work Phone: 02-17-2022 13:54-0400 Body surface area Derived from formula 2.06 m2 Russ Rosen Work Phone: UP-YTDM-Ycdw [place] Work Phone: 02-17-2022 13:54-0400 Body temperature 97.6 [degF] Russ Rosen Work Phone: HM-OKHO-Zdxn [place] Work Phone: 02-17-2022 13:54-0400 Body weight 90.27 kg Russ Rosen Work Phone: DE-RLNL-Qufe [place] Work Phone: 02-17-2022 13:54-0400 Diastolic blood pressure 82 mm[Hg] Russ Rosen Work Phone: WJ-JOES-Yrzu [place] Work Phone: 02-17-2022 13:54-0400 Heart rate 60 /min Russ Rosen Work Phone: HK-SSBV-Yyoc [place] Work Phone: 02-17-2022 13:54-0400 Respiratory rate 16 /min Russ Rosen Work Phone: AG-WEHQ-Egcj [place] Work Phone: 02-17-2022 13:54-0400 Systolic blood pressure 128 mm[Hg] Russ Rosen Work Phone: HO-OCAU-Dmxr [place] Work Phone: 02-11-2022 07:07-0400 2.7 1 Russ Rosen Work Phone: [facility] Work Phone: Comment on above: [email or web address] 01-28-2022 07:08-0400 2.4 1 Russ Rosen Work Phone: [facility] Work Phone: Comment on above: [email or web address] 01-21-2022 07:00-0400 2.8 1 Russ Rosen Work Phone: [facility] Work Phone: Comment on above: [email or web address] 01-14-2022 07:17-0400 3.1 1 Russ Rosen Work Phone: [facility] Work Phone: Comment on above: [email or web address] 12-31-2021 07:21-0400 2.6 1 Russ Rosen Work Phone: [facility] Work Phone: Comment on above: [email or web address] 12-20-2021 07:02-0400 3.1 1 Russ Rosen Work Phone: [facility] Work Phone: Comment on above: [email or web address] 12-13-2021 07:01-0400 3.5 1 Russ Rosen Work Phone: [facility] Work Phone: Comment on above: [email or web address] 12-06-2021 07:04-0400 3.2 1 Russ Vasquez Work Phone: [facility] Work Phone: Comment on above: [email or web address] 11-29-2021 07:40-0400 2.9 1 Russ Vasquez Work Phone: [facility] Work Phone: Comment on above: [email or web address] 11-22-2021 07:05-0400 3.2 1 Russ Vasquez Work Phone: [facility] Work Phone: Comment on above: [email or web address] 11-15-2021 07:01-0400 2.8 1 Russ Vasquez Work Phone: [facility] Work Phone: Comment on above: [email or web address] 11-08-2021 07:04-0400 3.4 1 Russ Vasquez Work Phone: [facility] Work Phone: Comment on above: [email or web address] 11-01-2021 07:29-0500 2.8 1 Russ Vasquez Work Phone: HN-Xqwfynrboh-Pg[place] Work Phone: Comment on above: [email or web address] 10-25-2021 07:27-0500 2.1 1 Russ Vasquez Work Phone: PR-Vrqlfxijwo-DWG [place] [address] [place] Work Phone: Comment on above: [email or web address] 10-24-2021 07:57-0500 1.9 1 Russ Vasquez Work Phone: EM-Ikhzgjioer-Nujybkk Work Phone: Comment on above: [email or web address] 10-22-2021 07:25-0500 1.5 1 Russ Rosen Work Phone: [facility] Work Phone: Comment on above: [email or web address] 10-08-2021 07:00-0500 2 1 Russ Rosen Work Phone: [facility] Work Phone: Comment on above: [email or web address] 09-10-2021 07:12-0500 2.7 1 Russ Rosen Work Phone: [facility] Work Phone: Comment on above: [email or web address] 08-13-2021 07:02-0500 2.7 1 Russ Rosen Work Phone: [facility] Work Phone: Comment on above: [email or web address] 08-08-2021 10:42-0500 Body height 175.26 cm Russ Rosen Work Phone: IY-UKHB-[place]ppd [place] Work Phone: 08-08-2021 10:42-0500 Body mass index (BMI) [Ratio] 28.8 kg/m2 Russ Rosen Work Phone: LH-MHAZ-Vrnq [place] Work Phone: 08-08-2021 10:42-0500 Body surface area Derived from formula 2.04 m2 Russ Rosen Work Phone: TQ-WVFB-Aevk [place] Work Phone: 08-08-2021 10:42-0500 Body temperature 97.2 [degF] Russ Rosen Work Phone: IG-EIWX-Ojjy [place] Work Phone: 08-08-2021 10:42-0500 Body weight 88.45 kg Russ Rosen Work Phone: NI-RCBO-Qghv [place] Work Phone: 08-08-2021 10:42-0500 Diastolic blood pressure 76 mm[Hg] Russ Rosen Work Phone: KZ-XAUU-Xmri [place] Work Phone: 08-08-2021 10:42-0500 Heart rate 70 /min Russ Rosen Work Phone: VX-PZHG-Ntza [place] Work Phone: 08-08-2021 10:42-0500 Respiratory rate 18 /min Russ Rosen Work Phone: UK-TADV-[place] Work Phone: 08-08-2021 10:42-0500 Systolic blood pressure 122 mm[Hg] Russ Rosen Work Phone: VL-JPIW-Ajfs [place] Work Phone: 07-16-2021 07:03-0500 2.4 1 Russ Rosen Work Phone: [facility] Work Phone: Comment on above: [email or web address] 06-18-2021 07:00-0400 2.2 1 Russ Rosen Work Phone: [facility] Work Phone: Comment on above: [email or web address] 05-21-2021 07:03-0400 2.9 1 Russ Rosen Work Phone: [facility] Work Phone: Comment on above: [email or web address] 04-23-2021 07:06-0400 2.2 1 Russ Rosen Work Phone: [facility] Work Phone: Comment on above: [email or web address] 03-19-2021 07:00-0400 2.3 1 Russ Rosen Work Phone: [facility] Work Phone: Comment on above: [email or web address] 02-22-2021 12:58-0400 Body height 175.26 cm Russ Rosen Work Phone: OP-DRKY-Binz [place] Work Phone: 02-22-2021 12:58-0400 Body mass index (BMI) [Ratio] 26.48 kg/m2 Russ Rosen Work Phone: EW-PBXZ-[place]uiu [place] Work Phone: 02-22-2021 12:58-0400 Body surface area Derived from formula 1.97 m2 Russ Rosen Work Phone: JT-SCMB-Rnng [place] Work Phone: 02-22-2021 12:58-0400 Body temperature 96.7 [degF] Russ Rosen Work Phone: BR-AUQL-Encs [place] Work Phone: 02-22-2021 12:58-0400 Body weight 81.33 kg Russ Rosen Work Phone: UF-WYBR-Glph [place] Work Phone: 02-19-2021 07:36-0400 2.3 1 Russ Rosen Work Phone: [facility] Work Phone: Comment on above: [email or web address] 02-15-2021 10:10-0400 Body height 175.26 cm Russ Rosen Work Phone: SS-UYQO-Ckzn [place] Work Phone: 02-15-2021 10:10-0400 Body mass index (BMI) [Ratio] 27.02 kg/m2 Russ Rosen Work Phone: UM-ZKFM-Nngy [place] Work Phone: 02-15-2021 10:10-0400 Body surface area Derived from formula 1.99 m2 Russ Rosen Work Phone: KC-TNLE-[place]pep [place] Work Phone: 02-15-2021 10:10-0400 Body temperature 97.2 [degF] Russ Rosen Work Phone: ZE-SDQZ-Insb [place] Work Phone: 02-15-2021 10:10-0400 Body weight 83.01 kg Russ Rosen Work Phone: TX-XNVW-Ffel [place] Work Phone: 02-15-2021 10:10-0400 Diastolic blood pressure 68 mm[Hg] Russ Rosen Work Phone: IP-FYHT-Ctgf [place] Work Phone: 02-15-2021 10:10-0400 Heart rate 64 /min Russ Rosen Work Phone: MD-AAWE-Oxuv [place] Work Phone: 02-15-2021 10:10-0400 Respiratory rate 14 /min Russ Rosen Work Phone: RY-ZVPW-Jzqy [place] Work Phone: 02-15-2021 10:10-0400 Systolic blood pressure 114 mm[Hg] Russ Rosen Work Phone: EY-OXOU-Mezf [place] Work Phone: 02-06-2021 15:54-0400 Diastolic blood pressure 74 mm[Hg] Russ Rosen Other Phone: [facility] 02-06-2021 15:54-0400 Heart rate 61 /min Russ Bri Other Phone: [facility] 02-06-2021 15:54-0400 Respiratory rate 16 /min Russ Bri Other Phone: [facility] 02-06-2021 15:54-0400 SaO2% (BldA) [Mass fraction] 100 % Russ Rosen Other Phone: [facility] 02-06-2021 15:54-0400 Systolic blood pressure 156 mm[Hg] Russ Bri Other Phone: [facility] [facility] 02-06-2021 11:40-0400 Body height 175.2 cm Russ Bri Other Phone: [facility] 02-06-2021 11:40-0400 Body temperature 97.52 [degF] Russ Bri Other Phone: [facility] 02-06-2021 11:40-0400 Body weight 80 kg Russ Bri Other Phone: [facility] 02-05-2021 07:03-0400 2.9 1 Nacho Rish Work Phone: [facility] Work Phone: Comment on above: IOINR3 01-22-2021 06:58-0400 2.2 1 Russ Rosen Work Phone: [facility] Work Phone: Comment on above: IOINR3 01-15-2021 07:17-0400 2 1 Russ Rosen Work Phone: [facility] Work Phone: Comment on above: IOINR3 01-08-2021 09:09-0400 1.8 1 MG CARD [facility] Work Phone: Comment on above: IO INR 01-08-2021 09:09-0400 2.1875 1 MG CARD [facility] Work Phone: Comment on above: Target INR range 01-08-2021 07:09-0400 1.8 1 Russ Rosen Work Phone: [facility] Work Phone: Comment on above: IOINR3 01-01-2021 09:04-0400 2 1 MG CARD [facility] Work Phone: Comment on above: IO INR 01-01-2021 09:04-0400 2.1875 1 [facility] Work Phone: Comment on above: Target INR range 01-01-2021 07:04-0400 2 1 Russ Rosen Work Phone: [facility] Work Phone: Comment on above: IOINR3 12-18-2020 09:02-0400 2.2 1 [facility] Work Phone: Comment on above: IO INR 12-18-2020 09:02-0400 2.1875 1 [facility] Work Phone: Comment on above: Target INR range 12-11-2020 09:05-0400 2.5 1 [facility] Work Phone: Comment on above: IO INR 12-11-2020 09:05-0400 2.1875 1 [facility] Work Phone: Comment on above: Target INR range 12-04-2020 09:03-0400 1.8 1 [facility] Work Phone: Comment on above: IO INR 12-04-2020 09:03-0400 2.1875 1 [facility] Work Phone: Comment on above: Target INR range 11-06-2020 09:00-0400 inr 2.1 1 MG CARD [facility] Work Phone: Comment on above: IO INR 11-06-2020 09:00-0400 inr 2.1875 1 [facility] Work Phone: Comment on above: Target INR range 10-11-2020 09:25-0500 inr 2.2 1 [facility] Work Phone: Comment on above: IO INR 10-11-2020 09:25-0500 inr 2.1875 1 [facility] Work Phone: Comment on above: Target INR range 09-11-2020 09:04-0500 inr 2.5 1 MG CARD [facility] Antico[facility] Monitoring [facility] Work Phone: Comment on above: IO INR 09-11-2020 09:04-0500 inr 2.1875 1 MG CARD [facility] An[facility] Work Phone: Comment on above: Target INR range 08-14-2020 09:01-0500 inr 2.4 1 MG CARD [facility] Work Phone: Comment on above: IO INR 08-14-2020 09:01-0500 inr 2.1875 1 [facility] Work Phone: Comment on above: Target INR range 08-07-2020 16:52-0500 BMI (Body Mass Index) 26.43 kg/m2 [facility] Work Phone: 08-07-2020 16:52-0500 Body Temperature 97.2 [degF] MG CARD [facility] Work Phone: 08-07-2020 16:52-0500 Body weight 81.19 kg MG CARD [facility] Work Phone: 08-07-2020 16:52-0500 BP Diastolic 68 mm[Hg] MG [facility] Work Phone: 08-07-2020 16:52-0500 BP Systolic 118 mm[Hg] MG CARD [facility] Work Phone: 08-07-2020 16:52-0500 BSA (Body Surface Area) 1.97 m2 MG [facility] Work Phone: 08-07-2020 16:52-0500 Height 175.26 cm MG [facility] Work Phone: 08-07-2020 16:52-0500 Pulse (Heart Rate) 65 /min [facility] Work Phone: 08-07-2020 16:52-0500 Respiratory Rate 16 /min [facility] Work Phone: 07-17-2020 09:03-0500 inr 2.3 1 MG CARD [facility] An[facility] Work Phone: Comment on above: IO INR 07-17-2020 09:03-0500 inr 2.1875 1 MG CARD [facility] Work Phone: Comment on above: Target INR range 05-29-2020 09:01-0400 inr 2.4 1 MG CARD [facility] Work Phone: Comment on above: IO INR 05-29-2020 09:01-0400 inr 2.1875 1 MG CARD [facility] Work Phone: Comment on above: Target INR range 05-22-2020 09:04-0400 inr 2 1 MG CARD [facility] Work Phone: Comment on above: IO INR 05-22-2020 09:04-0400 inr 2.1875 1 MG CARD [facility] Work Phone: Comment on above: Target INR range 05-08-2020 09:03-0400 inr 2.1 1 MG CARD [facility] Work Phone: Comment on above: IO INR 05-08-2020 09:03-0400 inr 2.1875 1 MG CARD [facility] An[facility] Work Phone: Comment on above: Target INR range 05-01-2020 09:39-0400 inr 2 1 MG CARD [facility] Work Phone: Comment on above: IO INR 05-01-2020 09:39-0400 inr 2.1875 1 MG CARD [facility] Antico[facility] Monitoring [facility] Minoff Work Phone: Comment on above: Target INR range 12-28-2018 10:33-0400 inr 2.1875 1 MG CARD [facility] Anticoagulation Monitoring [facility] Work Phone: Comment on above: Target INR range 12-28-2018 10:33-0400 inr 2.4 1 MG CARD [facility] Work Phone: Comment on above: IO INR 12-21-2018 10:18-0400 inr 2.1875 1 MG CARD [facility] Work Phone: Comment on above: Target INR range 12-21-2018 10:18-0400 inr 2.3 1 MG CARD [facility] Work Phone: Comment on above: IO INR 12-17-2018 10:46-0400 inr 2.1875 1 MG CARD [facility] Work Phone: Comment on above: Target INR range 12-17-2018 10:46-0400 inr 2 1 MG CARD [facility] Work Phone: Comment on above: IO INR 12-13-2018 10:17-0400 inr 2.1875 1 MG CARD [facility] An[facility] Work Phone: Comment on above: Target INR range 12-13-2018 10:17-0400 inr 3.2 1 MG CARD [facility] Work Phone: Comment on above: IO INR 12-09-2018 11:10-0400 inr 2.1875 1 MG CARD [facility] Work Phone: Comment on above: Target INR range 12-09-2018 11:10-0400 inr 2.7 1 MG CARD [facility] Work Phone: Comment on above: IO INR Encounters Encounter Date Encounter Type Care Provider Facility Start: 07-04-2025 End: 07-04-2025 ambulatory MARK LUGO [facility] Start: 06-27-2025 End: 06-27-2025 ambulatory LASHAWN Padron [facility] Start: 06-20-2025 End: 06-20-2025 ambulatory LASHAWN Padron [facility] Start: 06-13-2025 End: 06-13-2025 ambulatory [facility] Start: 06-06-2025 End: 06-06-2025 ambulatory [facility] Start: 05-25-2025 End: 05-25-2025 Office outpatient visit 25 minutes Eddy Quintanilla MD Work Phone: [facility] Comment on above: Bilateral hearing lo ss, unspecified hearing loss type (Primary Dx) Start: 05-25-2025 End: 05-25-2025 ambulatory [facility] Start: 05-16-2025 End: 05-16-2025 Office outpatient visit 25 minutes Russ Rosen MD Work Phone: [facility] Comment on above: Mixed hyperlipidemia (Primary Dx); Primary hypertension; Need for vaccination; Chronic nasal congestion; Nasal septal deviation Start: 05-16-2025 End: 05-16-2025 ambulatory [facility] Start: 05-09-2025 End: 05-09-2025 ambulatory [facility] Start: 04-11-2025 End: 04-11-2025 ambulatory [facility] Start: 03-14-2025 End: 03-14-2025 ambulatory [facility] Start: 02-22-2025 End: 02-22-2025 ambulatory [facility] Start: 02-22-2025 End: 02-22-2025 Encounter for general adult medical examination without abnormal findings [facility] Start: 02-22-2025 End: 02-22-2025 Assay of hemosiderin, quant Russ Rosen MD Work Phone: [facility] Work Phone: Start: 02-22-2025 End: 02-22-2025 Patient encounter procedure Russ Rosen MD Work Phone: [facility] Comment on above: Routine general medi kurt examination at health care facility (Primary Dx); Mixed hyperlipidemia; Primary hypertension; Screening for prostate cancer Start: 02-14-2025 End: 02-14-2025 ambulatory LASHAWN [facility] Start: 02-09-2025 End: 02-09-2025 Emergency department patient visit Dr. Patricio Gutierrez DO Work Phone: -Emergency Department Work Phone: Start: 01-17-2025 End: 01-17-2025 [facility] Start: 12-20-2024 End: 12-20-2024 ambulatory LASHAWN [facility] Start: 11-29-2024 End: 11-29-2024 [facility] Start: 11-22-2024 End: 11-22-2024 [facility] Start: 11-17-2024 End: 11-17-2024 Office outpatient visit 15 minutes Lashawn Padron [facility] SPORTS COMMENTATOR-SENIOR CHEMICAL ENGINEER, DNP Work Phone: [facility] Comment on above: Anticoagulant long-t erm use; History of recurrent deep vein thrombosis (DVT) Start: 11-17-2024 End: 11-17-2024 [facility] Start: 11-17-2024 End: 11-17-2024 ambulatory [facility] Start: 11-16-2024 End: 11-16-2024 ambulatory [facility] Start: 11-15-2024 End: 11-15-2024 [facility] Start: 11-09-2024 End: 11-09-2024 ambulatory GIANNA MCDOWELL Not Available Start: 11-08-2024 End: 11-08-2024 Office outpatient visit 25 minutes Russ Rosen MD Work Phone: [facility] Comment on above: Chronic nasal conges tion (Primary Dx); Primary hypertension; Mixed hyperlipidemia Start: 11-08-2024 End: 11-08-[facility] Start: 11-01-2024 End: 11-01-2024 ambulatory LASHAWN Padron [facility] Start: 10-25-2024 End: 10-25-2024 ambulatory LASHAWN Padron [facility] Start: 10-18-2024 End: 10-18-2024 ambulatory LASHAWN Padron [facility] Start: 10-11-2024 End: 10-11-2024 ambulatory LASHAWN Padron [facility] Start: 10-04-2024 End: 10-04-2024 ambulatory LASHAWN Padron [facility] Start: 09-06-2024 End: 09-06-2024 ambulatory LASHAWN Padron [facility] Start: 08-30-2024 End: 08-30-2024 ambulatory LASHAWN Padron [facility] Start: 08-02-2024 End: 08-02-2024 ambulatory RUSS ROSEN [facility] Start: 05-06-2024 End: 05-06-2024 Office outpatient visit 25 minutes Russ Rosen MD Work Phone: [facility] Comment on above: Primary hypertension (Primary Dx); Mixed hyperlipidemia; History of recurrent deep vein thrombosis (DVT) Start: 04-13-2024 End: 04-13-2024 Subsequent hospital visit by physician Casey Shah MD Work Phone: [facility] Comment on above: Tubular adenoma of c [place]on (Primary Dx) Start: 04-13-2024 End: 04-13-2024 ambulatory CASEY SHAH [facility] Start: 02-22-2024 End: 02-22-2024 Assay of hemosiderin, quant Russ Rosen MD Work Phone: [facility] Work Phone: Start: 02-22-2024 End: 02-22-2024 Patient encounter procedure Russ Rosen MD Work Phone: [facility] Comment on above: Routine general medi kurt examination at health care facility (Primary Dx); Prostate cancer screening; Mixed hyperlipidemia; History of recurrent deep vein thrombosis (DVT) Start: 11-19-2023 End: 11-19-2023 Office outpatient visit 25 minutes Lashawn Malik SPORTS COMMENTATOR-SENIOR CHEMICAL ENGINEER, DNP Work Phone: [facility] Comment on above: Anticoagulant long-t erm use (Primary Dx) Start: 11-05-2023 End: 11-05-2023 Office outpatient visit 15 minutes Russ Rosen MD Work Phone: [facility] Comment on above: Mixed hyperlipidemia (Primary Dx) Start: 07-02-2023 End: 07-02-2023 Emergency department patient visit RUSS ROSEN [facility] Comment on above: Pain of left lower e xtremity (Primary Dx) Start: 05-19-2023 NSEVALAD, Provider: Alina Thurman, Status: Pen, Time: 3:30 PM Russ Rosen Work Phone: [facility] Work Phone: Start: 05-19-2023 Patient encounter procedure Russ Rosen Work Phone: [facility] Work Phone: Start: 05-05-2023 Patient encounter procedure Russ Rosen Work Phone: [facility] Work Phone: Start: 05-05-[address] Russ Rosen Facility:[id number] Start: 04-28-[address] Russ Rosen Facility:[id number] Start: 04-28-2023 Patient encounter procedure Russ Rosen Work Phone: [facility] Work Phone: Start: 04-23-2023 Chart Update Russ Rosen Work Phone: [facility] Work Phone: Start: 04-21-2023 Patient encounter procedure Russ Rosen Work Phone: [facility] Work Phone: Start: 04-21-[address] Russ marroquin [facility] Facility:[id number] Start: 04-14-2023 Patient encounter procedure Russ Rosen Work Phone: [facility] Work Phone: Start: 04-14-[address] Russ marroquin [facility] Facility:[id number] Start: 04-07-[address] Zi Winston Fa cility:[id number] Start: 03-24-2023 Patient encounter procedure Russ Rosen Work Phone: [facility] Work Phone: Start: 03-24-[address] Russ marroquin [facility] Facility:[id number] Start: 03-17-[address] Russ marroquin [facility] Facility:[id number] Start: 02-17-2023 Patient encounter procedure Russ Rosen Work Phone: [facility] Work Phone: Start: 02-17-[address] Russ marroquin [facility] Facility:[id number] Start: 01-20-2023 Patient encounter procedure Russ Rosen Work Phone: [facility] Work Phone: Start: 01-20-[address] Russ marroquin [facility] Facility:[id number] Start: 12-16-[address] Russ marroquin [facility] Facility:[id number] Start: 12-16-2022 Patient encounter procedure Russ Rosen Work Phone: [facility] Work Phone: Start: 12-12-[address] Madeline [facility] Start: 11-18-[address] Russ marroquin [facility] Facility:[id number] Start: 11-18-2022 Patient encounter procedure Russ Rosen Work Phone: AE-Eosxpbzjhz-Fqkzukj Work Phone: Start: 10-21-2022 Patient encounter procedure Russ Rosen Work Phone: [facility] Work Phone: Start: 10-21-[address] Russ marroquin [facility] Facility:[id number] Start: 10-16-2022 ambulatory Lashawn Malik Facility: [id number] Start: 09-23-[address] Zi Winston Fa cility:[id number] Start: 09-23-2022 Patient encounter procedure Russ Rosen Work Phone: [facility] Work Phone: Start: 09-12-2022 AUDIT Russ Rosen Work Phone: IG[facility]NLCP[facility] Work Phone: Start: 08-26-2022 Patient encounter procedure Russ Rosen Work Phone: [facility] Work Phone: Start: 08-26-[address] Zi Winston Fa cility:[id number] Start: 08-19-[address] Zi Winston Fa cility:[id number] Start: 08-19-2022 Patient encounter procedure Russ Rosen Work Phone: EP-Xpzdaztikt-[facility] Work Phone: Start: 08-13-2022 Office outpatient vi sit 15 minutes Nacho Rish Work Phone: YL-BKNG[facility] Work Phone: Start: 08-13-[address] Russ marroquin [facility] Facility:[id number] Start: 08-05-2022 Patient encounter procedure Russ Rosen Work Phone: [facility] Work Phone: Start: 08-05-[address] Zi Winston Fa cility:[id number] Start: 07-22-[address] Zi Winston Fa cility:[id number] Start: 07-22-2022 Patient encounter procedure Russ Rosen Work Phone: [facility] Work Phone: Start: 07-15-[address] Zi Winston Fa cility:[id number] Start: 07-08-[address] Zi Winston Fa cility:[id number] Start: 07-01-[address] Zi Winston Fa cility:[id number] Start: 06-17-2022 Patient encounter procedure Russ Rosen Work Phone: [facility] Work Phone: Start: 06-17-[address] Zi Winston Fa cility:[id number] Start: 06-10-[address] Russ marroquin [facility] Facility:[id number] Start: 06-03-[address] Russ marroquin [facility] Facility:[id number] Start: 06-03-2022 Patient encounter procedure Russ Rosen Work Phone: [facility] Work Phone: Start: 05-27-2022 Patient encounter procedure Russ Rosen Work Phone: [facility] Work Phone: Start: 05-27-[address] Russ marroquin [facility] Facility:[id number] Start: 05-20-[address] Russ marroquin [facility] Facility:[id number] Start: 05-15-2022 Chart Update Russ Rosen Work Phone: [facility] Work Phone: Start: 05-13-2022 Patient encounter procedure Russ Rosen Work Phone: [facility] Work Phone: Start: 05-13-[address] Russ marroquin [facility] Facility:[id number] Start: 05-06-2022 Patient encounter procedure Russ Rosen Work Phone: YF-Troxxrtdutkfut-Skfsj [facility] Work Phone: Start: 05-05-2022 Office outpatient ne w 30 minutes Russ Rosen Work Phone: FT-Rmbhvwwgkvddlu-Qlhmv 214 DO Work Phone: Start: 04-24-2022 Chart Update Russ Rosen Work Phone: IQ-LSRL[facility] Work Phone: Start: 04-22-2022 Patient encounter procedure Russ Rosen Work Phone: GZ-LZLN-[place] Work Phone: Start: 04-21-2022 Office outpatient vi sit 25 minutes Russ Rosen Work Phone: YK-QQFO-[place] Work Phone: Start: 04-08-2022 Patient encounter procedure Russ Rosen Work Phone: [facility] Work Phone: Start: 03-11-2022 Patient encounter procedure Russ Rosen Work Phone: [facility] Work Phone: Start: 02-27-2022 AUDIT Russ Rosen Work Phone: BR-CRCW[facility] Work Phone: Start: 02-26-2022 AUDIT Russ Rosen Work Phone: WB-BUGJ-[place] Work Phone: Start: 02-17-2022 Adv care pln tlkd & alt dcsn maker docd Russ Rosen Work Phone: LE-AZIR-[place] Work Phone: Start: 02-17-2022 Patient encounter procedure Russ Rosen Work Phone: ZS-BDZX-[place] Work Phone: Start: 02-11-2022 Patient encounter procedure Russ Rosen Work Phone: [facility] Work Phone: Start: 01-28-2022 Patient encounter procedure Russ Rosen Work Phone: [facility] Work Phone: Start: 01-21-2022 Patient encounter procedure Russ Rosen Work Phone: [facility] Work Phone: Start: 01-14-2022 Patient encounter procedure Russ Rosen Work Phone: [facility] Work Phone: Start: 12-31-2021 Patient encounter procedure Russ Rosen Work Phone: [facility] Work Phone: Start: 12-06-2021 Patient encounter procedure Russ Rosen Work Phone: [facility] Work Phone: Start: 11-29-2021 Patient encounter procedure Russ Rosen Work Phone: [facility] Work Phone: Start: 11-22-2021 Patient encounter procedure Russ Rosen Work Phone: [facility] Work Phone: Start: 11-15-2021 Patient encounter procedure Russ Rosen Work Phone: [facility] Work Phone: Start: 11-08-2021 Patient encounter procedure Russ Rosen Work Phone: [facility] Work Phone: Start: 11-01-2021 Patient encounter procedure Russ Rosen [facility] Work [facility]: Start: 10-30-2021 Chart Update Russ Rosen Work Phone: [facility] Work Phone: Start: 10-25-2021 Patient encounter procedure Russ Rosen Work Phone: [place]-Ybbmkwtqno-Whwjbip Work Phone: Start: 10-24-2021 Patient encounter procedure Russ Rosen Work Phone: [facility] Work Phone: Start: 10-22-2021 Patient encounter procedure Russ Rosen Work Phone: [facility] Work Phone: Start: 10-14-2021 Chart Update Russ Rosen Work Phone: [facility] Work Phone: Start: 10-08-2021 Patient encounter procedure Russ Rosen Work Phone: [facility] Work Phone: Start: 09-10-2021 Patient encounter procedure Russ Rosen Work Phone: [facility] Work Phone: Start: 08-13-2021 Patient encounter procedure Russ Rosen Work Phone: [facility] Work Phone: Start: 08-08-2021 Office outpatient vi sit 15 minutes Russ Rosen Work Phone: QY-MPQC-[place] Work Phone: Start: 08-08-2021 Patient encounter procedure Russ Rosen Work Phone: RD-PCAL-[place] Work Phone: Start: 07-16-2021 Patient encounter procedure Russ Rosen Work Phone: Anticoagulation Monitoring [facility] Work Phone: Start: 06-18-2021 Patient encounter procedure Russ Rosen Work Phone: [facility] Work Phone: Start: 05-21-2021 Patient encounter procedure Russ Rosen Work Phone: [facility] Work Phone: Start: 04-23-2021 Patient encounter procedure Russ Rosen Work Phone: [facility] Work Phone: Start: 03-19-2021 Patient encounter procedure Russ Rosen Work Phone: Anticoagulation Monitoring [facility] Work Phone: Start: 03-12-2021 Patient encounter procedure Russ Rosen Work Phone: [facility] Work Phone: Start: 03-12-2021 Postop follow up vis it related to original px Russ Rosen Work Phone: [facility] [address] Work Phone: Start: 03-05-2021 AUDIT Russ Rosen Work Phone: [facility] [place] Work Phone: Start: 02-22-2021 NPV, Provider: Aristeo Hong, Status: Pen, Time: 2:30 PM [facility]: Start: 02-19-2021 FUVFX, Provider: Alex Copeland, Status: Pen, Time: 9:15 AM Nacho Bri Work Phone: SJ[facility] Work Phone: Start: 02-19-2021 Patient encounter procedure Russ Rosen Work Phone: Y[facility] Work Phone: Start: 02-18-2021 AUDIT Russ Rosen Work Phone: [facility] Work Phone: Start: 02-15-2021 Patient encounter procedure Russ Rosen Work Phone: [facility] Work Phone: Start: 02-11-2021 Patient encounter procedure Russ Rosen Work Phone: [facility] Work Phone: Start: 02-06-2021 End: 02-06-2021 Emergency department patient visit Dontae Jimenezuja ED Bed 03 Start: 02-05-2021 Patient encounter procedure Russ Rosen Work Phone: Anticoagulation Monitoring [facility] Work Phone: Start: 01-22-2021 Patient encounter procedure Russ Rosen Work Phone: [facility]tico[facility] Work Phone: Start: 01-08-2021 Patient encounter procedure [facility] Anticoagulation Monitoring Service[facility] Work Phone: Start: 01-01-2021 Patient encounter procedure [facility] Anticoagulation Monitoring Service[facility] Work Phone: Start: 12-18-2020 Patient encounter procedure [facility] Anticoagulation Monitoring [facility] Work Phone: Start: 12-11-2020 Patient encounter procedure [facility] Anticoagulation Monitoring [facility] Work Phone: Start: 12-04-2020 Patient encounter procedure [facility] Anticoagulation Monitoring [facility] Work Phone: Start: 11-17-2020 Patient encounter procedure [facility] Anticoagulation Monitoring Service[facility] Work Phone: Start: 11-06-2020 Patient encounter procedure [facility] Anticoagulation Monitoring [facility] Work Phone: Start: 10-19-2020 Patient encounter procedure [facility] Anticoagulation Monitoring [facility] Work Phone: Start: 10-11-2020 Patient encounter procedure [facility] Anticoagulation Monitoring [facility] Work Phone: Start: 09-11-2020 Patient encounter procedure [facility] Anticoagulation Monitoring [facility] Work Phone: Start: 08-14-2020 Patient encounter procedure [facility] Anticoagulation Monitoring [facility] Work Phone: Start: 08-07-2020 Patient encounter procedure [facility] Anticoagulation Monitoring Service-[facility] Work Phone: Start: 07-17-2020 Patient encounter procedure [facility] Anticoagulation Monitoring [facility] Work Phone: Start: 06-19-2020 Patient encounter procedure [facility] Anticoagulation Monitoring [facility] Work Phone: Start: 06-05-2020 Patient encounter procedure [facility] Anticoagulation Monitoring [facility] Work Phone: Start: 05-29-2020 Patient encounter procedure [facility] Anticoagulation Monitoring [facility] Work Phone: Start: 05-22-2020 Patient encounter procedure [facility] Anticoagulation Monitoring [facility] Work Phone: Start: 05-08-2020 Patient encounter procedure [facility] Anticoagulation Monitoring [facility] Work Phone: Start: 05-01-2020 Patient encounter procedure [facility] Anticoagulation Monitoring [facility] Work Phone: Start: 04-24-2020 Patient encounter procedure [facility] Anticoagulation Monitoring [facility] Work Phone: Start: 04-17-2020 Patient encounter procedure [facility] Anticoagulation Monitoring Service[facility] Work Phone: Start: 04-03-2020 Patient encounter procedure [facility] Anticoagulation Monitoring [facility] Work Phone: Start: 03-06-2020 Patient encounter procedure [facility] Anticoagulation Monitoring [facility] Work Phone: Start: 02-15-2020 Patient encounter procedure [facility] Anticoagulation Monitoring Service[facility] Work Phone: Start: 02-07-2020 Patient encounter procedure [facility] Anticoagulation Monitoring Service[facility] Work Phone: Start: 01-31-2020 Patient encounter procedure [facility] Anticoagulation Monitoring Service[facility] Work Phone: Start: 01-03-2020 Patient encounter procedure [facility] Anticoagulation Monitoring Service[facility] Work Phone: Start: 11-01-2019 Patient encounter procedure [facility] Anticoagulation Monitoring Service-[facility] Work Phone: Start: 10-04-2019 Patient encounter procedure [facility] Anticoagulation Monitoring Service-[facility] Work Phone: Start: 09-06-2019 Patient encounter procedure [facility] Anticoagulation Monitoring Service[facility] Work Phone: Start: 08-23-2019 Patient encounter procedure [facility] Anticoagulation Monitoring Service[facility] Work Phone: Start: 08-09-2019 Patient encounter procedure [facility] Anticoagulation Monitoring Service[facility] Work Phone: Start: 08-02-2019 Patient encounter procedure [facility] Anticoagulation Monitoring Service[facility] Work Phone: Start: 07-19-2019 Patient encounter procedure [facility] Anticoagulation Monitoring Service[facility] Work Phone: Start: 07-12-2019 Patient encounter procedure [facility] Anticoagulation Monitoring Service[facility] Work Phone: Start: 06-28-2019 Patient encounter procedure [facility] Anticoagulation Monitoring Service[facility] Work Phone: Start: 06-24-2019 Patient encounter procedure [facility] Anticoagulation Monitoring Service[facility] Work Phone: Start: 06-14-2019 Patient encounter procedure [facility] Anticoagulation Monitoring Service[facility] Work Phone: Start: 06-07-2019 Patient encounter procedure [facility] Anticoagulation Monitoring Service[facility] Work Phone: Start: 05-31-2019 Patient encounter procedure [facility] Anticoagulation Monitoring Service[facility] Work Phone: Start: 05-17-2019 Patient encounter procedure [facility] Anticoagulation Monitoring Service[facility] Work Phone: Start: 05-03-2019 Patient encounter procedure [facility] Anticoagulation Monitoring Service-[facility] Work Phone: Start: 04-19-2019 Patient encounter procedure [facility] Anticoagulation Monitoring Service[facility] Work Phone: Start: 04-12-2019 Patient encounter procedure [facility] Anticoagulation Monitoring Service[facility] Work Phone: Start: 04-05-2019 Patient encounter procedure [facility] Anticoagulation Monitoring Service[facility] Work Phone: Start: 03-08-2019 Patient encounter procedure [facility] Anticoagulation Monitoring Service[facility] Work Phone: Start: 02-15-2019 Patient encounter procedure [facility] Anticoagulation Monitoring Service[facility] Work Phone: Start: 02-01-2019 Patient encounter procedure [facility] Anticoagulation Monitoring Service[facility] Work Phone: Start: 01-18-2019 Patient encounter procedure [facility] Anticoagulation Monitoring Service[facility] Work Phone: Start: 01-11-2019 Patient encounter procedure [facility] Anticoagulation Monitoring Service[facility] Work Phone: Start: 12-28-2018 Patient encounter procedure [facility] Anticoagulation Monitoring Service[facility] [place] Work Phone: Start: 12-21-2018 Patient encounter procedure [facility] Anticoagulation Monitoring Service[facility] [place] Work Phone: Start: 12-17-2018 Patient encounter procedure [facility] Anticoagulation Monitoring Service[facility] [place] Work Phone: Start: 12-13-2018 Patient encounter procedure [facility] Anticoagulation Monitoring Service[facility] [place] Work Phone: Start: 12-09-2018 Patient encounter procedure [facility] Anticoagulation Monitoring Service[facility] [place] Work Phone: Start: 12-30-2017 Ambulatory [facility] Facility :[facility] Start: 06-19-2017 Ambulatory [facility] Facility :[facility] Procedures Date Procedure Procedure Detail Performing Clinician Start: 02-09-2025 Plain chest X-ray Dr. Helen Gutierrez DO Work Phone: Start: 02-09-2025 D-dimer assay, quantitative Dr. Patricio Gutierrez DO Work Phone: Comment on above: NORMAL D-Dimer level (<0.50) indicates no DVT or PE. Start: 02-09-[address] Patricio Gutierrez DO Work Phone: Start: 08-02-2024 Lipid 1996 panel - S nicole or Plasma Russ Rosen MD Work Phone: Start: 04-13-2024 Colsc flx w/rmvl of tumor polyp lesion snare tq Nupur Padron [place] SPORTS COMMENTATOR-SENIOR CHEMICAL ENGINEER Work Phone: Start: 04-13-2024 PULSE OXIMETRY, SPOT Gr stephane Shah MD Work Phone: Start: 04-13-2024 Colonoscopy Russ lal MD Work Phone: Start: 07-02-2023 COAGULATION SCREEN XIANG SHAH Start: 07-02-2023 Prothrombin time Bhumika Dykes Marisa PA-C Work Phone: Start: 07-02-2023 VASC US LOWER EXTREM ITY VENOUS DUPLEX LEFT CASEY SHAH Start: 07-02-2023 Dup-scan xtr veins unilateral/limited study Bhumika Donis Marisa PA-C Work Phone: Start: 05-13-2022 Lipid 1996 panel - S nicole or Plasma Russ Rosen MD Work Phone: Start: 10-14-2021 Colonoscopy Russ Rosen Work Phone: Start: 08-07-2020 Comprehensive metabo lic 2000 panel [facility] Start: 08-07-2020 Lipid panel [facility] Ligation of varicose vein [facility] Mouth and face operations MG [facility] Plan of Treatment Date Care Activity Detail Author Start: 02-06-2031 DTaP/Tdap/Td Vaccine s (3 - Td or Tdap) DTaP/Tdap/Td Vaccines (3 - Td or Tdap) [facility] Start: 08-02-2029 Lipid panel Lipid Panel [facility] Start: 05-13-2027 Lipid panel Lipid Panel [facility] Start: 04-13-2027 Screening for malignant neoplasm of colon Colonoscopy [facility] Start: 02-27-2026 End: 02-27-2026 Patient encounter procedure 02/27/2026 10:10 AM EDT Office Visit [facility] [address] [place] [address] [place] [address] [place] [address] [facility] Start: 02-23-2026 Medicare Annual Wellness Visit Medicare Annual Wellness Visit (AWV) [facility] Start: 11-16-2025 End: 11-16-2025 Patient encounter procedure [facility] Start: 11-13-2025 End: 11-13-2025 Patient encounter procedure 11/13/2025 11:00 AM EDT Office Visit [facility] [address] [place] [address] [place] [address] [place] [address] [facility] Start: 07-11-2025 Zoster Vaccines (3 o f 3) Zoster Vaccines (3 of 3) [facility] Start: 06-06-2025 End: 06-06-2025 Anticoagulant drug monitoring 06/06/2025 7:30 AM EDT Anticoagulation - Warfarin Visit [facility] [address] [place] [phone] [facility] Start: 05-17-2025 End: 05-17-2025 Patient encounter procedure 05/17/2025 1:30 PM EDT Office Visit [facility] [address] [place] [address] [place] [address] [address] [place] [address] [facility] Start: 05-16-2025 End: 05-16-2025 Patient encounter procedure 05/16/2025 10:40 AM EDT Office Visit [facility] [address] [place] [phone] [place] [address] [place] [address] [facility] Start: 04-24-2025 COVID-19 Vaccine ( season) COVID-19 Vaccine () [facility] Start: 04-24-2025 Influenza vaccination Influenza Vacc ine (#1) [facility] Start: 03-14-2025 End: 03-14-2025 Anticoagulant drug monitoring 03/14/2025 8:00 AM EDT Anticoagulation - Warfarin Visit [facility] [address] [place] [phone] [facility] Start: 02-22-2025 End: 02-22-2026 Lipid 1996 panel - Serum or Plasma Lipid Panel Lab Routine Mixed hyperlipidemia Primary hypertension Expected: 02/22/2025 (Approximate), Expires: 02/22/2026 [facility] Service Area Work Phone: Comment on above: Expected: 02/22/2025 (Approximate), Expires: 02/22/2026 Start: 02-22-2025 Medicare Annual Wellness Visit Medicare Annual Wellness Visit (AWV) [facility] Start: 02-22-2025 End: 02-22-2026 Prostate specific Ag [Mass/volume] in Serum or Plasma PSA screen Lab Routine Screening for prostate cancer Expected: 02/22/2025 (Approximate), Expires: 02/22/2026 [facility] Work Phone: Comment on above: Expected: 02/22/2025 (Approximate), Expires: 02/22/2026 Start: 02-22-2025 End: 02-22-2025 Patient encounter procedure 02/22/2025 10:40 AM EDT Office Visit [facility] [address] [place] [phone] [place] [address] [place] [address] [facility] Start: 02-09-2025 [facility] Start: 11-22-2024 End: 11-22-2024 Anticoagulant drug monitoring 11/22/2024 7:00 AM EDT Anticoagulation - Warfarin Visit [facility] [address] [place] [phone] x1 [facility] Start: 11-17-2024 End: 11-17-2024 Patient encounter procedure 11/17/2024 10:00 AM EDT Office Visit [facility] [address] [place] [address] aLshawn Malik, SPORTS COMMENTATOR-SENIOR CHEMICAL ENGINEER, DNP [address] [place] [address] [facility] Start: 11-15-2024 End: 11-15-2024 Anticoagulant drug monitoring 11/15/2024 7:00 AM EDT Anticoagulation - Warfarin Visit [facility] [address] [place] [phone] x1 [facility] Start: 11-14-2024 COVID-19 Vaccine ( season) COVID-19 Vaccine ( season) [facility] Start: 11-04-2024 End: 11-04-2024 Patient encounter procedure 11/04/2024 10:40 AM EDT Office Visit [facility] [address] [place] [address] [place] [address] [place] [address] [facility] Start: 05-10-2024 End: 05-10-2024 Anticoagulant drug monitoring 05/10/2024 7:00 AM EDT Anticoagulation - Warfarin Visit [facility] [address] [place] [address] x1 [facility] Start: 05-06-2024 End: 05-06-2024 Patient encounter procedure 05/06/2024 10:30 AM EDT Office Visit [facility] [address] [place] [phone] [place] [address] [place] [address] [facility] Start: 04-24-2024 COVID-19 Vaccine ( season) COVID-19 Vaccine ( season) [facility] Start: 04-24-2024 Influenza vaccination Influenza Vacc ine (#1) [facility] Start: 04-18-2024 End: 04-18-2024 Anticoagulant drug monitoring 04/18/2024 7:00 AM EDT Anticoagulation - Warfarin Visit [facility] [address] [place] [address] x1 [facility] Start: 04-15-2024 End: 04-15-2024 Anticoagulant drug monitoring 04/15/2024 7:00 AM EDT Anticoagulation - Warfarin Visit [facility] [address] [place] [address] x1 [facility] Start: 04-13-2024 End: 04-13-2024 Patient encounter procedure 04/13/2024 8:00 AM EDT Appointment [facility] [address] [place] [phone] [place] [address] [address] Department [place] [address] [facility] Start: 02-23-2024 End: 02-23-2024 Anticoagulant drug monitoring 02/23/2024 7:00 AM EDT Anticoagulation - Warfarin Visit [facility] [address] [place] [phone] x1 [facility] Start: 02-22-2024 End: 02-21-2025 CBC panel - Blood by Automated count CBC Lab Routine Mixed hyperlipidemia History of recurrent deep vein thrombosis (DVT) Expected: 02/22/2024 (Approximate), Expires: 02/21/2025 [facility] Work Phone: Comment on above: Expected: 02/22/2024 (Approximate), Expires: 02/21/2025 Start: 02-22-2024 End: 02-21-2025 Comprehensive metabolic 2000 panel - Serum or Plasma Comprehensive Metabolic Panel Lab Routine Mixed hyperlipidemia History of recurrent deep vein thrombosis (DVT) Expected: 02/22/2024 (Approximate), Expires: 02/21/2025 [facility] Service Area Work Phone: Comment on above: Expected: 02/22/2024 (Approximate), Expires: 02/21/2025 Start: 02-22-2024 End: 02-21-2025 Lipid 1996 panel - Serum or Plasma Lipid Panel Lab Routine Mixed hyperlipidemia History of recurrent deep vein thrombosis (DVT) Expected: 02/22/2024 (Approximate), Expires: 02/21/2025 [facility] Work Phone: Comment on above: Expected: 02/22/2024 (Approximate), Expires: 02/21/2025 Start: 02-22-2024 End: 02-21-2025 Prostate specific Ag [Mass/volume] in Serum or Plasma Prostate Specific Antigen Lab Routine Prostate cancer screening Expected: 02/22/2024 (Approximate), Expires: 02/21/2025 [facility] Work Phone: Comment on above: Expected: 02/22/2024 (Approximate), Expires: 02/21/2025 Start: 02-22-2024 End: 02-22-2024 Patient encounter procedure 02/22/2024 1:30 PM EDT Office Visit [facility] [address] [place] [phone] [place] [address] [place], [place] [phone] [facility] Start: 02-21-2024 Medicare Annual Wellness Visit Medicare Annual Wellness Visit (AWV) [facility] Start: 11-24-2023 End: 11-24-2023 Anticoagulant drug monitoring 11/24/2023 7:00 AM EDT Anticoagulation - Warfarin Visit [facility] [address] [place] [address] x1 [facility] Start: 11-19-2023 End: 11-18-2024 CBC W Auto Differential panel - Blood CBC and Auto Differential Lab Routine Anticoagulant long-term use Expected: 11/19/2023 (Approximate), Expires: 11/18/2024 [facility] Service Area Work Phone: Comment on above: Expected: 11/19/2023 (Approximate), Expires: 11/18/2024 Start: 11-19-2023 End: 11-18-2024 Cobalamin (Vitamin B12) [Mass/volume] in Serum or Plasma Vitamin B12 Lab Routine Anticoagulant long-term use Expected: 11/19/2023 (Approximate), Expires: 11/18/2024 [facility] Work Phone: Comment on above: Expected: 11/19/2023 (Approximate), Expires: 11/18/2024 Start: 11-19-2023 End: 11-18-2024 Comprehensive metabolic 2000 panel - Serum or Plasma Comprehensive Metabolic Panel Lab Routine Anticoagulant long-term use Expected: 11/19/2023 (Approximate), Expires: 11/18/2024 [facility] Work Phone: Comment on above: Expected: 11/19/2023 (Approximate), Expires: 11/18/2024 Start: 11-19-2023 End: 11-18-2024 Ferritin [Mass/volume] in Serum or Plasma Ferritin Lab Routine Anticoagulant long-term use Expected: 11/19/2023 (Approximate), Expires: 11/18/2024 [facility] Work Phone: Comment on above: Expected: 11/19/2023 (Approximate), Expires: 11/18/2024 Start: 11-19-2023 End: 11-18-2024 Folate [Mass/volume] in Serum or Plasma Folate Lab Routine Anticoagulant long-term use Expected: 11/19/2023 (Approximate), Expires: 11/18/2024 [facility] Work Phone: Comment on above: Expected: 11/19/2023 (Approximate), Expires: 11/18/2024 Start: 11-19-2023 End: 11-18-2024 Prothrombin time (PT) Protime-INR Lab Routine Anticoagulant long-term use Expected: 11/19/2023 (Approximate), Expires: 11/18/2024 [facility] Work Phone: Comment on above: Expected: 11/19/2023 (Approximate), Expires: 11/18/2024 Start: 11-19-2023 End: 11-19-2023 Patient encounter procedure 11/19/2023 11:00 AM EDT Office Visit [facility] [address] [place] [address] Lashawn Malik, SPORTS COMMENTATOR-SENIOR CHEMICAL ENGINEER, DNP [address] [place] [address] [facility] Start: 11-19-2023 End: 11-19-2023 ambulatory 11/19/2023 10:00 AM EDT Lab [facility] [address] [place] [phone] [facility] Start: 11-05-2023 COVID-19 Vaccine ( season) COVID-19 Vaccine ( season) [facility] Start: 07-07-2023 End: 07-07-2023 Anticoagulant drug monitoring 07/07/2023 7:00 AM EST Anticoagulation - Warfarin Visit [facility] [address] [place] [address] x1 [facility] Start: 05-19-2023 NSEVALAD, Provider: Alina Thurman, Status: Pen, Time: 3:30 PM NSEVALAD, Provider: Alina Thurman, Status: Pen, Time: 3:30 PM Anticoagulation Monitoring [facility] [place] Work Phone: Start: 05-19-2023 Patient encounter procedure [facility]UVCOAG, [facility], Status: Pen, Time: 7:15 AM Anticoagulation Monitoring [facility] Work Phone: Start: 05-05-2023 Patient encounter procedure FUVCOAG, [facility], Status: Pen, Time: 7:00 AM Anticoagulation Monitoring [facility] Work Phone: Start: 04-28-2023 Patient encounter procedure FUVCOAG, [facility], Status: Pen, Time: 7:45 AM Anticoagulation Monitoring [facility] Work Phone: Start: 04-24-2023 Influenza vaccination Influenza Vacc ine (#1) [facility] Start: 04-21-2023 Patient encounter procedure FUVCOAG, [facility], Status: Pen, Time: 7:30 AM Anticoagulation Monitoring Service-[place] Work Phone: Start: 04-07-2023 Patient encounter procedure FUVCOAG, Provider: JOSE URBINAG COREY,MG CARD, Status: Pen, Time: 7:00 AM Anticoagulation Monitoring Service[facility] Work Phone: Start: 03-17-2023 Patient encounter procedure FUVCOAG, Provider: JOSE NICOLE,MG CARD, Status: Pen, Time: 7:00 AM Anticoagulation Monitoring Service-[place] Work Phone: Start: 02-19-2023 Patient encounter procedure MCRANNUAL, Provider: Russ Rosen, Status: Pen, Time: 2:10 PM HJ-LFFB-[place] Work Phone: Start: 02-17-2023 Patient encounter procedure FUVCOAG, Provider: JOSE URBINAG COREY,MG CARD, Status: Pen, Time: 7:00 AM Anticoagulation Monitoring Service-[place] [facility] Work Phone: Start: 01-20-2023 Patient encounter procedure FUVCOAG, Provider: JOSE NICOLE,MG CARD, Status: Pen, Time: 7:00 AM Anticoagulation Monitoring Service-[place] Work Phone: Start: 12-16-2022 Patient encounter procedure FUVCOAG, Provider: JOSE NICOLE,MG CARD, Status: Pen, Time: 7:00 AM OU-Vwpkfcvpuw-Xfpdwcn Work Phone: Start: 12-10-2022 FUV, Provider: Russ Rosen, Status: Pen, Time: 10:40 AM FUV, Provider: Russ Rosen, Status: Pen, Time: 10:40 AM UR-TEIJ-[place] Work Phone: Start: 11-18-2022 Patient encounter procedure FUVCOAG, [facility] CARD, Status: Pen, Time: 7:00 AM Anticoagulation Monitoring Service-[place] Work Phone: Start: 10-21-2022 Patient encounter procedure FUVCOAG, Provider: JOSE NICOLE,MG CARD, Status: Pen, Time: 7:00 AM Anticoagulation Monitoring Service-[place] Work Phone: Start: 09-23-2022 Patient encounter procedure FUVCOAG, Provider: JOSE NICOLE,MG CARD, Status: Pen, Time: 7:00 AM Anticoagulation Monitoring Service-[place] Work Phone: Start: 08-26-2022 Patient encounter procedure FUVCOAG, Provider: JOSE NICOLE,MG CARD, Status: Pen, Time: 7:15 AM IV-Ajrvnphrdn-[place] Work Phone: Start: 08-19-2022 Patient encounter procedure FUVCOAG, Provider: JOSE NICOLE,MG CARD, Status: Pen, Time: 7:00 AM Anticoagulation Monitoring Service-[place] [facility] Work Phone: Start: 08-18-2022 COVID-19 Vaccine (5 - Pfizer series) COVID-19 Vaccine (5 - Pfizer series) [facility] Start: 08-13-2022 FUV, Provider: Russ Rosen, Status: Pen, Time: 1:30 PM FUV, Provider: Russ Rosen, Status: Pen, Time: 1:30 PM EJ-BTIY-[place] Work Phone: Start: 08-05-2022 Patient encounter procedure FUVCOAG, Provider: JOES NICOLE,MG CARD, Status: Pen, Time: 7:00 AM Anticoagulation Monitoring Service-[place] [facility] Work Phone: Start: 07-01-2022 Patient encounter procedure FUVCOAG, Provider: JOSE NICOLE,MG CARD, Status: Pen, Time: 7:00 AM Anticoagulation Monitoring Service-[place] Work Phone: Start: 06-10-2022 Patient encounter procedure FUVCOAG, Provider: JOSE NICOLE,MG CARD, Status: Pen, Time: 7:15 AM Anticoagulation Monitoring Service-[place] Work Phone: Start: 06-03-2022 Patient encounter procedure FUVCOAG, Provider: JOSE NICOLE,MG CARD, Status: Pen, Time: 7:00 AM Anticoagulation Monitoring Service-[place] Work Phone: Start: 05-20-2022 Patient encounter procedure FUVCOAG, Provider: JOSE NICOLE,MG CARD, Status: Pen, Time: 7:00 AM Anticoagulation Monitoring Service-[place] Work Phone: Start: 05-06-2022 Patient encounter procedure FUVCOAG, Provider: JOSE NICOLE,MG CARD, Status: Pen, Time: 7:00 AM Anticoagulation Monitoring Service-[place] Work Phone: Start: 04-22-2022 Patient encounter procedure FUVCOAG, Provider: JOSE NICOLE,MG CARD, Status: Pen, Time: 7:00 AM Anticoagulation Monitoring Service-[place] Work Phone: Start: 04-21-2022 FUVHOSP, Provider: Russ Rosen, Status: Pen, Time: 2:40 PM FUVHOSP, Provider: Russ Rosen, Status: Pen, Time: 2:40 PM Anticoagulation Monitoring Service-[place] [facility] Work Phone: Start: 04-08-2022 Patient encounter procedure FUVCOAG, Provider: JOSE NICOLE,MG CARD, Status: Pen, Time: 7:00 AM Anticoagulation Monitoring Service-[place] Work Phone: Start: 03-11-2022 Patient encounter procedure FUVCOAG, Provider: JOSE NICOLE,MG CARD, Status: Pen, Time: 7:00 AM JL-BQPM-[place] Work Phone: Start: 2022 RSV High Risk: (Elderly (60+) or Population) (1 - 1-dose 75+ series) RSV High Risk: (Elderly (60+) or Population) (1 - 1-dose 75+ series) [facility] Start: 02-25-2022 Patient encounter procedure FUVCOAG, Provider: JOSE NICOLE,MG CARD, Status: Pen, Time: 7:00 AM Anticoagulation Monitoring Service-[place] Work Phone: Start: 02-17-2022 Patient encounter procedure MCRANNUAL, Provider: Russ Rosen, Status: Pen, Time: 1:50 PM XI-TEHA-[place] Work Phone: Start: 02-11-2022 Patient encounter procedure FUVCOAG, [facility], Status: Pen, Time: 7:00 AM Anticoagulation Monitoring Service-[place] Work Phone: Start: 01-28-2022 Patient encounter procedure FUVCOAG, Provider: [facility], Status: Pen, Time: 7:00 AM Anticoagulation Monitoring Service-[place] Work Phone: Start: 01-21-2022 Patient encounter procedure FUVCOAG, Provider: JOSE NICOLE,MG CARD, Status: Pen, Time: 7:00 AM Anticoagulation Monitoring Service-[place] Work Phone: Start: 01-14-2022 Patient encounter procedure FUVCOAG, Provider: [facility], Status: Pen, Time: 7:00 AM Anticoagulation Monitoring Service-[place] [facility] Work Phone: Start: 12-13-2021 Patient encounter procedure FUVCOAG, Provider: JOSE NICOLE,MG CARD, Status: Pen, Time: 7:00 AM Anticoagulation Monitoring Service-[place] Work Phone: Start: 12-06-2021 Patient encounter procedure FUVCOAG, Provider: [facility], Status: Pen, Time: 7:00 AM Anticoagulation Monitoring Service-[facility] Work Phone: Start: 11-29-2021 Patient encounter procedure FUVCOAG, Provider: [facility], Status: Pen, Time: 7:30 AM Anticoagulation Monitoring Service-[place] Work Phone: Start: 11-22-2021 Patient encounter procedure FUVCOAG, Provider: [facility], Status: Pen, Time: 7:00 AM Anticoagulation Monitoring Service-[place] Work Phone: Start: 11-15-2021 Patient encounter procedure FUVCOAG, Provider: JO[facility],MG CARD, Status: Pen, Time: 7:00 AM Anticoagulation Monitoring Service-[place] Work Phone: Start: 11-08-2021 Patient encounter procedure FUVCOAG, Provider: [facility],MG CARD, Status: Pen, Time: 7:00 AM FB-Pkorgcywtu-[place] Work Phone: Start: 11-01-2021 Patient encounter procedure FUVCOAG, Provider: [facility],MG CARD, Status: Pen, Time: 7:30 AM GW-Luaprtxngp-DQX Anusha Stanton [address] [place] [address] Work Phone: Start: 10-25-2021 Patient encounter procedure FUVCOAG, Provider: [facility],MG CARD, Status: Pen, Time: 7:30 AM Anticoagulation Monitoring Service-[place] Work Phone: Start: 10-17-2021 Patient encounter procedure FUVCOAG, Provider: [facility],MG CARD, Status: Pen, Time: 7:30 AM Anticoagulation Monitoring Service-[place] Work Phone: Start: 10-14-2021 COLON, Provider: Zeynep Vargas, Status: Pen, Time: 11:40 AM COLON, Provider: Zeynpe Vargas, Status: Pen, Time: 11:40 AM TD-BIQK-[place] Work Phone: Start: 10-08-2021 Patient encounter procedure FUVCOAG, Provider: [facility],MG C[facility], Status: Pen, Time: 7:00 AM Anticoagulation Monitoring Service-[place] Work Phone: Start: 09-10-2021 Patient encounter procedure FUVCOAG, Provider: [facility],MG CARD, Status: Pen, Time: 7:00 AM Anticoagulation Monitoring Service-[place] Work Phone: Start: 08-13-2021 Patient encounter procedure FUVCOAG, Provider: JOSE NICOLE,MG CARD, Status: Pen, Time: 7:00 AM Anticoagulation Monitoring Service-[place] Work Phone: Start: 08-08-2021 FUV, Provider: Russ Rosen, Status: Pen, Time: 10:50 AM FUV, Provider: Russ Rosen, Status: Pen, Time: 10:50 AM GP-EGAN-[place] Work Phone: Start: 07-29-2021 COLON, Provider: Zeynep Vargas, Status: Pen, Time: 8:40 AM COLON, Provider: Zeynep Vargas, Status: Pen, Time: 8:40 AM BI-NYPQ-[place] Work Phone: Start: 07-16-2021 Patient encounter procedure FUVCOAG, Provider: JOSE NICOLE,MG CARD, Status: Pen, Time: 7:00 AM Anticoagulation Monitoring Service-[place] Work Phone: Start: 06-18-2021 Patient encounter procedure FUVCOAG, Provider: JOSE NICOLE,MG CARD, Status: Pen, Time: 7:00 AM Anticoagulation Monitoring Service-[place] Work Phone: Start: 06-13-2021 Patient encounter procedure [facility] Start: 05-21-2021 Patient encounter procedure FUVCOAG, Provider: JOSE NICOLE,MG CARD, Status: Pen, Time: 7:00 AM Anticoagulation Monitoring Service-[place] Work Phone: Start: 04-23-2021 Patient encounter procedure FUVCOAG, Provider: JOSE NICOLE,MG CARD, Status: Pen, Time: 7:00 AM Anticoagulation Monitoring Service-[place] Work Phone: Start: 04-16-2021 FUVFX, Provider: Alex Copeland, Status: Pen, Time: 9:00 AM FUVFX, Provider: Alex Copeland, Status: Pen, Time: 9:00 AM MP[facility] Work Phone: Start: 03-19-2021 Patient encounter procedure FUVCOAG, Provider: [facility], Status: Pen, Time: 7:00 AM [facility] [employer] Work Phone: Start: 03-12-2021 FUVFX, Provider: Alex Copeland, Status: Pen, Time: 10:45 AM FUVFX, Provider: Alex Copeland, Status: Pen, Time: 10:45 AM [facility] [employer] Work Phone: Start: 02-19-2021 FUVFX, Provider: Alex Copeland, Status: Pen, Time: 9:15 AM FUVFX, Provider: Alex Copeland, Status: Pen, Time: 9:15 AM -[facility] Work Phone: Start: 02-19-2021 Patient encounter procedure [facility] Start: 02-15-2021 Patient encounter procedure [facility] Start: 02-05-2021 Patient encounter procedure FUVCOAG, [facility], Status: Pen, Time: 7:00 AM Anticoagulation Monitoring Service-[place] Work Phone: Start: 01-27-2008 Zoster Vaccines (2 o f 3) Zoster Vaccines (2 of 3) [facility] Start: 2007 RSV patient s and/or patients aged 60+ years (1 - 1-dose 60+ series) RSV patients and/or patients aged 60+ years (1 - 1-dose 60+ series) [facility] Start: 1965 Diabetes mellitus screening Diabetes Screening [facility] End: 04-13-2024 Blood type and Indirect antibody screen panel - Blood Type And Screen Lab STAT STAT (Lab) for 1 Occurrences starting 04/13/2024 until 04/13/2024 [facility] Service Area Work Phone: Comment on above: STAT (Lab) for 1 Occ urrences starting 04/13/2024 until 04/13/2024 End: 04-13-2024 Moderate Sedation Moderate Sedation Procedures Routine Once for 1 Occurrences starting 04/13/2024 until 04/13/2024 [facility] Work Phone: Comment on above: Once for 1 Occurrenc es starting 04/13/2024 until 04/13/2024 Patient Education ED Chest Pain, Uncertain Cause [facility] Work Phone: Patient referral [facility] Work Phone: End: 04-13-2024 Pulse oximetry, continuous Pulse oximetry, continuous Respiratory Care Routine Continuous until discontinued starting 04/13/2024 [facility] Work Phone: Comment on above: Continuous until dis continued starting 04/13/2024 Surgical pathology study [facility] Work Phone: Comment on above: Release Upon Orderin g for 1 Occurrences starting 04/13/2024 Anticoagulation Monitoring Service[facility] Work Phone: NEGATED: Highlighted row has been ruled out! Planned Goals not documented [facility] Work Phone: Immunizations Immunization Date Immunization Notes Care Provider Teresa martinez 05-16-2025 influenza, high dose seasonal, preservative-free Russ Rosen MD Work Phone: [facility] Work Phone: 05-16-2025 zoster vaccine recombinant Russ Rosen MD Work Phone: [facility] Work Phone: 05-06-2024 influenza, high dose seasonal, preservative-free Russ Rosen MD Work Phone: [facility] 05-06-2024 influenza virus vaccine, unspecified formulation Russ Rosen MD Work Phone: [facility] Work Phone: 07-07-2023 Influenza, Seasonal, Quadrivalent, Adjuvanted Russ Rosen MD Work Phone: [facility] Work Phone: 07-07-2023 influenza virus vaccine, unspecified formulation Russ Rosen MD Work Phone: [facility] Work Phone: 06-23-2022 Fluzone High-Dose Quadrivalent 0.7 ML Intramuscular Suspension Prefilled Syringe Russ Rosen Work Phone: [facility]tico[facility] Monitoring [facility] Work Phone: 06-23-2022 influenza, seasonal, injectable Russ Rosen MD Work Phone: [facility] Work Phone: 06-23-2022 Pfizer COVID-19 Vac Bivalent 30 MCG/0.3ML Intramuscular Suspension Russ Rosen Work Phone: [facility] 06-23-2022 influenza virus vaccine, unspecified formulation Russ Rosen MD Work Phone: [facility] Work Phone: 01-09-2022 Comirnaty 30 MCG/0.3 ML Intramuscular Suspension Russ Rosen Work Phone: [facility]tico[facility] Monitoring [facility] Work Phone: 01-09-2022 SARS-CoV-2, Unspecified Russ Rosen MD Work Phone: [facility] Work Phone: 07-22-2021 Fluzone High-Dose Quadrivalent 0.7 ML Intramuscular Suspension Prefilled Syringe Russ Rosen Work Phone: TF-MGYA-[place] Work Phone: 07-22-2021 influenza, seasonal, injectable Russ Rosen Work Phone: IE-GWJR-[place] Work Phone: Comment on above: Series: 05-23-2021 Pfizer-BioNTech COVID-19 Vacc 30 MCG/0.3ML Intramuscular Suspension Russ Rosen Work Phone: [facility] 02-06-2021 tetanus toxoid, reduced diphtheria toxoid, and acellular pertussis vaccine, adsorbed Russ Rosen Other Phone: [facility] 11-17-2020 Pfizer-BioNTech COVID-19 Vacc 30 MCG/0.3ML Intramuscular Suspension Russ Rosen Work Phone: [facility] 10-19-2020 Pfizer-BioNTech COVID-19 Vacc 30 MCG/0.3ML Intramuscular Suspension Russ Rosen Work Phone: [facility] 07-02-2020 Fluzone High-Dose Quadrivalent 0.7 ML Intramuscular Suspension Prefilled Syringe MG CARD [facility] Anticoagulation Monitoring Service-[place] Work Phone: Comment on above: Series: 07-02-2020 influenza, seasonal, injectable Nacho Rish Work Phone: Anticoagulation Monitoring Service-[place] Work Phone: Comment on above: Series: 07-02-2020 influenza, seasonal, injectable MG CARD [facility] Anticoagulation Monitoring Service-[place] Work Phone: 06-12-2020 Fluzone High-Dose Quadrivalent 0.7 ML Intramuscular Suspension Prefilled Syringe Russ Mike Pedrosixto Work Phone: Anticoagulation Monitoring Service[facility] Work Phone: 02-15-2020 pneumococcal polysaccharide vaccine, 23 valent; Translations: [Pneumococcal polysaccharide vaccine, 23 valent] MG CARD [facility] Comment on above: Series: 08-03-2019 influenza, high dose seasonal, preservative-free Russ Mike Pedrosixto Work Phone: Anticoagulation Monitoring Service-[place] Work Phone: 07-01-2018 influenza, high dose seasonal, preservative-free; Translations: [Influenza, high dose seasonal, preservative-free] [facility] Anticoagulation Monitoring Service-[place] Work Phone: Comment on above: Series: 05-18-2017 influenza, high dose seasonal, preservative-free; Translations: [Influenza, high dose seasonal, preservative-free] [facility] Anticoagulation Monitoring Service-[place] Work Phone: Comment on above: Series: 06-20-2016 influenza, high dose seasonal, preservative-free; Translations: [Influenza, high dose seasonal, preservative-free] [facility] Work Phone: Comment on above: Series: 06-20-2016 pneumococcal conjuga te vaccine, 13 valent; Translations: [Prevnar 13 Intramuscular Suspension] [facility] Work Phone: Comment on above: Series: 07-14-2013 influenza, seasonal, injectable, preservative free Russ Rosen Work Phone: Anticoagulation Monitoring Service-[place] Work Phone: 03-02-2013 tetanus toxoid, reduced diphtheria toxoid, and acellular pertussis vaccine, adsorbed; Translations: [Tdap] [facility] Anticoagulation Monitoring Service-[place] Work Phone: Comment on above: Series: 09-02-2012 influenza, high dose seasonal, preservative-free Russ Rosen Work Phone: Anticoagulation Monitoring Service-[place] Work Phone: 12-02-2007 pneumococcal polysaccharide vaccine, 23 valent Russ Rosen Work Phone: [facility] 12-02-2007 zoster vaccine, live Russ Rosen Work Phone: [facility] Payers Date Payer Category Payer [facility] (JANENE and others) [id number] 2025 Self-pay 2022 [employer] ( and others) FOR LIFE [id number] 2022-Present [address] [place] [address] [id number] 2022 For Life (TFL) 1.2.8 [id number] 2022 [employer] ( and others) [id number] 2022 [employer] ( and others) [id number] 2012 Medicare [id number]. 1.13.647.2. [id number] 2012 Medicare [id number] 1945 Unknown [id number] 2.16.840.1.572513.3.579.2. 1945 Unknown [id number] 2.16.840.1.536571.3.579.2. 1947 Unknown [id number] 2.16.840.1.026015.3.579.2. 1945 Unknown [id number] 2.16.840.1.159243.3.579.2. 1947 Unknown [id number] 2.16.840.1.190102.3.579.2. 1947 Unknown [id number] 2.16.840.1.021168.3.579.2. 1947 Unknown [id number] 2.16.840.1.422000.3.579.2. 1947 Unknown [id number] 2.16.840.1.115197.3.579.2. 356 1945 Unknown [id number] 2..840.1.346022.3.579.2. 1947 Unknown [id number] 2..840.1.661748.3.579.2. 1947 Unknown [id number] 2..840.1.304672.3.579.2. 1947 Unknown [id number] 2.840.1.213276.3.579.2. 1947 Unknown [id number] 2.840.1.640011.3.579.2. 1947 Unknown [id number] 2.840.1.920058.3.579.2. 1947 Unknown [id number] 2.840.1.003476.3.579.2. 1947 Unknown [id number] 2.840.1.017432.3.579.2. 1947 Unknown [id number] 2.840.1.565344.3.579.2. 1947 Unknown [id number] 2.840.1.595041.3.579.2. 1947 Unknown [id number] .840.1.479725.3.579.2. 1947 Unknown [id number] .840.1.473778.3.579.2. 1947 Unknown [id number] .840.1.432794.3.579.2. 1947 Unknown [id number] 2.840.1.120135.3.579.2. 1947 Unknown [id number] 2.840.1.187999.3.579.2. 1947 Unknown [id number] 2.16840.1.409826.3.579.2. 356 1947 Unknown [id number] 2.840.1.713930.3.579.2. 356 1947 Unknown [id number] 2.16.840.1.891048.3.579.2. 356 1947 Unknown [id number] 2.16840.1.116513.3.579.2. 356 1947 Unknown [id number] 2.840.1.763148.3.579.2. 356 1947 Unknown [id number] 2.840.1.054218.3.579.2. 356 1947 Unknown [id number] 2.840.1.210736.3.579.2. 124 1947 Unknown [id number] 2.840.1.462313.3.579.2. 1241 1947 Unknown [id number] 2.840.1.200060.3.579.2. 1259 1947 Unknown [id number] 2.840.1.647160.3.579.2. 1243 1947 Unknown [id number] 2.840.1.075962.3.579.2. 124 1947 Unknown [id number] 2.840.1.853173.3.579.2. 124 1947 Unknown [id number] 2.840.1.393593.3.579.2. 124 1947 Unknown [id number] 2.840.1.091855.3.579.2. 1244 1947 Unknown [id number] 2.840.1.524279.3.579.2. 124 1947 Unknown [id number] 2.840.1.629733.3.579.2. 1245 1947 Unknown [id number] 2.16.840.1.982509.3.579.2. 1244 1947 Unknown [id number] 2.16.840.1.213325.3.579.2. 1244 1947 Unknown [id number] 2.16.840.1.624836.3.579.2. 1244 1947 Unknown [id number] 2.16.840.1.899591.3.579.2. 1244 1947 Unknown [id number] 2.840.1.226187.3.579.2. 1244 1947 Unknown [id number] 2.840.1.780306.3.579.2. 1244 1947 Unknown [id number] 2.840.1.233768.3.579.2. 1244 1947 Unknown [id number] 2.840.1.634864.3.579.2. 1244 1947 Unknown [id number] 2.0.1.018123.3.579.2. 1244 1947 Unknown [id number] 2.840.1.551288.3.579.2. 1244 1947 Unknown [id number] 2.840.1.746857.3.579.2. 1244 1947 Unknown [id number] 2.840.1.757177.3.579.2. 1244 1947 Unknown [id number] 2.840.1.887828.3.579.2. 1244 1947 Unknown [id number] 2.840.1.103120.3.579.2. 1244 1947 Unknown [id number] 2.840.1.653425.3.579.2. 1244 1947 Unknown [id number] 2.16.840.1.983354.3.579.2. 1244 1947 Unknown [id number] 2.16.840.1.346298.3.579.2. 1244 1947 Unknown [id number] 2.16.840.1.445162.3.579.2. 1244 1947 Unknown [id number] 2.16.840.1.122254.3.579.2. 1244 1947 Unknown [id number] 2.16.840.1.470242.3.579.2. 1244 1947 Unknown [id number] 2.16.840.1.034079.3.579.2. 1244 1947 Unknown [id number] 2.16.840.1.810194.3.579.2. 1244 1947 Unknown [id number] 2.16.840.1.901520.3.579.2. 1245 Medicare [id number] Unknown Unknown [id number] 2.16.840.1.181116.3.579.2. 462 Social History Date Type Detail Facility Assertion Unknown if ever smoked [facility]tic o[facility] Monitoring [facility] Work Phone: Start: 02-19-2023 End: 05-16-2025 Occasional alcohol use Occasional alcohol use Anticoagulatio n Monitoring Service[facility] Work Phone: Tobacco smoking consumption unknown [facility] Start: 12-10-2022 End: 02-09-2025 Tobacco smoking status NHIS Never smoked tobacco [facility] Work Phone: Start: 12-10-2022 Tobacco use and exposure Smokeless tobacco non-user [facility] Work Phone: Start: 07-02-2023 End: 05-25-2025 Alcohol intake Current drinker of alcohol (finding) [facility] Work Phone: Start: 02-19-2023 End: 05-16-2025 Tobacco use panel [facility] Work Phone: Start: 1945 Sex Assigned At Male [facility] Start: 10-30-2022 Gender identity Identifies as male gender (finding) [facility] Work Phone: Start: 10-30-2022 Sexual orientation Heterosexual (finding) [facility] Work Phone: Start: 05-30-2023 End: 11-17-2024 Exposure to SARS-CoV-2 (event) Not sure [facility] Start: 04-13-2024 Alcohol Comment 1 drink per day [facility] Work Phone: Start: 07-19-2022 Sex Male [facility] Medical Equipment Procedure Code Equipment Code Equipment Origin al Text Equipment Identifier Dates Ashley Vena Cava Filter, Jugular Delivery Kit [id number] Start: 10-06-2018 Comment on above: Description: Ashley Vena Cava Filter, Jugular delivery kit Description: Ashley Vena Cava Filter, Jugular delivery kit- was removed 2018 Functional Status Date Assessment Result Facility 05-16-2025 Patient Health Questionnaire 2 item (PHQ-2) [Reported] [facility] Work Phone: 02-22-2025 Patient Health Questionnaire 2 item (PHQ-2) [Reported] [facility] Work Phone: [facility] Work Phone: NEGATED: Highlighted row Functional performance Functional status health issues are not documented Disease Anticoagulation Monitoring Service-[facility] Work Phone: Mental Status Date Assessment Result Facility 02-09-2025 Cognitive function Voice/Name [facility] Work Phone: NEGATED: Highlighted row Cognitive function [Interpretation] Cognitive status health issues are not documented Disease Anticoagulation Monitoring Service[facility] Phone: Clinical Notes 01-22-2021 to 05-25-2025 Eddy Quintanilla MD - 05/25/2025 11:00 AM EDTAssessment & Plan Note - Russ Rosen MD - 05/16/2025 10:40 AM EDTAssessment & Plan Note - Russ Rosen MD - 05/16/2025 10:40 AM EDT Note Date & Type Note Facility 05-25-2025 History of Present illness Narrative Images from the original note were not included. Facial Plastic & Reconstructive Surgery Referring Provider: Russ Rosen MD CC: Russ Rosen MD Chief complaint: Nasal obstruction. JOHNNIE James is a pleasant 80 y.o. male who presents in consultation for the evaluation of nasal obstruction. The patient reports that he has had resolution of these sxs after starting nasal saline and flonase at the direction of his PCP. No other associated sxs. Site of obstruction: bilateral Previous surgery: Denies Trauma history: in 2020 Allergic rhinitis, sinusitis history: denies Smoking: denies BHAVANA: denies Aesthetic concern: none History obtained from: patient Past Medical History He has a past medical history of Bilateral impacted cerumen (10/06/2022), Cataract (2015), Chest pain at rest (10/06/2022), Contusion of knee, left (10/06/2022), Diverticulitis, DVT (deep venous thrombosis) (Multi), Finger fracture, right (10/06/2022), Finger pain (10/06/2022), Generalized muscle weakness (10/06/2022), HLD (hyperlipidemia), Hypermetropia, Impacted cerumen (11/05/2023), Lumbar strain (10/06/2022), Nasal fracture (10/06/2022), Nasal injury, initial encounter (10/06/2022), Pain of left lower extremity (11/05/2023), Quadriceps strain (10/06/2022), Rectus sheath hematoma (10/06/2022), and Skin tag of anus (10/06/2022). Past Surgical History He has a past surgical history that includes Other surgical history (06/23/2019); Other surgical history (06/23/2019); and Colonoscopy. Social History He reports that he has never smoked. He has never used smokeless tobacco. He reports current alcohol use of about 5.0 standard drinks of alcohol per week. He reports that he does not use drugs. Review of Systems: 11 point ROS was performed. Pertinent positives are for above complaint. All other systems were negative. Family History Family History[1] Allergies Sulfa (sulfonamide antibiotics) and Sulfamethoxazole Physical exam There were no vitals filed for this visit. General: No acute distress or pain Head: Normal cephalic, atraumatic Eyes: EOMI; PERRL; Normal lids, sclera, conjunctiva, and cornea; No epiphora; No nystagmus Ears: Normal pinnae without any external deformities Nose and Sinuses: See Endoscopy procedure note below for findings Oral Cavity: Good dentition; Normal gums, tongue, floor of the mouth, retromolar trigone, buccal mucosa, hard palate are normal; Tonsillar fossae, palate, and uvula are normal without lesions or masses; Symmetric palatal elevation; FOM is soft; Tongue is midline upon protrusion without restriction, and without masses or lesions Neck: Soft, supple; No lymphadenopathy; No thyromegaly or masses Neuro: Cranial nerve 2-12 intact; Alert and oriented x3 Skin: Warm and well perfused; no lesions or rashes Respiratory: Chest symmetric with bilateral expansion Cardiac: No peripheral edema, no varicosities. A comprehensive facial exam was performed with the following highlights: Narrow airway bilaterally. Deep inspiration / Moderate inspiration produces dynamic collapse of the internal and external valves. Modified Cowlitz Maneuver: Performed with a cotton tipped applicator, markedly improves breathing bilaterally. Nasal analysis: Radiographic Studies: A CT scan of the sinuses performed. Outside records reviewed. Pertinent radiology and labs reviewed. Intranasal endoscopic examination performed with limited view on anterior rhinoscopy. Data reviewed: pertinent laboratory results Procedures: Procedure: Rigid diagnostic nasal endoscopy Surgeon: Eddy Quintanilla MD Findings: A 0-degree rigid endoscope was passed through the patient's bilateral naris via a 3 pass maneuver. The first pass was along the floor of the nose to the nasopharynx. The second pass was to the area of the middle meatus. The third pass was to the sphenoethmoidal recess. Septum: Deviation is towards the left caudal with nasal obstruction approximately 75% on the left side/sides, no perforations, synechia. Internal Nasal Valve: Angle is reduced, narrowing the nasal airway bilaterally. Right nasal cavity: Inferior turbinate: 2+ Inferior meatus: Clear, no discharge, no polyps/masses/lesions Middle meatus: Clear, no discharge, no polyps/masses/lesions Left nasal cavity: Inferior turbinate: 2+ Inferior meatus: Clear, no discharge, no polyps/masses/lesions Middle meatus: Clear, no discharge, no polyps/masses/lesions Nasopharynx: Clear, no discharge, no masses/lesions Assessment/Plan: Jennifer James is a pleasant 80 y.o. male presents with significant mechanical nasal obstruction for which he has resolution of sxs. He also reports b/l hearing loss without any associated sxs so recommended audiogram and follow-up with audiology/otology. We discussed the medical necessity of this at length, as well as the risks and limitations of the procedures. All questions were answered. Eddy Quintanilla MD Wheelchair Rental Clerk Division of Facial Plastic & Reconstructive Surgery Department of Otolaryngology - Head and Neck Surgery P: [phone] F: [phone] [1] Family History Problem Relation Name Age of Onset Kidney disease Father Wang James 70 - 79 Cancer Father Wang James 70 - 79 documented in this encounter [facility] Work Phone: 05-16-2025 Evaluation + Plan note Associated Problem(s): Primary hypertension Condition seems well controlled. No change in current treatment. Patient reports no refills are needed today. Make a follow up appointment with mn for recheck in 6 months. [facility] Work Phone: 05-16-2025 Evaluation + Plan note Associated Problem(s): Mixed hyperlipidemia Patient reports no refills are needed today. Condition seems well controlled. No change in current treatment. Make a follow up appointment with me for recheck in 6 months. [facility] Work Phone: 05-16-2025 Evaluation + Plan note Associated Problem(s): Chronic nasal congestion He can continue the Flonase and I am going to refer him to an ENT for further evaluation. He cannot sleep unless he is sitting upright and I wonder if there is some anatomical issues that could be corrected. Orders: Referral to ENT; Future [facility] Work Phone: 05-16-2025 Evaluation + Plan note Associated Problem(s): Nasal septal deviation Orders: Referral to ENT; Future [facility] Work Phone: 05-16-2025 History of Present illness Narrative Jnenifer James is a 80 y.o. male here today for Chief Complaint Patient presents with Hypertension Hyperlipidemia HPI HTN recheck -- Patient denies chest pain, SOB, edema, palpitations on review. Taking medication correctly and denies any side effects. HLD recheck -- Patient taking medications correctly. No SE's of muscle pain or joint pain. No CP, edema, myalgias. He moved to a new house in January with his . Now walking every day 2-3 miles. He was previously having some minor swelling of his lower legs but this has greatly improved and down 8 lbs. Nose chronically congested and interferes with sleep. Has to sleep sitting upright. He is using Flonase nasal spray and it does seem to help. But he still cannot sleep laying flat. He says he does have a history of a deviated septum. Patient Active Problem List Diagnosis Date Noted Primary hypertension 05/06/2024 History of recurrent deep vein thrombosis (DVT) 10/06/2022 Mixed hyperlipidemia 10/06/2022 Nasal septal deviation 05/16/2025 Chronic nasal congestion 11/08/2024 Senile cataract 04/30/2023 PVD (posterior vitreous detachment), left eye 04/30/2023 Meibomian gland dysfunction (MGD) of both eyes 04/30/2023 Hypermetropia 04/30/2023 Anticoagulant long-term use 12/10/2022 Actinic keratosis 10/06/2022 Dermatofibroma 10/06/2022 Diverticulitis 10/06/2022 Erectile dysfunction 10/06/2022 Low calcium levels 10/06/2022 Milia 10/06/2022 Solar lentigo 10/06/2022 Current Outpatient Medications Medication Instructions fluticasone (Flonase) 50 mcg/actuation nasal spray 2 sprays, Each Nostril, Daily, Shake gently. Before first use, prime pump. After use, clean tip and replace cap. losartan (COZAAR) 25 mg, oral, Daily simvastatin (ZOCOR) 20 mg, oral, Daily warfarin (COUMADIN) 5 mg, oral, Every evening Objective Visit Vitals Visit Vitals BP 126/78 Pulse 60 Temp 36.1 C (97 F) Resp 18 Ht 1.778 m (5' 10) Wt 92.5 kg (204 lb) BMI 29.27 kg/m Smoking Status Never BSA 2.14 m Physical Exam General - Not in acute distress and cooperative. Build & Nutrition - Well developed Posture - Normal Gait - Normal Mental Status - alert and oriented x 3 Head - Normocephalic Neck - Thyroid normal size Eyes - Bilateral - Sclera clear and lids pink without edema or mass. Skin - Warm and dry with no rashes on visible skin Lungs - Clear to auscultation and normal breathing effort Cardiovascular - RRR and no murmurs, rubs or thrill. Peripheral Vascular - Bilateral - no edema present Neuropsychiatric - normal mood and affect Assessment & Plan Primary hypertension Condition seems well controlled. No change in current treatment. Patient reports no refills are needed today. Make a follow up appointment with me for recheck in 6 months. Need for vaccination Orders: Flu vaccine, trivalent, preservative free, HIGH-DOSE, age 65y+ (Fluzone) Mixed hyperlipidemia Patient reports no refills are needed today. Condition seems well controlled. No change in current treatment. Make a follow up appointment with me for recheck in 6 months. Chronic nasal congestion He can continue the Flonase and I am going to refer him to an ENT for further evaluation. He cannot sleep unless he is sitting upright and I wonder if there is some anatomical issues that could be corrected. Orders: Referral to ENT; Future Nasal septal deviation Orders: Referral to ENT; Future Orders Placed This Encounter Procedures Flu vaccine, trivalent, preservative free, HIGH-DOSE, age 65y+ (Fluzone) Zoster vaccine, recombinant, adult (SHINGRIX) Referral to ENT documented in this encounter [facility] Work Phone: 05-16-2025 Miscellaneous Notes Associated Problem(s): Primary hypertension Condition seems well controlled. No change in current treatment. Patient reports no refills are needed today. Make a follow up appointment with me for recheck in 6 months. Associated Problem(s): Mixed hyperlipidemia Patient reports no refills are needed today. Condition seems well controlled. No change in current treatment. Make a follow up appointment with me for recheck in 6 months. Associated Problem(s): Chronic nasal congestion He can continue the Flonase and I am going to refer him to an ENT for further evaluation. He cannot sleep unless he is sitting upright and I wonder if there is some anatomical issues that could be corrected. Orders: Referral to ENT; Future Associated Problem(s): Nasal septal deviation Orders: Referral to ENT; Future documented in this encounter [facility] Work Phone: 02-22-2025 Evaluation + Plan note Associated Problem(s): Mixed hyperlipidemia Appropriate labs ordered or reviewed. Orders: Lipid Panel; Future [facility] Work Phone: 02-22-2025 Evaluation + Plan note Associated Problem(s): Primary hypertension Orders: Lipid Panel; Future [facility] Work Phone: 02-22-2025 History of Present illness Narrative History Of Present Illness Jennifer James is a 79 y.o. male presenting for a Medicare Annual Wellness Exam. Patient is here for a periodic health exam. I reviewed previous preventative health measures including screening tests, immunizations and labs. I reviewed screenings administered by my staff today. No current problems or concerns. Left leg with previous h/o DVT's. Seems to be getting some occasional swelling in left lower leg. No pain at all. Very minimal swelling. He is still on coumadin. He says he thinks it may be secondary to increased salt intake and the heat. He does wear knee-high compression stockings every day. PREVIOUS PREVENTATIVE HEALTH Colonoscopy : Yes Date: 04/13/2024 Cologuard : No Prostate cancer screening with PSA : Yes Date: 08/02/2024 Hepatitis C Antibody : Yes 05/08/2018 Prevnar : Yes 02/15/2020 Shingrix : Yes Date: 12/02/2007 Zostavax Tdap within 10 years : Yes 02/06/2021 Yearly Flu Shot : Yes CURRENT FINDINGS Falls : No Problems with ADL's : No Healthy Diet : Yes Exercise : Yes Vision or Hearing Problems : No Depression Issues : No Alcohol Use : Yes on rare occasion Tobacco Use : No Past Medical History Patient Active Problem List Diagnosis Date Noted Primary hypertension 05/06/2024 History of recurrent deep vein thrombosis (DVT) 10/06/2022 Mixed hyperlipidemia 10/06/2022 Chronic nasal congestion 11/08/2024 Senile cataract 04/30/2023 PVD (posterior vitreous detachment), left eye 04/30/2023 Meibomian gland dysfunction (MGD) of both eyes 04/30/2023 Hypermetropia 04/30/2023 Anticoagulant long-term use 12/10/2022 Actinic keratosis 10/06/2022 Dermatofibroma 10/06/2022 Diverticulitis 10/06/2022 Erectile dysfunction 10/06/2022 Low calcium levels 10/06/2022 Milia 10/06/2022 Solar lentigo 10/06/2022 Surgical History[1] Current Outpatient Medications Medication Instructions fluticasone (Flonase) 50 mcg/actuation nasal spray 2 sprays, Each Nostril, Daily, Shake gently. Before first use, prime pump. After use, clean tip and replace cap. losartan (COZAAR) 25 mg, oral, Daily simvastatin (ZOCOR) 20 mg, oral, Daily warfarin (COUMADIN) 5 mg, oral, Every evening Immunization History Administered Date(s) Administered Flu vaccine, trivalent, preservative free, HIGH-DOSE, age 65y+ (Fluzone) 05/06/2024 Influenza, Seasonal, Quadrivalent, Adjuvanted 07/07/2023 Influenza, seasonal, injectable 06/23/2022 Pfizer COVID-19 vaccine, 12 years and older, (30mcg/0.3mL) (Comirnaty) 07/07/2023, 05/17/2024 Pfizer COVID-19 vaccine, bivalent, age 12 years and older (30 mcg/0.3 mL) 06/23/2022 Pfizer Purple Cap SARS-CoV-2 10/19/2020, 11/17/2020, 05/23/2021 Pneumococcal conjugate vaccine, 13-valent (PREVNAR 13) 06/20/2016 Pneumococcal polysaccharide vaccine, 23-valent, age 2 years and older (PNEUMOVAX 23) 12/02/2007, 02/15/2020 SARS-CoV-2, Unspecified 01/09/2022 Tdap vaccine, age 7 year and older (BOOSTRIX, ADACEL) 03/02/2013, 02/06/2021 Zoster, live 12/02/2007 Social History Social History Socioeconomic History Marital status: Spouse name: Not on file Number of children: Not on file Years of education: Not on file Highest education level: Not on file Occupational History Not on file Tobacco Use Smoking status: Never Smokeless tobacco: Never Vaping Use Vaping status: Never Used Substance and Sexual Activity Alcohol use: Yes Comment: 1 drink per day Drug use: Never Sexual activity: Not on file Other Topics Concern Not on file Social History Narrative Not on file Social Drivers of Health Financial Resource Strain: Not on file Food Insecurity: Not on file Transportation Needs: Not on file Physical Activity: Not on file Stress: Not on file Social Connections: Not on file Intimate Partner Violence: Not on file Housing Stability: Not on file reports current alcohol use. reports that he has never smoked. He has never used smokeless tobacco. reports no history of drug use. Allergies Sulfa (sulfonamide antibiotics) and Sulfamethoxazole Physical Exam Visit Vitals BP 124/78 Pulse 84 Temp 36.1 C (97 F) Resp 18 Ht 1.778 m (5' 10) Wt 96.2 kg (212 lb) BMI 30.42 kg/m Smoking Status Never BSA 2.18 m Body mass index is 30.42 kg/m . Physical Exam Vitals and nursing note reviewed. Constitutional: General: He is not in acute distress. Appearance: Normal appearance. HENT: Head: Normocephalic and atraumatic. Right Ear: Tympanic membrane, ear canal and external ear normal. Left Ear: Tympanic membrane, ear canal and external ear normal. Nose: Nose normal. Mouth/Throat: Mouth: Mucous membranes are moist. Pharynx: Oropharynx is clear. Eyes: Extraocular Movements: Extraocular movements intact. Conjunctiva/sclera: Conjunctivae normal. Pupils: Pupils are equal, round, and reactive to light. Cardiovascular: Rate and Rhythm: Normal rate and regular rhythm. Pulses: Normal pulses. Heart sounds: Normal heart sounds. No murmur heard. No friction rub. No gallop. Pulmonary: Effort: Pulmonary effort is normal. No respiratory distress. Breath sounds: Normal breath sounds. Abdominal: General: Abdomen is flat. Bowel sounds are normal. There is no distension. Palpations: Abdomen is soft. Tenderness: There is no abdominal tenderness. Musculoskeletal: General: Normal range of motion. Cervical back: Normal range of motion and neck supple. Lymphadenopathy: Cervical: No cervical adenopathy. Skin: General: Skin is warm and dry. Findings: No lesion or rash. Neurological: General: No focal deficit present. Mental Status: He is alert. Mental status is at baseline. Psychiatric: Mood and Affect: Mood normal. Behavior: Behavior normal. Thought Content: Thought content normal. Judgment: Judgment normal. Assessment Assessment & Plan Routine general medical examination at health care facility Appropriate labs ordered or reviewed. He is having very minimal swelling in his left leg as above. No evidence of a DVT or other dangerous etiology. I recommend that he decrease his sodium intake and try to keep his legs elevated throughout the day. He should continue to wear the knee-high compression stockings as previous. If this does not seem to be improving over time or if he develops new symptoms he should call me right away for further advice. Orders: 1 Year Follow Up In [facility] - PCP - Wellness Exam 1 Year Follow Up In [facility] - PCP - Wellness Exam; Future Mixed hyperlipidemia Appropriate labs ordered or reviewed. Orders: Lipid Panel; Future Primary hypertension Orders: Lipid Panel; Future Screening for prostate cancer Orders: PSA screen; Future I recommend regular exercise, balanced diet, regular dental exams, and healthy habits. Patient denies depression sxs. Patient is able to perform all ADL's without assistance. I reminded patient to get yearly eye exams with glaucoma screening. I recommend to eat plenty of plant foods (such as whole-grain products, fruits, and vegetables) and a moderate amount of lean and low-fat, animal-based food (meat and dairy products). When shopping, choose lean meats, fish, and poultry. I recommend to try to get regular aerobic exercise. I recommend a yearly flu shot in the fall and I recommend a yearly wellness exam. Orders Placed This Encounter Procedures Lipid Panel PSA screen No orders of the defined types were placed in this encounter. MD Russ Perez MD [1] Past Surgical History: Procedure Laterality Date COLONOSCOPY OTHER SURGICAL HISTORY 06/23/2019 Varicose vein ligation OTHER SURGICAL HISTORY 06/23/2019 Facial surgery documented in this encounter [facility] Work Phone: 02-22-2025 Miscellaneous Notes Associated Problem(s): Mixed hyperlipidemia Appropriate labs ordered or reviewed. Orders: Lipid Panel; Future Associated Problem(s): Primary hypertension Orders: Lipid Panel; Future documented in this encounter [facility] Work Phone: 02-09-2025 Radiology Diagnostic study note [facility] Imaging Services [address] [place] [address] Chest 1 View (Portable) MR#: [id number] Acct: [id number] Name: JENNIFER JAMES Rep #: [id number] : 1945 M 79 From: Kary Castaneda MD PCP: Status: REG ER Study:Chest 1 View (Portable) Date of Exam: 02/09/25 Exam# [id number] Ordering Dr: Patricio Gutierrez DO PROCEDURE: CHEST 1 VIEW (PORTABLE) 02/09/2025 REASON FOR EXAM: CHEST PAIN TECHNIQUE: Frontal view of the chest. COMPARISON: None. FINDINGS: Mild bilateral basilar atelectatic pulmonary changes. There is no demonstrated pleural abnormality. Enlarged cardiac silhouette. Normal mediastinum and jaime. Normal visualized pulmonary arteries. Atheromatous plaques of the visualized aortic arch and descending thoracic aorta. Diffuse spondylosis of the visualized thoracic spine. Normal visualized ribs, clavicles. Degenerative joint disease. There is no demonstrated abnormality of the visualized soft tissue structures ofthe upper abdomen. RAD/Chest 1 View (Portable) IMPRESSION: Mild bilateral basilar atelectatic pulmonary changes. Reading Location: [place] [address] CC: Dr. Patricio Gutierrez DO ~ Leaf Binner: Signed [facility] 11-17-2024 History of Present illness Narrative Patient ID: Jennifer James is a 79 y.o. male. Referring Physician: Lashawn Malik APRN-SENIOR CHEMICAL ENGINEER, DNP [address] [place] [address] Primary Care Provider: Russ Rosen MD Visit Type: Follow Up Subjective Yearly Follow up visit for patient on lifelong anticoagulation. Patient previously seen by Zi Winston DO Patient seen 09/23/18 for history of unprovoked, proximal LLE DVT 12/2008 with negative hypercoag. panel, 01/2012 off Coumadin clotted again in 2019 while on Xarelto with 100% compliance per patient. Lovenox was initiated along with Coumadin load. Patient readmitted for atraumatic right rectus sheath hematoma with significant pain. 10/06/18- IVC filter placed and anticoagulation was held. Pain improved and hemorrhage resolve. Patient is doing well back on Coumadin with no bleeding or bruising. He is managed by the coumadin clinic and is compliant with his dosing. PMHx and PSHx unchanged. IVC filter was removed and patient doing well. On lifelong warfarin per coumadin clinic. Has done well with this. No new bruising or bleeding noted. No new medications or issues since his last visit 1 year ago. Review of Systems: System Review All Systems: Negative 10 point review of systems negative except as stated in HPI Objective BSA: 2.16 meters squared BP 145/80 Pulse 65 Temp 35.9 C (96.6 F) (Core) Resp 18 Wt 94.8 kg (208 lb 15.9 oz) SpO2 90% BMI 29.99 kg/m has a past medical history of Bilateral impacted cerumen (10/06/2022), Chest pain at rest (10/06/2022), Contusion of knee, left (10/06/2022), Diverticulitis, DVT (deep venous thrombosis) (Multi), Finger fracture, right (10/06/2022), Finger pain (10/06/2022), Generalized muscle weakness (10/06/2022), HLD (hyperlipidemia), Hypermetropia, Impacted cerumen (11/05/2023), Lumbar strain (10/06/2022), Nasal fracture (10/06/2022), Nasal injury, initial encounter (10/06/2022), Pain of left lower extremity (11/05/2023), Quadriceps strain (10/06/2022), Rectus sheath hematoma (10/06/2022), and Skin tag of anus (10/06/2022). has a past surgical history that includes Other surgical history (06/23/2019); Other surgical history (06/23/2019); and Colonoscopy. No family history on file. Oncology History No history exists. Jennifer James reports that he has never smoked. He has never used smokeless tobacco. He reports current alcohol use. He reports no history of drug use. Physical Exam HENT: Head: Normocephalic. Nose: Nose normal. Mouth/Throat: Mouth: Mucous membranes are moist. Eyes: Pupils: Pupils are equal, round, and reactive to light. Cardiovascular: Rate and Rhythm: Normal rate and regular rhythm. Pulses: Normal pulses. Heart sounds: Normal heart sounds. Pulmonary: Effort: Pulmonary effort is normal. Breath sounds: Normal breath sounds. Abdominal: General: Bowel sounds are normal. Palpations: Abdomen is soft. Musculoskeletal: General: Normal range of motion. Skin: General: Skin is warm and dry. Neurological: General: No focal deficit present. Mental Status: He is alert and oriented to person, place, and time. Psychiatric: Mood and Affect: Mood normal. Behavior: Behavior normal. WBC Date/Time Value Ref Range Status 11/16/2024 12:27 PM 6.6 4.4 - 11.3 x10*3/uL Final 08/02/2024 07:25 AM 6.4 4.4 - 11.3 x10*3/uL Final 10/16/2022 12:22 PM 5.3 4.4 - 11.3 x10E9/L Final 05/13/2022 10:20 AM 4.7 4.4 - 11.3 x10E9/L Final 04/05/2022 08:54 AM 7.2 4.4 - 11.3 x10E9/L Final nRBC Date Value Ref Range Status 11/16/2024 0.0 0.0 - 0.0 /100 WBCs Final 08/02/2024 0.0 0.0 - 0.0 /100 WBCs Final 05/13/2022 0.0 0.0 - 0.0 /100 WBC Final RBC Date Value Ref Range Status 11/16/2024 4.69 4.50 - 5.90 x10*6/uL Final 08/02/2024 5.04 4.50 - 5.90 x10*6/uL Final 10/16/2022 5.06 4.50 - 5.90 x10E12/L Final 05/13/2022 4.61 4.50 - 5.90 x10E12/L Final 04/05/2022 4.46 (L) 4.50 - 5.90 x10E12/L Final Hemoglobin Date Value Ref Range Status 11/16/2024 14.8 13.5 - 17.5 g/dL Final 08/02/2024 16.0 13.5 - 17.5 g/dL Final 10/16/2022 16.2 13.5 - 17.5 g/dL Final 05/13/2022 14.9 13.5 - 17.5 g/dL Final 04/05/2022 14.7 13.5 - 17.5 g/dL Final Hematocrit Date Value Ref Range Status 11/16/2024 47.1 41.0 - 52.0 % Final 08/02/2024 48.7 41.0 - 52.0 % Final 10/16/2022 49.8 41.0 - 52.0 % Final 05/13/2022 47.7 41.0 - 52.0 % Final 04/05/2022 44.2 41.0 - 52.0 % Final MCV Date/Time Value Ref Range Status 11/16/2024 12:27 PM 100 80 - 100 fL Final 08/02/2024 07:25 AM 97 80 - 100 fL Final 10/16/2022 12:22 PM 98 80 - 100 fL Final 05/13/2022 10:20 AM 103 (H) 80 - 100 fL Final 04/05/2022 08:54 AM 99 80 - 100 fL Final MCH Date/Time Value Ref Range Status 11/16/2024 12:27 PM 31.6 26.0 - 34.0 pg Final 08/02/2024 07:25 AM 31.7 26.0 - 34.0 pg Final MCHC Date/Time Value Ref Range Status 11/16/2024 12:27 PM 31.4 (L) 32.0 - 36.0 g/dL Final 08/02/2024 07:25 AM 32.9 32.0 - 36.0 g/dL Final 10/16/2022 12:22 PM 32.5 32.0 - 36.0 g/dL Final 05/13/2022 10:20 AM 31.2 (L) 32.0 - 36.0 g/dL Final 04/05/2022 08:54 AM 33.3 32.0 - 36.0 g/dL Final RDW Date/Time Value Ref Range Status 11/16/2024 12:27 PM 13.2 11.5 - 14.5 % Final 08/02/2024 07:25 AM 13.1 11.5 - 14.5 % Final 10/16/2022 12:22 PM 12.6 11.5 - 14.5 % Final 05/13/2022 10:20 AM 13.1 11.5 - 14.5 % Final 04/05/2022 08:54 AM 13.1 11.5 - 14.5 % Final Platelets Date/Time Value Ref Range Status 11/16/2024 12:27 PM 281 150 - 450 x10*3/uL Final 08/02/2024 07:25 AM 201 150 - 450 x10*3/uL Final 10/16/2022 12:22 PM 162 150 - 450 x10E9/L Final 05/13/2022 10:20 AM 173 150 - 450 x10E9/L Final 04/05/2022 08:54 AM 175 150 - 450 x10E9/L Final No results found for: MPV Neutrophils % Date/Time Value Ref Range Status 11/16/2024 12:27 PM 61.9 40.0 - 80.0 % Final 10/16/2022 12:22 PM 58.4 40.0 - 80.0 % Final 04/04/2022 09:57 PM 69.9 40.0 - 80.0 % Final 02/08/2021 11:00 PM 67.4 40.0 - 80.0 % Final Immature Granulocytes %, Automated Date/Time Value Ref Range Status 11/16/2024 12:27 PM 0.5 0.0 - 0.9 % Final Comment: Immature Granulocyte Count (IG) includes promyelocytes, myelocytes and metamyelocytes but does not include bands. Percent differential counts (%) should be interpreted in the context of the absolute cell counts (cells/UL). 10/16/2022 12:22 PM 0.2 0.0 - 0.9 % Final Comment: Immature Granulocyte Count (IG) includes promyelocytes, myelocytes and metamyelocytes but does not include bands. Percent differential counts (%) should be interpreted in the context of the absolute cell counts (cells/L). 04/04/2022 09:57 PM 0.2 0.0 - 0.9 % Final Comment: Immature Granulocyte Count (IG) includes promyelocytes, myelocytes and metamyelocytes but does not include bands. Percent differential counts (%) should be interpreted in the context of the absolute cell counts (cells/L). 02/08/2021 11:00 PM 0.2 0.0 - 0.9 % Final Comment: Immature Granulocyte Count (IG) includes promyelocytes, myelocytes and metamyelocytes but does not include bands. Percent differential counts (%) should be interpreted in the context of the absolute cell counts (cells/L). Lymphocytes % Date/Time Value Ref Range Status 11/16/2024 12:27 PM 25.3 13.0 - 44.0 % Final 10/16/2022 12:22 PM 27.8 13.0 - 44.0 % Final 04/04/2022 09:57 PM 19.7 13.0 - 44.0 % Final 02/08/2021 11:00 PM 20.0 13.0 - 44.0 % Final Monocytes % Date/Time Value Ref Range Status 11/16/2024 12:27 PM 9.2 2.0 - 10.0 % Final 10/16/2022 12:22 PM 9.6 2.0 - 10.0 % Final 04/04/2022 09:57 PM 7.0 2.0 - 10.0 % Final 02/08/2021 11:00 PM 8.4 2.0 - 10.0 % Final Eosinophils % Date/Time Value Ref Range Status 11/16/2024 12:27 PM 2.3 0.0 - 6.0 % Final 10/16/2022 12:22 PM 3.4 0.0 - 6.0 % Final 04/04/2022 09:57 PM 2.6 0.0 - 6.0 % Final 02/08/2021 11:00 PM 3.5 0.0 - 6.0 % Final Basophils % Date/Time Value Ref Range Status 11/16/2024 12:27 PM 0.8 0.0 - 2.0 % Final 10/16/2022 12:22 PM 0.6 0.0 - 2.0 % Final 04/04/2022 09:57 PM 0.6 0.0 - 2.0 % Final 02/08/2021 11:00 PM 0.5 0.0 - 2.0 % Final Neutrophils Absolute Date/Time Value Ref Range Status 11/16/2024 12:27 PM 4.09 1.60 - 5.50 x10*3/uL Final Comment: Percent differential counts (%) should be interpreted in the context of the absolute cell counts (cells/uL). 10/16/2022 12:22 PM 3.12 1.60 - 5.50 x10E9/L Final Comment: Percent differential counts (%) should be interpreted in the context of the absolute cell counts (cells/L). 04/04/2022 09:57 PM 6.24 (H) 1.60 - 5.50 x10E9/L Final 02/08/2021 11:00 PM 4.02 1.60 - 5.50 x10E9/L Final Immature Granulocytes Absolute, Automated Date/Time Value Ref Range Status 11/16/2024 12:27 PM 0.03 0.00 - 0.50 x10*3/uL Final Lymphocytes Absolute Date/Time Value Ref Range Status 11/16/2024 12:27 PM 1.67 0.80 - 3.00 x10*3/uL Final 10/16/2022 12:22 PM 1.48 0.80 - 3.00 x10E9/L Final 04/04/2022 09:57 PM 1.76 0.80 - 3.00 x10E9/L Final 02/08/2021 11:00 PM 1.19 0.80 - 3.00 x10E9/L Final Monocytes Absolute Date/Time Value Ref Range Status 11/16/2024 12:27 PM 0.61 0.05 - 0.80 x10*3/uL Final 10/16/2022 12:22 PM 0.51 0.05 - 0.80 x10E9/L Final 04/04/2022 09:57 PM 0.62 0.05 - 0.80 x10E9/L Final 02/08/2021 11:00 PM 0.50 0.05 - 0.80 x10E9/L Final Eosinophils Absolute Date/Time Value Ref Range Status 11/16/2024 12:27 PM 0.15 0.00 - 0.40 x10*3/uL Final 10/16/2022 12:22 PM 0.18 0.00 - 0.40 x10E9/L Final 04/04/2022 09:57 PM 0.23 0.00 - 0.40 x10E9/L Final 02/08/2021 11:00 PM 0.21 0.00 - 0.40 x10E9/L Final Basophils Absolute Date/Time Value Ref Range Status 11/16/2024 12:27 PM 0.05 0.00 - 0.10 x10*3/uL Final 10/16/2022 12:22 PM 0.03 0.00 - 0.10 x10E9/L Final 04/04/2022 09:57 PM 0.05 0.00 - 0.10 x10E9/L Final 02/08/2021 11:00 PM 0.03 0.00 - 0.10 x10E9/L Final Assessment/Plan Recurrent, unprovoked, proximal DVT's LLE with negative hypercoag. panel placed on Lovenox while loading Coumadin. Readmit for atraumatic right rectus sheath hematoma s/p IVC filter placement and anticoagulation held. Patient improved and Lovenox resumed without gross hemorrhage appreciated. 06/15/2020- patient asymptomatic on Coumadin. No new issues. Since he clotted on Xarelto, we recommend lifelong anticoagulation with coumadin. The patient is in agreement with the following plan: 1. Will continue Coumadin paper steamer. Bleeding precautions reviewed in detail. 2. -Avoid NSAIDs and ASA while on blood thinners as they affect platelet activity and increase risk of bleeding -Use tylenol preferably for pain -Avoid contact sports -Avoid high speed rides at amusement [place] like [place] -Call or visit closest ER with any persistent headaches, visual disturbances, weakness, numbness, severe bleeding/bruising or any concerning signs or symptoms. -May need to wear a medical alert bracelet stating the use of anticoagulants. -To call and schedule appt with one of our physicians for pre-operative clearance and recommendations at least 1 month before any invasive procedures/surgeries 3. Next exam in 12 months. I had an extensive discussion with the patient regarding the diagnosis and discussed the plan of therapy, including general considerations regarding side effects and outcomes. Pt understood and gave appropriate teach back about the plan of care. All questions were answered to the patient's satisfaction. The patient is instructed to contact us at any time if questions or problems arise. Thank you for the opportunity to participate in the care of this very pleasant patient. Total time = 30 mins, of which >50% was spent in counseling and/or coordination of care including reviewing medical history/radiology/labs, examining patient, formulating outlined plan with team, and discussing plan with patient/family. Problem List Items Addressed This Visit ICD-10-CM Anticoagulant long-term use Z79.01 Relevant Medications folic acid (Folvite) 1 mg tablet Other Relevant Orders Clinic Appointment Request Follow up History of recurrent deep vein thrombosis (DVT) Z86.718 Relevant Medications warfarin (Coumadin) 5 mg tablet folic acid (Folvite) 1 mg tablet Other Relevant Orders Clinic Appointment Request Follow up MARY Hernandez DNP documented in this encounter [facility] Work Phone: 11-08-2024 Evaluation + Plan note Associated Problem(s): Primary hypertension Condition well controlled. No change in current treatment regimen. Refill given of current medication. Appropriate labs ordered or reviewed. Make a follow up appointment with me for recheck in 6 months. Orders: losartan (Cozaar) 25 mg tablet; Take 1 tablet (25 mg) by mouth once daily. [facility] Work Phone: 11-08-2024 Evaluation + Plan note Associated Problem(s): Chronic nasal congestion I suspect he may have vasomotor rhinitis and we will try fluticasone nasal spray once daily. His symptoms do not seem allergic in origin by his history so he can discontinue the Claritin since it does not seem to be helping. Orders: fluticasone (Flonase) 50 mcg/actuation nasal spray; Administer 2 sprays into each nostril once daily. Shake gently. Before first use, prime pump. After use, clean tip and replace cap. [facility] Work Phone: 11-08-2024 Evaluation + Plan note Associated Problem(s): Mixed hyperlipidemia Patient reports no refills are needed today. Appropriate labs ordered or reviewed. No change in current treatment regimen. [facility] Work Phone: 11-08-2024 History of Present illness Narrative Jennifer James is a 79 y.o. male here today for refills, will call when needed. Chief Complaint Patient presents with Hyperlipidemia Hypertension HPI HLD recheck -- Patient taking medications correctly. No SE's of muscle pain or joint pain. No CP, edema, myalgias. HTN recheck -- Patient denies chest pain, SOB, edema, palpitations on review. Taking medication correctly and denies any side effects. I dxed with this at his last visit in April and started Losartan. Home readings are usually good now - 130/80's consistently. No problems or SE's at all. Taking claritin nightly to help with allergy sxs. No seasonal. Really only over the last few years. No new allergens or pets. Only with nasal congestion at night. No sneezing or watery eyes. He says that the Claritin does not seem to help at all. He does not have any symptoms throughout the day. Current Outpatient Medications: simvastatin (Zocor) 20 mg tablet, TAKE 1 TABLET DAILY, Disp: 90 tablet, Rfl: 1 fluticasone (Flonase) 50 mcg/actuation nasal spray, Administer 2 sprays into each nostril once daily. Shake gently. Before first use, prime pump. 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 Physical Exam General - Not in acute distress and cooperative. Build & Nutrition - Well developed Posture - Normal Gait - Normal Mental Status - alert and oriented x 3 Head - Normocephalic Neck - Thyroid normal size Eyes - Bilateral - Sclera clear and lids pink without edema or mass. Skin - Warm and dry with no rashes on visible skin Lungs - Clear to auscultation and normal breathing effort Cardiovascular - RRR and no murmurs, rubs or thrill. Peripheral Vascular - Bilateral - no edema present Neuropsychiatric - normal mood and affect Assessment & Plan Primary hypertension Condition well controlled. No change in current treatment regimen. Refill given of current medication. Appropriate labs ordered or reviewed. Make a follow up appointment with me for recheck in 6 months. Orders: losartan (Cozaar) 25 mg tablet; Take 1 tablet (25 mg) by mouth once daily. Chronic nasal congestion I suspect he may have vasomotor rhinitis and we will try fluticasone nasal spray once daily. His symptoms do not seem allergic in origin by his history so he can discontinue the Claritin since it does not seem to be helping. Orders: fluticasone (Flonase) 50 mcg/actuation nasal spray; Administer 2 sprays into each nostril once daily. Shake gently. Before first use, prime pump. After use, clean tip and replace cap. Mixed hyperlipidemia Patient reports no refills are needed today. Appropriate labs ordered or reviewed. No change in current treatment regimen. Orders Placed This Encounter fluticasone (Flonase) 50 mcg/actuation nasal spray losartan (Cozaar) 25 mg tablet No orders of the defined types were placed in this encounter. New Medications Ordered This Visit Medications fluticasone (Flonase) 50 mcg/actuation nasal spray Sig: Administer 2 sprays into each nostril once daily. Shake gently. Before first use, prime pump. After use, clean tip and replace cap. Dispense: 48 g Refill: 1 losartan (Cozaar) 25 mg tablet Sig: Take 1 tablet (25 mg) by mouth once daily. Dispense: 90 tablet Refill: 1 documented in this encounter [facility] Work Phone: 11-08-2024 Miscellaneous Notes Associated Problem(s): Primary hypertension Condition well controlled. No change in current treatment regimen. Refill given of current medication. Appropriate labs ordered or reviewed. Make a follow up appointment with me for recheck in 6 months. Orders: losartan (Cozaar) 25 mg tablet; Take 1 tablet (25 mg) by mouth once daily. Associated Problem(s): Chronic nasal congestion I suspect he may have vasomotor rhinitis and we will try fluticasone nasal spray once daily. His symptoms do not seem allergic in origin by his history so he can discontinue the Claritin since it does not seem to be helping. Orders: fluticasone (Flonase) 50 mcg/actuation nasal spray; Administer 2 sprays into each nostril once daily. Shake gently. Before first use, prime pump. After use, clean tip and replace cap. Associated Problem(s): Mixed hyperlipidemia Patient reports no refills are needed today. Appropriate labs ordered or reviewed. No change in current treatment regimen. documented in this encounter [facility] Work Phone: 05-06-2024 History of Present illness Narrative Jennifer James is a 79 y.o. male here today for Chief Complaint Patient presents with Hyperlipidemia Hyperlipidemia This is a chronic problem. The current episode started more than 1 year ago. HLD recheck -- Patient taking medications correctly. No SE's of muscle pain or joint pain. No CP, edema, myalgias. Has an order for labs. BP at home has continued to run a little high on the systolic side. It ranges from 140s to 150s. Diastolic blood pressure has been consistently good. He does have a history of some elevated blood pressures over time but has never been diagnosed with hypertension and has never been on a blood pressure medication. History of DVT-he is still taking Coumadin and this is managed by the Coumadin clinic. Current Outpatient Medications: sildenafil (Viagra) 100 mg tablet, Take by mouth if needed., Disp: , Rfl: simvastatin (Zocor) 20 mg tablet, TAKE 1 TABLET DAILY, Disp: 90 tablet, Rfl: 3 warfarin (Coumadin) 5 mg tablet, Take 1 tablet (5 mg) by mouth once daily in the evening., Disp: 90 tablet, Rfl: 3 losartan (Cozaar) 25 mg tablet, Take 1 tablet (25 mg) by mouth once daily., Disp: 30 tablet, Rfl: 6 Patient Active Problem List Diagnosis Actinic keratosis Dermatofibroma Diverticulitis Erectile dysfunction History of recurrent deep vein thrombosis (DVT) Mixed hyperlipidemia Low calcium levels Milia Solar lentigo Anticoagulant long-term use Senile cataract PVD (posterior vitreous detachment), left eye 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 Received: 04/13/2024 1035 Pathologist: Mckayla Grande MD PhD Specimen: COLON -CECUM POLYP, Cold Snare x2 FINAL DIAGNOSIS A. COLON -CECUM POLYP: -Tubular adenoma By the signature on this report, the individual or group listed as making the Final Interpretation/Diagnosis certifies that they have reviewed this case. Gross Description A: Received in formalin, labeled with the patient's name and hospital number and 1, cecum polyp, cold snare x 2, are multiple fragments of marrero, soft tissue aggregating to 1.8 x 0.9 x 0.6 cm. The specimen is submitted in toto in one cassette. [facility] POCT INR manually resulted Collection Time: 04/15/24 12:00 AM Result Value Ref Range POC INR 1.20 Normal Range: .9-1.1 POC Prothrombin Time Normal Range: 9.3 - 12.5 POCT INR manually resulted Collection Time: 04/18/24 7:11 AM Result Value Ref Range POC INR 1.50 Normal Range: .9-1.1 POC Prothrombin Time Normal Range: 9.3 - 12.5 POCT INR manually resulted Collection Time: 04/20/24 7:07 AM Result Value Ref Range POC INR 1.80 Normal Range: .9-1.1 POC Prothrombin Time Normal Range: 9.3 - 12.5 POCT INR manually resulted Collection Time: 04/22/24 12:00 AM Result Value Ref Range POC INR 1.70 Normal Range: .9-1.1 POC Prothrombin Time Normal Range: 9.3 - 12.5 POCT INR manually resulted Collection Time: 04/26/24 9:23 AM Result Value Ref Range POC INR 2.00 Normal Range: .9-1.1 POC Prothrombin Time Normal Range: 9.3 - 12.5 POCT INR manually resulted Collection Time: 05/03/24 7:51 AM Result Value Ref Range POC INR 3.40 Normal Range: .9-1.1 POC Prothrombin Time Normal Range: 9.3 - 12.5 Objective Visit Vitals Visit Vitals BP 138/86 Pulse 82 Temp 36.7 C (98 F) Resp 18 Ht 1.778 m (5' 10) Wt 92.1 kg (203 lb) BMI 29.13 kg/m Smoking Status Never BSA 2.13 m Body mass index is 29.13 kg/m . Physical Exam General - Not in acute distress and cooperative. Build & Nutrition - Well developed Posture - Normal Gait - Normal Mental Status - alert and oriented x 3 Head - Normocephalic Neck - Thyroid normal size Eyes - Bilateral - Sclera clear and lids pink without edema or mass. Skin - Warm and dry with no rashes on visible skin Lungs - Clear to auscultation and normal breathing effort Cardiovascular - RRR and no murmurs, rubs or thrill. Peripheral Vascular - Bilateral - no edema present Neuropsychiatric - normal mood and affect Assessment 1. Primary hypertension losartan (Cozaar) 25 mg tablet The patient meets the criteria for diagnosis of hypertension. We discussed causes, diagnosis, possible treatment options for hypertension. Much education offered on how to lower BP without medications. Discussed the role of Na, weight and exercise in regard to blood pressure control. We are going to start a low-dose of losartan 25 mg daily. He can take this in the evening with his cholesterol medication. I told him to check his blood pressure 3-4 times per week and record it and call my office in 1 month with the readings so we can make sure that it is well-controlled. [place] I am not going to set up a follow-up until we see how his blood pressure readings are in 1 month. 2. Mixed hyperlipidemia Appropriate labs ordered or reviewed. Condition seems well controlled. No change in current treatment. 3. History of recurrent deep vein thrombosis (DVT) Condition seems well controlled. No change in current treatment. Orders Placed This Encounter losartan (Cozaar) 25 mg tablet Orders Placed This Encounter Procedures Flu vaccine, trivalent, preservative free, HIGH-DOSE, age 65y+ (Fluzone) New Medications Ordered This Visit Medications losartan (Cozaar) 25 mg tablet Sig: Take 1 tablet (25 mg) by mouth once daily. Dispense: 30 tablet Refill: 6 documented in this encounter [facility] Work Phone: 04-13-2024 Note Formatting of this n ote might be different from the original. Patient dressed with assistance. IV removed with catheter tip intact, discharge instructions reviewed with patient and family and questions answered. Discharged home and transported to [facility] via wheelchair with all belongings. [facility] 04-13-2024 Note Formatting of this n ote might be different from the original. Patient dressed with assistance. IV removed with catheter tip intact, discharge instructions reviewed with patient and family and questions answered. Discharged home and transported to [facility] via wheelchair with all belongings. [facility] 04-13-2024 Miscellaneous Notes Patient dressed with assistance. IV removed with catheter tip intact, discharge instructions reviewed with patient and family and questions answered. Discharged home and transported to [facility] via wheelchair with all belongings. Patient dressed with assistance from spouse Arrived to post endo from procedural room, patient is lethargic, on room air, with no complaints of pain or nausea documented in this encounter [facility] Work Phone: 04-13-2024 Miscellaneous Notes Patient dressed with assistance. IV removed with catheter tip intact, discharge instructions reviewed with patient and family and questions answered. Discharged home and transported to [facility] via wheelchair with all belongings. Patient dressed with assistance from spouse Arrived to post endo from procedural room, patient is lethargic, on room air, with no complaints of pain or nausea documented in this encounter [facility] Work Phone: 04-13-2024 Note Formatting of this n ote might be different from the original. Patient dressed with assistance from spouse [facility] Work Phone: 04-13-2024 Note Formatting of this n ote might be different from the original. Patient dressed with assistance from spouse [facility] Work Phone: 04-13-2024 Note Formatting of this n ote might be different from the original. Arrived to post endo from procedural room, patient is lethargic, on room air, with no complaints of pain or nausea [facility] Work Phone: 04-13-2024 Note Formatting of this n ote might be different from the original. Arrived to post endo from procedural room, patient is lethargic, on room air, with no complaints of pain or nausea [facility] Work Phone: 04-13-2024 History and physical note History Of Present Illness Jennifer James is a 79 y.o. male presenting with history of polyps. Past Medical History Past Medical History: Diagnosis Date Bilateral impacted cerumen 10/06/2022 Chest pain at rest 10/06/2022 Contusion of knee, left 10/06/2022 Diverticulitis DVT (deep venous thrombosis) (Multi) Finger fracture, right 10/06/2022 Finger pain 10/06/2022 Generalized muscle weakness 10/06/2022 HLD (hyperlipidemia) Hypermetropia Impacted cerumen 11/05/2023 Lumbar strain 10/06/2022 Nasal fracture 10/06/2022 Nasal injury, initial encounter 10/06/2022 Pain of left lower extremity 11/05/2023 Quadriceps strain 10/06/2022 Rectus sheath hematoma 10/06/2022 Skin tag of anus 10/06/2022 Surgical History Past Surgical History: Procedure Laterality Date OTHER SURGICAL HISTORY 06/23/2019 Varicose vein ligation OTHER SURGICAL HISTORY 06/23/2019 Facial surgery Social History He reports that he has never smoked. He has never used smokeless tobacco. He reports current alcohol use. He reports that he does not use drugs. Family History No family history on file. Allergies Allergies Allergen Reactions Sulfa (Sulfonamide Antibiotics) Anaphylaxis Sulfamethoxazole Anaphylaxis and Unknown Review of Systems Pre-sedation Evaluation: ASA Classification - ASA 2 - Patient with mild systemic disease with no functional limitations Mallampati Score - II (hard and soft palate, upper portion of tonsils and uvula visible) Physical Exam Vitals reviewed. Constitutional: Appearance: Normal appearance. Cardiovascular: Rate and Rhythm: Normal rate and regular rhythm. Pulmonary: Effort: Pulmonary effort is normal. Breath sounds: Normal breath sounds. Neurological: Mental Status: He is alert. Last Recorded Vitals There were no vitals taken for this visit. 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 For bridging warfarin prior to colonoscopy. 10 each 1 simvastatin (Zocor) 20 mg tablet TAKE 1 TABLET DAILY 90 tablet 3 warfarin (Coumadin) 5 mg tablet Take 1 tablet (5 mg) by mouth once daily in the evening. 90 tablet 3 sildenafil (Viagra) 100 mg tablet Take by mouth if needed. Current Facility-Administered Medications Medication Dose Route Frequency Provider Last Rate Last Admin lactated Ringer's infusion 20 mL/hr intravenous Continuous MD Casey Mead MD [facility] Work Phone: 04-13-2024 History and physical note History Of Present Illness Jennifer James is a 79 y.o. male presenting with history of polyps. Past Medical History Past Medical History: Diagnosis Date Bilateral impacted cerumen 10/06/2022 Chest pain at rest 10/06/2022 Contusion of knee, left 10/06/2022 Diverticulitis DVT (deep venous thrombosis) (Multi) Finger fracture, right 10/06/2022 Finger pain 10/06/2022 Generalized muscle weakness 10/06/2022 HLD (hyperlipidemia) Hypermetropia Impacted cerumen 11/05/2023 Lumbar strain 10/06/2022 Nasal fracture 10/06/2022 Nasal injury, initial encounter 10/06/2022 Pain of left lower extremity 11/05/2023 Quadriceps strain 10/06/2022 Rectus sheath hematoma 10/06/2022 Skin tag of anus 10/06/2022 Surgical History Past Surgical History: Procedure Laterality Date OTHER SURGICAL HISTORY 06/23/2019 Varicose vein ligation OTHER SURGICAL HISTORY 06/23/2019 Facial surgery Social History He reports that he has never smoked. He has never used smokeless tobacco. He reports current alcohol use. He reports that he does not use drugs. Family History No family history on file. Allergies Allergies Allergen Reactions Sulfa (Sulfonamide Antibiotics) Anaphylaxis Sulfamethoxazole Anaphylaxis and Unknown Review of Systems Pre-sedation Evaluation: ASA Classification - ASA 2 - Patient with mild systemic disease with no functional limitations Mallampati Score - II (hard and soft palate, upper portion of tonsils and uvula visible) Physical Exam Vitals reviewed. Constitutional: Appearance: Normal appearance. Cardiovascular: Rate and Rhythm: Normal rate and regular rhythm. Pulmonary: Effort: Pulmonary effort is normal. Breath sounds: Normal breath sounds. Neurological: Mental Status: He is alert. Last Recorded Vitals There were no vitals taken for this visit. 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 For bridging warfarin prior to colonoscopy. 10 each 1 simvastatin (Zocor) 20 mg tablet TAKE 1 TABLET DAILY 90 tablet 3 warfarin (Coumadin) 5 mg tablet Take 1 tablet (5 mg) by mouth once daily in the evening. 90 tablet 3 sildenafil (Viagra) 100 mg tablet Take by mouth if needed. Current Facility-Administered Medications Medication Dose Route Frequency Provider Last Rate Last Admin lactated Ringer's infusion 20 mL/hr intravenous Continuous MD Csaey Mead MD documented in this encounter [facility] Work Phone: 04-13-2024 History and physical note History Of Present Illness Jennifer James is a 79 y.o. male presenting with history of polyps. Past Medical History Past Medical History: Diagnosis Date Bilateral impacted cerumen 10/06/2022 Chest pain at rest 10/06/2022 Contusion of knee, left 10/06/2022 Diverticulitis DVT (deep venous thrombosis) (Multi) Finger fracture, right 10/06/2022 Finger pain 10/06/2022 Generalized muscle weakness 10/06/2022 HLD (hyperlipidemia) Hypermetropia Impacted cerumen 11/05/2023 Lumbar strain 10/06/2022 Nasal fracture 10/06/2022 Nasal injury, initial encounter 10/06/2022 Pain of left lower extremity 11/05/2023 Quadriceps strain 10/06/2022 Rectus sheath hematoma 10/06/2022 Skin tag of anus 10/06/2022 Surgical History Past Surgical History: Procedure Laterality Date OTHER SURGICAL HISTORY 06/23/2019 Varicose vein ligation OTHER SURGICAL HISTORY 06/23/2019 Facial surgery Social History He reports that he has never smoked. He has never used smokeless tobacco. He reports current alcohol use. He reports that he does not use drugs. Family History No family history on file. Allergies Allergies Allergen Reactions Sulfa (Sulfonamide Antibiotics) Anaphylaxis Sulfamethoxazole Anaphylaxis and Unknown Review of Systems Pre-sedation Evaluation: ASA Classification - ASA 2 - Patient with mild systemic disease with no functional limitations Mallampati Score - II (hard and soft palate, upper portion of tonsils and uvula visible) Physical Exam Vitals reviewed. Constitutional: Appearance: Normal appearance. Cardiovascular: Rate and Rhythm: Normal rate and regular rhythm. Pulmonary: Effort: Pulmonary effort is normal. Breath sounds: Normal breath sounds. Neurological: Mental Status: He is alert. Last Recorded Vitals There were no vitals taken for this visit. 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 For bridging warfarin prior to colonoscopy. 10 each 1 simvastatin (Zocor) 20 mg tablet TAKE 1 TABLET DAILY 90 tablet 3 warfarin (Coumadin) 5 mg tablet Take 1 tablet (5 mg) by mouth once daily in the evening. 90 tablet 3 sildenafil (Viagra) 100 mg tablet Take by mouth if needed. Current Facility-Administered Medications Medication Dose Route Frequency Provider Last Rate Last Admin lactated Ringer's infusion 20 mL/hr intravenous Continuous MD Casey Mead MD documented in this encounter [facility] Work Phone: 04-13-[address] Shah aware pt took lovenox last night. Stopped coumadin 04/07. No additional orders at this time. [facility] Work Phone: 04-13-[address] Shah aware pt took lovenox last night. Stopped coumadin 04/07. No additional orders at this time. documented in this encounter [facility] Work Phone: 04-13-[address] Shah aware pt took lovenox last night. Stopped coumadin 04/07. No additional orders at this time. documented in this encounter [facility] Work Phone: 04-13-2024 Hospital Discharge instructions Casey Shah MD - 04/13/2024 7:38 AM EDT Patient Instructions after a Colonoscopy The anesthetics, sedatives or narcotics which were given to you today will be acting in your body for the next 24 hours, so you might feel a little sleepy or groggy. This feeling should slowly wear off. Carefully read and follow the instructions. You received sedation today: - Do not drive or operate any machinery or power tools of any kind. - No alcoholic beverages today, not even beer or wine. - Do not make any important decisions or sign any legal documents. - No over the counter medications that contain alcohol or that may cause drowsiness. - Do not make any important decisions or sign any legal documents. - Make sure you have someone with you for first 24 hours. While it is common to experience mild to moderate abdominal distention, gas, or belching after your procedure, if any of these symptoms occur following discharge from the GI Lab or within one week of having your procedure, call the [facility] to be advised whether a visit to your nearest Urgent Care or Emergency Department is indicated. Take this paper with you if you go. - If you develop an allergic reaction to the medications that were given during your procedure such as difficulty breathing, rash, hives, severe nausea, vomiting or lightheadedness. - If you experience chest pain, shortness of breath, severe abdominal pain, fevers and chills. -If you develop signs and symptoms of bleeding such as blood in your spit, if your stools turn black, tarry, or bloody - If you have not urinated within 8 hours following your procedure. - If your IV site becomes painful, red, inflamed, or looks infected. If you received a biopsy/polypectomy/sphincterot eduardo the following instructions apply below: __ Do not use Aspirin containing products, non-steroidal medications or anti-coagulants for one week following your procedure. (Examples of these types of medications are: Advil, Arthrotec, Aleve, Coumadin, Ecotrin, Heparin, Ibuprofen, Indocin, Motrin, Naprosyn, Nuprin, Plavix, Vioxx, and Voltarin, or their generic forms. This list is not all-inclusive. Check with your physician or pharmacist before resuming medications.) __ Eat a soft diet today. Avoid foods that are poorly digested for the next 24 hours. These foods would include: nuts, beans, lettuce, red meats, and fried foods. Start with liquids and advance your diet as tolerated, gradually work up to eating solids. __ Do not have a Barium Study or Enema for one week. Your physician recommends the additional following instructions: -You have a contact number available for emergencies. The signs and symptoms of potential delayed complications were discussed with you. You may return to normal activities tomorrow. -Resume your previous diet. -Continue your present medications. -We are waiting for your pathology results. -Your physician has recommended a repeat colonoscopy (date to be determined after pending pathology results are reviewed) for surveillance based on pathology results. -The findings and recommendations have been discussed with you. -The findings and recommendations were discussed with your family. - Please see Medication Reconciliation Form for new medication/medications prescribed. If you experience any problems or have any questions following discharge from the GI Lab, please call: Casey Shah MD [phone] Nurse Signature Date Patient/Responsible Libertarian Signature Date documented in this encounter [facility] Work Phone: 02-22-2024 History of Present illness Narrative History Of Present Illness Jennifer James is a 78 y.o. male presenting for a Medicare Annual Wellness Exam. Patient is here for a periodic health exam. I reviewed previous preventative health measures including screening tests, immunizations and labs. I reviewed screenings administered by my staff today. PREVIOUS PREVENTATIVE HEALTH Colonoscopy : Yes Date: 2021 Cologuard : No Prostate cancer screening with PSA : Yes Date: 08/04/2023 Hepatitis C Antibody : Yes Prevnar : Yes 02/15/2020 Shingrix : Yes Date: 12/02/2007 Tdap within 10 years : Yes Yearly Flu Shot : Yes CURRENT FINDINGS [place] : No Problems with ADL's : No Healthy Diet : Yes Exercise : Yes Vision or Hearing Problems : No Depression Issues : No Alcohol Use : Yes on rare occasion Tobacco Use : No Past Medical History Patient Active Problem List Diagnosis Actinic keratosis Dermatofibroma Diverticulitis Erectile dysfunction History of recurrent deep vein thrombosis (DVT) Mixed hyperlipidemia Low calcium levels Milia Solar lentigo Anticoagulant long-term use Senile cataract PVD (posterior vitreous detachment), left eye 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 Past Surgical History: Procedure Laterality Date OTHER SURGICAL HISTORY 06/23/2019 Varicose vein ligation OTHER SURGICAL HISTORY 06/23/2019 Facial surgery Current Outpatient Medications: sildenafil (Viagra) 100 mg tablet, Take by mouth if needed., Disp: , Rfl: simvastatin (Zocor) 20 mg tablet, TAKE 1 TABLET DAILY, Disp: 90 tablet, Rfl: 3 warfarin (Coumadin) 5 mg tablet, Take 1 tablet (5 mg) by mouth once daily in the evening., Disp: 90 tablet, Rfl: 3 Immunization History Administered Date(s) Administered Influenza, Seasonal, Quadrivalent, Adjuvanted 07/07/2023 Influenza, seasonal, injectable 06/23/2022 Pfizer COVID-19 vaccine, Fall 2022, 12 years and older, (30mcg/0.3mL) 07/07/2023 Pfizer COVID-19 vaccine, bivalent, age 12 years and older (30 mcg/0.3 mL) 06/23/2022 [facility] Purple Cap SARS-CoV-2 10/19/2020, 11/17/2020, 05/23/2021 Pneumococcal conjugate vaccine, 13-valent (PREVNAR 13) 06/20/2016 Pneumococcal polysaccharide vaccine, 23-valent, age 2 years and older (PNEUMOVAX 23) 12/02/2007, 02/15/2020 SARS-CoV-2, Unspecified 01/09/2022 Tdap vaccine, age 7 year and older (BOOSTRIX, ADACEL) 03/02/2013, 02/06/2021 Zoster, live 12/02/2007 Social History Social History Socioeconomic History Marital status: Spouse name: Not on file Number of children: Not on file Years of education: Not on file Highest education level: Not on file Occupational History Not on file Tobacco Use Smoking status: Never Smokeless tobacco: Never Vaping Use Vaping status: Never Used Substance and Sexual Activity Alcohol use: Yes Drug use: Never Sexual activity: Not on file Other Topics Concern Not on file Social History Narrative Not on file Social Determinants of Health Financial Resource Strain: Not on file Food Insecurity: Not on file Transportation Needs: Not on file Physical Activity: Not on file Stress: Not on file Social Connections: Not on file Intimate Partner Violence: Not on file Housing Stability: Not on file reports current alcohol use. reports that he has never smoked. He has never used smokeless tobacco. reports no history of drug use. Allergies Sulfa (sulfonamide antibiotics) and Sulfamethoxazole Physical Exam height is 1.778 m (5' 10) and weight is 92.1 kg (203 lb). His temperature is 36.1 C (97 F). His blood pressure is 140/84 and his pulse is 72. His respiration is 16. Physical Exam Vitals and nursing note reviewed. Constitutional: General: He is not in acute distress. Appearance: Normal appearance. HENT: Head: Normocephalic and atraumatic. Right Ear: Tympanic membrane, ear canal and external ear normal. Left Ear: Tympanic membrane, ear canal and external ear normal. Nose: Nose normal. Mouth/Throat: Mouth: Mucous membranes are moist. Pharynx: Oropharynx is clear. Eyes: Extraocular Movements: Extraocular movements intact. Conjunctiva/sclera: Conjunctivae normal. Pupils: Pupils are equal, round, and reactive to light. Cardiovascular: Rate and Rhythm: Normal rate and regular rhythm. Pulses: Normal pulses. Heart sounds: Normal heart sounds. No murmur heard. No friction rub. No gallop. Pulmonary: Effort: Pulmonary effort is normal. No respiratory distress. Breath sounds: Normal breath sounds. Abdominal: General: Abdomen is flat. Bowel sounds are normal. There is no distension. Palpations: Abdomen is soft. Tenderness: There is no abdominal tenderness. Musculoskeletal: General: Normal range of motion. Cervical back: Normal range of motion and neck supple. Lymphadenopathy: Cervical: No cervical adenopathy. Skin: General: Skin is warm and dry. Findings: No lesion or rash. Neurological: General: No focal deficit present. Mental Status: He is alert. Mental status is at baseline. Psychiatric: Mood and Affect: Mood normal. Behavior: Behavior normal. Thought Content: Thought content normal. Judgment: Judgment normal. Assessment 1. Routine general medical examination at health care facility 1 Year Follow Up In [facility] - PCP - Wellness Exam 2. Prostate cancer screening Prostate Specific Antigen 3. Mixed hyperlipidemia Comprehensive Metabolic Panel, CBC, Lipid Panel 4. History of recurrent deep vein thrombosis (DVT) Comprehensive Metabolic Panel, CBC, Lipid Panel I recommend regular exercise, balanced diet, regular dental exams, and healthy habits. Patient denies depression sxs. Patient is able to perform all ADL's without assistance. I reminded patient to get yearly eye exams with glaucoma screening. I recommend to eat plenty of plant foods (such as whole-grain products, fruits, and vegetables) and a moderate amount of lean and low-fat, animal-based food (meat and dairy products). When shopping, choose lean meats, fish, and poultry. I recommend to try to get regular aerobic exercise. I recommend a yearly flu shot in the fall and I recommend a yearly wellness exam. Orders Placed This Encounter Procedures Comprehensive Metabolic Panel CBC Lipid Panel Prostate Specific Antigen No orders of the defined types were placed in this encounter. Russ Rosen MD documented in this encounter [facility] Work Phone: 11-19-2023 History of Present illness Narrative Patient ID: Jennifer James is a 78 y.o. male. Referring Physician: No referring provider defined for this encounter. Primary Care Provider: Russ Rosen MD Visit Type: Follow Up Subjective Interval History: Yearly Follow up visit for patient on lifelong anticoagulation. Patient previously seen by Zi Winston DO Patient seen 09/23/18 for history of unprovoked, proximal LLE DVT 12/2008 with negative hypercoag. panel, 01/2012 off Coumadin clotted again in 2019 while on Xarelto with 100% compliance per patient. Lovenox was initiated along with Coumadin load. Patient readmitted for atraumatic right rectus sheath hematoma with significant pain. 10/06/18- IVC filter placed and anticoagulation was held. Pain improved and hemorrhage resolve. Patient is doing well back on Coumadin with no bleeding or bruising. He is managed by the coumadin clinic and is compliant with his dosing. PMHx and PSHx unchanged. IVC filter was removed and patient doing well. No new medications or issues since his last visit with Dr Winston 1 year ago. Review of Systems: System Review All Systems: Negative 10 point review of systems negative except as stated in HPI Objective BSA: 2.14 meters squared BP 150/80 (BP Location: Left arm, Patient Position: Sitting, BP Cuff Size: Adult) Pulse 65 Temp 36.3 C (97.3 F) (Core) Resp 18 Wt 92.5 kg (203 lb 14.8 oz) SpO2 96% BMI 29.26 kg/m has a past medical history of Bilateral impacted cerumen (10/06/2022), Chest pain at rest (10/06/2022), Contusion of knee, left (10/06/2022), Finger fracture, right (10/06/2022), Finger pain (10/06/2022), Generalized muscle weakness (10/06/2022), Impacted cerumen (11/05/2023), Lumbar strain (10/06/2022), Nasal fracture (10/06/2022), Nasal injury, initial encounter (10/06/2022), Pain of left lower extremity (11/05/2023), Quadriceps strain (10/06/2022), Rectus sheath hematoma (10/06/2022), and Skin tag of anus (10/06/2022). has a past surgical history that includes Other surgical history (06/23/2019) and Other surgical history (06/23/2019). No family history on file. Oncology History No history exists. Jennifer James reports that he has never smoked. He has never used smokeless tobacco. He reports current alcohol use. He reports no history of drug use. Physical Exam HENT: Head: Normocephalic. Nose: Nose normal. Mouth/Throat: Mouth: Mucous membranes are moist. Eyes: Pupils: Pupils are equal, round, and reactive to light. Cardiovascular: Rate and Rhythm: Normal rate and regular rhythm. Pulses: Normal pulses. Heart sounds: Normal heart sounds. Pulmonary: Effort: Pulmonary effort is normal. Breath sounds: Normal breath sounds. Abdominal: General: Bowel sounds are normal. Palpations: Abdomen is soft. Musculoskeletal: General: Normal range of motion. Skin: General: Skin is warm and dry. Neurological: General: No focal deficit present. Mental Status: He is alert and oriented to person, place, and time. Psychiatric: Mood and Affect: Mood normal. Behavior: Behavior normal. WBC Date/Time Value Ref Range Status 10/16/2022 12:22 PM 5.3 4.4 - 11.3 x10E9/L Final 05/13/2022 10:20 AM 4.7 4.4 - 11.3 x10E9/L Final 04/05/2022 08:54 AM 7.2 4.4 - 11.3 x10E9/L Final nRBC Date Value Ref Range Status 05/13/2022 0.0 0.0 - 0.0 /100 WBC Final RBC Date Value Ref Range Status 10/16/2022 5.06 4.50 - 5.90 x10E12/L Final 05/13/2022 4.61 4.50 - 5.90 x10E12/L Final 04/05/2022 4.46 (L) 4.50 - 5.90 x10E12/L Final Hemoglobin Date Value Ref Range Status 10/16/2022 16.2 13.5 - 17.5 g/dL Final 05/13/2022 14.9 13.5 - 17.5 g/dL Final 04/05/2022 14.7 13.5 - 17.5 g/dL Final Hematocrit Date Value Ref Range Status 10/16/2022 49.8 41.0 - 52.0 % Final 05/13/2022 47.7 41.0 - 52.0 % Final 04/05/2022 44.2 41.0 - 52.0 % Final MCV Date/Time Value Ref Range Status 10/16/2022 12:22 PM 98 80 - 100 fL Final 05/13/2022 10:20 AM 103 (H) 80 - 100 fL Final 04/05/2022 08:54 AM 99 80 - 100 fL Final No results found for: MCH MCHC Date/Time Value Ref Range Status 10/16/2022 12:22 PM 32.5 32.0 - 36.0 g/dL Final 05/13/2022 10:20 AM 31.2 (L) 32.0 - 36.0 g/dL Final 04/05/2022 08:54 AM 33.3 32.0 - 36.0 g/dL Final RDW Date/Time Value Ref Range Status 10/16/2022 12:22 PM 12.6 11.5 - 14.5 % Final 05/13/2022 10:20 AM 13.1 11.5 - 14.5 % Final 04/05/2022 08:54 AM 13.1 11.5 - 14.5 % Final Platelets Date/Time Value Ref Range Status 10/16/2022 12:22 PM 162 150 - 450 x10E9/L Final 05/13/2022 10:20 AM 173 150 - 450 x10E9/L Final 04/05/2022 08:54 AM 175 150 - 450 x10E9/L Final No results found for: MPV Neutrophils % Date/Time Value Ref Range Status 10/16/2022 12:22 PM 58.4 40.0 - 80.0 % Final 04/04/2022 09:57 PM 69.9 40.0 - 80.0 % Final 02/08/2021 11:00 PM 67.4 40.0 - 80.0 % Final Immature Granulocytes %, Automated Date/Time Value Ref Range Status 10/16/2022 12:22 PM 0.2 0.0 - 0.9 % Final Comment: Immature Granulocyte Count (IG) includes promyelocytes, myelocytes and metamyelocytes but does not include bands. Percent differential counts (%) should be interpreted in the context of the absolute cell counts (cells/L). 04/04/2022 09:57 PM 0.2 0.0 - 0.9 % Final Comment: Immature Granulocyte Count (IG) includes promyelocytes, myelocytes and metamyelocytes but does not include bands. Percent differential counts (%) should be interpreted in the context of the absolute cell counts (cells/L). 02/08/2021 11:00 PM 0.2 0.0 - 0.9 % Final Comment: Immature Granulocyte Count (IG) includes promyelocytes, myelocytes and metamyelocytes but does not include bands. Percent differential counts (%) should be interpreted in the context of the absolute cell counts (cells/L). Lymphocytes % Date/Time Value Ref Range Status 10/16/2022 12:22 PM 27.8 13.0 - 44.0 % Final 04/04/2022 09:57 PM 19.7 13.0 - 44.0 % Final 02/08/2021 11:00 PM 20.0 13.0 - 44.0 % Final Monocytes % Date/Time Value Ref Range Status 10/16/2022 12:22 PM 9.6 2.0 - 10.0 % Final 04/04/2022 09:57 PM 7.0 2.0 - 10.0 % Final 02/08/2021 11:00 PM 8.4 2.0 - 10.0 % Final Eosinophils % Date/Time Value Ref Range Status 10/16/2022 12:22 PM 3.4 0.0 - 6.0 % Final 04/04/2022 09:57 PM 2.6 0.0 - 6.0 % Final 02/08/2021 11:00 PM 3.5 0.0 - 6.0 % Final Basophils % Date/Time Value Ref Range Status 10/16/2022 12:22 PM 0.6 0.0 - 2.0 % Final 04/04/2022 09:57 PM 0.6 0.0 - 2.0 % Final 02/08/2021 11:00 PM 0.5 0.0 - 2.0 % Final Neutrophils Absolute Date/Time Value Ref Range Status 10/16/2022 12:22 PM 3.12 1.60 - 5.50 x10E9/L Final Comment: Percent differential counts (%) should be interpreted in the context of the absolute cell counts (cells/L). 04/04/2022 09:57 PM 6.24 (H) 1.60 - 5.50 x10E9/L Final 02/08/2021 11:00 PM 4.02 1.60 - 5.50 x10E9/L Final No results found for: IGABSOL Lymphocytes Absolute Date/Time Value Ref Range Status 10/16/2022 12:22 PM 1.48 0.80 - 3.00 x10E9/L Final 04/04/2022 09:57 PM 1.76 0.80 - 3.00 x10E9/L Final 02/08/2021 11:00 PM 1.19 0.80 - 3.00 x10E9/L Final Monocytes Absolute Date/Time Value Ref Range Status 10/16/2022 12:22 PM 0.51 0.05 - 0.80 x10E9/L Final 04/04/2022 09:57 PM 0.62 0.05 - 0.80 x10E9/L Final 02/08/2021 11:00 PM 0.50 0.05 - 0.80 x10E9/L Final Eosinophils Absolute Date/Time Value Ref Range Status 10/16/2022 12:22 PM 0.18 0.00 - 0.40 x10E9/L Final 04/04/2022 09:57 PM 0.23 0.00 - 0.40 x10E9/L Final 02/08/2021 11:00 PM 0.21 0.00 - 0.40 x10E9/L Final Basophils Absolute Date/Time Value Ref Range Status 10/16/2022 12:22 PM 0.03 0.00 - 0.10 x10E9/L Final 04/04/2022 09:57 PM 0.05 0.00 - 0.10 x10E9/L Final 02/08/2021 11:00 PM 0.03 0.00 - 0.10 x10E9/L Final Assessment/Plan Assessment and Plan: Assessment: Recurrent, unprovoked, proximal DVT's LLE with negative hypercoag. panel placed on Lovenox while loading Coumadin. Readmit for atraumatic right rectus sheath hematoma s/p IVC filter placement and anticoagulation held. Patient improved and Lovenox resumed without gross hemorrhage appreciated. 06/15/2020- patient asymptomatic on Coumadin. No new issues. Since he clotted on Xarelto, we recommend lifelong anticoagulation with coumadin. The patient is in agreement with the following plan: 1. He has an upcoming colonoscopy and GI wants him to hold coumadin for 7 days. We will bridge with lovenox. This procedure is scheduled for 10/14. Patient will let GI know to contact us for a plan. 2. Refill coumadin. He currently alternates 5mg by mouth with 7.5 mg by mouth Thursday, Thu, Thursday. 3. We will send a new req to the coumadin clinic at [facility] to establish that we will be managing his care. 4. Will continue Coumadin retirement. Bleeding precautions reviewed in detail. 5. No ASA/NSAIDS. 6. Next exam in 12 months. I had an extensive discussion with the patient regarding the diagnosis and discussed the plan of therapy, including general considerations regarding side effects and outcomes. Pt understood and gave appropriate teach back about the plan of care. All questions were answered to the patient's satisfaction. The patient is instructed to contact us at any time if questions or problems arise. Thank you for the opportunity to participate in the care of this very pleasant patient. Total time = 30 mins, of which >50% was spent in counseling and/or coordination of care including reviewing medical history/radiology/labs, examining patient, formulating outlined plan with team, and discussing plan with patient/family. MARY Hernandez, BHAVESH documented in this encounter [facility] Work Phone: 11-05-2023 History of Present illness Narrative Jennifer James is a 78 y.o. male here today for Chief Complaint Patient presents with Hyperlipidemia HPI HLD recheck -- Patient taking medications correctly. No SE's of muscle pain or joint pain. No CP, edema, myalgias. 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 Erectile dysfunction-he says Viagra works pretty well but he does not need a refill at this point. Current Outpatient Medications: sildenafil (Viagra) 100 mg tablet, Take by mouth if needed., Disp: , Rfl: simvastatin (Zocor) 20 mg tablet, TAKE 1 TABLET DAILY, Disp: 90 tablet, Rfl: 3 warfarin (Coumadin) 5 mg tablet, Take 1 tablet (5 mg) by mouth once daily., Disp: , Rfl: Patient Active Problem List Diagnosis Actinic keratosis Dermatofibroma Diverticulitis Erectile dysfunction History of recurrent deep vein thrombosis (DVT) Mixed hyperlipidemia Low calcium levels Milia Solar lentigo Anticoagulant long-term use Senile cataract PVD (posterior vitreous detachment), left eye 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 Recent Results (from the past 672 hour(s)) POCT INR manually resulted Collection Time: 10/27/23 6:58 AM Result Value Ref Range POC INR 2.60 POC Prothrombin Time Objective Visit Vitals Visit Vitals BP 120/78 Pulse 70 Temp 36.2 C (97.2 F) Resp 16 Ht 1.778 m (5' 10) Wt 91.6 kg (202 lb) BMI 28.98 kg/m Smoking Status Never BSA 2.13 m Body mass index is 28.98 kg/m . Physical Exam General - Not in acute distress and cooperative. Build & Nutrition - Well developed Posture - Normal Gait - Normal Mental Status - alert and oriented x 3 Head - Normocephalic Neck - Thyroid normal size Eyes - Bilateral - Sclera clear and lids pink without edema or mass. Skin - Warm and dry with no rashes on visible skin Lungs - Clear to auscultation and normal breathing effort Cardiovascular - RRR and no murmurs, rubs or thrill. Peripheral Vascular - Bilateral - no edema present Neuropsychiatric - normal mood and affect Assessment 1. Mixed hyperlipidemia Patient reports no refills are needed today. Appropriate labs ordered or reviewed. No change in current treatment regimen. Make a follow up appointment with me for recheck in 6 months. documented in this encounter [facility] Work Phone: 07-02-2023 Emergency department Note HPI CC: Leg Pain (left) HPI: Jennifer James is a 78 y.o. male with a history of hyperlipidemia and DVT on Coumadin with last INR 2.33 weeks ago presents with concern for left leg discomfort. Patient states that started about 5 or 6 days ago. States it felt like his previous DVTs in that leg but he thought it would go away. He denies any trauma or strain to that leg. His last Coumadin clinic appointment was 3 weeks ago and his INR was therapeutic at 2.3. He is on monthly checks with plan for next week check. He reports no numbness or tingling to the lower extremity, no fever, and no chills. Regarding history involving DVT, most recent DVT was in 2019 when he was on Xarelto. He developed an abdominal bleed so an IVC filter was placed in the left leg. That has since been removed. No other recent changes to medical history. ROS: 10-point review of systems was performed and is otherwise negative except as noted in HPI. Past Medical History: Noncontributory except per HPI Past Surgical History: Noncontributory except per HPI Family History: Reviewed and noncontributory Social History: Denies tobacco. Denies ETOH. Denies illicit drugs. Allergies Allergen Reactions Sulfa (Sulfonamide Antibiotics) Anaphylaxis Sulfamethoxazole Unknown Home Meds: Current Outpatient Medications Medication Instructions nitroglycerin (Nitrostat) 0.4 mg SL tablet sublingual sildenafil (Viagra) 100 mg tablet oral simvastatin (ZOCOR) 20 mg, oral, Daily warfarin (Coumadin) 5 mg tablet 1 tablet, oral, Daily ED Triage Vitals [07/02/23 0840] Temp Heart Rate Resp BP 36.5 C (97.7 F) 79 16 136/72 SpO2 Temp src Heart Rate Source Patient Position 99 % -- -- Sitting BP Location FiO2 (%) Left arm -- Heart Rate: [79] Temp: [36.5 C (97.7 F)] Resp: [16] BP: (136)/(72) Height: [177 cm (5' 9.69)] Weight: [90.7 kg (200 lb)] SpO2: [99 %] Physical Exam: Physical Exam Constitutional: General: He is not in acute distress. Appearance: Normal appearance. He is not ill-appearing. HENT: Head: Normocephalic and atraumatic. Right Ear: External ear normal. Left Ear: External ear normal. Nose: Nose normal. Mouth/Throat: Mouth: Mucous membranes are moist. Eyes: Extraocular Movements: Extraocular movements intact. Conjunctiva/sclera: Conjunctivae normal. Pupils: Pupils are equal, round, and reactive to light. Cardiovascular: Rate and Rhythm: Normal rate and regular rhythm. Pulses: Normal pulses. Pulmonary: Effort: Pulmonary effort is normal. No respiratory distress. Breath sounds: Normal breath sounds. Abdominal: General: Abdomen is flat. Palpations: Abdomen is soft. Tenderness: There is no abdominal tenderness. Musculoskeletal: General: Normal range of motion. Cervical back: Normal range of motion and neck supple. Comments: Left lower extremity: No obvious notable changes to the left lower extremity. No palpable nodules. No tenderness to palpation about the entirety of the left leg. No lower extremity edema. No skin changes. 2+ DP pulse. No palpable Hannon's cyst. Flexion extension of the knee are intact. Patient states the pain was in his posterior left thigh but has been coming and going. Compartments are soft and compressible. Skin: General: Skin is warm and dry. Capillary Refill: Capillary refill takes less than 2 seconds. Neurological: General: No focal deficit present. Mental Status: He is alert and oriented to person, place, and time. Psychiatric: Mood and Affect: Mood normal. Diagnostic Results Labs Reviewed COAGULATION SCREEN - Abnormal Result Value Protime 29.8 (*) INR 2.6 (*) aPTT 39 (*) Narrative: The APTT is no longer used for monitoring Unfractionated Heparin Therapy. For monitoring Heparin Therapy, use the Heparin Assay. Lower extremity venous duplex left Final Result 1. Minimal chronic thrombus within the mid femoral and popliteal veins. Signed by: Bandar Rogers 07/02/2023 10:25 AM Dictation workstation: [id number] No data recorded Procedure Procedures ED Course & MDM Assessment/Plan: Medications - No data to display Diagnoses as of 07/02/23 1332 Pain of left lower extremity Medical Decision Making Jennifer James is a 78 y.o. male with a history of hyperlipidemia and DVT on Coumadin presents with concern for left leg straining sensation. The patient is nontoxic-appearing, his vital signs are normal, and physical exam is reassuring. Brief differential includes breakthrough DVT, Hannon's cyst, muscle strain. Will obtain duplex ultrasound left lower extremity to rule out the above. This showed a minimal chronic thrombus within the mid femoral and popliteal veins. Due to this finding, patient's INR was checked and was 2.6 which is therapeutic. No further work-up is indicated at this time. This most likely to be a muscle strain. Left leg pain: Patient was educated that his ultrasound was negative for DVT or Hannon's cyst. We discussed that it could be a muscle strain that has been bothering him over the past few days. May try Tylenol and otherwise can follow-up with primary care physician for any new or worsening complaints. May ultimately need some physical therapy or further work-up. Recommended that he return to the emergency department for any new or worsening symptoms. Patient was grateful for the results and was agreeable to returning home. Disposition: Home ED Prescriptions None Social Determinants Affecting Care: none Bhumika Oro PA-C This note was dictated by speech recognition. Minor errors in clinical technician may be present. Bhumika Oro PA-C 07/02/23 1334 C/o LLE, hx of 3 dvt, pt is on coumadin, ambulated to triage gait steady, denies known injury documented in this encounter [facility] Work Phone: 07-02-2023 Emergency department Triage note C/o LLE, hx of 3 dvt, pt is on coumadin, ambulated to triage gait steady, denies known injury [facility] 07-02-2023 Physician Emergency department Note HPI CC: Leg Pain (left) HPI: Jennifer James is a 78 y.o. male with a history of hyperlipidemia and DVT on Coumadin with last INR 2.33 weeks ago presents with concern for left leg discomfort. Patient states that started about 5 or 6 days ago. States it felt like his previous DVTs in that leg but he thought it would go away. He denies any trauma or strain to that leg. His last Coumadin clinic appointment was 3 weeks ago and his INR was therapeutic at 2.3. He is on monthly checks with plan for next week check. He reports no numbness or tingling to the lower extremity, no fever, and no chills. Regarding history involving DVT, most recent DVT was in 2019 when he was on Xarelto. He developed an abdominal bleed so an IVC filter was placed in the left leg. That has since been removed. No other recent changes to medical history. ROS: 10-point review of systems was performed and is otherwise negative except as noted in HPI. Past Medical History: Noncontributory except per HPI Past Surgical History: Noncontributory except per HPI Family History: Reviewed and noncontributory Social History: Denies tobacco. Denies ETOH. Denies illicit drugs. Allergies Allergen Reactions Sulfa (Sulfonamide Antibiotics) Anaphylaxis Sulfamethoxazole Unknown Home Meds: Current Outpatient Medications Medication Instructions nitroglycerin (Nitrostat) 0.4 mg SL tablet sublingual sildenafil (Viagra) 100 mg tablet oral simvastatin (ZOCOR) 20 mg, oral, Daily warfarin (Coumadin) 5 mg tablet 1 tablet, oral, Daily ED Triage Vitals [07/02/23 0840] Temp Heart Rate Resp BP 36.5 C (97.7 F) 79 16 136/72 SpO2 Temp src Heart Rate Source Patient Position 99 % -- -- Sitting BP Location FiO2 (%) Left arm -- Heart Rate: [79] Temp: [36.5 C (97.7 F)] Resp: [16] BP: (136)/(72) Height: [177 cm (5' 9.69)] Weight: [90.7 kg (200 lb)] SpO2: [99 %] Physical Exam: Physical Exam Constitutional: General: He is not in acute distress. Appearance: Normal appearance. He is not ill-appearing. HENT: Head: Normocephalic and atraumatic. Right Ear: External ear normal. Left Ear: External ear normal. Nose: Nose normal. Mouth/Throat: Mouth: Mucous membranes are moist. Eyes: Extraocular Movements: Extraocular movements intact. Conjunctiva/sclera: Conjunctivae normal. Pupils: Pupils are equal, round, and reactive to light. Cardiovascular: Rate and Rhythm: Normal rate and regular rhythm. Pulses: Normal pulses. Pulmonary: Effort: Pulmonary effort is normal. No respiratory distress. Breath sounds: Normal breath sounds. Abdominal: General: Abdomen is flat. Palpations: Abdomen is soft. Tenderness: There is no abdominal tenderness. Musculoskeletal: General: Normal range of motion. Cervical back: Normal range of motion and neck supple. Comments: Left lower extremity: No obvious notable changes to the left lower extremity. No palpable nodules. No tenderness to palpation about the entirety of the left leg. No lower extremity edema. No skin changes. 2+ DP pulse. No palpable Hannon's cyst. Flexion extension of the knee are intact. Patient states the pain was in his posterior left thigh but has been coming and going. Compartments are soft and compressible. Skin: General: Skin is warm and dry. Capillary Refill: Capillary refill takes less than 2 seconds. Neurological: General: No focal deficit present. Mental Status: He is alert and oriented to person, place, and time. Psychiatric: Mood and Affect: Mood normal. Diagnostic Results Labs Reviewed COAGULATION SCREEN - Abnormal Result Value Protime 29.8 (*) INR 2.6 (*) aPTT 39 (*) Narrative: The APTT is no longer used for monitoring Unfractionated Heparin Therapy. For monitoring Heparin Therapy, use the Heparin Assay. Lower extremity venous duplex left Final Result 1. Minimal chronic thrombus within the mid femoral and popliteal veins. Signed by: Bandar Rogers 07/02/2023 10:25 AM Dictation workstation: [id number] No data recorded Procedure Procedures ED Course & MDM Assessment/Plan: Medications - No data to display Diagnoses as of 07/02/23 1332 Pain of left lower extremity Medical Decision Making Jennifer James is a 78 y.o. male with a history of hyperlipidemia and DVT on Coumadin presents with concern for left leg straining sensation. The patient is nontoxic-appearing, his vital signs are normal, and physical exam is reassuring. Brief differential includes breakthrough DVT, Hannon's cyst, muscle strain. Will obtain duplex ultrasound left lower extremity to rule out the above. This showed a minimal chronic thrombus within the mid femoral and popliteal veins. Due to this finding, patient's INR was checked and was 2.6 which is therapeutic. No further work-up is indicated at this time. This most likely to be a muscle strain. Left leg pain: Patient was educated that his ultrasound was negative for DVT or Hannon's cyst. We discussed that it could be a muscle strain that has been bothering him over the past few days. May try Tylenol and otherwise can follow-up with primary care physician for any new or worsening complaints. May ultimately need some physical therapy or further work-up. Recommended that he return to the emergency department for any new or worsening symptoms. Patient was grateful for the results and was agreeable to returning home. Disposition: Home ED Prescriptions None Social Determinants Affecting Care: none Bhumika Oro PA-C This note was dictated by speech recognition. Minor errors in clinical technician may be present. Bhumika Oro PA-C 07/02/23 1334 [facility] Work Phone: 05-05-2023 History of Present illness Narrative Patient identification verified with 2 patient identifiers.Anticoagulation Monitoring Service: [facility].Enrollment/Re-enrollmen t date: April 21, 2024.The patient is being seen as a follow-up for anticoagulation monitoring.Target INR 2-3. Monitoring practitioner PAT MALIK CNP.INR monitoring is per [facility] protocol. LASHAWN MALIK CNP FAX NUMBER IS [phone].The patient is on anticoagulation due to deep vein thrombosis.The patient is currently taking warfarin Tablet strength and color: 5 mg([place])Interval History:Patient was last seen: April 28, 2023.Previous INR was 2.2. dose maintained.Incoming total weekly dose 35 mg.Today's Clinic INR: [facility] INR 2.9.Since last visit, the patient reports no bleeding.The patient did not experience clinically relevant bleeding.The patient did not experience other minor bleeding.Since last visit, the patient has not experienced a thrombotic event.The patient reports no change in medication.He reports no change in alcohol consumption.He reports no change in Vitamin K consumption.The patient has taken Warfarin as directed.Management: The patient's INR is within target range. Will maintain dose.Next follow up appointment in 2 week(s).Outgoing total weekly dose 35 mg.Patient instructed to call in interim with questions, concerns and changes. Patient educated on dietary consistency in vitamin k consumption. Anticoagulation Monitoring Service-[facility] Work Phone: 04-28-2023 History of Present illness Narrative Patient identification verified with 2 patient identifiers.Anticoagulation Monitoring Service: [facility].Enrollment/Re-enrollmen t date: April 21, 2024.The patient is being seen as a follow-up for anticoagulation monitoring.Target INR 2-3. Monitoring practitioner PAT MALIK CNP.INR monitoring is per [facility] protocol. LASHAWN MALIK CNP FAX NUMBER IS [phone].The patient is on anticoagulation due to deep vein thrombosis.The patient is currently taking warfarin Tablet strength and color: 5 mg([place])Interval History:Patient was last seen: April 21, 2023.Previous INR was 3.7.Incoming total weekly dose 35 mg.[facility] INR: [facility] INR 2.2.Since last visit, the patient reports no bleeding.The patient did not experience clinically relevant bleeding.The patient did not experience other minor bleeding.Since last visit, the patient has not experienced a thrombotic event.The patient reports no change in medication.He reports no change in alcohol consumption.He reports no change in Vitamin K consumption.The patient has taken Warfarin as directed.Management: The patient's INR is within target range. Will maintain dose.Next follow up appointment in 1 week(s).Outgoing total weekly dose 35 mg.Patient instructed to call in interim with questions, concerns and changes. Patient educated on dietary consistency in vitamin k consumption. Anticoagulation Monitoring Service-[facility] Phone: 02-25-2023 History of Present illness Narrative Patient identification verified with 2 patient identifiers.Anticoagulation Monitoring Service: [facility].Enrollment/Re-enrollmen t date: February 25, 2023.Re-enrollment fax was sent to PAT MALIK CNP 02/17/23, 03/24/23The patient is being seen as a follow-up for anticoagulation monitoring.Target INR 2-3. Monitoring practitioner PAT MALIK CNP.INR monitoring is per [facility] protocol.The patient is on anticoagulation due to deep vein thrombosis.The patient is currently taking warfarin Tablet strength and color: 5 mg([place])Interval History:Patient was last seen: March 17, 2023.Previous INR was 1.6. DOSE INCREASED.Incoming total weekly dose 37.5 mg.[facility] INR: [facility] INR 1.7.Since last visit, the patient reports no bleeding.The patient did not experience clinically relevant bleeding.The patient did not experience other minor bleeding.Since last visit, the patient has not experienced a thrombotic event.The patient reports no change in medication.He reports no change in alcohol consumption.He reports no change in Vitamin K consumption.The patient has taken Warfarin as directed.There is no identifiable cause for out of range INR.Management: The patient's INR is subtherapeutic. Will increase dose per protocol by approximatelyThe patient is not currently being bridged.Next follow up appointment in 2 week(s). PT WILL BE OUT OF TOWN ON VACATION NEXT WEEK.Outgoing total weekly dose 40 mg.Patient instructed to call in interim with questions, concerns and changes. Patient educated on dietary consistency in vitamin k consumption. Anticoagulation Monitoring Service-[facility] Phone: 02-25-2023 History of Present illness Narrative Patient identification verified with 2 patient identifiers.Anticoagulation Monitoring Service: [facility].Enrollment/Re-enrollmen t date: February 25, 2023.Re-enrollment fax was sent to PAT MALIK CNP 02/17/23, 03/24/23,04/14/23The patient is being seen as a follow-up for anticoagulation monitoring.Target INR 2-3. Monitoring practitioner PAT MALIK CNP.INR monitoring is per [facility] protocol.The patient is on anticoagulation due to deep vein thrombosis.The patient is currently taking warfarin Tablet strength and color: 5 mg([place])Interval History:Patient was last seen: April 07, 2023.Previous INR was 2.8.Incoming total weekly dose 40 mg.Today's Clinic INR: [facility] INR 3.4.Since last visit, the patient reports no bleeding.The patient did not experience clinically relevant bleeding.The patient did not experience other minor bleeding.Since last visit, the patient has not experienced a thrombotic event.The patient reports no change in medication.He reports no change in alcohol consumption.He reports no change in Vitamin K consumption.The patient has taken Warfarin as directed.Management: The patient's INR is within target range. Will decrease dose per protocol by approximatelyNext follow up appointment in 1 week(s).Outgoing total weekly dose 37.5 mg.Patient instructed to call in interim with questions, concerns and changes. Patient educated on dietary consistency in vitamin k consumption. Anticoagulation Monitoring Service-[facility] Work Phone: 02-25-2023 History of Present illness Narrative Patient identification verified with 2 patient identifiers.Anticoagulation Monitoring Service: [facility].Enrollment/Re-enrollmen t date: February 25, 2023.Re-enrollment fax was sent to PAT MALIK CNP at FAX NUMBER [phone] ON 04/21.The patient is being seen as a follow-up for anticoagulation monitoring.Target INR 2-3. Monitoring practitioner PAT MALIK CNP.INR monitoring is per [facility] protocol. LASHAWN MALIK CNP FAX NUMBER IS [phone].The patient is on anticoagulation due to deep vein thrombosis.The patient is currently taking warfarin Tablet strength and color: 5 mg([place])Interval History:Patient was last seen: April 14, 2023.Previous INR was 3.4.Incoming total weekly dose 37.5 mg.[facility] INR: [facility] INR 3.7.Since last visit, the patient reports no bleeding.The patient did not experience clinically relevant bleeding.The patient did not experience other minor bleeding.Since last visit, the patient has not experienced a thrombotic event.The patient reports no change in medication.He reports no change in alcohol consumption.He reports no change in Vitamin K consumption.The patient has taken Warfarin as directed.There is no identifiable cause for out of range INR.Management: The patient's INR is supratherapeutic. Hold 1 dose. 04/21. Will decrease dose per protocol by approximately 10%.Next follow up appointment in 1 week(s).Outgoing total weekly dose 35 mg.Patient instructed to call in interim with questions, concerns and changes. Patient educated on dietary consistency in vitamin k consumption. Anticoagulation Monitoring Service-[facility] Work Phone: 02-17-2023 History of Present illness Narrative Patient identification verified with 2 patient identifiers.Anticoagulation Monitoring Service: [facility].Enrollment/Re-enrollmen t date: February 25, 2023.Re-enrollment fax was sent to 02/17/23 to Pat [place] patient is being seen as a follow-up for anticoagulation monitoring.Target INR 2-3. Monitoring practitioner PAT MALIK CNP.INR monitoring is per AMS protocol.The patient is on anticoagulation due to deep vein thrombosis.The patient is currently taking warfarin Tablet strength and color: 5 mg([place])Interval History:Patient was last seen: January 21, 2024.Previous INR was 2.2.Incoming total weekly dose 35 mg.[facility] INR: AMS INR 2.2.Since last visit, the patient reports no bleeding.The patient did not experience clinically relevant bleeding.The patient did not experience other minor bleeding.Since last visit, the patient has not experienced a thrombotic event.The patient reports no change in medication.He reports no change in alcohol consumption.He reports no change in Vitamin K consumption.The patient has taken Warfarin as directed.Management: The patient's INR is within target range. Will maintain dose.Next follow up appointment in 4 week(s).Outgoing total weekly dose 35 mg.Patient instructed to call in interim with questions, concerns and changes. Patient educated on interactions between medications and warfarin. Patient educated on dietary consistency in vitamin k consumption. Patient educated on affects of alcohol consumption while taking warfarin. Patient educated on signs of bleeding/clotting. Patient educated on compliance with dosing, follow up appointments, and prescribed plan of care. Anticoagulation Monitoring [facility] Work Phone: 12-16-2022 History of Present illness Narrative Patient identification verified with 2 patient identifiers.Anticoagulation Monitoring Service: [facility].Enrollment/Re-enrollmen t date: February 25, 2023.The patient is being seen as a follow-up for anticoagulation monitoring.Target INR 2-3. Monitoring practitioner PAT MALIK CNP.INR monitoring is per AMS protocol.The patient is on anticoagulation due to deep vein thrombosis.The patient is currently taking warfarin Tablet strength and color: 5 mg([place])Interval History:Patient was last seen: November 18, 2022.Previous INR was 2.3.Incoming total weekly dose 35 mg.[facility] INR: AMS INR 2.7.Since last visit, the patient reports no bleeding.The patient did not experience clinically relevant bleeding.The patient did not experience other minor bleeding.Since last visit, the patient has not experienced a thrombotic event.The patient reports no change in medication.He reports no change in alcohol consumption.He reports no change in Vitamin K consumption.The patient has taken Warfarin as directed.Management: The patient's INR is within target range. Will maintain dose.Next follow up appointment in 4 week(s). PT WILL BE RVING TO [place] AND CANNOT RTC UNTIL END OF DECEMBER.Outgoing total weekly dose 35 mg.Patient instructed to call in interim with questions, concerns and changes. Patient educated on dietary consistency in vitamin k consumption. Patient educated on compliance with dosing, follow up appointments, and prescribed plan of care. Anticoagulation Monitoring Service[facility] [employer] Work Phone: 11-18-2022 History of Present illness Narrative Patient identification verified with 2 patient identifiers.Anticoagulation Monitoring Service: [facility].Enrollment/Re-enrollmen t date: February 25, 2023.The patient is being seen as a follow-up for anticoagulation monitoring.Target INR 2-3. Monitoring practitioner PAT MALIK CNP.INR monitoring is per AMS protocol.The patient is on anticoagulation due to deep vein thrombosis.The patient is currently taking warfarin Tablet strength and color: 5 mg([place])Interval History:Patient was last seen: October 21, 2022.Previous INR was 2.4.Incoming total weekly dose 35 mg.[facility] INR: AMS INR 2.3.Since last visit, the patient reports no bleeding.The patient did not experience clinically relevant bleeding.The patient did not experience other minor bleeding.Since last visit, the patient has not experienced a thrombotic event.The patient reports no change in medication.He reports no change in alcohol consumption.He reports no change in Vitamin K consumption.The patient has taken Warfarin as directed.Management: The patient's INR is within target range. Will maintain dose.The patient is not currently being bridged.Next follow up appointment in 4 week(s).Outgoing total weekly dose 35 mg.Patient instructed to call in interim with questions, concerns and changes. Patient educated on dietary consistency in vitamin k consumption. Patient educated on compliance with dosing, follow up appointments, and prescribed plan of care. [facility] Work Phone: 09-23-2022 History of Present illness Narrative Patient identification verified with 2 patient identifiers.Anticoagulation Monitoring Service: [facility].Enrollment/Re-enrollmen t date: February 25, 2023.The patient is being seen as a follow-up for anticoagulation monitoring.Target INR 2-3. Monitoring practitioner PAT MALIK CNP.INR monitoring is per AMS protocol.The patient is on anticoagulation due to deep vein thrombosis.The patient is currently taking warfarin Tablet strength and color: 5 mg([place]) 7.5 mg (Yellow).Interval History:Patient was last seen: August 26, 2022.Previous INR was 2.0.Incoming total weekly dose 35 mg.[facility] INR: AMS INR 2.1.Since last visit, the patient reports no bleeding.The patient did not experience clinically relevant bleeding.The patient did not experience other minor bleeding.Since last visit, the patient has not experienced a thrombotic event.The patient reports no change in medication.He reports no change in alcohol consumption.He reports no change in Vitamin K consumption.The patient has taken Warfarin as directed.Management: The patient's INR is within target range. Will maintain dose.Next follow up appointment in 4 week(s).Outgoing total weekly dose 35 mg.Patient instructed to call in interim with questions, concerns and changes. [facility]tico[facility] Phone: 08-26-2022 History of Present illness Narrative Patient identification verified with 2 patient identifiers.Anticoagulation Monitoring Service: [facility].Enrollment/Re-enrollmen t date: February 25, 2023.The patient is being seen as a follow-up for anticoagulation monitoring.Target INR 2-3. Monitoring practitioner PAT MALIK CNP.INR monitoring is per AMS protocol.The patient is on anticoagulation due to deep vein thrombosis.The patient is currently taking warfarin Tablet strength and color: 5 mg([place]) 7.5 mg (Yellow).Interval History:Patient was last seen: August 19, 2022.Previous INR was 3.3. DOSE HELD X 1 THEN MAINTAINED. PT HAD BEEN THERAPEUTIC ON THIS DOSE.Incoming total weekly dose 35 mg.[facility] INR: AMS INR 2.0.Since last visit, the patient reports no bleeding.The patient did not experience clinically relevant bleeding.The patient did not experience other minor bleeding.Since last visit, the patient has not experienced a thrombotic event.The patient reports no change in medication.He reports no change in alcohol consumption.He reports no change in Vitamin K consumption.The patient did not take Warfarin as directed.Management: The patient's INR is within target range. Will maintain dose.The patient is not currently being bridged.Next follow up appointment in 4 week(s).Outgoing total weekly dose 35 mg.Patient instructed to call in interim with questions, concerns and changes. [facility] Work Phone: 08-19-2022 History of Present illness Narrative Patient identification verified with 2 patient identifiers.Anticoagulation Monitoring Service: [facility].Enrollment/Re-enrollmen t date: February 25, 2023.The patient is being seen as a follow-up for anticoagulation monitoring.Target INR 2-3. Monitoring practitioner PAT MALIK CNP.INR monitoring is per AMS protocol.The patient is on anticoagulation due to deep vein thrombosis.The patient is currently taking warfarin Tablet strength and color: 5 mg([place]) 7.5 mg (Yellow).Interval History:Patient was last seen: August 05, 2022.Previous INR was 2.3.Incoming total weekly dose 35 mg.[facility] INR: AMS INR 3.3.Since last visit, the patient reports no bleeding.The patient did not experience clinically relevant bleeding.The patient did not experience other minor bleeding.Since last visit, the patient has not experienced a thrombotic event.The patient reports no change in medication.He reports a change in alcohol consumption. PT HAD INCREASED ALCOHOL INTAKE THIS PAST WEEKEND.He reports no change in Vitamin K consumption.The patient has taken Warfarin as directed.Management: The patient's INR is supratherapeutic. Hold 1 dose. 08/19. Will maintain current dose. WILL MAINTAIN DOSE PT HAS BEEN THERAPEUTIC ON THIS DOSINGThe patient is not currently being bridged.Next follow up appointment in 1 week(s). PT WOULD HAVE GONE 4 WEEKS IF THERAPEUTIC.Outgoing total weekly dose 35 mg.Patient instructed to call in interim with questions, concerns and changes. Patient educated on interactions between medications and warfarin. Patient educated on dietary consistency in vitamin k consumption. Patient educated on affects of alcohol consumption while taking warfarin. Patient educated on signs of bleeding/clotting. Patient educated on compliance with dosing, follow up appointments, and prescribed plan of care. [facility] Work Phone: 08-05-2022 History of Present illness Narrative Patient identification verified with 2 patient identifiers.Anticoagulation Monitoring Service: [facility].Enrollment/Re-enrollmen t date: February 25, 2023.The patient is being seen as a follow-up for anticoagulation monitoring.Target INR 2-3. Monitoring practitioner PAT MALIK CNP.INR monitoring is per AMS protocol.The patient is on anticoagulation due to deep vein thrombosis.The patient is currently taking warfarin Tablet strength and color: 5 mg([place]) 7.5 mg (Yellow).Interval History:Patient was last seen: July 22, 2022.Previous INR was 2.4.Incoming total weekly dose 35 mg.[facility] INR: AMS INR 2.3.Since last visit, the patient reports no bleeding.The patient did not experience clinically relevant bleeding.The patient did not experience other minor bleeding.Since last visit, the patient has not experienced a thrombotic event.The patient reports no change in medication.He reports no change in alcohol consumption.He reports no change in Vitamin K consumption.The patient has taken Warfarin as directed.Management: The patient's INR is within target range. Will maintain dose.Next follow up appointment in 2 week(s).Outgoing total weekly dose 35 mg.Patient instructed to call in interim with questions, concerns and changes. Patient educated on interactions between medications and warfarin. Patient educated on dietary consistency in vitamin k consumption. Patient educated on affects of alcohol consumption while taking warfarin. Patient educated on signs of bleeding/clotting. Patient educated on compliance with dosing, follow up appointments, and prescribed plan of care. Anticoagulation Monitoring Service-[facility] [employer] Phone: 07-22-2022 History of Present illness Narrative Patient identification verified with 2 patient identifiers.Anticoagulation Monitoring Service: [facility].Enrollment/Re-enrollmen t date: February 25, 2023.The patient is being seen as a follow-up for anticoagulation monitoring.Target INR 2-3. Monitoring practitioner PAT MALIK CNP.INR monitoring is per AMS protocol.The patient is on anticoagulation due to deep vein thrombosis.The patient is currently taking warfarin Tablet strength and color: 5 mg([place]) 7.5 mg (Yellow).Interval History:Patient was last seen: July 15, 2022.Previous INR was 2.9. Dose maintained.Incoming total weekly dose 35 mg.[facility] INR: AMS INR 2.4.Since last visit, the patient reports no bleeding.The patient did not experience clinically relevant bleeding.The patient did not experience other minor bleeding.Since last visit, the patient has not experienced a thrombotic event.The patient reports no change in medication.He reports no change in alcohol consumption.He reports no change in Vitamin K consumption.The patient has taken Warfarin as directed.Management: The patient's INR is within target range. Will maintain dose.Next follow up appointment in 2 week(s).Outgoing total weekly dose 35 mg.Patient instructed to call in interim with questions, concerns and changes. Patient educated on interactions between medications and warfarin. Patient educated on dietary consistency in vitamin k consumption. Patient educated on affects of alcohol consumption while taking warfarin. Patient educated on signs of bleeding/clotting. Patient educated on compliance with dosing, follow up appointments, and prescribed plan of care. Anticoagulation Monitoring [facility] Work Phone: 06-17-2022 History of Present illness Narrative Patient identification verified with 2 patient identifiers.Anticoagulation Monitoring Service: [facility].Enrollment/Re-enrollmen t date: February 25, 2023.The patient is being seen as a follow-up for anticoagulation monitoring.Target INR 2-3. Monitoring practitioner PAT MALIK CNP.INR monitoring is per [facility] protocol.The patient is on anticoagulation due to deep vein thrombosis.The patient is currently taking warfarin Tablet strength and color: 5 mg([place]) 7.5 mg (Yellow).Interval History:Patient was last seen: June 10, 2022.Previous INR was 2.3.Incoming total weekly dose 37.5 mg.Today[facility] Clinic INR: AMS INR 2.3.Since last visit, the patient reports no bleeding.The patient did not experience clinically relevant bleeding.The patient did not experience other minor bleeding.Since last visit, the patient has not experienced a thrombotic event.The patient reports no change in medication.He reports no change in alcohol consumption.He reports no change in Vitamin K consumption.The patient has taken Warfarin as directed.Management: The patient's INR is within target range. Will maintain dose.Next follow up appointment in 2 week(s).Outgoing total weekly dose 37.5 mg.Patient instructed to call in interim with questions, concerns and changes. Anticoagulation Monitoring [facility] Work Phone: 06-03-2022 History of Present illness Narrative Patient identification verified with 2 patient identifiers.Anticoagulation Monitoring Service: [facility].Enrollment/Re-enrollmen t date: February 25, 2023.The patient is being seen as a follow-up for anticoagulation monitoring.Target INR 2-3. Monitoring practitioner PAT MALIK CNP.INR monitoring is per AMS protocol.The patient is on anticoagulation due to deep vein thrombosis.The patient is currently taking warfarin Tablet strength and color: 5 mg([place]) 7.5 mg (Yellow).Interval History:Patient was last seen: May 27, 2022.Previous INR was 1.5.Incoming total weekly dose 35 mg.[facility] INR: AMS INR 1.9.Since last visit, the patient reports no bleeding.The patient did not experience clinically relevant bleeding.The patient did not experience other minor bleeding.Since last visit, the patient has not experienced a thrombotic event.The patient reports no change in medication.He reports no change in alcohol consumption.He reports no change in Vitamin K consumption.The patient has taken Warfarin as directed.Management: The patient's INR is subtherapeutic. Will increase dose per protocol by approximatelyNext follow up appointment in 1 week(s).Outgoing total weekly dose 37.5 mg.Patient instructed to call in interim with questions, concerns and changes. Patient educated on dietary consistency in vitamin k consumption. Anticoagulation [facility] [employer] Phone: 05-27-2022 History of Present illness Narrative Patient identification verified with 2 patient identifiers.Anticoagulation Monitoring Service: [facility].Enrollment/Re-enrollmen t date: February 25, 2023.The patient is being seen as a follow-up for anticoagulation monitoring.Target INR 2-3. Monitoring practitioner PAT MALIK CNP.INR monitoring is per AMS protocol.The patient is on anticoagulation due to deep vein thrombosis.The patient is currently taking warfarin Tablet strength and color: 5 mg([place]) 7.5 mg (Yellow).Interval History:Patient was last seen: May 20, 2022.PT'S 5MG TABLETS HAVE BEEN REFILLED.Incoming total weekly dose 33.75 mg.Today[facility] Clinic INR: AMS INR 1.5.Since last visit, the patient reports no bleeding.The patient did not experience clinically relevant bleeding.The patient did not experience other minor bleeding.Since last visit, the patient has not experienced a thrombotic event.The patient reports no change in medication.He reports no change in alcohol consumption.He reports no change in Vitamin K consumption.The patient has taken Warfarin as directed.Management: The patient's INR is subtherapeutic. Will increase dose per protocol by approximatelyNext follow up appointment in 1 week(s).Outgoing total weekly dose 35 mg.Patient instructed to call in interim with questions, concerns and changes. Patient educated on dietary consistency in vitamin k consumption. Anticoagulation Monitoring Service-[facility] Work Phone: 04-22-2022 History of Present illness Narrative Patient identification verified with 2 patient identifiers.Anticoagulation Monitoring Service: [facility].Enrollment/Re-enrollmen t date: February 25, 2023.The patient is being seen as a follow-up for anticoagulation monitoring.Target INR 2-3. Monitoring practitioner PAT MALIK CNP.INR monitoring is per AMS protocol.The patient is on anticoagulation due to deep vein thrombosis.The patient is currently taking warfarin Tablet strength and color: 5 mg([place])Interval History:Patient was last seen: April 08, 2022.Previous INR was 3.4.Incoming total weekly dose 42.5 mg.[facility] INR: AMS INR 3.0.Since last visit, the patient reports no bleeding.The patient did not experience clinically relevant bleeding.The patient did not experience other minor bleeding.Since last visit, the patient has not experienced a thrombotic event.The patient reports no change in medication.He reports no change in alcohol consumption.He reports no change in Vitamin K consumption.The patient has taken Warfarin as directed.Management: The patient's INR is within target range. Will maintain dose.The patient is not currently being bridged.Next follow up appointment in 2 week(s).Outgoing total weekly dose 42.5 mg.Patient instructed to call in interim with questions, concerns and changes. Anticoagulation Monitoring Service[facility] [employer] Work Phone: 04-08-2022 History of Present illness Narrative Patient identification verified with 2 patient identifiers.Anticoagulation Monitoring Service: [facility].Enrollment/Re-enrollmen t date: February 25, 2023.The patient is being seen as a follow-up for anticoagulation monitoring.Target INR 2-3. Monitoring practitioner PAT MALIK CNP.INR monitoring is per AMS protocol.The patient is on anticoagulation due to deep vein thrombosis.The patient is currently taking warfarin Tablet strength and color: 5 mg([place])Interval History:Patient was last seen: March 11, 2022.Previous INR was 2.6.Incoming total weekly dose 42.5 mg.Today[facility] INR: AMS INR 3.4.Since last visit, the patient reports no bleeding.The patient did not experience clinically relevant bleeding.The patient did not experience other minor bleeding.Since last visit, the patient has not experienced a thrombotic event.The patient reports no change in medication. PT WAS IN ER FOR CHEST PRESSURE ON 04/04/22-04/05/22. PT RECEIVED 3 BABY ASA.He reports no change in alcohol consumption.He reports no change in Vitamin K consumption.The patient has taken Warfarin as directed.Management: The patient's INR is supratherapeutic. Will maintain current dose. ASA MAY STILL BE IN PT'S SYSTEM. PT HAS BEEN ON THIS WARFARIN DOSE AND INR HAS BEEN THERAPEUTIC, SO WILL MAINTAIN CURRENT DOSE.Next follow up appointment in 1 week(s). PT UNABLE TO RTC UNTIL 04/22/22 DUE TO BEING OUT OF TOWN.Outgoing total weekly dose 42.5 mg.Patient instructed to call in interim with questions, concerns and changes. Patient educated on interactions between medications and warfarin. Patient educated on dietary consistency in vitamin k consumption. Patient educated on affects of alcohol consumption while taking warfarin. Patient educated on signs of bleeding/clotting. Patient educated on compliance with dosing, follow up appointments, and prescribed plan of care. Anticoagulation Monitoring [facility] Work Phone: 04-05-2022 Note Send Summary: Discharge Summary Providers: Provider RoleProvider Name Russ Almanzar Note Recipients: Russ Rosen MD Discharge: Summary: Admission Date: .04-Apr-2022 20:34:00 Discharge Date: 05-Apr-2022 Attending Physician at Discharge: Steve De La Cruz Admission Reason: chest pain Final Discharge Diagnoses: atypical chest pain Procedures: none Condition at Discharge: Satisfactory Disposition at Discharge: .Home Vital Signs: T PRBPMAPSpO2 [id number]% Date/Time04/05 16:398 16:398 16:398 16:398 1: 16:39 Range(36.4C - 36.9C ) (66 - 75 ) (16 - 20 ) (120 - 179 )/ (70 - 87 ) (87 - 93 ) (96% - 99% ) Highest temp of 36.9 C was recorded at 04/05 7:51 Date: Weight/Scale Type:Height: 05-Apr-2022 02:2989 kg / vdv743.2 cm Hospital Course: You were admitted with chest pain with unclear etiology, your cardiac work up was negative you remained pain free durinng hospitalization. You are cleared for discharge to follow up in 1 week with your PCP for further work up and outpatient testing. Immunizations: Immunizations: 19-Oct-2020 SARS-CoV-2 (COVID-19): Immunizations, 19-Oct-2020 SARS-CoV-2 (COVID-19): Immunizations, 17-Nov-2020 Tdap: Immunizations, 06-Feb-2021 Medical History: Hematoma of rectus sheath: Nontraumatic hematoma: Hyperlipidemia: DVT (deep venous thrombosis): Discharge Information: and Continuing Care: Lab Results - Pending: None Radiology Results - Pending: None Discharge Instructions: Activity: activity as tolerated. Nutrition/Diet: low cholesterol, low fat, low sodium Follow Up Appointments: Coumadin (Warfarin) Follow-Up Monitoring: Follow-Up Monitoring Locations (Clinic): [facility], [address], [address], [place], phone: [phone] #1 Discharge Medications: Home Medication simvastatin 20 mg oral tablet - 1 tab(s) orally once a day (at bedtime) warfarin 5 mg oral tablet - 1 tab(s) orally 4 times a week warfarin 7.5 mg oral tablet - 1 tab(s) orally 3 times a week pantoprazole 20 mg oral delayed release tablet - 1 tab(s) orally once a day PRN Medication nitroglycerin 0.4 mg sublingual tablet - 1 tab(s) sublingual every 5 minutes, As needed, Angina DNR Status: Code StatusCode Status order at time of discharge: Full Code Attestation: Note Completion: I am a: Advanced Practice Provider Attending Only - Shared Visit with Advanced Practice ProviderThis is a shared visit. I have reviewed the Advanced Practice Providers encounter note, approve the Advanced Practice Providers documentation, and provide the following additional information from my personal encounter. Comments/ Additional Findings Steve De La Cruz MD Electronic Signatures: Bhumika Jose (SPORTS COMMENTATOR-SENIOR CHEMICAL ENGINEER) (Signed 05-Apr-2022 20:34) Authored: Send Summary, Summary Content, Immunizations, Medical History, Ongoing Care, DNR Status, Note Completion Steve De La Cruz) (Signed 05-Apr-2022 20:55) Authored: Ongoing Care, Note Completion Co-Signer: Send Summary, Summary Content, Immunizations, Medical History, Ongoing Care, DNR Status, Note Completion Last Updated: 05-Apr-2022 20:55 by Steve De La Cruz) [facility] 04-05-2022 Note History of Present I llness: HPI: JENNIFER JAMES is a 77 year old Male c/o chest pain with midsternal pressure. takes coumadin for DVT x3, INR therapeutic. Given SL NTG and ASA. normal EKG and normal serial enzymes. Patient up independently with at bedside. no further CP . asking to be discharge. Past Medical/Surgical History: Medical History: Hematoma of rectus sheath: Nontraumatic hematoma: Hyperlipidemia: DVT (deep venous thrombosis): Family History: CAD: yes Diabetes: yes Social History: Social History: Smoking Statusnever smoker (1) Alcohol Useoccasionally(1) Drug Usedenies (1) Drug 2 Usedenies (1) Allergies: sulfa drugs: Anaphylaxis Medications Prior to Admission: simvastatin 20 mg oral tablet: 1 tab(s) orally once a day (at bedtime) warfarin 5 mg oral tablet: 1 tab(s) orally 4 times a week warfarin 7.5 mg oral tablet: 1 tab(s) orally 3 times a week. Review of Systems: Constitutional: NEGATIVE: Fever, Chills Respiratory: NEGATIVE: Wheezing, Shortness of Breath Cardiac: NEGATIVE: Chest Pain, Palpitations Gastrointestinal: NEGATIVE: Nausea, Vomiting, Diarrhea Genitourinary: NEGATIVE: Dysuria Musculoskeletal: NEGATIVE: Pain, Weakness Neurological: NEGATIVE: Dizziness, Headache, Seizures Psychiatric: NEGATIVE: Anxiety Skin: NEGATIVE: Rash Objective: Objective Information: T PRBPMAPSpO2 [id number]% Date/Time8/13 16: 16: 16: 16: 1: 16:39 Range(36.4C - 36.9C ) (66 - 75 ) (16 - 20 ) (120 - 179 )/ (70 - 87 ) (87 - 93 ) (96% - 99% ) Highest temp of 36.9 C was recorded at 04/05 7:51 Pain reported at 04/05 8:00: 0 = None Physical Exam by System: Constitutional: Well developed, no distress, alert and cooperative Eyes: PERRL, EOMI, clear sclera Head/Neck: Neck supple, thyroid without mass or tenderness, No JVD, trachea midline Respiratory/Thorax: Patent airways, CTAB, normal breath sounds with good chest expansion, thorax symmetric Cardiovascular: Regular, rate and rhythm, no murmurs, 2+ equal pulses of the extremities, normal S 1and S 2 Gastrointestinal: Nondistended, soft, non-tender, no rebound tenderness or guarding, no masses palpable, no organomegaly, +BS, no bruits Musculoskeletal: ROM intact, no joint swelling, normal strength Extremities: normal extremities, no edema, contusions or wounds, no clubbing Neurological: alert and oriented x3, intact senses, motor, response and reflexes, normal strength Psychological: Appropriate mood and behavior Skin: Warm and dry, no lesions, no rashes Medications: Medications: Continuous Medications -- No continuous medications are active Scheduled Medications -- 1. Simvastatin: 20 mg Oral Every Night 2. Warfarin: 6 mg Oral Daily PRN Medications -- 1. Nitroglycerin SubLingual: 0.4 mg SubLingual Every 5 Minutes Recent Lab Results: Results: CBC: 04/05/2022 08:54 \ Hgb / \ 14.7 / WBC Plt 7.2 175 / Hct \ / 44.2 \ RBC: 4.46 L MCV: 99 Neutrophil %: 69.9 BMP: 04/05/2022 08:54 NA+ Cl- BUN / 140 109 H 15 / -- Glucose 92 K+ HCO3- Creat \ 4.6 22 0.85 \ Calcium : 7.7 L Anion Gap : 14 CMP: 04/04/2022 21:57 NA+ Cl- BUN / 141 107 15 / -- Glucose 98 K+ HCO3- Creat \ 4.7 27 0.98 \ \ T Bili / \ 0.4 / AST x ---- x ALT 16 x ---- x 13 / Alk P \ / 50 \ Calcium : 8.4 L Anion Gap : 12 Albumin : 4.0 T Protein : 6.9 Coagulation: 04/05/2022 17:08 PT / 41.4 H / -------< INR < 3.5 H PTT\ 40 H \ Radiology Results: Results: Impression: No acute cardiopulmonary process. Xray Chest 1 View [Apr 04 2022 10:22PM] Assessment and Plan: Assessment: Chest pain likely atypical no further cp in house, cardiac work up negative - rec f/u with pcp and continued cardiac work up outpatient Attestation: Note Completion: I am a: Advanced Practice Provider Attending Only - Shared Visit with Advanced Practice ProviderThis is a shared visit. I have reviewed the Advanced Practice Providers encounter note, approve the Advanced Practice Providers documentation, and provide the following additional information from my personal encounter. Comments/ Additional Findings Steve De La Cruz MD Electronic Signatures: Bhumika Jose (SPORTS COMMENTATOR-SENIOR CHEMICAL ENGINEER) (Signed 05-Apr-2022 19:55) Authored: History of Present Illness, Comorbidities, Past Medical/Surgical History, Family History, Social History, Allergies, Medications Prior to Admission, Review of Systems, Objective, Assessment and Plan, Note Completion Steve De La Cruz) (Signed 05-Apr-2022 20:54) Autho (more content not included)... [facility] 12-04-2021 History of Present illness Narrative Patient identification verified with 2 patient identifiers.Anticoagulation Monitoring Service:Enrollment/Re-enrollme nt date: December 04, 2021.Re-enrollment fax was sent to HERIBERTO MALIK CNP ON 10/22/21, sent again on 11/15/21The patient is being seen as a follow-up for anticoagulation monitoring.Target INR 2-3. Monitoring practitioner PAT MALIK CNP.INR monitoring is per [facility] protocol.The patient is on anticoagulation due to deep vein thrombosis.The patient is currently taking warfarin Tablet strength and color: 5 mg([place])Interval History:Patient was last seen: November 29, 2021.Previous INR was 2.9.Incoming total weekly dose 50 mg.[facility]R: [facility] INR 3.2.Since last visit, the patient reports no bleeding.The patient did not experience clinically relevant bleeding.The patient did not experience other minor bleeding.Since last visit, the patient has not experienced a thrombotic event.The patient reports no change in medication.He reports no change in alcohol consumption.He reports no change in Vitamin K consumption.The patient has taken Warfarin as directed.Management: The patient's INR is supratherapeutic. Will decrease dose per protocol by approximatelyThe patient is not currently being bridged.Next follow up appointment in 1 week(s).Outgoing total weekly dose 47.5 mg.Patient instructed to call in interim with questions, concerns and changes. Anticoagulation Monitoring Service-[facility] [employer] Phone: 12-04-2021 History of Present illness Narrative Patient identification verified with 2 patient identifiers.Anticoagulation Monitoring Service: [facility].Enrollment/Re-enrollmen t date: December 04, 2021.Re-enrollment fax was sent to pat malik cnp 10/22/21.11/15/21,12/31/21The patient is being seen as a follow-up for anticoagulation monitoring.Target INR 2-3. Monitoring practitioner PAT MAILK CNP.INR monitoring is per [facility] protocol.The patient is on anticoagulation due to deep vein thrombosis.The patient is currently taking warfarin Tablet strength and color: 5 mg([place])Interval History:Patient was last seen: December 20, 2021.Previous INR was 3.1.Incoming total weekly dose 45 mg.[facility] INR: [facility] INR 2.6.Since last visit, the patient reports no bleeding.The patient did not experience clinically relevant bleeding.The patient did not experience other minor bleeding.Since last visit, the patient has not experienced a thrombotic event.The patient reports no change in medication.He reports no change in alcohol consumption.He reports no change in Vitamin K consumption.The patient has taken Warfarin as directed.Management: The patient's INR is within target range. Will maintain dose.The patient is not currently being bridged.Next follow up appointment in 2 week(s). LAST APPT WAS 2 WEEKS AGO.Outgoing total weekly dose 45 mg.Patient instructed to call in interim with questions, concerns and changes. Anticoagulation Monitoring Service-[facility] [employer] Phone: 12-04-2021 History of Present illness Narrative Patient identification verified with 2 patient identifiers.Anticoagulation Monitoring Service: [facility].Enrollment/Re-enrollmen t date: December 04, 2021.Re-enrollment fax was sent to PAT MALIK CNP 10/22/21,11/15/21,12/31/21,01/14/22 The patient is being seen as a follow-up for anticoagulation monitoring.Target INR 2-3. Monitoring practitioner PAT MALIK CNP.INR monitoring is per [facility] protocol.The patient is on anticoagulation due to deep vein thrombosis.The patient is currently taking warfarin Tablet strength and color: 5 mg([place])Interval History:Patient was last seen: December 31, 2021.Previous INR was 2.6.Incoming total weekly dose 45 mg.[facility] INR: [facility] INR 3.1.Since last visit, the patient reports no bleeding.The patient did not experience clinically relevant bleeding.The patient did not experience other minor bleeding.Since last visit, the patient has not experienced a thrombotic event.The patient reports no change in medication.He reports no change in alcohol consumption.He reports no change in Vitamin K consumption.The patient has taken Warfarin as directed.There is no identifiable cause for out of range INR.Management: The patient's INR is supratherapeutic. Will decrease dose per protocol by approximatelyThe patient is not currently being bridged.Next follow up appointment in 1 week(s).Outgoing total weekly dose 42.5 mg.Patient instructed to call in interim with questions, concerns and changes. Anticoagulation Monitoring Service-[facility] [employer] Work Phone: 12-04-2021 History of Present illness Narrative Patient identification verified with 2 patient identifiers.Anticoagulation Monitoring Service: [facility].Enrollment/Re-enrollmen t date: December 04, 2021.Re-enrollment fax was sent to PAT MALIK CNP 10/22/21,11/15/21,12/31/21,01/14/22 The patient is being seen as a follow-up for anticoagulation monitoring.Target INR 2-3. Monitoring practitioner PAT MALIK CNP.INR monitoring is per [facility] protocol.The patient is on anticoagulation due to deep vein thrombosis.The patient is currently taking warfarin Tablet strength and color: 5 mg([place])Interval History:Patient was last seen: January 14, 2022.Previous INR was 3.1.Incoming total weekly dose 42.5 mg.[facility] INR: [facility] INR 2.8.Since last visit, the patient reports no bleeding.The patient did not experience clinically relevant bleeding.The patient did not experience other minor bleeding.Since last visit, the patient has not experienced a thrombotic event.The patient reports no change in medication.He reports no change in alcohol consumption.He reports no change in Vitamin K consumption.The patient has taken Warfarin as directed.Management: The patient's INR is within target range. Will maintain dose.Next follow up appointment in 1 week(s).Outgoing total weekly dose 42.5 mg.Patient instructed to call in interim with questions, concerns and changes. Anticoagulation Monitoring Service-[facility] [employer] Work Phone: 12-04-2021 History of Present illness Narrative Patient identification verified with 2 patient identifiers.Anticoagulation Monitoring Service: [facility].Enrollment/Re-enrollmen t date: December 04, 2021.Re-enrollment fax was sent to PAT MALIK CNP 10/22/21,11/15/21,12/31/21,01/14/22 The patient is being seen as a follow-up for anticoagulation monitoring.Target INR 2-3. Monitoring practitioner PAT MALIK CNP.INR monitoring is per [facility] protocol.The patient is on anticoagulation due to deep vein thrombosis.The patient is currently taking warfarin Tablet strength and color: 5 mg([place])Interval History:Patient was last seen: January 21, 2022.Previous INR was 2.8.Incoming total weekly dose 42.5 mg.[facility]R: [facility] INR 2.4.Since last visit, the patient reports no bleeding.The patient did not experience clinically relevant bleeding.The patient did not experience other minor bleeding.Since last visit, the patient has not experienced a thrombotic event.The patient reports no change in medication.He reports no change in alcohol consumption.He reports no change in Vitamin K consumption.The patient has taken Warfarin as directed.Management: The patient's INR is within target range. Will maintain dose.Next follow up appointment in 2 week(s).Outgoing total weekly dose 42.5 mg.Patient instructed to call in interim with questions, concerns and changes. [facility] History of Present illness Narrative Patient identification verified with 2 patient identifiers.Anticoagulation Monitoring Service: [facility].Enrollment/Re-enrollmen t date: December 04, 2021.Re-enrollment fax was sent to PAT MALIK CNP 10/22/21,11/15/21,12/31/21,01/14/22 The patient is being seen as a follow-up for anticoagulation monitoring.Target INR 2-3. Monitoring practitioner PAT MALIK CNP.INR monitoring is per [facility] protocol.The patient is on anticoagulation due to deep vein thrombosis.The patient is currently taking warfarin Tablet strength and color: 5 mg([place])Interval History:Patient was last seen: January 28, 2022.Previous INR was 2.4.Incoming total weekly dose 42.5 mg.[facility] INR: [facility] INR 2.7.Since last visit, the patient reports no bleeding.The patient did not experience clinically relevant bleeding.The patient did not experience other minor bleeding.Since last visit, the patient has not experienced a thrombotic event.The patient reports no change in medication.He reports no change in alcohol consumption.He reports no change in Vitamin K consumption.The patient has taken Warfarin as directed.Management: The patient's INR is within target range. Will maintain dose.Next follow up appointment in 2 week(s).Outgoing total weekly dose 42.5 mg.Patient instructed to call in interim with questions, concerns and changes. Anticoagulation Monitoring Service-[facility] [employer] Work Phone: 10-22-2021 History of Present illness Narrative Patient identification verified with 2 patient identifiers.Anticoagulation Monitoring Service: [facility].Enrollment/Re-enrollmen t date: December 04, 2021.Re-enrollment fax was sent to HERIBERTO MALIK CNP ON 10/22/21The patient is being seen as a follow-up for anticoagulation monitoring.Target INR 2-3. Monitoring practitioner PAT MALIK CNP.INR monitoring is per [facility] protocol.The patient is on anticoagulation due to deep vein thrombosis.The patient is currently taking warfarin Tablet strength and color: 5 mg([place])Interval History:Patient was last seen: October 08, 2021.Previous INR was 2.0. Since last visit, another INR has been reported as 10/18/21 lab draw was 1.2.Incoming total weekly dose 47.5 mg.[facility] INR: [facility] INR 1.5.Since last visit, the patient reports no bleeding.The patient did not experience clinically relevant bleeding.The patient did not experience other minor bleeding.Since last visit, the patient has not experienced a thrombotic event.The patient reports no change in medication.He reports no change in alcohol consumption.He reports no change in Vitamin K consumption.The patient has taken Warfarin as directed.Management: The patient's INR is subtherapeutic. I SENT DOC HALO MESSAGE TO HERIBERTO MALIK CNP AND SHE AGREED WITH PLAN TO CONTINUE LOVENOX ONCE DAILY, TAKE 10MG OF WARFARIN TODAY AND 7.5 MG TOMORROW AND RTC ON 10/24/21.The patient is currently being bridged with Enoxaparin/LovenoxNext follow up appointment in 2 day(s).Patient instructed to call in interim with questions, concerns and changes. Anticoagulation Monitoring Service-[facility] [employer] Work Phone: 10-22-2021 History of Present illness Narrative Patient identification verified with 2 patient identifiers.Anticoagulation Monitoring Service: [facility].Enrollment/Re-enrollmen t date: December 04, 2021.Re-enrollment fax was sent to HERIBERTO MALIK CNP ON 10/22/21The patient is being seen as a follow-up for anticoagulation monitoring.Target INR 2-3. Monitoring practitioner PAT MALIK CNP.INR monitoring is per [facility] protocol.The patient is on anticoagulation due to deep vein thrombosis.The patient is currently taking warfarin Tablet strength and color: 5 mg([place])Interval History:Patient was last seen: October 22, 2021.Previous INR was 1.5.Incoming total weekly dose 47.5 mg.[facility] INR: [facility] INR 1.9.Since last visit, the patient reports no bleeding.The patient did not experience clinically relevant bleeding.The patient did not experience other minor bleeding.Since last visit, the patient has not experienced a thrombotic event.The patient reports no change in medication.He reports no change in alcohol consumption.He reports no change in Vitamin K consumption.The patient has taken Warfarin as directed.Management: The patient's INR is subtherapeutic. Will increase dose per protocol by approximately Will continue bridging.The patient is currently being bridged with Enoxaparin/LovenoxNext follow up appointment in 1 day(s).Outgoing total weekly dose 55 mg.Patient instructed to call in interim with questions, concerns and changes. Patient educated on dietary consistency in vitamin k consumption. Patient educated on affects of alcohol consumption while taking warfarin. [facility] Work Phone: 10-22-2021 History of Present illness Narrative Patient identification verified with 2 patient identifiers.Anticoagulation Monitoring Service: [facility].Enrollment/Re-enrollmen t date: December 04, 2021.Re-enrollment fax was sent to HERIBERTO MALIK CNP ON 10/22/21The patient is being seen as a follow-up for anticoagulation monitoring.Target INR 2-3. Monitoring practitioner PAT MALIK CNP.INR monitoring is per [facility] protocol.The patient is on anticoagulation due to deep vein thrombosis.The patient is currently taking warfarin Tablet strength and color: 5 mg([place])Interval History:Patient was last seen: October 24, 2021.Previous INR was 1.9.Incoming total weekly dose 55 mg.[facility] INR: [facility] INR 2.1.Since last visit, the patient reports no bleeding.The patient did not experience clinically relevant bleeding.The patient did not experience other minor bleeding.Since last visit, the patient has not experienced a thrombotic event.The patient reports no change in medication.He reports no change in alcohol consumption.He reports no change in Vitamin K consumption.The patient has taken Warfarin as directed.Management: The patient's INR is within target range. Will maintain dose. REARRANGED DOSING SCHEDULEThe patient is not currently being bridged.Next follow up appointment in 1 week(s).Outgoing total weekly dose 55 mg.Patient instructed to call in interim with questions, concerns and changes. Patient educated on interactions between medications and warfarin. Patient educated on dietary consistency in vitamin k consumption. Patient educated on affects of alcohol consumption while taking warfarin. Patient educated on signs of bleeding/clotting. Patient educated on compliance with dosing, follow up appointments, and prescribed plan of care. DOC HALO'D MANAGING PRACTITIONER CURTIS MALIK WITH TODAY PT INR AND SHE RESPONDED THAT PT MAY STOP THE LOVENOX SHOTS. [facility] Anusha [address] [place] Work Phone: 10-22-2021 History of Present illness Narrative Patient identification verified with 2 patient identifiers.Anticoagulation Monitoring Service: [facility].Enrollment/Re-enrollmen t date: December 04, 2021.Re-enrollment fax was sent to HERIBERTO MALIK CNP ON 10/22/21The patient is being seen as a follow-up for anticoagulation monitoring.Target INR 2-3. Monitoring practitioner PAT MALIK CNP.INR monitoring is per [facility] protocol.The patient is on anticoagulation due to deep vein thrombosis.The patient is currently taking warfarin Tablet strength and color: 5 mg([place])Interval History:Patient was last seen: October 25, 2021.Previous INR was 2.1.Incoming total weekly dose 55 mg.[facility] INR: [facility] INR 2.8.Since last visit, the patient reports no bleeding.The patient did not experience clinically relevant bleeding.The patient did not experience other minor bleeding.Since last visit, the patient has not experienced a thrombotic event.The patient reports no change in medication.He reports no change in alcohol consumption.He reports no change in Vitamin K consumption.The patient has taken Warfarin as directed.Management: The patient's INR is within target range. Will maintain dose.The patient is not currently being bridged.Next follow up appointment in 1 week(s).Outgoing total weekly dose 55 mg.Patient instructed to call in interim with questions, concerns and changes. Patient educated on interactions between medications and warfarin. Patient educated on dietary consistency in vitamin k consumption. Patient educated on affects of alcohol consumption while taking warfarin. Patient educated on signs of bleeding/clotting. Patient educated on compliance with dosing, follow up appointments, and prescribed plan of care. [facility] Work Phone: 10-22-2021 History of Present illness Narrative Patient identification verified with 2 patient identifiers.Anticoagulation Monitoring Service: [facility].Enrollment/Re-enrollmen t date: December 04, 2021.Re-enrollment fax was sent to HERIBERTO MALIK CNP ON 10/22/21The patient is being seen as a follow-up for anticoagulation monitoring.Target INR 2-3. Monitoring practitioner PAT MALIK CNP.INR monitoring is per [facility] protocol.The patient is on anticoagulation due to deep vein thrombosis.The patient is currently taking warfarin Tablet strength and color: 5 mg([place])Interval History:Patient was last seen: November 01, 2021.Previous INR was 2.8.Incoming total weekly dose 55 mg.[facility] Clinic INR: [facility] INR 3.4.Since last visit, the patient reports no bleeding.The patient did not experience clinically relevant bleeding.The patient did not experience other minor bleeding.Since last visit, the patient has not experienced a thrombotic event.The patient reports no change in medication.He reports no change in alcohol consumption.He reports no change in Vitamin K consumption.The patient has taken Warfarin as directed.There is no identifiable cause for out of range INR.Management: The patient's INR is supratherapeutic. Will decrease dose per protocol by approximatelyThe patient is not currently being bridged.Next follow up appointment in 1 week(s).Outgoing total weekly dose 52.5 mg.Patient instructed to call in interim with questions, concerns and changes. Patient educated on interactions between medications and warfarin. Patient educated on dietary consistency in vitamin k consumption. Patient educated on affects of alcohol consumption while taking warfarin. Patient educated on signs of bleeding/clotting. Patient educated on compliance with dosing, follow up appointments, and prescribed plan of care. Anticoagulation Monitoring Service-[facility] [employer] Work Phone: 10-22-2021 History of Present illness Narrative Patient identification verified with 2 patient identifiers.Anticoagulation Monitoring Service: [facility].Enrollment/Re-enrollmen t date: December 04, 2021.Re-enrollment fax was sent to HERIBERTO MALIK CNP ON 10/22/21, sent again on 11/15/21The patient is being seen as a follow-up for anticoagulation monitoring.Target INR 2-3. Monitoring practitioner PAT MALIK CNP.INR monitoring is per [facility] protocol.The patient is on anticoagulation due to deep vein thrombosis.The patient is currently taking warfarin Tablet strength and color: 5 mg([place])Interval History:Patient was last seen: November 08, 2021.Previous INR was 3.4.Incoming total weekly dose 52.5 mg.[facility] INR: [facility] INR 2.8.Since last visit, the patient reports no bleeding.The patient did not experience clinically relevant bleeding.The patient did not experience other minor bleeding.Since last visit, the patient has not experienced a thrombotic event.The patient reports no change in medication.He reports no change in alcohol consumption.He reports no change in Vitamin K consumption.The patient has taken Warfarin as directed.Management: The patient's INR is within target range. Will maintain dose.The patient is not currently being bridged.Next follow up appointment in 1 week(s).Outgoing total weekly dose 52.5 mg.Patient instructed to call in interim with questions, concerns and changes. Patient educated on interactions between medications and warfarin. Patient educated on dietary consistency in vitamin k consumption. Patient educated on affects of alcohol consumption while taking warfarin. Patient educated on signs of bleeding/clotting. Patient educated on compliance with dosing, follow up appointments, and prescribed plan of care. Anticoagulation Monitoring Service-[facility] Work Phone: 10-22-2021 History of Present illness Narrative Patient identification verified with 2 patient identifiers.Anticoagulation Monitoring Service: [facility].Enrollment/Re-enrollmen t date: December 04, 2021.Re-enrollment fax was sent to HERIBERTO MALIK CNP ON 10/22/21, sent again on 11/15/21The patient is being seen as a follow-up for anticoagulation monitoring.Target INR 2-3. Monitoring practitioner PAT MALIK CNP.INR monitoring is per AMS protocol.The patient is on anticoagulation due to deep vein thrombosis.The patient is currently taking warfarin Tablet strength and color: 5 mg([place])Interval History:Patient was last seen: November 15, 2021.Previous INR was 2.8.Incoming total weekly dose 52.5 mg.[facility] INR: [facility] INR 3.2.Since last visit, the patient reports no bleeding.The patient did not experience clinically relevant bleeding.The patient did not experience other minor bleeding.Since last visit, the patient has not experienced a thrombotic event.The patient reports no change in medication.He reports no change in alcohol consumption.He reports no change in Vitamin K consumption.The patient has taken Warfarin as directed.There is no identifiable cause for out of range INR.Management: The patient's INR is supratherapeutic. Will decrease dose per protocol by approximately 5%.The patient is not currently being bridged.Next follow up appointment in 1 week(s).Outgoing total weekly dose 50 mg.Patient instructed to call in interim with questions, concerns and changes. Patient educated on interactions between medications and warfarin. Patient educated on dietary consistency in vitamin k consumption. Patient educated on affects of alcohol consumption while taking warfarin. Patient educated on signs of bleeding/clotting. Patient educated on compliance with dosing, follow up appointments, and prescribed plan of care. Anticoagulation Monitoring [facility] Phone: 10-22-2021 History of Present illness Narrative Patient identification verified with 2 patient identifiers.Anticoagulation Monitoring Service: [facility].Enrollment/Re-enrollmen t date: December 04, 2021.Re-enrollment fax was sent to HERIBERTO MALIK CNP ON 10/22/21, sent again on 11/15/21The patient is being seen as a follow-up for anticoagulation monitoring.Target INR 2-3. Monitoring practitioner PAT MALIK CNP.INR monitoring is per AMS protocol.The patient is on anticoagulation due to deep vein thrombosis.The patient is currently taking warfarin Tablet strength and color: 5 mg([place])Interval History:Patient was last seen: November 22, 2021.Previous INR was 3.2.Incoming total weekly dose 50 mg.[facility] INR: [facility] INR 2.9.Since last visit, the patient reports no bleeding.The patient did not experience clinically relevant bleeding.The patient did not experience other minor bleeding.Since last visit, the patient has not experienced a thrombotic event.The patient reports no change in medication.He reports no change in alcohol consumption.He reports no change in Vitamin K consumption.The patient has taken Warfarin as directed.Management: The patient's INR is within target range. Will maintain dose.The patient is not currently being bridged.Next follow up appointment in 1 week(s).Outgoing total weekly dose 50 mg.Patient instructed to call in interim with questions, concerns and changes. Anticoagulation Monitoring Service-[facility] [place] Work Phone: 10-08-2021 History of Present illness Narrative Patient identification verified with 2 patient identifiers.Anticoagulation Monitoring Service: [facility].Enrollment/Re-enrollmen t date: December 04, 2021.The patient is being seen as a follow-up for anticoagulation monitoring.Target INR 2-3. Monitoring practitioner DR. ZI WINSTON.INR monitoring is per AMS protocol.The patient is on anticoagulation due to deep vein thrombosis.The patient is currently taking warfarin Tablet strength and color: 5 mg([place])Interval History:Patient was last seen: September 10, 2021.Previous INR was 2.7.Incoming total weekly dose 42.5 mg.[facility] INR: [facility] INR 2.0.Since last visit, the patient reports no bleeding.The patient did not experience clinically relevant bleeding.The patient did not experience other minor bleeding.Since last visit, the patient has not experienced a thrombotic event.The patient reports no change in medication.He reports no change in alcohol consumption.He reports no change in Vitamin K consumption.The patient has taken Warfarin as directed.Management: The patient's INR is within target range. Will maintain dose.Next follow up appointment in PT WILL BE OFF OF COUMADIN AND ON LOVENOX FOR 10/14/21 COLONOSCOPY. HE WILL CALL WITH UPDATE ON LOVENOX INSTRUCTIONS. HE IS SCHEDULED TO RTC ON 10/17/20.Outgoing total weekly dose 42.5 mg.Patient instructed to call in interim with questions, concerns and changes. Anticoagulation Monitoring Service-[facility] Work Phone: 09-10-2021 History of Present illness Narrative Patient identification verified with 2 patient identifiers.Anticoagulation Monitoring Service: [facility].Enrollment/Re-enrollmen t date: December 04, 2021.The patient is being seen as a follow-up for anticoagulation monitoring.Target INR 2-3. Monitoring practitioner DR. ZI WINSTON.INR monitoring is per AMS protocol.The patient is on anticoagulation due to deep vein thrombosis.The patient is currently taking warfarin Tablet strength and color: 5 mg([place])Interval History:Patient was last seen: August 13, 2021.Previous INR was 2.7.Incoming total weekly dose 42.5 mg.[facility] INR: [facility] INR 2.7.Since last visit, the patient reports no bleeding.The patient did not experience clinically relevant bleeding.The patient did not experience other minor bleeding.Since last visit, the patient has not experienced a thrombotic event.The patient reports no change in medication.He reports no change in alcohol consumption.He reports no change in Vitamin K consumption.The patient has taken Warfarin as directed.Management: The patient's INR is within target range. Will maintain dose.Next follow up appointment in 4 week(s).Outgoing total weekly dose 42.5 mg.Patient instructed to call in interim with questions, concerns and changes. Anticoagulation Monitoring Service[facility] Phone: 08-13-2021 History of Present illness Narrative Patient identification verified with 2 patient identifiers.Anticoagulation Monitoring Service: [facility].Enrollment/Re-enrollmen t date: December 04, 2021.The patient is being seen as a follow-up for anticoagulation monitoring.Target INR 2-3. Monitoring practitioner DR. ZI WINSTON.INR monitoring is per AMS protocol.The patient is on anticoagulation due to deep vein thrombosis.The patient is currently taking warfarin Tablet strength and color: 5 mg([place])Interval History:Patient was last seen: July 16, 2021.Previous INR was 2.4.Incoming total weekly dose 42.5 mg.[facility] INR: [facility] INR 2.7.Since last visit, the patient reports no bleeding.The patient did not experience clinically relevant bleeding.The patient did not experience other minor bleeding.Since last visit, the patient has not experienced a thrombotic event.The patient reports no change in medication.He reports no change in alcohol consumption.He reports no change in Vitamin K consumption.The patient has taken Warfarin as directed.Management: The patient's INR is within target range. Will maintain dose.Next follow up appointment in 4 week(s).Outgoing total weekly dose 42.5 mg.Patient instructed to call in interim with questions, concerns and changes. Anticoagulation Monitoring Service-[facility] Work Phone: 07-16-2021 History of Present illness Narrative Patient identification verified with 2 patient identifiers.Anticoagulation Monitoring Service: [facility].Enrollment/Re-enrollmen t date: December 04, 2021.The patient is being seen as a follow-up for anticoagulation monitoring.Target INR 2-3. Monitoring practitioner DR. ZI WINSTON.INR monitoring is per AMS protocol.The patient is on anticoagulation due to deep vein thrombosis.The patient is currently taking warfarin Tablet strength and color: 5 mg([place])Interval History:Patient was last seen: June 18, 2021.Previous INR was 2.2.Incoming total weekly dose 42.5 mg.[facility] INR: [facility] INR 2.4.Since last visit, the patient reports no bleeding.The patient did not experience clinically relevant bleeding.The patient did not experience other minor bleeding.Since last visit, the patient has not experienced a thrombotic event.The patient reports no change in medication.He reports no change in alcohol consumption.He reports no change in Vitamin K consumption.The patient has taken Warfarin as directed.Management: The patient's INR is within target range. Will maintain dose.Next follow up appointment in 4 week(s).Outgoing total weekly dose 42.5 mg.Patient instructed to call in interim with questions, concerns and changes. Anticoagulation Monitoring Service-[facility] Work Phone: 06-18-2021 History of Present illness Narrative Patient identification verified with 2 patient identifiers.Anticoagulation Monitoring Service: [facility].Enrollment/Re-enrollmen t date: December 04, 2021.The patient is being seen as a follow-up for anticoagulation monitoring.Target INR 2-3. Monitoring practitioner DR. ZI WINSTON.INR monitoring is per AMS protocol.The patient is on anticoagulation due to deep vein thrombosis.The patient is currently taking warfarin Tablet strength and color: 5 mg([place])Interval History:Patient was last seen: May 21, 2021.Previous INR was 2.9.Incoming total weekly dose 42.5 mg.[facility] INR: [facility] INR 2.2.Since last visit, the patient reports no bleeding.The patient did not experience clinically relevant bleeding.The patient did not experience other minor bleeding.Since last visit, the patient has not experienced a thrombotic event.The patient reports no change in medication.He reports no change in alcohol consumption.He reports no change in Vitamin K consumption.The patient has taken Warfarin as directed.Management: The patient's INR is within target range. Will maintain dose.Next follow up appointment in 4 week(s).Outgoing total weekly dose 42.5 mg.Patient instructed to call in interim with questions, concerns and changes. Anticoagulation Monitoring Service-[facility] Work Phone: 05-21-2021 History of Present illness Narrative Patient identification verified with 2 patient identifiers.Anticoagulation Monitoring Service: [facility].Enrollment/Re-enrollmen t date: December 04, 2021.The patient is being seen as a follow-up for anticoagulation monitoring.Target INR 2-3. Monitoring practitioner DR. ZI WINSTON.INR monitoring is per AMS protocol.The patient is on anticoagulation due to deep vein thrombosis.The patient is currently taking warfarin Tablet strength and color: 5 mg([place])Interval History:Patient was last seen: April 23, 2021.Previous INR was 2.2.Incoming total weekly dose 42.5 mg.[facility] INR: [facility] INR 2.9.Since last visit, the patient reports no bleeding.The patient did not experience clinically relevant bleeding.The patient did not experience other minor bleeding.Since last visit, the patient has not experienced a thrombotic event.The patient reports no change in medication.He reports no change in alcohol consumption.He reports no change in Vitamin K consumption.The patient has taken Warfarin as directed.Management: The patient's INR is within target range. Will maintain dose.Next follow up appointment in 4 week(s).Outgoing total weekly dose 42.5 mg.Patient instructed to call in interim with questions, concerns and changes. Anticoagulation Monitoring Service-[facility] [employer] Work Phone: 04-23-2021 History of Present illness Narrative Patient identification verified with 2 patient identifiers.Anticoagulation Monitoring Service: [facility].Enrollment/Re-enrollmen t date: December 04, 2021.The patient is being seen as a follow-up for anticoagulation monitoring.Target INR 2-3. Monitoring practitioner DR. ZI WINSTON.INR monitoring is per AMS protocol.The patient is on anticoagulation due to deep vein thrombosis.The patient is currently taking warfarin Tablet strength and color: 5 mg([place])Interval History:Patient was last seen: March 19, 2021.Previous INR was 2.3.Incoming total weekly dose 42.5 mg.[facility] INR: [facility] INR 2.2.Since last visit, the patient reports no bleeding.The patient did not experience clinically relevant bleeding.The patient did not experience other minor bleeding.Since last visit, the patient has not experienced a thrombotic event.The patient reports no change in medication.He reports no change in alcohol consumption.He reports no change in Vitamin K consumption.The patient has taken Warfarin as directed.Management: The patient's INR is within target range. Will maintain dose.Next follow up appointment in 4 week(s).Outgoing total weekly dose 42.5 mg.Patient instructed to call in interim with questions, concerns and changes. Anticoagulation Monitoring Service-[facility] [employer] Phone: 03-19-2021 History of Present illness Narrative Patient identification verified with 2 patient identifiers.Anticoagulation Monitoring Service: [facility].Enrollment/Re-enrollmen t date: December 04, 2021.The patient is being seen as a follow-up for anticoagulation monitoring.Target INR 2-3. Monitoring practitioner DR. ZI WINSTON.INR monitoring is per AMS protocol.The patient is on anticoagulation due to deep vein thrombosis.The patient is currently taking warfarin Tablet strength and color: 5 mg([place])Interval History:Patient was last seen: February 19, 2021.Previous INR was 2.3.Incoming total weekly dose 42.5 mg.[facility] INR: [facility] INR 2.3.Since last visit, the patient reports no bleeding.The patient did not experience clinically relevant bleeding.The patient did not experience other minor bleeding.Since last visit, the patient has not experienced a thrombotic event.The patient reports no change in medication.He reports no change in alcohol consumption.He reports no change in Vitamin K consumption.The patient has taken Warfarin as directed.Management: The patient's INR is within target range. Will maintain dose.The patient is not currently being bridged.Next follow up appointment in 5 week(s). PT IS TRAVELLING AND WON'T BE BACK UNTIL THE LAST WEEK OF MARCH.Outgoing total weekly dose 42.5 mg.Patient instructed to call in interim with questions, concerns and changes. Anticoagulation Monitoring Service-[facility] Work Phone: 02-05-2021 History of Present illness Narrative Patient identification verified with 2 patient identifiers.Anticoagulation Monitoring Service: [facility].Enrollment/Re-enrollmen t date: December 04, 2021.The patient is being seen as a follow-up for anticoagulation monitoring.Target INR 2-3. Monitoring practitioner DR. ZI WINSTON.INR monitoring is per AMS protocol.The patient is on anticoagulation due to deep vein thrombosis.The patient is currently taking warfarin Tablet strength and color: 5 mg([place])Interval History:Patient was last seen: January 22, 2021.Previous INR was 2.2.Incoming total weekly dose 42.5 mg.[facility] INR: [facility] INR 2.9.Since last visit, the patient reports no bleeding.The patient did not experience clinically relevant bleeding.The patient did not experience other minor bleeding.Since last visit, the patient has not experienced a thrombotic event.The patient reports no change in medication.He reports no change in alcohol consumption.He reports no change in Vitamin K consumption.The patient has taken Warfarin as directed.Management: The patient's INR is within target range. Will maintain dose.Next follow up appointment in 2 week(s).Outgoing total weekly dose 42.5 mg.Patient instructed to call in interim with questions, concerns and changes. Anticoagulation Monitoring Service-[facility] Work Phone: 01-22-2021 History of Present illness Narrative Patient identification verified with 2 patient identifiers.Anticoagulation Monitoring Service: [facility].Enrollment/Re-enrollmen t date: December 04, 2021.The patient is being seen as a follow-up for anticoagulation monitoring.Target INR 2-3. Monitoring practitioner DR. ZI WINSTON.INR monitoring is per AMS protocol.The patient is on anticoagulation due to deep vein thrombosis.The patient is currently taking warfarin Tablet strength and color: 5 mg([place])Interval History:Patient was last seen: January 15, 2021.Previous INR was 2.Incoming total weekly dose 42.5 mg.[facility] INR: [facility] INR 2.2.Since last visit, the patient reports no bleeding.The patient did not experience clinically relevant bleeding.The patient did not experience other minor bleeding.Since last visit, the patient has not experienced a thrombotic event.The patient reports no change in medication.He reports no change in alcohol consumption.He reports no change in Vitamin K consumption.The patient has taken Warfarin as directed.Management: The patient's INR is within target range. Will maintain dose.The patient is not currently being bridged.Next follow up appointment in 2 week(s). FIRST 2 WEEK APPT.Outgoing total weekly dose 42.5 mg.Patient instructed to call in interim with questions, concerns and changes. Anticoagulation Monitoring Service-[facility] Work Phone: Evaluation note Diagnosis Pain of left lower extremity- Primary documented in this encounter [facility] Work Phone: Evaluation note* Diagnosis Mixed hyperlipidemia- Primary documented in this encounter [facility] Work Phone: Evaluation note* Diagnosis Anticoagulant long-term use- Primary Encounter for long-term (current) use of anticoagulants documented in this encounter [facility] Work Phone: Evaluation note* Diagnosis Routine general medical examination at health care facility- Primary Routine general medical examination at a health care facility Prostate cancer screening Special screening for malignant neoplasm of prostate Mixed hyperlipidemia History of recurrent deep vein thrombosis (DVT) documented in this encounter [facility] Work Phone: Evaluation note* Diagnosis Tubular adenoma of colon- Primary Benign neoplasm of colon documented in this encounter [facility] Work Phone: Evaluation note* Diagnosis Tubular adenoma of colon- Primary Benign neoplasm of colon documented in this encounter [facility] Work Phone: Evaluation note* Diagnosis Primary hypertension- Primary Unspecified essential hypertension Mixed hyperlipidemia History of recurrent deep vein thrombosis (DVT) documented in this encounter [facility] Work Phone: Evaluation note* Diagnosis Chronic nasal congestion- Primary Other diseases of nasal cavity and sinuses Primary hypertension Unspecified essential hypertension Mixed hyperlipidemia documented in this encounter [facility] Work Phone: Evaluation note* Diagnosis Chronic nasal congestion- Primary Other diseases of nasal cavity and sinuses Primary hypertension Unspecified essential hypertension Mixed hyperlipidemia Anticoagulant long-term use Encounter for long-term (current) use of anticoagulants History of recurrent deep vein thrombosis (DVT) documented in this encounter [facility] Work Phone: Evaluation noteNo assessment information available [facility] Work Phone: Evaluation note* Diagnosis Chronic nasal congestion- Primary Other diseases of nasal cavity and sinuses Primary hypertension Unspecified essential hypertension Mixed hyperlipidemia Routine general medical examination at health care facility- Primary Routine general medical examination at a health care facility Mixed hyperlipidemia Primary hypertension Unspecified essential hypertension Screening for prostate cancer Special screening for malignant neoplasm of prostate documented in this encounter [facility] Work Phone: Evaluation note* Diagnosis Chronic nasal congestion- Primary Other diseases of nasal cavity and sinuses Primary hypertension Unspecified essential hypertension Mixed hyperlipidemia Routine general medical examination at health care facility- Primary Routine general medical examination at a health care facility Mixed hyperlipidemia Primary hypertension Unspecified essential hypertension Screening for prostate cancer Special screening for malignant neoplasm of prostate Mixed hyperlipidemia- Primary Primary hypertension Unspecified essential hypertension Need for vaccination Need for prophylactic vaccination and inoculation against unspecified single disease Chronic nasal congestion Other diseases of nasal cavity and sinuses Nasal septal deviation Deviated nasal septum documented in this encounter [facility] Work Phone: Evaluation note* Diagnosis Chronic nasal congestion- Primary Other diseases of nasal cavity and sinuses Primary hypertension Unspecified essential hypertension Mixed hyperlipidemia Routine general medical examination at health care facility- Primary Routine general medical examination at a health care facility Mixed hyperlipidemia Primary hypertension Unspecified essential hypertension Screening for prostate cancer Special screening for malignant neoplasm of prostate Mixed hyperlipidemia- Primary Primary hypertension Unspecified essential hypertension Need for vaccination Need for prophylactic vaccination and inoculation against unspecified single disease Chronic nasal congestion Other diseases of nasal cavity and sinuses Nasal septal deviation Deviated nasal septum Bilateral hearing loss, unspecified hearing loss type- Primary documented in this encounter [facility] Work Phone: History of Present illness Narrative* The patient is being seen for the subsequent annual wellness visit. * Past Medical, Surgical and Family History: reviewed and updated in chart. * Medications and Supplements: Medications and supplements, including calcium and vitamins reviewed and updated in chart. * No, the patient is not using opioids. * Patient Self Assessment of Health Status: good. * Tobacco use: Non-User * Alcohol use: User, As noted in social history * Illicit drug use: Non-User * Current diet: well balanced diet, does consume adequate fluids and does consume caffeine. * Exercise Frequency: regularly. * Depression/Suicide Screening: . * During the past 2 weeks, the patient has not felt down, depressed or hopeless. * During the past 2 weeks, the patient has not felt little interest or pleasure in doing things. * Hearing Impairment: none. * Cognitive Impairment: No cognitive impairment observed, patient or family reported no cognitive impairment. * Bathing: performs independently. * Dressing: performs independently. * Walking: performs independently. * Toileting: performs independently. * Feeding: performs independently. * Personal Hygiene: performs independently. * Bowels: continent. * Bladder: continent. * Managing Finances: performs independently. * Shopping: performs independently. * Managing Medications: performs independently. * Housework / Basic Home Maintenance: performs independently. * Handling Transportation: performs independently. * Preparing Meals: performs independently. * Using the Telephone/ Communication Devices: performs independently. * Falls Risk Screening:. JENNIFER has fallen in the last 6 months. His fall resulted in the following injury: Broke finger and nose . * Home safety risk factors: none and Fell while jogging - tripped. * Advance directives:. Patient has living will. Patient has healthcare POA. CM-ZGHE-[employer] Phone: History of Present illness Narrative* The patient is being seen for the subsequent annual wellness visit. * Past Medical, Surgical and Family History: reviewed and updated in chart. * Medications and Supplements: Medications and supplements, including calcium and vitamins reviewed and updated in chart. * No, the patient is not using opioids. * Patient Self Assessment of Health Status: good. * Tobacco use: Non-User * Alcohol use: User, As noted in social history * Illicit drug use: Non-User * Current diet: well balanced diet, does consume adequate fluids and does consume caffeine. * Exercise Frequency: regularly. * Depression/Suicide Screening: . * During the past 2 weeks, the patient has not felt down, depressed or hopeless. * During the past 2 weeks, the patient has not felt little interest or pleasure in doing things. * Hearing Impairment: none. * Cognitive Impairment: No cognitive impairment observed, patient or family reported no cognitive impairment. * Bathing: performs independently. * Dressing: performs independently. * Walking: performs independently. * Toileting: performs independently. * Feeding: performs independently. * Personal Hygiene: performs independently. * Bowels: continent. * Bladder: continent. * Managing Finances: performs independently. * Shopping: performs independently. * Managing Medications: performs independently. * Housework / Basic Home Maintenance: performs independently. * Handling Transportation: performs independently. * Preparing Meals: performs independently. * Using the Telephone/ Communication Devices: performs independently. * Falls Risk Screening:. JENNIFER has fallen in the last 6 months. His fall resulted in the following injury: Broke finger and nose . * Home safety risk factors: none and Fell while jogging - tripped. * Advance directives:. Patient has living will. Patient has healthcare POA. [employer] Phone: History of Present illness Narrative* The patient is being seen for the subsequent annual wellness visit. * Past Medical, Surgical and Family History: reviewed and updated in chart. * Medications and Supplements: Medications and supplements, including calcium and vitamins reviewed and updated in chart. * No, the patient is not using opioids. * Patient Self Assessment of Health Status: good. * Tobacco use: Non-User * Alcohol use: User, As noted in social history * Illicit drug use: Non-User * Current diet: well balanced diet, does consume adequate fluids and does consume caffeine. * Exercise Frequency: regularly. * Depression/Suicide Screening: . * During the past 2 weeks, the patient has not felt down, depressed or hopeless. * During the past 2 weeks, the patient has not felt little interest or pleasure in doing things. * Hearing Impairment: none. * Cognitive Impairment: No cognitive impairment observed, patient or family reported no cognitive impairment. * Bathing: performs independently. * Dressing: performs independently. * Walking: performs independently. * Toileting: performs independently. * Feeding: performs independently. * Personal Hygiene: performs independently. * Bowels: continent. * Bladder: continent. * Managing Finances: performs independently. * Shopping: performs independently. * Managing Medications: performs independently. * Housework / Basic Home Maintenance: performs independently. * Handling Transportation: performs independently. * Preparing Meals: performs independently. * Using the Telephone/ Communication Devices: performs independently. * Falls Risk Screening:. JENNIFER has fallen in the last 6 months. His fall resulted in the following injury: Broke finger and nose . * Home safety risk factors: none and Fell while jogging - tripped. * Advance directives:. Patient has living will. Patient has healthcare POA. [facility] [employer] Work Phone: history of Present illness NarrativePatient undergoing nonoperative treatment for right small finger proximal phalanx fracture. He has discontinued use of his splint. Not kendell taping. He does describe some degree of stiffness, but no pain.[facility] [id number] Work Phone: Hiswelr of Present illness Narrative* The patient states his hyperlipidemia has been under good control since the last visit. He has no comorbid illnesses. He has no significant interval events. * Symptoms: The patient is currently asymptomatic. * Medications: The patient is not currently on any medications for his hyperlipidemia. He denies medication side effects. QT[employer]ZI[employer] Work Phone: History of Present illness Narrative* The patient states his hyperlipidemia has been under good control since the last visit. He has no comorbid illnesses. He has no significant interval events. * Symptoms: The patient is currently asymptomatic. * Medications: The patient is not currently on any medications for his hyperlipidemia. He denies medication side effects. GL[employer]OVTX[employer] Work Phone: history of Present illness Narrative* Past Medical, Surgical and Family History: reviewed and updated in chart. * Medications and Supplements: Review of all medications by a prescribing practitioner or clinical pharmacist (such as prescriptions, OTCs, herbal therapies and supplements) documented in the medical record. * No, the patient is not using opioids. * Patient Self Assessment of Health Status: good. * Tobacco use: Non-User * Alcohol use: Non-User, As noted in social history * Illicit drug use: Non-User * Current diet: well balanced diet, does consume adequate fluids and does consume caffeine. * Exercise Frequency: infrequently. * Depression/Suicide Screening: . * During the past 2 weeks, the patient has not felt down, depressed or hopeless. * During the past 2 weeks, the patient has not felt little interest or pleasure in doing things. * Hearing Impairment: none. * Cognitive Impairment: No cognitive impairment observed, patient or family reported no cognitive impairment. * Bathing: performs independently. * Dressing: performs independently. * Walking: performs independently. * Toileting: performs independently. * Feeding: performs independently. * Personal Hygiene: performs independently. * Bowels: continent. * Bladder: continent. * Managing Finances: performs independently. * Shopping: performs independently. * Managing Medications: performs independently. * Housework / Basic Home Maintenance: performs independently. * Handling Transportation: performs independently. * Preparing Meals: performs independently. * Using the Telephone/ Communication Devices: performs independently. * Falls Risk Screening:. JENNIFER has not fallen in the last 6 months. His fall did not result in injury. * Advance directives:. Advanced Care Planning discussed and documented advance care plan or surrogatedecision maker documented in the medical record. Patient has living will. Patient has healthcare POA. [facility]OFV[facility] Work Phone: History of Present illness Narrative* Patient identification verified with 2 patient identifiers. * Anticoagulation Monitoring Service: [facility]. * Enrollment/Re-enrollment date: February 25, 2023. * The patient is being seen as a follow-up for anticoagulation monitoring. * Target INR 2-3. Monitoring practitioner PAT MALIK CNP. * INR monitoring is per [facility] protocol. * The patient is on anticoagulation due to deep vein thrombosis. * The patient is currently taking warfarin Tablet strength and color: 5 mg([place]) * Interval History: * Patient was last seen: February 25, 2022. * Previous INR was 2.0. * Incoming total weekly dose 42.5 mg. * Today's Clinic INR: [facility] INR 2.6. * Since last visit, the patient reports no bleeding. * The patient did not experience clinically relevant bleeding. * The patient did not experience other minor bleeding. * Since last visit, the patient has not experienced a thrombotic event. * The patient reports no change in medication. * He reports no change in alcohol consumption. * He reports no change in Vitamin K consumption. * The patient has taken Warfarin as directed. * Management: The patient's INR is within target range. Will maintain dose. * Next follow up appointment in 4 week(s). * Outgoing total weekly dose 42.5 mg. * Patient instructed to call in interim with questions, concerns and changes. Patient educated on interactions between medications and warfarin. Patient educated on dietary consistency in vitamin k consumption. Patient educated on affects of alcohol consumption while taking warfarin. Patient educatedon signs of bleeding/clotting. Patient educated on compliance with dosing, follow up appointments, and prescribed plan of care. Anticoagulation Monitoring [facility] [employer] Work Phone: History of Present illness Narrative* The pt is a 77yoM who presents for clogged ears. * The patient reports a history of ear wax buildup requiring debridement, for which he typically irrigates his ears at home. recent irrigations without effect. * The pt reports gradual return of ear canal fullness and plugged sensation. Reports some muffled hearing. * Denies otalgia, otorrhea. * Denies recent significant history of otitis media or externa. * Denies prior significant history of otologic surgery or trauma. * reports symptoms of aural fullness more notable after recent URI and travel. HG-Mzmdethcwxpggq-Zlvij 214 DO Work Phone: History of Present illness Narrative* Patient identification verified with 2 patient identifiers. * Anticoagulation Monitoring Service: [facility]. * Enrollment/Re-enrollment date: February 25, 2023. * The patient is being seen as a follow-up for anticoagulation monitoring. * Target INR 2-3. Monitoring practitioner PAT MALIK CNP. * INR monitoring is per [facility] protocol. * The patient is on anticoagulation due to deep vein thrombosis. * The patient is currently taking warfarin Tablet strength and color: 5 mg([place]) * Interval History: * Patient was last seen: May 06, 2022. * Previous INR was 3.4. * Incoming total weekly dose 40 mg. * Today's Clinic INR: [facility] INR 3.4. * Since last visit, the patient reports no bleeding. * The patient did not experience clinically relevant bleeding. * The patient did not experience other minor bleeding. * Since last visit, the patient has not experienced a thrombotic event. * The patient reports no change in medication. * He reports no change in alcohol consumption. * He reports no change in Vitamin K consumption. PT ATE [employer] FOOD ON THURSDAY AND IS NOT SURE WHAT IT CONTAINED. * The patient has taken Warfarin as directed. * Management: The patient's INR is supratherapeutic. Will decrease dose per protocol by approximately * Next follow up appointment in 1 week(s). * Outgoing total weekly dose 37.5 mg. * Patient instructed to call in interim with questions, concerns and changes. Patient educated on dietary consistency in vitamin k consumption. Anticoagulation Monitoring Service[facility] [employer] Work Phone: History of Present illness Narrative* The patient states his hyperlipidemia has been under good control since the last visit. He has no comorbid illnesses. * Symptoms: XL-ZLCF[facility] Work Phone: History of Present illness Narrative* Patient identification verified with 2 patient identifiers. * Anticoagulation Monitoring Service: [facility]. * Enrollment/Re-enrollment date: February 25, 2023. * The patient is being seen as a follow-up for anticoagulation monitoring. * Target INR 2-3. Monitoring practitioner PAT MALIK CNP. * INR monitoring is per [facility] protocol. * The patient is on anticoagulation due to deep vein thrombosis. * The patient is currently taking warfarin Tablet strength and color: 5 mg([place]) * Interval History: * Patient was last seen: September 23, 2022. * Previous INR was 2.1. * Incoming total weekly dose 35 mg. * Today's Clinic INR: [facility] INR 2.4. * Since last visit, the patient reports no bleeding. * The patient did not experience clinically relevant bleeding. * The patient did not experience other minor bleeding. * Since last visit, the patient has not experienced a thrombotic event. * The patient reports no change in medication. * He reports no change in alcohol consumption. * He reports no change in Vitamin K consumption. * The patient has taken Warfarin as directed. * Management: The patient's INR is within target range. Will maintain dose. * Next follow up appointment in 4 week(s). * Outgoing total weekly dose 35 mg. * Patient instructed to call in interim with questions, concerns and changes. Patient educated on dietary consistency in vitamin k consumption. Patient educated on compliance with dosing, follow up appointments, and prescribed plan of care. Anticoagulation Monitoring [facility] [employer] Work Phone: History of Present illness Narrative* Patient identification verified with 2 patient identifiers. * Anticoagulation Monitoring Service: [facility]. * Enrollment/Re-enrollment date: February 25, 2023. * The patient is being seen as a follow-up for anticoagulation monitoring. * Target INR 2-3. Monitoring practitioner PAT MALIK CNP. * INR monitoring is per [facility] protocol. * The patient is on anticoagulation due to deep vein thrombosis. * The patient is currently taking warfarin Tablet strength and color: 5 mg([place]) * Interval History: * Patient was last seen: December 16, 2022. * Previous INR was 2.7. * Incoming total weekly dose 35 mg. * Today's Clinic INR: [facility] INR 2.2. * Since last visit, the patient reports no bleeding. * The patient did not experience clinically relevant bleeding. * The patient did not experience other minor bleeding. * Since last visit, the patient has not experienced a thrombotic event. * The patient reports no change in medication. * He reports no change in alcohol consumption. * He reports no change in Vitamin K consumption. * The patient has taken Warfarin as directed. * Management: The patient's INR is within target range. Will maintain dose. * Next follow up appointment in 4 week(s). PT WILL BE RVING TO [place] AND CANNOT RTC UNTIL END OFMAY. * Outgoing total weekly dose 35 mg. * Patient instructed to call in interim with questions, concerns and changes. Patient educated on dietary consistency in vitamin k consumption. Patient educated on compliance with dosing, follow up appointments, and prescribed plan of care. [facility]ticoagulation Monitoring [facility] [employer] Work Phone: History of Present illness Narrative* Patient identification verified with 2 patient identifiers. * Anticoagulation Monitoring Service: [facility]. * Enrollment/Re-enrollment date: April 21, 2024. * The patient is being seen as a follow-up for anticoagulation monitoring. * Target INR 2-3. Monitoring practitioner PAT MALIK CNP. * INR monitoring is per [facility] protocol. LASHAWN MALIK CNP FAX NUMBER IS [phone]. * The patient is on anticoagulation due to deep vein thrombosis. * The patient is currently taking warfarin Tablet strength and color: 5 mg([place]) * Interval History: * Patient was last seen: May 05, 2023. * Previous INR was 2.9. * Incoming total weekly dose 35 mg. * Today's Clinic INR: [facility] INR 3.3. * Since last visit, the patient reports no bleeding. * The patient did not experience clinically relevant bleeding. * The patient did not experience other minor bleeding. * Since last visit, the patient has not experienced a thrombotic event. * The patient reports no change in medication. * He reports no change in alcohol consumption. * He reports no change in Vitamin K consumption. * The patient has taken Warfarin as directed. * There is no identifiable cause for out of range INR. * Management: The patient's INR is supratherapeutic. Will decrease dose per protocol by approximately * Next follow up appointment in 1 week(s). * Outgoing total weekly dose 32.5 mg. * Patient instructed to call in interim with questions, concerns and changes. Patient educated on dietary consistency in vitamin k consumption. Anticoagulation Monitoring [facility] [employer] Work Phone: Instructions* Name Dates Details Instructions not documented [facility] [employer] Work Phone: Instructions* Name Dates Details Instructions not documented [facility]tico[facility] [employer] Work Phone: Reason for referral (narrative)* Consultation (Routine) - Authorized Specialty Diagnoses / Procedures Referred By Facundo ghosh Referred To Contact Primary Care Diagnoses Routine general medical examination at health care facility Procedures 1 Year Follow Up In Advanced Primary Care - PCP [place] [id number] [facility] [place] [address] Referral ID Status Reason Start Date Expiration Date V isits Requested Visits Authorized [id number] Authorized 02/22/2024 02/21/2025 1 1 [facility] Work Phone: Reason for referral (narrative)No reason for referral information [facility]WTwin [facility] Work Phone: Summary Purpose Family History No Family History Records Found Mother Name Dates Details Family history of (7 99.9, R99) Status:Active Family history of hypertensi on(V17.49, Z82.49) Status:Active Family history of congestive heart failure(V17.49, Z82.49) Status:Active Father Name Dates Details Family history of (7 99.9, R99) Status:Active Family history of hypertensi on(V17.49, Z82.49) Status:Active Family history of kidney dis ease(V18.69, Z84.1) Status:Active Family history of malignant neoplasm of prostate(V16.42, Z80.42) Status:Active Mother Name Dates Details Family history of (7 99.9, R99) Status:Active Family history of hypertensi on(V17.49, Z82.49) Status:Active Family history of congestive heart failure(V17.49, Z82.49) Status:Active Father Name Dates Details Family history of (7 99.9, R99) Status:Active Family history of hypertensi on(V17.49, Z82.49) Status:Active Family history of kidney dis ease(V18.69, Z84.1) Status:Active Family history of malignant neoplasm of prostate(V16.42, Z80.42) Status:Active Mother Name Dates Details Family history of (7 99.9, R99) Status:Active Family history of hypertensi on(V17.49, Z82.49) Status:Active Family history of congestive heart failure(V17.49, Z82.49) Status:Active Father Name Dates Details Family history of (7 99.9, R99) Status:Active Family history of hypertensi on(V17.49, Z82.49) Status:Active Family history of kidney dis ease(V18.69, Z84.1) Status:Active Family history of malignant neoplasm of prostate(V16.42, Z80.42) Status:Active Mother Name Dates Details Family history of (7 99.9, R99) Status:Active Family history of hypertensi on(V17.49, Z82.49) Status:Active Family history of congestive heart failure(V17.49, Z82.49) Status:Active Father Name Dates Details Family history of (7 99.9, R99) Status:Active Family history of hypertensi on(V17.49, Z82.49) Status:Active Family history of kidney dis ease(V18.69, Z84.1) Status:Active Family history of malignant neoplasm of prostate(V16.42, Z80.42) Status:Active Mother Name Dates Details Family history of (7 99.9, R99) Status:Active Family history of hypertensi on(V17.49, Z82.49) Status:Active Family history of congestive heart failure(V17.49, Z82.49) Status:Active Father Name Dates Details Family history of (7 99.9, R99) Status:Active Family history of hypertensi on(V17.49, Z82.49) Status:Active Family history of kidney dis ease(V18.69, Z84.1) Status:Active Family history of malignant neoplasm of prostate(V16.42, Z80.42) Status:Active Mother Name Dates Details Family history of (7 99.9, R99) Status:Active Family history of hypertensi on(V17.49, Z82.49) Status:Active Family history of congestive heart failure(V17.49, Z82.49) Status:Active Father Name Dates Details Family history of (7 99.9, R99) Status:Active Family history of hypertensi on(V17.49, Z82.49) Status:Active Family history of kidney dis ease(V18.69, Z84.1) Status:Active Family history of malignant neoplasm of prostate(V16.42, Z80.42) Status:Active Mother Name Dates Details Family history of (7 99.9, R99) Status:Active Family history of hypertensi on(V17.49, Z82.49) Status:Active Family history of congestive heart failure(V17.49, Z82.49) Status:Active Father Name Dates Details Family history of (7 99.9, R99) Status:Active Family history of hypertensi on(V17.49, Z82.49) Status:Active Family history of kidney dis ease(V18.69, Z84.1) Status:Active Family history of malignant neoplasm of prostate(V16.42, Z80.42) Status:Active Unknown Family Member Name Dates Details : Mother, Father Status:Active Family history of hypertensi on: Mother, Father(V17.49, Z82.49) Status:Active Family history of congestive heart failure: Mother(V17.49, Z82.49) Status:Active Family history of kidney dis ease: Father(V18.69, Z84.1) Status:Active Family history of malignant neoplasm of prostate: Father(V16.42, Z80.42) Status:Active Unknown Family Member Name Dates Details : Mother, Father Status:Active Family history of hypertensi on: Mother, Father(V17.49, Z82.49) Status:Active Family history of congestive heart failure: Mother(V17.49, Z82.49) Status:Active Family history of kidney dis ease: Father(V18.69, Z84.1) Status:Active Family history of malignant neoplasm of prostate: Father(V16.42, Z80.42) Status:Active Unknown Family Member Name Dates Details : Mother, Father Status:Active Family history of hypertensi on: Mother, Father(V17.49, Z82.49) Status:Active Family history of congestive heart failure: Mother(V17.49, Z82.49) Status:Active Family history of kidney dis ease: Father(V18.69, Z84.1) Status:Active Family history of malignant neoplasm of prostate: Father(V16.42, Z80.42) Status:Active Unknown Family Member Name Dates Details : Mother, Father Status:Active Family history of hypertensi on: Mother, Father(V17.49, Z82.49) Status:Active Family history of congestive heart failure: Mother(V17.49, Z82.49) Status:Active Family history of kidney dis ease: Father(V18.69, Z84.1) Status:Active Family history of malignant neoplasm of prostate: Father(V16.42, Z80.42) Status:Active Unknown Family Member Name Dates Details : Mother, Father Status:Active Family history of hypertensi on: Mother, Father(V17.49, Z82.49) Status:Active Family history of congestive heart failure: Mother(V17.49, Z82.49) Status:Active Family history of kidney dis ease: Father(V18.69, Z84.1) Status:Active Family history of malignant neoplasm of prostate: Father(V16.42, Z80.42) Status:Active Unknown Family Member Name Dates Details : Mother, Father Status:Active Family history of hypertensi on: Mother, Father(V17.49, Z82.49) Status:Active Family history of congestive heart failure: Mother(V17.49, Z82.49) Status:Active Family history of kidney dis ease: Father(V18.69, Z84.1) Status:Active Family history of malignant neoplasm of prostate: Father(V16.42, Z80.42) Status:Active Unknown Family Member Name Dates Details : Mother, Father Status:Active Family history of hypertensi on: Mother, Father(V17.49, Z82.49) Status:Active Family history of congestive heart failure: Mother(V17.49, Z82.49) Status:Active Family history of kidney dis ease: Father(V18.69, Z84.1) Status:Active Family history of malignant neoplasm of prostate: Father(V16.42, Z80.42) Status:Active Unknown Family Member Name Dates Details : Mother, Father Status:Active Family history of hypertensi on: Mother, Father(V17.49, Z82.49) Status:Active Family history of congestive heart failure: Mother(V17.49, Z82.49) Status:Active Family history of kidney dis ease: Father(V18.69, Z84.1) Status:Active Family history of malignant neoplasm of prostate: Father(V16.42, Z80.42) Status:Active Unknown Family Member Name Dates Details : Mother, Father Status:Active Family history of hypertensi on: Mother, Father(V17.49, Z82.49) Status:Active Family history of congestive heart failure: Mother(V17.49, Z82.49) Status:Active Family history of kidney dis ease: Father(V18.69, Z84.1) Status:Active Family history of malignant neoplasm of prostate: Father(V16.42, Z80.42) Status:Active Unknown Family Member Name Dates Details : Mother, Father Status:Active Family history of hypertensi on: Mother, Father(V17.49, Z82.49) Status:Active Family history of congestive heart failure: Mother(V17.49, Z82.49) Status:Active Family history of kidney dis ease: Father(V18.69, Z84.1) Status:Active Family history of malignant neoplasm of prostate: Father(V16.42, Z80.42) Status:Active Unknown Family Member Name Dates Details : Mother, Father Status:Active Family history of hypertensi on: Mother, Father(V17.49, Z82.49) Status:Active Family history of congestive heart failure: Mother(V17.49, Z82.49) Status:Active Family history of kidney dis ease: Father(V18.69, Z84.1) Status:Active Family history of malignant neoplasm of prostate: Father(V16.42, Z80.42) Status:Active Unknown Family Member Name Dates Details : Mother, Father Status:Active Family history of hypertensi on: Mother, Father(V17.49, Z82.49) Status:Active Family history of congestive heart failure: Mother(V17.49, Z82.49) Status:Active Family history of kidney dis ease: Father(V18.69, Z84.1) Status:Active Family history of malignant neoplasm of prostate: Father(V16.42, Z80.42) Status:Active Unknown Family Member Name Dates Details : Mother, Father Status:Active Family history of hypertensi on: Mother, Father(V17.49, Z82.49) Status:Active Family history of congestive heart failure: Mother(V17.49, Z82.49) Status:Active Family history of kidney dis ease: Father(V18.69, Z84.1) Status:Active Family history of malignant neoplasm of prostate: Father(V16.42, Z80.42) Status:Active Unknown Family Member Name Dates Details : Mother, Father Status:Active Family history of hypertensi on: Mother, Father(V17.49, Z82.49) Status:Active Family history of congestive heart failure: Mother(V17.49, Z82.49) Status:Active Family history of kidney dis ease: Father(V18.69, Z84.1) Status:Active Family history of malignant neoplasm of prostate: Father(V16.42, Z80.42) Status:Active Unknown Family Member Name Dates Details Family history of malignant neoplasm of prostate: Father(V16.42, Z80.42) Status:Active Family history of kidney dis ease: Father(V18.69, Z84.1) Status:Active Family history of congestive heart failure: Mother(V17.49, Z82.49) Status:Active Family history of hypertensi on: Mother, Father(V17.49, Z82.49) Status:Active : Mother, Father Status:Active Unknown Family Member Name Dates Details : Mother, Father Status:Active Family history of hypertensi on: Mother, Father(V17.49, Z82.49) Status:Active Family history of congestive heart failure: Mother(V17.49, Z82.49) Status:Active Family history of kidney dis ease: Father(V18.69, Z84.1) Status:Active Family history of malignant neoplasm of prostate: Father(V16.42, Z80.42) Status:Active Unknown Family Member Name Dates Details : Mother, Father Status:Active Family history of hypertensi on: Mother, Father(V17.49, Z82.49) Status:Active Family history of congestive heart failure: Mother(V17.49, Z82.49) Status:Active Family history of kidney dis ease: Father(V18.69, Z84.1) Status:Active Family history of malignant neoplasm of prostate: Father(V16.42, Z80.42) Status:Active Unknown Family Member Name Dates Details : Mother, Father Status:Active Family history of hypertensi on: Mother, Father(V17.49, Z82.49) Status:Active Family history of congestive heart failure: Mother(V17.49, Z82.49) Status:Active Family history of kidney dis ease: Father(V18.69, Z84.1) Status:Active Family history of malignant neoplasm of prostate: Father(V16.42, Z80.42) Status:Active Unknown Family Member Name Dates Details : Mother, Father Status:Active Family history of hypertensi on: Mother, Father(V17.49, Z82.49) Status:Active Family history of congestive heart failure: Mother(V17.49, Z82.49) Status:Active Family history of kidney dis ease: Father(V18.69, Z84.1) Status:Active Family history of malignant neoplasm of prostate: Father(V16.42, Z80.42) Status:Active Unknown Family Member Name Dates Details : Mother, Father Status:Active Family history of hypertensi on: Mother, Father(V17.49, Z82.49) Status:Active Family history of congestive heart failure: Mother(V17.49, Z82.49) Status:Active Family history of kidney dis ease: Father(V18.69, Z84.1) Status:Active Family history of malignant neoplasm of prostate: Father(V16.42, Z80.42) Status:Active Unknown Family Member Name Dates Details : Mother, Father Status:Active Family history of hypertensi on: Mother, Father(V17.49, Z82.49) Status:Active Family history of congestive heart failure: Mother(V17.49, Z82.49) Status:Active Family history of kidney dis ease: Father(V18.69, Z84.1) Status:Active Family history of malignant neoplasm of prostate: Father(V16.42, Z80.42) Status:Active Unknown Family Member Name Dates Details : Mother, Father Status:Active Family history of hypertensi on: Mother, Father(V17.49, Z82.49) Status:Active Family history of congestive heart failure: Mother(V17.49, Z82.49) Status:Active Family history of kidney dis ease: Father(V18.69, Z84.1) Status:Active Family history of malignant neoplasm of prostate: Father(V16.42, Z80.42) Status:Active Unknown Family Member Name Dates Details : Mother, Father Status:Active Family history of hypertensi on: Mother, Father(V17.49, Z82.49) Status:Active Family history of congestive heart failure: Mother(V17.49, Z82.49) Status:Active Family history of kidney dis ease: Father(V18.69, Z84.1) Status:Active Family history of malignant neoplasm of prostate: Father(V16.42, Z80.42) Status:Active Unknown Family Member Name Dates Details Family history of malignant neoplasm of prostate: Father(V16.42, Z80.42) Status:Active Family history of kidney dis ease: Father(V18.69, Z84.1) Status:Active Family history of congestive heart failure: Mother(V17.49, Z82.49) Status:Active Family history of hypertensi on: Mother, Father(V17.49, Z82.49) Status:Active : Mother, Father Status:Active Unknown Family Member Name Dates Details : Mother, Father Status:Active Family history of hypertensi on: Mother, Father(V17.49, Z82.49) Status:Active Family history of congestive heart failure: Mother(V17.49, Z82.49) Status:Active Family history of kidney dis ease: Father(V18.69, Z84.1) Status:Active Family history of malignant neoplasm of prostate: Father(V16.42, Z80.42) Status:Active Unknown Family Member Name Dates Details : Mother, Father Status:Active Family history of hypertensi on: Mother, Father(V17.49, Z82.49) Status:Active Family history of congestive heart failure: Mother(V17.49, Z82.49) Status:Active Family history of kidney dis ease: Father(V18.69, Z84.1) Status:Active Family history of malignant neoplasm of prostate: Father(V16.42, Z80.42) Status:Active Unknown Family Member Name Dates Details : Mother, Father Status:Active Family history of hypertensi on: Mother, Father(V17.49, Z82.49) Status:Active Family history of congestive heart failure: Mother(V17.49, Z82.49) Status:Active Family history of kidney dis ease: Father(V18.69, Z84.1) Status:Active Family history of malignant neoplasm of prostate: Father(V16.42, Z80.42) Status:Active Unknown Family Member Name Dates Details : Mother, Father Status:Active Family history of hypertensi on: Mother, Father(V17.49, Z82.49) Status:Active Family history of congestive heart failure: Mother(V17.49, Z82.49) Status:Active Family history of kidney dis ease: Father(V18.69, Z84.1) Status:Active Family history of malignant neoplasm of prostate: Father(V16.42, Z80.42) Status:Active Unknown Family Member Name Dates Details : Mother, Father Status:Active Family history of hypertensi on: Mother, Father(V17.49, Z82.49) Status:Active Family history of congestive heart failure: Mother(V17.49, Z82.49) Status:Active Family history of kidney dis ease: Father(V18.69, Z84.1) Status:Active Family history of malignant neoplasm of prostate: Father(V16.42, Z80.42) Status:Active Unknown Family Member Name Dates Details : Mother, Father Status:Active Family history of hypertensi on: Mother, Father(V17.49, Z82.49) Status:Active Family history of congestive heart failure: Mother(V17.49, Z82.49) Status:Active Family history of kidney dis ease: Father(V18.69, Z84.1) Status:Active Family history of malignant neoplasm of prostate: Father(V16.42, Z80.42) Status:Active Unknown Family Member Name Dates Details : Mother, Father Status:Active Family history of hypertensi on: Mother, Father(V17.49, Z82.49) Status:Active Family history of congestive heart failure: Mother(V17.49, Z82.49) Status:Active Family history of kidney dis ease: Father(V18.69, Z84.1) Status:Active Family history of malignant neoplasm of prostate: Father(V16.42, Z80.42) Status:Active Unknown Family Member Name Dates Details : Mother, Father Status:Active Family history of hypertensi on: Mother, Father(V17.49, Z82.49) Status:Active Family history of congestive heart failure: Mother(V17.49, Z82.49) Status:Active Family history of kidney dis ease: Father(V18.69, Z84.1) Status:Active Family history of malignant neoplasm of prostate: Father(V16.42, Z80.42) Status:Active Unknown Family Member Name Dates Details : Mother, Father Status:Active Family history of hypertensi on: Mother, Father(V17.49, Z82.49) Status:Active Family history of congestive heart failure: Mother(V17.49, Z82.49) Status:Active Family history of kidney dis ease: Father(V18.69, Z84.1) Status:Active Family history of malignant neoplasm of prostate: Father(V16.42, Z80.42) Status:Active Unknown Family Member Name Dates Details : Mother, Father Status:Active Family history of hypertensi on: Mother, Father(V17.49, Z82.49) Status:Active Family history of congestive heart failure: Mother(V17.49, Z82.49) Status:Active Family history of kidney dis ease: Father(V18.69, Z84.1) Status:Active Family history of malignant neoplasm of prostate: Father(V16.42, Z80.42) Status:Active Unknown Family Member Name Dates Details : Mother, Father Status:Active Family history of hypertensi on: Mother, Father(V17.49, Z82.49) Status:Active Family history of congestive heart failure: Mother(V17.49, Z82.49) Status:Active Family history of kidney dis ease: Father(V18.69, Z84.1) Status:Active Family history of malignant neoplasm of prostate: Father(V16.42, Z80.42) Status:Active Unknown Family Member Name Dates Details : Mother, Father Status:Active Family history of hypertensi on: Mother, Father(V17.49, Z82.49) Status:Active Family history of congestive heart failure: Mother(V17.49, Z82.49) Status:Active Family history of kidney dis ease: Father(V18.69, Z84.1) Status:Active Family history of malignant neoplasm of prostate: Father(V16.42, Z80.42) Status:Active Unknown Family Member Name Dates Details : Mother, Father Status:Active Family history of hypertensi on: Mother, Father(V17.49, Z82.49) Status:Active Family history of congestive heart failure: Mother(V17.49, Z82.49) Status:Active Family history of kidney dis ease: Father(V18.69, Z84.1) Status:Active Family history of malignant neoplasm of prostate: Father(V16.42, Z80.42) Status:Active Unknown Family Member Name Dates Details : Mother, Father Status:Active Family history of hypertensi on: Mother, Father(V17.49, Z82.49) Status:Active Family history of congestive heart failure: Mother(V17.49, Z82.49) Status:Active Family history of kidney dis ease: Father(V18.69, Z84.1) Status:Active Family history of malignant neoplasm of prostate: Father(V16.42, Z80.42) Status:Active Unknown Family Member Name Dates Details : Mother, Father Status:Active Family history of hypertensi on: Mother, Father(V17.49, Z82.49) Status:Active Family history of congestive heart failure: Mother(V17.49, Z82.49) Status:Active Family history of kidney dis ease: Father(V18.69, Z84.1) Status:Active Family history of malignant neoplasm of prostate: Father(V16.42, Z80.42) Status:Active Unknown Family Member Name Dates Details Family history of malignant neoplasm of prostate: Father(V16.42, Z80.42) Status:Active Family history of kidney dis ease: Father(V18.69, Z84.1) Status:Active Family history of congestive heart failure: Mother(V17.49, Z82.49) Status:Active Family history of hypertensi on: Mother, Father(V17.49, Z82.49) Status:Active : Mother, Father Status:Active Unknown Family Member Name Dates Details : Mother, Father Status:Active Family history of hypertensi on: Mother, Father(V17.49, Z82.49) Status:Active Family history of congestive heart failure: Mother(V17.49, Z82.49) Status:Active Family history of kidney dis ease: Father(V18.69, Z84.1) Status:Active Family history of malignant neoplasm of prostate: Father(V16.42, Z80.42) Status:Active Unknown Family Member Name Dates Details : Mother, Father Status:Active Family history of hypertensi on: Mother, Father(V17.49, Z82.49) Status:Active Family history of congestive heart failure: Mother(V17.49, Z82.49) Status:Active Family history of kidney dis ease: Father(V18.69, Z84.1) Status:Active Family history of malignant neoplasm of prostate: Father(V16.42, Z80.42) Status:Active Unknown Family Member Name Dates Details : Mother, Father Status:Active Family history of hypertensi on: Mother, Father(V17.49, Z82.49) Status:Active Family history of congestive heart failure: Mother(V17.49, Z82.49) Status:Active Family history of kidney dis ease: Father(V18.69, Z84.1) Status:Active Family history of malignant neoplasm of prostate: Father(V16.42, Z80.42) Status:Active Unknown Family Member Name Dates Details Family history of malignant neoplasm of prostate: Father(V16.42, Z80.42) Status:Active Family history of kidney dis ease: Father(V18.69, Z84.1) Status:Active Family history of congestive heart failure: Mother(V17.49, Z82.49) Status:Active Family history of hypertensi on: Mother, Father(V17.49, Z82.49) Status:Active : Mother, Father Status:Active Unknown Family Member Name Dates Details : Mother, Father Status:Active Family history of hypertensi on: Mother, Father(V17.49, Z82.49) Status:Active Family history of congestive heart failure: Mother(V17.49, Z82.49) Status:Active Family history of kidney dis ease: Father(V18.69, Z84.1) Status:Active Family history of malignant neoplasm of prostate: Father(V16.42, Z80.42) Status:Active Unknown Family Member Name Dates Details : Mother, Father Status:Active Family history of hypertensi on: Mother, Father(V17.49, Z82.49) Status:Active Family history of congestive heart failure: Mother(V17.49, Z82.49) Status:Active Family history of kidney dis ease: Father(V18.69, Z84.1) Status:Active Family history of malignant neoplasm of prostate: Father(V16.42, Z80.42) Status:Active Unknown Family Member Name Dates Details : Mother, Father Status:Active Family history of hypertensi on: Mother, Father(V17.49, Z82.49) Status:Active Family history of congestive heart failure: Mother(V17.49, Z82.49) Status:Active Family history of kidney dis ease: Father(V18.69, Z84.1) Status:Active Family history of malignant neoplasm of prostate: Father(V16.42, Z80.42) Status:Active Unknown Family Member Name Dates Details : Mother, Father Status:Active Family history of hypertensi on: Mother, Father(V17.49, Z82.49) Status:Active Family history of congestive heart failure: Mother(V17.49, Z82.49) Status:Active Family history of kidney dis ease: Father(V18.69, Z84.1) Status:Active Family history of malignant neoplasm of prostate: Father(V16.42, Z80.42) Status:Active Unknown Family Member Name Dates Details : Mother, Father Status:Active Family history of hypertensi on: Mother, Father(V17.49, Z82.49) Status:Active Family history of congestive heart failure: Mother(V17.49, Z82.49) Status:Active Family history of kidney dis ease: Father(V18.69, Z84.1) Status:Active Family history of malignant neoplasm of prostate: Father(V16.42, Z80.42) Status:Active Unknown Family Member Name Dates Details : Mother, Father Status:Active Family history of hypertensi on: Mother, Father(V17.49, Z82.49) Status:Active Family history of congestive heart failure: Mother(V17.49, Z82.49) Status:Active Family history of kidney dis ease: Father(V18.69, Z84.1) Status:Active Family history of malignant neoplasm of prostate: Father(V16.42, Z80.42) Status:Active Unknown Family Member Name Dates Details : Mother, Father Status:Active Family history of hypertensi on: Mother, Father(V17.49, Z82.49) Status:Active Family history of congestive heart failure: Mother(V17.49, Z82.49) Status:Active Family history of kidney dis ease: Father(V18.69, Z84.1) Status:Active Family history of malignant neoplasm of prostate: Father(V16.42, Z80.42) Status:Active Unknown Family Member Name Dates Details : Mother, Father Status:Active Family history of hypertensi on: Mother, Father(V17.49, Z82.49) Status:Active Family history of congestive heart failure: Mother(V17.49, Z82.49) Status:Active Family history of kidney dis ease: Father(V18.69, Z84.1) Status:Active Family history of malignant neoplasm of prostate: Father(V16.42, Z80.42) Status:Active Unknown Family Member Name Dates Details : Mother, Father Status:Active Family history of hypertensi on: Mother, Father(V17.49, Z82.49) Status:Active Family history of congestive heart failure: Mother(V17.49, Z82.49) Status:Active Family history of kidney dis ease: Father(V18.69, Z84.1) Status:Active Family history of malignant neoplasm of prostate: Father(V16.42, Z80.42) Status:Active Unknown Family Member Name Dates Details : Mother, Father Status:Active Family history of hypertensi on: Mother, Father(V17.49, Z82.49) Status:Active Family history of congestive heart failure: Mother(V17.49, Z82.49) Status:Active Family history of kidney dis ease: Father(V18.69, Z84.1) Status:Active Family history of malignant neoplasm of prostate: Father(V16.42, Z80.42) Status:Active Unknown Family Member Name Dates Details : Mother, Father Status:Active Family history of hypertensi on: Mother, Father(V17.49, Z82.49) Status:Active Family history of congestive heart failure: Mother(V17.49, Z82.49) Status:Active Family history of kidney dis ease: Father(V18.69, Z84.1) Status:Active Family history of malignant neoplasm of prostate: Father(V16.42, Z80.42) Status:Active Unknown Family Member Name Dates Details : Mother, Father Status:Active Family history of hypertensi on: Mother, Father(V17.49, Z82.49) Status:Active Family history of congestive heart failure: Mother(V17.49, Z82.49) Status:Active Family history of kidney dis ease: Father(V18.69, Z84.1) Status:Active Family history of malignant neoplasm of prostate: Father(V16.42, Z80.42) Status:Active Unknown Family Member Name Dates Details : Mother, Father Status:Active Family history of hypertensi on: Mother, Father(V17.49, Z82.49) Status:Active Family history of congestive heart failure: Mother(V17.49, Z82.49) Status:Active Family history of kidney dis ease: Father(V18.69, Z84.1) Status:Active Family history of malignant neoplasm of prostate: Father(V16.42, Z80.42) Status:Active Unknown Family Member Name Dates Details : Mother, Father Status:Active Family history of hypertensi on: Mother, Father(V17.49, Z82.49) Status:Active Family history of congestive heart failure: Mother(V17.49, Z82.49) Status:Active Family history of kidney dis ease: Father(V18.69, Z84.1) Status:Active Family history of malignant neoplasm of prostate: Father(V16.42, Z80.42) Status:Active Unknown Family Member Name Dates Details : Mother, Father Status:Active Family history of hypertensi on: Mother, Father(V17.49, Z82.49) Status:Active Family history of congestive heart failure: Mother(V17.49, Z82.49) Status:Active Family history of kidney dis ease: Father(V18.69, Z84.1) Status:Active Family history of malignant neoplasm of prostate: Father(V16.42, Z80.42) Status:Active Unknown Family Member Name Dates Details : Mother, Father Status:Active Family history of hypertensi on: Mother, Father(V17.49, Z82.49) Status:Active Family history of congestive heart failure: Mother(V17.49, Z82.49) Status:Active Family history of kidney dis ease: Father(V18.69, Z84.1) Status:Active Family history of malignant neoplasm of prostate: Father(V16.42, Z80.42) Status:Active Advance Directives No Advanced Directives Records FoundHealthcare Agents on File Name Relationship Healthcare Agent Relationship Communication Natalie Parisi Spouse Health Care Agent [phone] (Work)[phone] ([email or web address] on File Name Relationship Healthcare Agent Relationship Communication Natalie Parisi Spouse Health Care Agent [phone] (Work)[phone] ([email or web address] File Name Relationship Healthcare Agent Relationship Communication Natalie Parisi Spouse Health Care Agent [phone] (Work)[phone] ([email or web address] Directive Response Recorded Date/ Time Do you have a Healthcare Power of Academic Coordinator? Yes February 09, 2025 6:51am Healthcare Agents on File Name Relationship Healthcare Agent Relationship Communication Natalie Parisi Spouse Health Care Agent [email or web address] Healthcare Agents on File Name Relationship Healthcare Agent Relationship Communication Natalie Parisi Spouse Health Care Agent [email or web address] Chief Complaint RT SMALL FINGER INJURY* Medicare wellness exam. Patient here for health maintenance visit. Reviewed all Past history, ROS, and preventative measures. * Pt reports 1 1/2 weeks ago he fell while running and broke his finger and his nose. Records reviewed. * Colonoscopy 2018 - due for repeat colonoscopy. . Imms are UTD. * Medicare wellness exam. Patient here for health maintenance visit. Reviewed all Past history, ROS, and preventative measures. * Pt reports 1 1/2 weeks ago he fell while running and broke his finger and his nose. Records reviewed. He has followed up with the specialists and is wearing a splint on his right fifth finger. He hassutures in his right forehead and right hand that been present for 9 days and he asks if I can remove them today. * Colonoscopy 2018 - due for repeat colonoscopy. Imms are UTD. He has received the COVID-19 vaccines. * Medicare wellness exam. Patient here for health maintenance visit. Reviewed all Past history, ROS, and preventative measures. * Pt reports 1 1/2 weeks ago he fell while running and broke his finger and his nose. Records reviewed. He has followed up with the specialists and is wearing a splint on his right fifth finger. He hassutures in his right forehead and right hand that been present for 9 days and he asks if I can remove them today. * Colonoscopy 2018 - due for repeat colonoscopy. Imms are UTD. He has received the COVID-19 vaccines. right small finger p1 fxright small finger p1 fx* 6 month fu HLD. Refill Simvastatin. * HLD recheck -- Patient taking medications correctly. No SE's of muscle pain or joint pain. No CP, edema, myalgias. * Just closed on a house [place] of [place]. * 6 month fu HLD. Refill Simvastatin. * HLD recheck -- Patient taking medications correctly. No SE's of muscle pain or joint pain. No CP, edema, myalgias. * Just closed on a house [place] of [place]. * I reviewed the patient's previous notes, labs, consults and/or other results today during this visit. He had finger surgery for a fracture earlier this year and he has done well. He almost has full range of motion of the finger now. 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 * Medicare wellness exam. Patient here for health maintenance visit. Reviewed all Past history, ROS, and preventative measures. * Coumadin being monitored by coumadin clinic. * Cataracts in both eyes - minor and will get corrected soon. * Medicare wellness exam. Patient here for health maintenance visit. Reviewed all Past history, ROS, and preventative measures. Patient reports he is feeling well with no current complaints. He does not need any refills at this time. * Coumadin being monitored by coumadin clinic. * Cataracts in both eyes - minor and will get corrected soon. * Hospital f/u from [facility] on 04/04-04/05. Pt was having chest pressure, has resolved. Has not recurred since then. EKG's were good and labs were good. I reviewed the results from the emergency room and hospital stay. The only significant abnormality was that his calcium was low on the day of discharge a s 7.7. He says he did not receive IV fluids in the hospital. * This chest pressure started when pt had returned from vacation and was watching TV and then felt chest pressure. No SOB, N/V, no radiation, diaphoresis. No associated heartburn. He does like spicy foods. No increased caffeine - 3-4 cups per day. No new activity prior. He says there was no soreness in his chest wall or muscles. There was no rash. He did not have a cough or other respiratory symptoms. He is on Coumadin and takes it daily for recurrent DVTs and a pulmonary embolism in the past. clogged ears* F/U 6 months for HLD. HLD recheck -- Patient taking medications correctly. No SE's of muscle pain or joint pain. No CP, edema, myalgias. * Gets INR every month in coumadin clinic and they adjust dose. Has been stable. Reason for Referral Specialty Diagnoses / Procedures Referred By Facundo ghosh Referred To Contact Gastroenterology Diagnoses Tubular adenoma of colon Procedures Colonoscopy Diagnostic VT COLONOSCOPY FLX DX W/COLLJ SPEC WHEN PFRMD VT COLONOSCOPY W/BIOPSY SINGLE/MULTIPLE VT COLSC FLX W/RMVL OF TUMOR POLYP LESION SNARE TQ VT COLSC FLX W/REMOVAL LESION BY HOT BX FORCEPS Nupur Collier Nereida, SPORTS COMMENTATOR-SENIOR CHEMICAL ENGINEER [id number] Department [place] [address] Referral ID Status Reason Start Date Expiration Date V isits Requested Visits Authorized [id number] Authorized 08/26/2023 08/25/2024 1 1 Chief Complaint and Reason for Visit Chief Complaint Admit Date CHEST PAIN February 09, 2025 6:50 am Additional Source Comments (unrecognized sect ion and content) No Status Records FoundNo Status Records FoundNo Status Records FoundNo Status Records FoundNo Status Records FoundNo Status Records FoundNo Status Records FoundNo Status Records FoundNo Status Records FoundNo Status Records Found INFORMATION SOURCE (unrecogn ized section and content) DATE CREATED AUTHOR 02/10/2018 [facility] [place] [place] DATE CREATED AUTHOR AUTHOR'S ORGANIZ ATION 10/18/2021 [facility] [place] DATE CREATED AUTHOR AUTHOR'S ORGANIZ ATION 04/19/[address] [facility] DATE CREATED AUTHOR AUTHOR'S ORGANIZ ATION 05/06/2023 [employer] DATE CREATED AUTHOR AUTHOR'S ORGANIZ ATION 05/08/2023 [facility] DATE CREATED AUTHOR AUTHOR'S ORGANIZ ATION 04/17/2024 [facility] DATE CREATED AUTHOR AUTHOR'S ORGANIZ ATION 11/11/2024 [facility] DATE CREATED AUTHOR AUTHOR'S ORGANIZ ATION 02/15/2025 [facility] DATE CREATED AUTHOR AUTHOR'S ORGANIZ ATION 06/01/2025 [facility] DATE CREATED AUTHOR AUTHOR'S ORGANIZ ATION 07/05/2025 [facility] <item> Privacy Markings (unrecogniz ed section and content) Section Author: Mae Mittal PROHIBITION ON REDISCLOSURE OF CONFIDENTIAL INFORMATION This notice accompanies a disclosure of information concerning a client made to you with the consent of such client. Reason for Visit (unrecogniz ed section and content) Reason Comments Leg Pain left Reason Comments Hyperlipidemia Reason Comments Follow-up Reason Comments Medicare Annual Wellness Visit [facility] Specialty Diagnoses / Procedures Referred By Contac t Referred To Contact Gastroenterology Diagnoses Tubular adenoma of colon Procedures Colonoscopy Diagnostic VT COLONOSCOPY FLX DX W/COLLJ SPEC WHEN PFRMD VT COLONOSCOPY W/BIOPSY SINGLE/MULTIPLE VT COLSC FLX W/RMVL OF TUMOR POLYP LESION SNARE TQ VT COLSC FLX W/REMOVAL LESION BY HOT BX FORCEPS Nupur Collier, SPORTS COMMENTATOR-SENIOR CHEMICAL ENGINEER [id number] [address] Department [place] [address] Referral ID Status Reason Start Date Expiration Date V isits Requested Visits Authorized [id number] Authorized 08/26/2023 08/25/2024 1 1 Reason Comments Hyperlipidemia Hypertension Specialty Diagnoses / Procedures [facility] Referred To Contact Primary Care Diagnoses Routine general medical examination at health care facility Procedures 1 Year Follow Up In [facility] - [place] [address] [place] [address] Phone: tel: fax: Referral ID Status Reason Start Date Expiration Date V isits Requested Visits Authorized [id number] Authorized 02/22/2024 02/21/2025 1 1 Reason Comments Hypertension Hyperlipidemia Reason Comments New Patient Visit Specialty Diagnoses / Procedures Referred By Contarcadio t Referred To Contact Otolaryngology Diagnoses Chronic nasal congestion [place] [address] [place] [address] Phone: tel: fax: Referral ID Status Reason Start Date Expiration Date Visits Requested Visits Authorized [id number] Authorized Specialty Services Required 05/16/2025 05/16/2026 2 2 Care Teams (unrecognized sec tion and content) Associate Director Of Sales Relationship Specialty [place] [address] [place] [address] PCP - General 11/17/18 [place] [address] [place] [address] PCP - [facility] Attributed Provider 08/24/21 Associate Director Of Sales Relationship Specialty [place] [address] [place] [address] PCP - General 11/17/18 [place] [address] [place] [address] PCP - [facility] Attributed Provider 08/24/21 Associate Director Of Sales Relationship Specialty [place] [address] [place] [address] PCP - General 11/17/18 [place] [address] [place] [address] PCP - [facility] Attributed Provider 08/24/21 Associate Director Of Sales Relationship Specialty [place] [address] [place] [address] PCP - General 11/17/18 [place] [address] [place] [address] PCP - [facility] Attributed Provider 08/24/21 Associate Director Of Sales Relationship Specialty [place] [address] [place] [address] PCP - General 11/17/18 [place] [address] [place] [address] PCP - [facility] Attributed Provider 08/24/21 Associate Director Of Sales Relationship Specialty [place] [address] [place] [address] PCP - General 11/17/18 [place] [address] [place] [address] PCP - [facility] Attributed Provider 08/24/21 Associate Director Of Sales Relationship Specialty [place] [address] [place] [address] PCP - General 11/17/18 Associate Director Of Sales Relationship Specialty [place] [address] [place] [address] PCP - General 11/17/18 [place] [address] [place] [address] PCP - [facility] Attributed Provider 02/22/24 Associate Director Of Sales Relationship Specialty [place] [address] [place] [address] PCP - General 11/17/18 [place] [address] [place] [address] [facility] Attributed Provider 02/22/24 Team Status: Active Member Role Status Dates Russ Rosen Primary Care Provider Active Team Status: Inactive Member Role Status Dates Dr. Patricio Gutierrez , DO Emergency Provider Active Start: February 09, 2025 End: February 09, 2025 Russ Mike MD, [facility] Primary Care Provider Active Start: February 09, 2025 End: February 09, 2025 Associate Director Of Sales Relationship Specialty [place] [address] [place] [address] PCP - General 11/17/18 [place] [address] [place] [address] PCP - [facility] Attributed Provider 02/22/24 Associate Director Of Sales Relationship Specialty [place] [address] [place] [address] PCP - General 11/17/18 [place] [address] [place] [address] PCP - [facility] Attributed Provider 02/22/24 Goals (unrecognized section and content) Goals may be documented in a n alternate section FOR RECORDS PERTAINING TO PATIENTS WHO ARE OR HAVE BEEN ENROLLED IN A CHEMICAL DEPENDENCY/SUBSTANCEABUSE PROGRAM, SOME INFORMATION MAY BE OMITTED. This clinical summary was aggregated from multiple sources. Caution should be exercised in using it in the provision of clinical care. This summary normalizes information from multiple sources, and as a consequence, information in this document may materially change the coding, format and clinical context of patient data. In addition, data may be omitted in some cases. CLINICAL DECISIONS SHOULD BE BASED ON THE PRIMARY CLINICAL RECORDS. [facility] provides no warranty or guarantee of the accuracy or completeness of information in this document.
[2025-08-05 12:27] VITALS: BP 143/74; PULSE 63; RESP 18; TEMP 36.6; O2SAT 97
== END 2025-08-05 12:34 | disposition home or self-care (01) ==
PROVIDERS: Emergency Provider Student in an Organized Health Care Education/Training Program; Visit Provider Student in an Organized Health Care Education/Training Program
DX: S80.02XA Contusion of left knee, initial encounter (principal); Z86.718 Personal history of other venous thrombosis and embolism; S60.222A Contusion of left hand, initial encounter; E78.5 Hyperlipidemia, unspecified; S60.221A Contusion of right hand, initial encounter; I10 Essential (primary) hypertension; T14.8XXA Other injury of unspecified body region, initial encounter; Z79.01 Long term (current) use of anticoagulants; W17.89XA Other fall from one level to another, initial encounter; Y93.A1 Activity, exercise machines primarily for cardiorespiratory conditioning; Z79.899 Other long term (current) drug therapy
CPT/HCPCS: 70450; 72125; 73130; 73560; 99282